=== PATIENT | male | born 1950 | race African-American/Black ===

== ENCOUNTER → 2017-05-04 | Outpatient (CLI) | payer MEDICARE | END | disposition home or self-care (01) | LOC: LAB 08:34 | PROVIDERS: ATTEND Internal Medicine Endocrinology, Diabetes & Metabolism | DX: E10.42 Type 1 diabetes mellitus with diabetic polyneuropathy (principal) | CPT/HCPCS: 36415; 82947; 84681 ==

== ENCOUNTER → 2018-07-15 | Outpatient (CLI) | payer MEDICARE ==
--- NOTE | 2018-07-15 17:58 | RAD ---
Bilateral lower extremity arterial ultrasound, 07/15/2018: HISTORY: Peripheral vascular disease, nonhealing right foot wound Duplex evaluation of the major arteries in both lower extremities was performed including grayscale, color-flow and spectral Doppler analysis. There are mild scattered atherosclerotic plaques bilaterally. The right common femoral artery demonstrates a biphasic Doppler waveform. The right superficial femoral and popliteal Doppler waveforms are predominantly triphasic. No significant focal velocity acceleration is seen to suggest high-grade femoral-popliteal stenosis. A patent posterior tibial artery is present in the right lower leg demonstrating monophasic Doppler waveforms. A patent peroneal artery could not be visualized in the right lower leg. The anterior tibial Doppler waveform is biphasic while the right dorsalis pedis artery demonstrates a monophasic Doppler waveform. On the left, the common femoral Doppler waveform is biphasic. The left superficial femoral and popliteal Doppler waveforms are predominantly triphasic. No significant focal velocity acceleration is seen in these regions to suggest high-grade femoral-popliteal stenosis. The posterior tibial artery in the left lower leg is patent demonstrating a biphasic Doppler waveform proximally, and a monophasic Doppler waveforms distally. A patent peroneal artery could not be visualized in the left lower leg. The left anterior tibial and dorsalis pedis arteries are patent demonstrating monophasic Doppler waveforms. IMPRESSION: 1. Mild scattered atherosclerotic plaquing. 2. No duplex evidence of high-grade femoral-popliteal arterial stenosis. 3. Nonvisualization of the peroneal arteries in both lower legs suggesting occlusions. 4. Patent posterior tibial, anterior tibial and dorsalis pedis arteries bilaterally with mild degradation of their Doppler waveforms. Electronically signed by: Amos Solis MD (07/15/2018 5:55 PM) [facility]
== END | disposition home or self-care (01) ==
LOC: US 13:59
PROVIDERS: ATTEND Podiatrist Foot & Ankle Surgery
DX: S91.301D Unspecified open wound, right foot, subsequent encounter (principal); I70.291 Other atherosclerosis of native arteries of extremities, right leg; E11.9 Type 2 diabetes mellitus without complications; X58.XXXD Exposure to other specified factors, subsequent encounter
CPT/HCPCS: 93925

== ENCOUNTER → 2018-07-22 | Outpatient (CLI) | payer MEDICARE ==
[2018-07-22 12:30] LABS: ALBUMIN 4.1 g/dL (3.4-5.0); C-REACTIVE PROTEIN 2.7 mg/L (0-3.3); CALCIUM 9.4 mg/dL (8.5-10.1); CREATININE 1.3 mg/dL (0.7-1.3); GFR 66.8; POTASSIUM 4.4 mmol/L (3.5-5.1); TOTAL BILIRUBIN 0.7 mg/dL (0.2-1.0); TOTAL PROTEIN 8.2 g/dL (6.4-8.2)
== END | disposition home or self-care (01) ==
LOC: PMGWOUND 09:59
PROVIDERS: ATTEND Emergency Medicine Undersea and Hyperbaric Medicine
DX: E11.621 Type 2 diabetes mellitus with foot ulcer (principal); L97.512 Non-pressure chronic ulcer of other part of right foot with fat layer exposed; E11.51 Type 2 diabetes mellitus with diabetic peripheral angiopathy without gangrene; I10 Essential (primary) hypertension; K21.9 Gastro-esophageal reflux disease without esophagitis; I25.10 Atherosclerotic heart disease of native coronary artery without angina pectoris
CPT/HCPCS: 11042; 36415; 80053; 84134; 85651; 86140

== ENCOUNTER → 2018-07-29 | Outpatient (CLI) | payer MEDICARE | END | disposition home or self-care (01) | LOC: PMGWOUND 11:31 | PROVIDERS: ATTEND Emergency Medicine Undersea and Hyperbaric Medicine | DX: E11.621 Type 2 diabetes mellitus with foot ulcer (principal); L97.512 Non-pressure chronic ulcer of other part of right foot with fat layer exposed; E11.51 Type 2 diabetes mellitus with diabetic peripheral angiopathy without gangrene; I10 Essential (primary) hypertension; K21.9 Gastro-esophageal reflux disease without esophagitis; I25.10 Atherosclerotic heart disease of native coronary artery without angina pectoris | CPT/HCPCS: 93923; 99214; G0463 ==

== ENCOUNTER → 2018-08-05 | Outpatient (CLI) | payer MEDICARE | END | disposition home or self-care (01) | LOC: PMGWOUND 09:02 | PROVIDERS: ATTEND Emergency Medicine Undersea and Hyperbaric Medicine | DX: E10.621 Type 1 diabetes mellitus with foot ulcer (principal); L97.512 Non-pressure chronic ulcer of other part of right foot with fat layer exposed; E10.51 Type 1 diabetes mellitus with diabetic peripheral angiopathy without gangrene; L84 Corns and callosities; I10 Essential (primary) hypertension; K21.9 Gastro-esophageal reflux disease without esophagitis; I25.10 Atherosclerotic heart disease of native coronary artery without angina pectoris | CPT/HCPCS: 99213 ==

== ENCOUNTER 2018-08-12 08:00 | Emergency (ER) | payer MEDICARE ==
[~2018-08-12] VITALS: Ht 182.9 cm; Wt 98.9 kg
--- NOTE | 2018-08-12 10:06 | PHYS DOC ---
Past Medical History Past Medical History: CAD, Diabetes-Type II, Hypertension, Vascular Disease, Other Past Surgical History: Appendectomy, Knee Replacement, Other Additional Past Surgical Histo: RIGHT FOOT PARTIAL AMPUTATION,STENT RIGHT LEG Alcohol Use: Occasionally Drug Use: None Adult General Chief Complaint Chief Complaint: BLOOD SUGAR PROBLEM [facility] HPI Patient is a 67 year old [f__sex] who presents with [] Review of Systems Review of Systems Constitutional: Denies fever or chills [] Eyes: Denies change in visual acuity, redness, or eye pain [] HENT: Denies nasal congestion or sore throat [] Respiratory: Denies cough or shortness of breath [] Cardiovascular: No additional information not addressed in HPI [] GI: Denies abdominal pain, nausea, vomiting, bloody stools or diarrhea [] : Denies dysuria or hematuria [] Musculoskeletal: Denies back pain or joint pain [] Integument: Denies rash or skin lesions [] Neurologic: Denies headache, focal weakness or sensory changes [] Endocrine: Denies polyuria or polydipsia [] All other systems were reviewed and found to be within normal limits, except as documented in this note. Allergies Allergies Allergies Coded Allergies Type Severity Reaction Last Updated Verified No Known Drug Allergies 06/17/14 No Physical Exam Physical Exam Constitutional: Well developed, well nourished, no acute distress, non-toxic appearance. [] HENT: Normocephalic, atraumatic, bilateral external ears normal, oropharynx moist, no oral exudates, nose normal. [] Eyes: PERRLA, EOMI, conjunctiva normal, no discharge. [] Neck: Normal range of motion, no tenderness, supple, no stridor. [] Cardiovascular:Heart rate regular rhythm, no murmur [] Lungs & Thorax: Bilateral breath sounds clear to auscultation [] Abdomen: Bowel sounds normal, soft, no tenderness, no masses, no pulsatile masses. [] Skin: Warm, dry, no erythema, no rash. [] Back: No tenderness, no CVA tenderness. [] Extremities: No tenderness, no cyanosis, no clubbing, ROM intact, no edema. [] Neurologic: Alert and oriented X 3, normal motor function, normal sensory function, no focal deficits noted. [] Psychologic: Affect normal, judgement normal, mood normal. [] Current Patient Data Vital Signs Vital Signs Date Time Temp Pulse Resp B/P (MAP) Pulse Ox O2 Delivery O2 Flow Rate FiO2 08/12/18 08:09 97.7 101 24 155/75 (101) 98 Room Air 97.7 Lab Values Laboratory Tests Test 08/12/18 08:08 Glucose (Fingerstick) 165 mg/dL (70-99) H EKG EKG [] Radiology/Procedures Radiology/Procedures [] Course & Med Decision Making Course & Med Decision Making Pertinent Labs and Imaging studies reviewed. (See chart for details) [] Dragon Disclaimer Dragon Disclaimer This electronic medical record was generated, in whole or in part, using a voice recognition dictation system. Departure Departure Impression: Primary Impression: Complication of insulin pump Disposition: 01 HOME, SELF-CARE Condition: STABLE Referrals: HALI FRANZ MD (PCP) Patient Instructions: Insulin Pumps Additional Instructions: Continue to monitor your blood sugars closely throughout the day today. 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 RAMBO MONTERROSO APRN Aug 12, 2018 10:06
[2018-08-12 10:10] VITALS: BP 137/60
== END 2018-08-12 10:30 | disposition home or self-care (01) ==
LOC: ER 08:00
DX: T85.898A Other specified complication of other internal prosthetic devices, implants and grafts, initial encounter (principal); E11.649 Type 2 diabetes mellitus with hypoglycemia without coma; I10 Essential (primary) hypertension; I25.10 Atherosclerotic heart disease of native coronary artery without angina pectoris; Z79.4 Long term (current) use of insulin; Z95.5 Presence of coronary angioplasty implant and graft; Z90.89 Acquired absence of other organs; Z86.79 Personal history of other diseases of the circulatory system; Y82.8 Other medical devices associated with adverse incidents; Y92.89 Other specified places as the place of occurrence of the external cause
CPT/HCPCS: 82962; 99284

== ENCOUNTER → 2018-08-12 | Outpatient (CLI) | payer MEDICARE ==
[2018-08-12 08:09] VITALS: BP 155/75
== END ==
LOC: PMGWOUND 10:44
PROVIDERS: ATTEND Emergency Medicine Undersea and Hyperbaric Medicine
DX: E10.621 Type 1 diabetes mellitus with foot ulcer (principal); L97.512 Non-pressure chronic ulcer of other part of right foot with fat layer exposed; E10.51 Type 1 diabetes mellitus with diabetic peripheral angiopathy without gangrene; L84 Corns and callosities; I10 Essential (primary) hypertension; K21.9 Gastro-esophageal reflux disease without esophagitis; I25.10 Atherosclerotic heart disease of native coronary artery without angina pectoris
CPT/HCPCS: 99213

== ENCOUNTER → 2018-11-11 | Outpatient (CLI) | payer MEDICARE ==
[~2018-11-11] MED LIST: CLOP75TA PO; LINZESS290 MCG PO; LISI-130 PO; PANT20TA2 PO; TAMS0.4C2 PO
[2018-11-11 10:10] VITALS: BP 152/72
== END | disposition home or self-care (01) ==
LOC: PMGWOUND 11:08
PROVIDERS: ATTEND Emergency Medicine Undersea and Hyperbaric Medicine
DX: E11.621 Type 2 diabetes mellitus with foot ulcer (principal); L97.513 Non-pressure chronic ulcer of other part of right foot with necrosis of muscle; L97.412 Non-pressure chronic ulcer of right heel and midfoot with fat layer exposed; E11.51 Type 2 diabetes mellitus with diabetic peripheral angiopathy without gangrene; E11.65 Type 2 diabetes mellitus with hyperglycemia; L84 Corns and callosities; I10 Essential (primary) hypertension; F41.9 Anxiety disorder, unspecified; E78.5 Hyperlipidemia, unspecified; I25.10 Atherosclerotic heart disease of native coronary artery without angina pectoris; K21.9 Gastro-esophageal reflux disease without esophagitis; Z79.4 Long term (current) use of insulin
CPT/HCPCS: 10060; 97597

== ENCOUNTER 2020-04-07 16:28 | Emergency (ER) | payer MEDICARE ==
[~2020-04-07] VITALS: Ht 182.9 cm; Wt 90.9 kg
[2020-04-07] MEDS ORDERED: traMADol 50 MG TABLET PO ONE (17:15)
--- NOTE | 2020-04-07 17:17 | PHYS DOC ---
Past Medical History Past Medical History: CAD, Diabetes-Type I, Hypertension, Vascular Disease Past Surgical History: Appendectomy, Other Additional Past Surgical Histo: RIGHT FOOT PARTIAL AMPUTATION,STENT RIGHT LEG, RIGHT KNEE SCOPE Smoking Status: Never Smoker Alcohol Use: Occasionally Drug Use: None General Adult EDM: Chief Complaint: LOWER EXT PAIN HPI: HPI: Patient is a 69 year old [male patient who presents with left foot pain. Patient states that he has some diabetic foot ulcers on his toes, which started over the last couple days. States he talk to his primary care provider earlier today, had some lab work done, and a sono gram of his left lower leg. States he continued has discomfort, so his primary care advised him to go to the ER. Patient states that he has been walking on his leg and foot as normal. Does have some discomfort. States that his primary care provider gave him a pain pill, but it seem to help. Denies any fever recently. States his blood sugars have been well controlled recently. States he has been using a gel foam on his digits recently, he is concerned and does not want to have another amputation of his left foot, as he had on his right foot a year ago Review of Systems: Review of Systems: Constitutional: Denies fever or chills. [] Eyes: Denies change in visual acuity. [] HENT: Denies nasal congestion or sore throat. [] Respiratory: Denies cough or shortness of breath. [] Cardiovascular: Denies chest pain or edema. [] GI: Denies abdominal pain, nausea, vomiting, bloody stools or diarrhea. [] : Denies dysuria. [] Musculoskeletal: Denies back pain or joint pain reports discomfort to left foot. And digits. [] Integument: Denies rash. Does report lesions on great toe second toe and third toe of left foot [] Neurologic: Denies headache, focal weakness or sensory changes. [] Endocrine: Denies polyuria or polydipsia. [] Lymphatic: Denies swollen glands. [] Psychiatric: Denies depression or anxiety. [] Heart Score: Risk Factors: Risk Factors: DM, Current or recent (<one month) smoker, HTN, HLP, family history of CAD, obesity. Risk Scores: Score 0 - 3: 2.5% MACE over next 6 weeks - Discharge Home Score 4 - 6: 20.3% MACE over next 6 weeks - Admit for Clinical Observation Score 7 - 10: 72.7% MACE over next 6 weeks - Early Invasive Strategies Current Medications: Current Medications Medications (Trade) Dose Ordered Sig/Dave Start Time Stop Time Status Last Admin Dose Admin Tramadol HCl (Ultram) 50 mg 1X ONCE 04/07/20 17:15 04/07/20 17:16 UNV Allergies: Allergies: Allergies Coded Allergies Type Severity Reaction Last Updated Verified No Known Drug Allergies 11/11/18 No Physical Exam: PE: Constitutional: Well developed, well nourished, no acute distress, non-toxic appearance. [] Cardiovascular:Heart rate regular rhythm, no murmur [] Lungs & Thorax: Bilateral breath sounds clear to auscultation [] Abdomen: Bowel sounds normal, soft, no tenderness, no masses, no pulsatile masses. [] Skin: Warm, dry, no erythema, no rash. Left great toe with approximately 3 mm x 6 mm lesion, second toe with 2 mm x 2 mm lesion, third toe with 1 mm x 3 mm laceration. Erythematous base without surrounding swelling. No tenderness. No active bleeding noted. [] Back: No tenderness, no CVA tenderness. [] Extremities: No tenderness, no cyanosis, no clubbing, ROM intact, no edema. Capillary refill present. Distal foot does feel minimally cooler compared to base of foot. Pedal pulse intact. negative Homans sign to left leg. Right BKA. [] Neurologic: Alert and oriented X 3, normal motor function, normal sensory function, no focal deficits noted. [] Psychologic: Affect normal, judgement normal, mood normal. [] Current Patient Data: Vital Signs: Vital Signs Date Time Temp Pulse Resp B/P (MAP) Pulse Ox O2 Delivery O2 Flow Rate FiO2 04/07/20 16:30 99.3 87 14 159/72 (101) 99 Room Air 99.3 EKG: EKG: [] Radiology/Procedures: Radiology/Procedures: No acute fracture or dislocation of the of the left foot is seen. Mild to moderate degenerative changes are seen involving the left ankle joint resting of subchondral sclerosis and associated osteophyte formation. Mild to moderate degenerative changes are seen involving the medial aspect of the subtalar joint. Mild to moderate degenerative changes are seen throughout the talonavicular mid tarsal joints. Mild to moderate degenerative changes are seen involving the tarsal metatarsal joints and scattered throughout the MTP and interphalangeal joints. Moderate enthesophyte formation seen involving the plantar aspect of the posterior left calcaneus. There is no CT evidence of osteomyelitis involving the left foot. Extensive calcification of the distal posterior tibial and peroneal arteries and their branches is noted. IMPRESSION: Degenerative changes are seen involving the left foot as discussed above. No acute osseous abnormality is seen. Electronically signed by: Ramon Carlos MD (04/07/2020 5:36 PM) [id number] [] Course & Med Decision Making: Course & Med Decision Making Pertinent Labs and Imaging studies reviewed. (See chart for details) [Discussed lab findings and imaging findings without noted concerns. Believed due to chronic venous insufficiency and diabetic peripheral neuropathy Patient had ultrasound earlier today of leg and foot, awaiting results with PCP Will try short course of neuropathic medications, patient currently taking oxycodone 10 mg at home from PCP] Deondre Disclaimer: Dragon Disclaimer: This electronic medical record was generated, in whole or in part, using a voice recognition dictation system. Departure Departure Impression: Primary Impression: Peripheral neuropathic pain Disposition: 01 HOME, SELF-CARE Condition: GOOD Referrals: HALI FRANZ MD (PCP) Patient Instructions: Diabetic Neuropathy Additional Instructions: As we discussed, take the gabapentin as prescribed. Take your home pain medications as prescribed as well. You may consider using a lotion on your toes for the dryness, consider one called Aquaphor. Continue using the other products you have been using on your sores on your toes. Follow-up with your primary care provider in the next week. Scripts Gabapentin (GABAPENTIN) 300 Mg Capsule 300 MG PO TID for NEUROGENIC PAIN for 14 Days, #42 CAP Prov: REGLA MURCIA APRN 04/07/20 Justicifation of Admission Dx: Justifications for Admission: Justification of Admission Dx: N/A REGLA MURCIA APRN Apr 07, 2020 17:17
[2020-04-07 17:29] LABS: BASO # 0.1 x10^3/uL (0.0-0.2); BASO % 1 % (0-3); EOS % 1 % (0-3); HEMOGLOBIN 13.1 g/dL (13.0-17.5); LYMPH # 2.5 x10^3/uL (1.0-4.8); LYMPH % 25 % (24-48); MEAN CORPUSCULAR HEMOGLOBIN 32 pg (25-35); MEAN CORPUSCULAR HGB CONC 35 g/dL (31-37); MEAN CORPUSCULAR VOLUME 93 fL (79-100); MONO # 1.4 x10^3/uL (0.0-1.1); MONO % 14 % (0-9); NEUT # 5.9 x10^3/uL (1.8-7.7); NEUT % 59 % (31-73); PLATELET COUNT 271 x10^3/uL (140-400); RED BLOOD COUNT 4.08 x10^6/uL (4.30-5.70); RED CELL DISTRIBUTION WIDTH 13.8 % (11.5-14.5)
[2020-04-07] MEDS ORDERED: MORPHINE SULFATE 2 MG/ML VIAL. IV ONE (17:30)
--- NOTE | 2020-04-07 17:39 | RAD ---
CT scan of the left foot without contrast 04/07/2020 TECHNIQUE: Left foot pain. History of osteomyelitis with amputations involving the right foot. TECHNIQUE: Unenhanced, contiguous, 0.625 mm axial sections were obtained through the left foot. 2 mm sagittal, coronal and axial images were obtained. One or more of the following individualized dose reduction techniques were utilized for this study: 1. Automated exposure control. 2. Adjustment of the mA and/or kV according to patient size. 3. Use of iterative reconstruction technique. FINDINGS: No previous imaging studies are available for comparison. No acute fracture or dislocation of the of the left foot is seen. Mild to moderate degenerative changes are seen involving the left ankle joint resting of subchondral sclerosis and associated osteophyte formation. Mild to moderate degenerative changes are seen involving the medial aspect of the subtalar joint. Mild to moderate degenerative changes are seen throughout the talonavicular mid tarsal joints. Mild to moderate degenerative changes are seen involving the tarsal metatarsal joints and scattered throughout the MTP and interphalangeal joints. Moderate enthesophyte formation seen involving the plantar aspect of the posterior left calcaneus. There is no CT evidence of osteomyelitis involving the left foot. Extensive calcification of the distal posterior tibial and peroneal arteries and their branches is noted. IMPRESSION: Degenerative changes are seen involving the left foot as discussed above. No acute osseous abnormality is seen. Electronically signed by: Ramon Carlos MD (04/07/2020 5:36 PM) [id number]
[2020-04-07 18:12] LABS: CALCIUM 8.3 mg/dL (8.5-10.1); CREATININE 1.3 mg/dL (0.7-1.3); GFR 66.4; POTASSIUM 4.2 mmol/L (3.5-5.1)
[2020-04-07 18:41] VITALS: BP 132/61
[2020-04-07] MEDS ORDERED: GABA300C18 PO (19:37)
== END 2020-04-07 19:46 | disposition home or self-care (01) ==
LOC: ER 16:28
DX: E10.42 Type 1 diabetes mellitus with diabetic polyneuropathy (principal); E10.621 Type 1 diabetes mellitus with foot ulcer; L97.529 Non-pressure chronic ulcer of other part of left foot with unspecified severity; I10 Essential (primary) hypertension; I25.10 Atherosclerotic heart disease of native coronary artery without angina pectoris; Z95.5 Presence of coronary angioplasty implant and graft
CPT/HCPCS: 36415; 73700; 80048; 83605; 84550; 85025; 96374; 99285; J2270

== ENCOUNTER 2020-04-14 16:56 | Inpatient (IN) | payer MEDICARE ==
[~2020-04-14] VITALS: Ht 182.9 cm; Wt 95.0 kg
--- NOTE | 2020-04-14 12:30 | NUR ---
Wound Care Wound Type/Assessment: Pt returned to [facility] wound clinic today after a one year hiatus. He was last seen here in April 2019 for Right BKA. Pt presents today with Left great and second toe DFUs, present for approximately 1-2 weeks. Pt is unsure of cause, but thinks they may have developed from ill-fitting shoes. Pt was seen by Dr. Ceja last week who ordered a CT, placed pt on Doxycycline and sent referral to Cardiology for LLE vascular consult. Pt's left dorsal great toe is dusky benz and red, macerated with a moderate amount of odor. L second toe appears to be dry blood blister, stable. Left great toe debrided in clinic by Dr. Panda, wound with muscle necrosis, no bleeding in base, very unhealthy appearing, and dorsal foot dark red and edematous. Tissue culture obtained during debridement, Dr. Panda spoke to pt about admission for surgical debridement by Vascular, and IV Abx. Treatment Recommendations/Plan: Admit for left great toe infection. Surgical debridement, IV Abx, further imaging. Education provided: to pt re: Diabetic foot infection, course of treatment, etc. Offloading surface/device: open toe shoe Recommended Referrals/Tests: Arterial work-up of LLE, imaging of L foot Discharge Recommendations for dressings: applied Iodoflex to wound bed today, defer to Vascular surgeon for dressings post-op.
[~2020-04-14 16:56] MED LIST changes: +GABA300C18 PO
[2020-04-14] MEDS ORDERED: ACETAMINOPHEN 325 MG TABLET. PO PRN (17:15)
[2020-04-14] MEDS ORDERED: ONDANSETRON PF 4 MG/2 ML VIAL. IV PRN (17:15)
[2020-04-14] MEDS ORDERED: DEXTROSE 50% 25 GM / 50ML DISP.SYRIN. IV PRN (17:15)
--- NOTE | 2020-04-14 17:33 | PDOC1 ---
History and Physical Date of Admission Date of Admission DATE: 04/14/20 TIME: 17:08 Identification/Chief Complaint Chief Complaint Left great toe wound Source Source: Patient History of Present Illness History of Present Illness Mr Velazquez is a 69yo M w/ PMHx HTN, DM2 (A1c 9), s/p prior R BKA who is directly admitted from wound care center for worsening left great toe ulcer. His left toe had a blister approximately 12 days ago, saw podiatry and was placed on doxycycline. And referred to outpatient wound care where he was previously seen in 2019. Wound care they noted they were able to debride a significant amount of devitalized tissue and had poor blood flow were concerned for gangrene and called for direct admission. His left second toe also has a diabetic ulcer. Past Medical History Cardiovascular: CAD, HTN, Hyperlipidemia Pulmonary: Bronchitis GI: No pertinent hx Heme/Onc: Anemia NOS Hepatobiliary: No pertinent hx Psych: No pertinent hx Rheumatologic: No pertinent hx Infectious disease: No pertinent hx Renal/: No pertinent hx Endocrine: Diabetes Past Surgical History Past Surgical History: Appendectomy, Tonsillectomy, Other Family History Family History: Diabetes, High Cholestrol, Hypertension Social History ALCOHOL: none Drugs: None Current Medications Current Medications Active Scripts Active Gabapentin 300 Mg Capsule 300 Mg PO TID 14 Days Reported Protonix (Pantoprazole Sodium) 20 Mg Tablet.dr 40 Mg PO DAILY Linzess (Linaclotide) 290 Mcg Capsule 290 Mcg PO DAILY07 Lisinopril 40 Mg Tablet 1 Tab PO DAILY Tamsulosin Hcl 0.4 Mg Cap.er.24h 1 Cap PO DAILY Clopidogrel (Clopidogrel Bisulfate) 75 Mg Tablet 1 Tab PO DAILY Allergies Allergies: Coded Allergies: No Known Drug Allergies (Unverified , 11/11/18) VTE Prophylaxis Ordered VTE Prophylaxis Devices: Contraindicated VTE Pharmacological Prophylaxi: Yes Assessment/Plan Assessment/Plan A/P: Left DM foot wound - Culture taken from wound center, sent down to lab. Will consult Vascular Surgery, ID, Wound care Diabetes type 2 on insulin pump with hemoglobin A1c 8.4, uncontrolled with target organ damage - he has removed his pump and will be placed on sliding scale and very low dose glargine 10u QHS for now CAD - cardiology to see preoperatively Hypertension - chronic Dyslipidemia - chronic stable s/p BKA on 11/[address] Nain PADRON - ADA diet, npo after midnight PPX - heparin, hold in AM FULL CODE Dispo - inpatient Justicifation of Admission Dx: Justifications for Admission: Justification of Admission Dx: Yes KATARINA RODRIGUEZ MD Apr 14, 2020 17:33
[2020-04-14 17:36] VITALS: BP 142/60
--- NOTE | 2020-04-14 17:55 | PDOC ---
Provider Note Provider Note Full note to follow. Called by Dr. Panda regarding patient from wound care clinic. Spoke to Dr. Barcenas/Nain, will plan for aortogram with run-off tomorrow if creatinine ok to rule out any significant arterial insufficiency. Prior RLE eval in 2019 w/o significant disease. Thanks. Justicifation of Admission Dx: Justifications for Admission: Justification of Admission Dx: Yes Comments: KARLA Phillip MD Apr 14, 2020 17:55
[2020-04-14] MEDS ORDERED: INSULIN LISPRO 300 UNITS/3 ML VIAL. SQ SCH (21:00)
[2020-04-14] MEDS ORDERED: INSULIN GLARGINE SYRINGE. SQ SCH (21:00)
[2020-04-14] MEDS ORDERED: GABAPENTIN 300 MG CAPSULE. PO SCH (21:00)
[2020-04-14] MEDS ORDERED: PSYLLIUM HUSK (SUGAR FREE) 1 PKT PACKET PO SCH (21:00)
[2020-04-14] MEDS ORDERED: HEPARIN for SUB-Q USE 5,000 UNIT/ML VIAL. SQ SCH (22:00)
[2020-04-15] MEDS ORDERED: PANTOPRAZOLE 40 MG TABLET.DR. PO SCH (07:30)
[2020-04-15] MEDS ORDERED: LUBIPROSTONE 24 MCG CAPSULE PO SCH (08:00)
[2020-04-15] MEDS ORDERED: LISINOPRIL 20 MG TABLET PO SCH (09:00)
[2020-04-15] MEDS ORDERED: TAMSULOSIN 0.4 MG CAP.ER.24H. PO SCH (09:00)
[2020-04-15] MEDS ORDERED: CLOPIDOGREL BISULFATE 75 MG TABLET PO SCH (09:00)
[2020-04-16] MEDS ORDERED: AMOX1TAB11 PO (13:41)
[2020-04-16] MEDS ORDERED: ASPI-612 PO (13:41)
[2020-04-16] MEDS ORDERED: INSU100V8 SQ (13:45)
[2020-04-16] MEDS ORDERED: INSU100V35 SQ (13:45)
== END 2020-04-14 18:04 | disposition short-term general hospital (02) | DRG 639 ==
LOC: 4 NORTH 16:56
PROVIDERS: ADMIT Internal Medicine; ATTEND Internal Medicine
DX: E11.621 Type 2 diabetes mellitus with foot ulcer (principal); E78.5 Hyperlipidemia, unspecified; I10 Essential (primary) hypertension; I25.10 Atherosclerotic heart disease of native coronary artery without angina pectoris; Z96.41 Presence of insulin pump (external) (internal); L97.509 Non-pressure chronic ulcer of other part of unspecified foot with unspecified severity; Z79.4 Long term (current) use of insulin; Z82.49 Family history of ischemic heart disease and other diseases of the circulatory system; Z83.3 Family history of diabetes mellitus; Z89.511 Acquired absence of right leg below knee; Z90.49 Acquired absence of other specified parts of digestive tract
CPT/HCPCS: 82962; J1815; G0378

== ENCOUNTER → 2020-04-29 | Outpatient (CLI) | payer MEDICARE ==
[2020-04-16 15:00] VITALS: BP 148/65
[~2020-04-29] MED LIST changes: +AMOX1TAB11 PO; +ASPI-886 PO; +ERTA1VIA16 IJ; +HYDR-2759 PO; +INSU100C SQ; +INSU100V35 SQ; +INSU100V37 SQ; +INSU100V6 SQ; +INSU100V8 SQ
== END | disposition home or self-care (01) ==
LOC: LAB 14:07
PROVIDERS: ATTEND Surgery
DX: Z11.59 Encounter for screening for other viral diseases (principal)
CPT/HCPCS: U0003-CS

== ENCOUNTER 2020-05-07 07:32 | Day surgery (SDC) | payer MEDICARE ==
[~2020-05-07] VITALS: Ht 182.9 cm; Wt 88.0 kg
[~2020-05-07 07:32] MED LIST changes: +ASPI-612 PO; -ASPI-886 PO; +BACITRACIN 50,000 UNIT in IV NORMAL SALINE 500ML BAG 500 ML IRR ONE; -ERTA1VIA16 IJ; -HYDR-2759 PO; +HYDROmorphone 2 MG/ML VIAL IV PRN; -INSU100C SQ; +IV RINGERS,LACTATED 1000ML 1,000 ML IV SCH; +MORPHINE SULFATE 2 MG/ML VIAL. IV PRN; +ONDANSETRON PF 4 MG/2 ML VIAL. IV PRN; +PROCHLORPERAZINE 10 MG/2 ML VIAL. IV PRN; +fentaNYL PF VIAL 100 MCG/2 ML VIAL IV PRN
[2020-05-07] MEDS ORDERED: PROPOFOL 10 MG/ML (20ML) VIAL. IV ONE (08:11)
[2020-05-07] MEDS ORDERED: DEXAMETHASONE SOD PHOS 4 MG/ML VIAL ONE (08:11)
[2020-05-07] MEDS ORDERED: LIDOCAINE 2% PF 5 ML VIAL. ONE (08:11)
[2020-05-07] MEDS ORDERED: ONDANSETRON PF 4 MG/2 ML VIAL. ONE (08:11)
[2020-05-07] MEDS ORDERED: INSU100C SQ (08:21)
[2020-05-07 08:25] LABS: BASO # 0.1 x10^3/uL (0.0-0.2); BASO % 0 % (0-3); EOS % 0 % (0-3); HEMATOCRIT 32.5 % (39.0-53.0); HEMOGLOBIN 11.1 g/dL (13.0-17.5); LYMPH # 1.8 x10^3/uL (1.0-4.8); LYMPH % 14 % (24-48); MEAN CORPUSCULAR HEMOGLOBIN 31 pg (25-35); MEAN CORPUSCULAR HGB CONC 34 g/dL (31-37); MEAN CORPUSCULAR VOLUME 91 fL (79-100); MONO # 1.9 x10^3/uL (0.0-1.1); MONO % 16 % (0-9); NEUT # 8.5 x10^3/uL (1.8-7.7); NEUT % 69 % (31-73); PLATELET COUNT 421 x10^3/uL (140-400); RED BLOOD COUNT 3.58 x10^6/uL (4.30-5.70); RED CELL DISTRIBUTION WIDTH 12.7 % (11.5-14.5); WHITE BLOOD COUNT 12.3 x10^3/uL (4.0-11.0)
[2020-05-07 08:30] LABS: CALCIUM 8.9 mg/dL (8.5-10.1); CREATININE 1.5 mg/dL (0.7-1.3); GFR 56.3; POTASSIUM 4.2 mmol/L (3.5-5.1)
[2020-05-07] MEDS ORDERED: IV RINGERS,LACTATED 1000ML 1,000 ML IV SCH (08:30)
[2020-05-07] MEDS: INSULIN LISPRO 100 UNIT/ML 3ML VIAL for OP,RR ONLY. SQ PRN ×2 (08:36→10:14)
[2020-05-07] MEDS ORDERED: fentaNYL PF VIAL 100 MCG/2 ML VIAL ONE ×2 (08:53→10:27)
[2020-05-07] MEDS ORDERED: ceFAZolin 2GM PREMIX 2 GM/50 ML BAG IV ONE (09:00)
[2020-05-07] MEDS ORDERED: SEVOFLURANE 61 TO 120 MINUTES. IH ONE (09:24)
--- NOTE | 2020-05-07 09:43 | DISCH ---
DISCHARGE INSTRUCTIONS Condition on Discharge Condition on Discharge: Stable Activity After Discharge Activity Instructions for Disc: Activity as tolerated Other activity instructions: may ambulate with post op shoe Exercise Instruction after Dis: Progress as tolerated Weight Bearing Status after Di: As tolerated Sexual Activity Restrictions: with postop shoe/front off-loading 1/2 shoe Diet after Discharge Diet after Discharge: Diabetic No Calorie Level Diet Texture: Regular Liquid Texture: Thin Liquid Wound Incision Care Wound/Incision Care: Keep wound/cast CDI Other wound/incision instructi: remove dressing in 48, then daily dry gauze dressing changes. Contacting the [facility] after DC Call your doctor for: Concerns you may have Follow-Up Follow up with: Dr. Gillette 2-3 weeks call the office for apointment [phone] Treatment/Equipment after DC Adaptive Equipment Issued: SHARON Myers APRN May 07, 2020 09:43
--- NOTE | 2020-05-07 09:54 | DISCH ---
DISCHARGE INSTRUCTIONS Condition on Discharge Condition on Discharge: Stable Activity After Discharge Activity Instructions for Disc: Activity as tolerated Other activity instructions: may ambulate with post op shoe Exercise Instruction after Dis: Progress as tolerated Weight Bearing Status after Di: As tolerated Sexual Activity Restrictions: strict heel weight bearing with front off-loading 1/2 shoe Diet after Discharge Diet after Discharge: Diabetic No Calorie Level Diet Texture: Regular Liquid Texture: Thin Liquid Wound Incision Care Wound/Incision Care: Keep wound/cast CDI Other wound/incision instructi: remove dressing in 48, then daily dry gauze dressing changes. Contacting the [facility] after DC Call your doctor for: Concerns you may have Follow-Up Follow up with: Dr. Gillette 2-3 weeks call the office for apointment [phone] Treatment/Equipment after DC Adaptive Equipment Issued: SHARON Myers APRN May 07, 2020 09:53
--- NOTE | 2020-05-07 09:59 | OP ---
DATE OF SURGERY: 05/07/2020 VASCULAR SURGERY OPERATIVE REPORT ATTENDING SURGEON: Caridad Goldberg DO. 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 PROCEDURES: 1. Left first toe amputation, including the metatarsal head. 2. Left second toe amputation, including the metatarsal head. ANESTHESIA: General. SPECIMENS: First and second toes, including the metatarsal head. ESTIMATED BLOOD LOSS: 5 mL. COMPLICATIONS: None. PREOPERATIVE INDICATIONS: The patient is a pleasant 69-year-old male who presented and saw my partner, Dr. Hunt, with findings of dry gangrenous changes of the first and second toe on the left. The patient was consented for toe amputation. The patient understood all risks, benefits, and alternatives of the procedure today prior to proceeding with surgery. OPERATIVE PROCEDURE: The patient was brought to the operating suite and placed in supine position. After establishing appropriate anesthesia, the left foot was prepped and draped in sterile fashion. Next, a timeout procedure was performed. It was confirmed that the patient did receive appropriate perioperative antibiotics and the correct operative site was marked and draped. Following this, a left first toe ray amputation incision was made, carried through skin and subcutaneous tissue. This was taken circumferentially around the second toe as well and then both toes were disarticulated from the metatarsal head. Next, the soft tissue was dissected around the first and second metatarsal and then a bone saw was used to divide the first metatarsal followed by the second metatarsal. The sesamoid bones were also sharply excised and removed. Following this, the wound was copiously irrigated with antibiotic-impregnated solution. Hemostasis was also confirmed with Bovie electrocautery. Next, the skin incision was closed using running 3-0 nylon suture followed by sterile dressing. The patient tolerated the procedure well and was transferred to the Postanesthesia Care Unit in stable condition. CARIDAD GOLDBERG DO DR: DENNIS/marbella JOB#: [id number] / [id number]
[2020-05-07] MEDS ORDERED: INSULIN LISPRO 100 UNIT/ML 3ML VIAL for OP,RR ONLY. SQ ONE ×2 (10:30)
[2020-05-07] MEDS ORDERED: HYDROcodone/APAP 5/325MG 1 TAB TABLET ONE (10:33)
[2020-05-07 10:35] VITALS: BP 160/68
[2020-05-07 10:56] LABS: % BANDS 2 % (0-9); % LYMPHS 7 % (24-48); % MONOS 18 % (0-10); % SEGS 73 % (35-66); PLT ESTIMATE ADEQUATE (ADEQUATE)
[2020-05-07] MEDS ORDERED: HYDROcodone/APAP 5/325MG 1 TAB TABLET PO ONE (11:00)
--- NOTE | 2020-05-12 09:16 | PATHOLOGY ---
[facility] Accession Number: [id number] . 01 Material submitted: . toe - LEFT FIRST AND SECOND TOES AND METATARSALS. Modifiers: left, first, second . 01 Clinical history: . Necrotic ulcer left first and second toes . 02 Diagnosis: Left first and second toes and detached first and second metatarsal heads, amputation: - Gangrenous necrosis and acute cellulitis of first and second toes with focal acute osteomyelitis of first toe. - Focal acute osteomyelitis of distal metatarsal head - proximal amputation margin negative for osteomyelitis. (JPM:maged; 05/11/2020) R 05/11/2020 1555 Local . 02 Electronically signed: . Avi Dang MD, Pathologist NPI- [id number] . 01 Gross description: . The specimen is received in formalin, labeled "Tobi Velazquez Jr., left first and second toes and metatarsals". Received are two amputated digits, which are attached to each other, measuring 7.0 x 4.8 x 3.9 cm in greatest dimensions. The bone margins are smooth and concave in appearance, consistent with disarticulation. The bone and soft tissue margins are inked as follows: Toe 1-black, toe 2-blue. The epidermal surfaces of each toe are dusky dowell-brown to brown-black and necrotic in appearance. The nail is not grossly identified on the first toe. The nail on the second toe is light lee to dowell-brown and thickened in appearance. The specimen is submitted representatively as follows: . A1 horizontal cross-section through toe 1, following decalcification A2 longitudinal cross-section through bone margin of toe 1, following decalcification A3 horizontal cross-section through toe 2, following decalcification A4 longitudinal cross section through bone margin of toe 2, following decalcification. . Also received within the specimen container are two metatarsals measuring 3.4 x 2.6 x 2.6 and 3.6 x 2.1 x 1.5 cm in greatest dimensions. The bone margins are blunt in appearance, consistent with transection. The bone margins are inked as follows: Larger metatarsal-black, smaller metatarsal-blue. The specimen is submitted representatively as follows: . A5 longitudinal cross-section through bone margin of larger metatarsal, following decalcification A6 longitudinal cross-section through bone margin of smaller metatarsal, following decalcification. (CAA; 05/10/2020) QAC/QAC 05/11/2020 1554 Local . 02 Pathologist provided ICD-10: M86.172, L03.032, I96 . 02 CPT . 518291, [id number] Specimen Comment: A courtesy copy of this report has been sent to [phone], [phone] Specimen Comment: [id number] Specimen Comment: Report sent to / DR FRANZ Performed at: 01 [facility] [address], [place] [id number] MD Earl Lopes MD Phone: [phone] Performed at: 02 [facility] [address] [place], [place] [id number] MD Avi Dang MD Phone: [phone]
[2020-05-18] MEDS ORDERED: ERTA1VIA16 IJ (14:06)
[2020-05-18] MEDS ORDERED: HYDR-2759 PO (14:06)
== END 2020-05-07 12:30 | disposition home or self-care (01) ==
LOC: SURG 07:32
PROVIDERS: ATTEND Surgery
DX: E11.52 Type 2 diabetes mellitus with diabetic peripheral angiopathy with gangrene (principal); I96 Gangrene, not elsewhere classified; M86.8X7 Other osteomyelitis, ankle and foot; Z89.511 Acquired absence of right leg below knee
CPT/HCPCS: 28810; 36415; 80048; 82962; 85007; 85025; 88305; 88311; A7015; J0690; J1100; J1815; J2405; J2704; J3010; J7040; A4461

== ENCOUNTER 2020-05-12 12:23 | Inpatient (IN) | payer MEDICARE ==
[~2020-05-12] VITALS: Ht 182.9 cm; Wt 91.6 kg
[~2020-05-12 12:23] MED LIST changes: -BACITRACIN 50,000 UNIT in IV NORMAL SALINE 500ML BAG 500 ML IRR ONE; -HYDROmorphone 2 MG/ML VIAL IV PRN; +INSU100C SQ; -IV RINGERS,LACTATED 1000ML 1,000 ML IV SCH; -MORPHINE SULFATE 2 MG/ML VIAL. IV PRN; -ONDANSETRON PF 4 MG/2 ML VIAL. IV PRN; -PROCHLORPERAZINE 10 MG/2 ML VIAL. IV PRN; -fentaNYL PF VIAL 100 MCG/2 ML VIAL IV PRN
[2020-05-12 13:24] LABS: BASO # 0.1 x10^3/uL (0.0-0.2); BASO % 0 % (0-3); EOS % 0 % (0-3); HEMATOCRIT 32.7 % (39.0-53.0); HEMOGLOBIN 10.7 g/dL (13.0-17.5); LYMPH # 1.7 x10^3/uL (1.0-4.8); LYMPH % 8 % (24-48); MEAN CORPUSCULAR HEMOGLOBIN 30 pg (25-35); MEAN CORPUSCULAR HGB CONC 33 g/dL (31-37); MEAN CORPUSCULAR VOLUME 90 fL (79-100); MONO # 1.9 x10^3/uL (0.0-1.1); MONO % 9 % (0-9); NEUT # 17.3 x10^3/uL (1.8-7.7); NEUT % 82 % (31-73); PLATELET COUNT 532 x10^3/uL (140-400); RED BLOOD COUNT 3.62 x10^6/uL (4.30-5.70); RED CELL DISTRIBUTION WIDTH 13.4 % (11.5-14.5)
[2020-05-12] MEDS ORDERED: PIPERACILLIN/TAZOBACTAM 3.375 GM in IV NORMAL SALINE 50ML 50 ML IV ONE ×2 (13:30→14:30)
[2020-05-12 13:50] LABS: ALBUMIN 2.4 g/dL (3.4-5.0); ALBUMIN/GLOBULIN RATIO 0.5 (1.0-1.7); CREATININE 1.4 mg/dL (0.7-1.3); TOTAL BILIRUBIN 0.5 mg/dL (0.2-1.0); TOTAL PROTEIN 7.7 g/dL (6.4-8.2)
[2020-05-12 13:54] LABS: CALCIUM 8.6 mg/dL (8.5-10.1)
[2020-05-12] MEDS ORDERED: LORazepam 0.5 MG TABLET PO PRN (14:15)
[2020-05-12] MEDS ORDERED: guaiFENesin ORAL 200 MG/10 ML LIQUID. PO PRN (14:15)
[2020-05-12] MEDS ORDERED: ONDANSETRON PF 4 MG/2 ML VIAL. IV PRN (14:15)
[2020-05-12] MEDS ORDERED: DEXTROSE 50% 25 GM / 50ML DISP.SYRIN. IV PRN (14:15)
--- NOTE | 2020-05-12 14:19 | RAD ---
AP lateral and oblique views of the left foot no comparison. INDICATION: Foot wound. FINDINGS: Patient status post amputation of the first 2 digits at the level of mid metatarsal. There is subcutaneous air. Calcification of the digital arteries suggesting diabetes. There is degenerative change of the toes remain. No obvious bony erosion is identified to suggest osteomyelitis. Surgical date unclear. If surgery is remote consider MRI for abscess/cellulitis given the gas. Surgery was recent this may be normal postoperative finding. Electronically signed by: Jeronimo Garnica MD (05/12/2020 2:16 PM) [id number]
[2020-05-12] MEDS ORDERED: VANCOMYCIN 2 GM in IV NORMAL SALINE 500ML BAG 500 ML IV ONE (14:30)
--- NOTE | 2020-05-12 14:32 | PHYS DOC ---
Past Medical History Past Medical History: CAD, Diabetes-Type I, Hypertension, Vascular Disease Past Surgical History: Appendectomy, Other Additional Past Surgical Histo: RIGHT FOOT PARTIAL AMPUTATION,STENT RIGHT LEG, RIGHT KNEE SCOPE Smoking Status: Never Smoker Alcohol Use: None Drug Use: None General Adult EDM: Chief Complaint: WOUND CHECK HPI: HPI: This is a 69 year old male who presented to the [facility] for HBO treatment due to early gangrenous skin changes to left toe amputation site and was noted to have fever, erythema and bogginess in his foot at the amputation site. The wound care physician evaluated patient and recommended inpatient admission for IV antibiotic. He was brought down here from the [facility]. Patient had amputation of his left great toe and 2rd toe on last Sunday. Review of Systems: Review of Systems: Constitutional: Positive for fever and chills. [] Eyes: Denies change in visual acuity. [] HENT: Denies nasal congestion or sore throat. [] Respiratory: Denies cough or shortness of breath. [] Cardiovascular: Denies chest pain or edema. [] GI: Denies abdominal pain, nausea, vomiting, bloody stools or diarrhea. [] : Denies dysuria. [] Musculoskeletal: Denies back pain, positive for left foot pain and swelling Integument: Denies rash. [] Neurologic: Denies headache, focal weakness or sensory changes. [] Endocrine: Denies polyuria or polydipsia. [] Lymphatic: Denies swollen glands. [] Psychiatric: Denies depression or anxiety. [] Heart Score: Risk Factors: Risk Factors: DM, Current or recent (<one month) smoker, HTN, HLP, family history of CAD, obesity. Risk Scores: Score 0 - 3: 2.5% MACE over next 6 weeks - Discharge Home Score 4 - 6: 20.3% MACE over next 6 weeks - Admit for Clinical Observation Score 7 - 10: 72.7% MACE over next 6 weeks - Early Invasive Strategies Current Medications: Current Medications Medications (Trade) Dose Ordered Sig/Dave Start Time Stop Time Status Last Admin Dose Admin Acetaminophen (Tylenol) 650 mg PRN Q4HRS PRN 05/12/20 14:15 Aspirin (Ecotrin) 81 mg DAILYWBKFT 05/13/20 08:00 UNV Clopidogrel Bisulfate (Plavix) 75 mg DAILY 05/13/20 09:00 UNV Dextrose (Dextrose 50%-Water Syringe) 12.5 gm PRN Q15MIN PRN 05/12/20 14:15 UNV Docusate Sodium (Colace) 100 mg PRN BID PRN 05/12/20 14:15 Gabapentin (Neurontin) 300 mg TID 05/12/20 21:00 UNV Guaifenesin (Robitussin) 200 mg PRN Q4HRS PRN 05/12/20 14:15 Insulin Human Lispro (HumaLOG) 0-7 UNITS TIDWMEALS 05/12/20 17:00 UNV Lisinopril (Prinivil) 40 mg DAILY 05/13/20 09:00 UNV Lorazepam (Ativan) 0.5 mg PRN Q4HRS PRN 05/12/20 14:15 Non-Formulary Medication (Insulin Degludec (Tresiba)) 18 unit HS 05/12/20 21:00 UNV Non-Formulary Medication (Insulin Lispro (Humalog)) 6 unit TIDAC 05/12/20 16:30 UNV Non-Formulary Medication (Pantoprazole Sodium (Protonix)) 40 mg DAILY 05/13/20 09:00 UNV Ondansetron HCl (Zofran) 4 mg PRN Q4HRS PRN 05/12/20 14:15 Piperacillin Sod/ Tazobactam Sod 3.375 gm/Sodium Chloride 50 ml @ 100 mls/hr 1X ONCE 05/12/20 14:30 05/12/20 14:59 Sodium Chloride 1,000 ml @ 100 mls/hr Q10H 05/12/20 14:05 Vancomycin HCl (Vanco Per Pharmacy) 1 each PRN DAILY PRN 05/12/20 14:15 UNV Vancomycin HCl 2 gm/Sodium Chloride 500 ml @ 250 mls/hr 1X ONCE 05/12/20 14:30 05/12/20 16:29 Zolpidem Tartrate (Ambien) 5 mg PRN QHS PRN 05/12/20 14:15 Allergies: Allergies: Allergies Coded Allergies Type Severity Reaction Last Updated Verified No Known Drug Allergies 05/05/20 No Physical Exam: PE: Constitutional: Well developed, well nourished, no acute distress, non-toxic appearance. [] HENT: Normocephalic, atraumatic, bilateral external ears normal, oropharynx moist, no oral exudates, nose normal. [] Eyes: PERRLA, EOMI, conjunctiva normal, no discharge. [] Neck: Normal range of motion, no tenderness, supple, no stridor. [] Cardiovascular:Heart rate regular rhythm, no murmur [] Lungs & Thorax: Bilateral breath sounds clear to auscultation [] Abdomen: Bowel sounds normal, soft, no tenderness, no masses, no pulsatile masses. [] Skin: Warm, dry, no erythema, no rash. [] Back: No tenderness, no CVA tenderness. [] Extremities: left foot is swollen, tender and warm to touch with erythema. amputation sites at left great toe and 2nd toe covered with gauze. Neurologic: Alert and oriented X 3, normal motor function, normal sensory function, no focal deficits noted. [] Psychologic: Affect normal, judgement normal, mood normal. [] Current Patient Data: Labs: Laboratory Tests Test 05/12/20 13:15 White Blood Count 21.0 x10^3/uL (4.0-11.0) H Red Blood Count 3.62 x10^6/uL (4.30-5.70) L Hemoglobin 10.7 g/dL (13.0-17.5) L Hematocrit 32.7 % (39.0-53.0) L Mean Corpuscular Volume 90 fL (79-100) Mean Corpuscular Hemoglobin 30 pg (25-35) Mean Corpuscular Hemoglobin Concent 33 g/dL (31-37) Red Cell Distribution Width 13.4 % (11.5-14.5) Platelet Count 532 x10^3/uL (140-400) H Neutrophils (%) (Auto) 82 % (31-73) H Lymphocytes (%) (Auto) 8 % (24-48) L Monocytes (%) (Auto) 9 % (0-9) Eosinophils (%) (Auto) 0 % (0-3) Basophils (%) (Auto) 0 % (0-3) Neutrophils # (Auto) 17.3 x10^3/uL (1.8-7.7) H Lymphocytes # (Auto) 1.7 x10^3/uL (1.0-4.8) Monocytes # (Auto) 1.9 x10^3/uL (0.0-1.1) H Eosinophils # (Auto) 0.0 x10^3/uL (0.0-0.7) Basophils # (Auto) 0.1 x10^3/uL (0.0-0.2) Platelet Estimate Pending Sodium Level 137 mmol/L (136-145) Potassium Level 4.0 mmol/L (3.5-5.1) Chloride Level 100 mmol/L (98-107) Carbon Dioxide Level 28 mmol/L (21-32) Anion Gap 9 (6-14) Blood Urea Nitrogen 15 mg/dL (8-26) Creatinine 1.4 mg/dL (0.7-1.3) H Estimated GFR (Cockcroft-Gault) 61.0 BUN/Creatinine Ratio 11 (6-20) Glucose Level 369 mg/dL (70-99) H Calcium Level 8.6 mg/dL (8.5-10.1) Total Bilirubin 0.5 mg/dL (0.2-1.0) Aspartate Amino Transferase (AST) 20 U/L (15-37) Alanine Aminotransferase (ALT) 17 U/L (16-63) Alkaline Phosphatase 40 U/L (46-116) L Total Protein 7.7 g/dL (6.4-8.2) Albumin 2.4 g/dL (3.4-5.0) L Albumin/Globulin Ratio 0.5 (1.0-1.7) L Laboratory Tests 05/12/20 13:15 Laboratory Tests 05/12/20 13:15 Vital Signs: Vital Signs Date Time Temp Pulse Resp B/P (MAP) Pulse Ox O2 Delivery O2 Flow Rate FiO2 05/12/20 12:30 98.6 100 16 151/68 (95) 99 Room Air 98.6 EKG: EKG: [] Radiology/Procedures: Radiology/Procedures: [][facility] [address] [place] [address] IMAGING REPORT Signed PATIENT: RAGHU VELÁZQUEZ ACCOUNT: [id number] : 1950 LOCATION: ER AGE: 69 SEX: M EXAM STATUS: REG ER ORD. PHYSICIAN: GRACIE RODRIGUEZ DO REASON: LEFT FOOT WOUND PROCEDURE: FOOT LEFT 3V AP lateral and oblique views of the left foot no comparison. INDICATION: Foot wound. FINDINGS: Patient status post amputation of the first 2 digits at the level of mid metatarsal. There is subcutaneous air. Calcification of the digital arteries suggesting diabetes. There is degenerative change of the toes remain. No obvious bony erosion is identified to suggest osteomyelitis. Surgical date unclear. If surgery is remote consider MRI for abscess/cellulitis given the gas. Surgery was recent this may be normal postoperative finding. Electronically signed by: Jeronimo Garnica MD (05/12/2020 2:16 PM) [id number] DICTATED and SIGNED BY: JERONIMO GARNICA MD DATE: 05/12/20 1416 Course & Med Decision Making: Course & Med Decision Making Pertinent Labs and Imaging studies reviewed. (See chart for details) 69-year-old male with left foot cellulitis and amputation site infection. He wi ll need to be admitted for intravenous antibiotics and surgical debridement. Discussed with Dr. Armstrong who agreed to admit patient. Deondre Disclaimer: Deondre Disclaimer: This electronic medical record was generated, in whole or in part, using a voice recognition dictation system. Departure Departure Impression: Primary Impression: Left foot infection Additional Impression: Infection of toe as complication of amputation Disposition: ADMITTED INPATIENT Admitting Physician: JENNIFER (Dr. Armstrong) Referrals: HALI FRANZ MD (PCP) Justicifation of Admission Dx: Justifications for Admission: Justification of Admission Dx: Yes GRACIE RODRIGUEZ DO May 12, 2020 14:32
[2020-05-12 14:41] LABS: % BASOS 1 % (0-3); % LYMPHS 6 % (24-48); % MONOS 5 % (0-10); % MYELOS 1 % (0-0); % SEGS 87 % (35-66); PLT ESTIMATE INCREASED (ADEQUATE)
[2020-05-12] MEDS: IV NORMAL SALINE 1000ML BAG 1,000 ML IV SCH (14:43)
--- NOTE | 2020-05-12 15:05 | PDOC2 ---
CONSULT Date of Consult Date of Consult DATE: 05/12/20 TIME: 14:48 Reason for Consult Reason for Consult: Left foot amputation site infection with early gangrenous skin changes Referring Physician Referring Physician: Dr. Harrison Identification/Chief Complaint Chief Complaint Fever, left foot redness and swelling s/p 1,2nd toe amputation 05/07/2020 Source Source: Chart review, Patient History of Present Illness Reason for Visit: This is a 69 year old male who presented to the [facility] for HBO treatment due to early gangrenous skin changes to left toe amputation site and was noted to have fever, erythema and bogginess in his foot at the amputation site. He was sent to the ER. We evaluated him there. He does have doppler signal in his PT and DP. Antibiotics have been initiated, Infectious Disease has been consulted. Amputation performed 05/07/2020 as an outpatient. 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 Past Medical History Cardiovascular: CAD, HTN, Hyperlipidemia Pulmonary: Bronchitis GI: No pertinent hx Heme/Onc: Anemia NOS Hepatobiliary: No pertinent hx Psych: No pertinent hx Rheumatologic: No pertinent hx Infectious disease: No pertinent hx Renal/: No pertinent hx Endocrine: Diabetes Past Surgical History Past Surgical History: Appendectomy, Tonsillectomy, Other (left 1,2nd toe amputation) Family History Family History: Diabetes, High Cholestrol, Hypertension Social History ALCOHOL: none Drugs: None Current Medications Current Medications Current Medications Piperacillin Sod/ Tazobactam Sod 3.375 gm/Sodium Chloride 50 ml @ 100 mls/hr 1X ONCE IV Last administered on 05/12/20at 14:23; Start 05/12/20 at 13:30; Stop 05/12/20 at 13:59; Status DC Sodium Chloride 1,000 ml @ 100 mls/hr Q10H IV ; Start 05/12/20 at 14:05 Ondansetron HCl (Zofran) 4 mg PRN Q4HRS PRN IV NAUSEA/VOMITING; Start 05/12/20 at 14:15 Zolpidem Tartrate (Ambien) 5 mg PRN QHS PRN PO INSOMNIA; Start 05/12/20 at 14:15 Acetaminophen (Tylenol) 650 mg PRN Q4HRS PRN PO TEMP OVER 100.4F OR MILD PAIN; Start 05/12/20 at 14:15 Docusate Sodium (Colace) 100 mg PRN BID PRN PO HARD STOOLS; Start 05/12/20 at 14:15 Guaifenesin (Robitussin) 200 mg PRN Q4HRS PRN PO COUGH; Start 05/12/20 at 14:15 Lorazepam (Ativan) 0.5 mg PRN Q4HRS PRN PO ANXIETY / AGITATION; Start 05/12/20 at 14:15 Vancomycin HCl (Vanco Per Pharmacy) 1 each PRN DAILY PRN MC SEE COMMENTS; Start 05/12/20 at 14:15; Status UNV Piperacillin Sod/ Tazobactam Sod 3.375 gm/Sodium Chloride 50 ml @ 100 mls/hr Q6HRS IV ; Start 05/12/20 at 18:00; Status UNV Aspirin (Ecotrin) 81 mg DAILYWBKFT PO ; Start 05/13/20 at 08:00 Clopidogrel Bisulfate (Plavix) 75 mg DAILY PO ; Start 05/13/20 at 09:00; Status UNV Gabapentin (Neurontin) 300 mg TID PO ; Start 05/12/20 at 21:00; Status UNV Lisinopril (Prinivil) 40 mg DAILY PO ; Start 05/13/20 at 09:00; Status UNV Non-Formulary Medication (Insulin Degludec (Tresiba)) 18 unit HS SQ ; Start 05/12/20 at 21:00; Status UNV Non-Formulary Medication (Insulin Lispro (Humalog)) 6 unit TIDAC SQ ; Start 05/12/20 at 16:30; Status UNV Non-Formulary Medication (Pantoprazole Sodium (Protonix)) 40 mg DAILY PO ; Start 05/13/20 at 09:00; Status UNV Insulin Human Lispro (HumaLOG) 0-7 UNITS TIDWMEALS SQ ; Start 05/12/20 at 17:00; Status UNV Dextrose (Dextrose 50%-Water Syringe) 12.5 gm PRN Q15MIN PRN IV SEE COMMENTS; Start 05/12/20 at 14:15; Status UNV Vancomycin HCl 2 gm/Sodium Chloride 500 ml @ 250 mls/hr 1X ONCE IV ; Start 05/12/20 at 14:30; Stop 05/12/20 at 16:29 Piperacillin Sod/ Tazobactam Sod 3.375 gm/Sodium Chloride 50 ml @ 100 mls/hr 1X ONCE IV ; Start 05/12/20 at 14:30; Stop 05/12/20 at 14:59 Active Scripts Active Aspirin Ec (Aspirin) 81 Mg Tablet.dr 81 Mg PO DAILYWBKFT 90 Days Gabapentin 300 Mg Capsule 300 Mg PO TID 14 Days Reported Humalog (Insulin Lispro) 100 Unit/1 Ml Cartridge 6 Unit SQ TIDAC Tresiba (Insulin Degludec) 100 Unit/1 Ml Vial 18 Unit SQ HS Protonix (Pantoprazole Sodium) 20 Mg Tablet. 40 Mg PO DAILY Lisinopril 40 Mg Tablet 1 Tab PO DAILY Clopidogrel (Clopidogrel Bisulfate) 75 Mg Tablet 1 Tab PO DAILY Allergies Allergies: Coded Allergies: No Known Drug Allergies (Unverified , 05/05/20) ROS Review of System GEN: +fevers HEENT: Denies blurred vision, sore throat CV: Denies chest pain RESP: Denies shortness of air, cough GI: Denies n/v/d NEURO: Denies confusion, dizziness MSK: Denies weakness, joint pain/swelling Skin: as per HPI Physical Exam Physical Exam Gen.: Alert and oriented 3. Cardiac: Heart rate regular. Lungs: Nonlabored respirations. Abdomen: Soft. Extremities: Doppler PT and DP Skin: Left foot 1,2nd toe amputation site plantar surface boggy, incisional necrosis, erythema and swelling Neurological: Motor and sensation intact Vitals VITALS Vital Signs Date Time Temp Pulse Resp B/P (MAP) Pulse Ox O2 Delivery O2 Flow Rate FiO2 05/12/20 12:30 98.6 100 16 151/68 (95) 99 Room Air 98.6 Labs Labs Laboratory Tests Test 05/12/20 13:15 White Blood Count 21.0 x10^3/uL (4.0-11.0) Red Blood Count 3.62 x10^6/uL (4.30-5.70) Hemoglobin 10.7 g/dL (13.0-17.5) Hematocrit 32.7 % (39.0-53.0) Mean Corpuscular Volume 90 fL (79-100) Mean Corpuscular Hemoglobin 30 pg (25-35) Mean Corpuscular Hemoglobin Concent 33 g/dL (31-37) Red Cell Distribution Width 13.4 % (11.5-14.5) Platelet Count 532 x10^3/uL (140-400) Neutrophils (%) (Auto) 82 % (31-73) Lymphocytes (%) (Auto) 8 % (24-48) Monocytes (%) (Auto) 9 % (0-9) Eosinophils (%) (Auto) 0 % (0-3) Basophils (%) (Auto) 0 % (0-3) Neutrophils # (Auto) 17.3 x10^3/uL (1.8-7.7) Lymphocytes # (Auto) 1.7 x10^3/uL (1.0-4.8) Monocytes # (Auto) 1.9 x10^3/uL (0.0-1.1) Eosinophils # (Auto) 0.0 x10^3/uL (0.0-0.7) Basophils # (Auto) 0.1 x10^3/uL (0.0-0.2) Segmented Neutrophils % 87 % (35-66) Lymphocytes % 6 % (24-48) Monocytes % 5 % (0-10) Basophils % 1 % (0-3) Myelocytes % 1 % (0-0) Platelet Estimate Increased (ADEQUATE) Large Platelets Occ Sodium Level 137 mmol/L (136-145) Potassium Level 4.0 mmol/L (3.5-5.1) Chloride Level 100 mmol/L (98-107) Carbon Dioxide Level 28 mmol/L (21-32) Anion Gap 9 (6-14) Blood Urea Nitrogen 15 mg/dL (8-26) Creatinine 1.4 mg/dL (0.7-1.3) Estimated GFR (Cockcroft-Gault) 61.0 BUN/Creatinine Ratio 11 (6-20) Glucose Level 369 mg/dL (70-99) Calcium Level 8.6 mg/dL (8.5-10.1) Total Bilirubin 0.5 mg/dL (0.2-1.0) Aspartate Amino Transf (AST/SGOT) 20 U/L (15-37) Alanine Aminotransferase (ALT/SGPT) 17 U/L (16-63) Alkaline Phosphatase 40 U/L (46-116) C-Reactive Protein, Quantitative 255.7 mg/L (0-3.3) Total Protein 7.7 g/dL (6.4-8.2) Albumin 2.4 g/dL (3.4-5.0) Albumin/Globulin Ratio 0.5 (1.0-1.7) Laboratory Tests Test 05/12/20 13:15 White Blood Count 21.0 x10^3/uL (4.0-11.0) Red Blood Count 3.62 x10^6/uL (4.30-5.70) Hemoglobin 10.7 g/dL (13.0-17.5) Hematocrit 32.7 % (39.0-53.0) Mean Corpuscular Volume 90 fL (79-100) Mean Corpuscular Hemoglobin 30 pg (25-35) Mean Corpuscular Hemoglobin Concent 33 g/dL (31-37) Red Cell Distribution Width 13.4 % (11.5-14.5) Platelet Count 532 x10^3/uL (140-400) Neutrophils (%) (Auto) 82 % (31-73) Lymphocytes (%) (Auto) 8 % (24-48) Monocytes (%) (Auto) 9 % (0-9) Eosinophils (%) (Auto) 0 % (0-3) Basophils (%) (Auto) 0 % (0-3) Neutrophils # (Auto) 17.3 x10^3/uL (1.8-7.7) Lymphocytes # (Auto) 1.7 x10^3/uL (1.0-4.8) Monocytes # (Auto) 1.9 x10^3/uL (0.0-1.1) Eosinophils # (Auto) 0.0 x10^3/uL (0.0-0.7) Basophils # (Auto) 0.1 x10^3/uL (0.0-0.2) Segmented Neutrophils % 87 % (35-66) Lymphocytes % 6 % (24-48) Monocytes % 5 % (0-10) Basophils % 1 % (0-3) Myelocytes % 1 % (0-0) Platelet Estimate Increased (ADEQUATE) Large Platelets Occ Sodium Level 137 mmol/L (136-145) Potassium Level 4.0 mmol/L (3.5-5.1) Chloride Level 100 mmol/L (98-107) Carbon Dioxide Level 28 mmol/L (21-32) Anion Gap 9 (6-14) Blood Urea Nitrogen 15 mg/dL (8-26) Creatinine 1.4 mg/dL (0.7-1.3) Estimated GFR (Cockcroft-Gault) 61.0 BUN/Creatinine Ratio 11 (6-20) Glucose Level 369 mg/dL (70-99) Calcium Level 8.6 mg/dL (8.5-10.1) Total Bilirubin 0.5 mg/dL (0.2-1.0) Aspartate Amino Transf (AST/SGOT) 20 U/L (15-37) Alanine Aminotransferase (ALT/SGPT) 17 U/L (16-63) Alkaline Phosphatase 40 U/L (46-116) C-Reactive Protein, Quantitative 255.7 mg/L (0-3.3) Total Protein 7.7 g/dL (6.4-8.2) Albumin 2.4 g/dL (3.4-5.0) Albumin/Globulin Ratio 0.5 (1.0-1.7) Assessment/Plan Assessment/Plan 69-year-old male with left foot cellulitis and amputation site infection. Recommend intravenous antibiotics and surgical debridement. Patient has tentatively been scheduled for Sunday for left foot surgical debridement of amputation site and possible transmetatarsal amputation. Patient was seen and examined with Dr. Hunt. Discussed plan of care with patient. Patient will be admitted and plan for surgery on Sunday05/14/2020. Wound care per [facility]. Recommend leg elevation and off-loading left forefoot. Continue aspirin and plavix. SHARON MCKENZIE APRN May 12, 2020 15:05
--- NOTE | 2020-05-12 15:08 | PDOC1 ---
History and Physical Date of Admission Date of Admission May 12, 2020 Identification/Chief Complaint Chief Complaint I was brought here by podiatry Source Source: Chart review, Patient History of Present Illness History of Present Illness History of Present Illness Mr Velazquez is a 69yo M w/ PMHx HTN, DM2 (A1c 9), s/p prior R BKA who was directly admitted from wound care center for worsening left great toe ulcer. His left toe had a blister on his last hospital stay which was noted 12 days prior to his last admissio, he had been seen by podiatry and was placed on doxycycline and referred to outpatient wound care where he was previously seen in 2019. Wound care they noted they were able to debride a significant amount of devitalized tissue and had poor blood flow were concerned for gangrene and called for direct admission on that occasion. His left second toe also has a diabetic ulcer. This was treated with conservative measures nevertheless ended up requiring amputation on May 07, 2020. He tolerated the procedure well and and it was discharged with instructions to follow-up with Dr. Salomon. He was being seen at the wound clinic today by podiatry in follow-up for his wound care in due to some changes noted by podiatry he was brought to the emergency department. The patient denies any fever no chills no worsening pain no diaphoresis no headache blurred vision no chest pain palpitations no shortness of breath and no other symptoms have been expressed by the patient No recent sick contacts, travel, or shortness of breath. We have been asked to admit the patient for further evaluation and treatment. Plan of care has been explained detail to the patient and all of his concerns were addressed to the best of my abilities. Patient currently is not bleeding and does not seem to have hemodynamic instability he is mentating well and does not seem to be toxic Operative note is as follows: VASCULAR SURGERY OPERATIVE REPORT ATTENDING SURGEON: Mrerill Gillette DO. 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 PROCEDURES: 1. Left first toe amputation, including the metatarsal head. 2. Left second toe amputation, including the metatarsal head. ANESTHESIA: General. SPECIMENS: First and second toes, including the metatarsal head. ESTIMATED BLOOD LOSS: 5 mL. COMPLICATIONS: None. PREOPERATIVE INDICATIONS: The patient is a pleasant 69-year-old male who presented and saw my partner, Dr. Hunt, with findings of dry gangrenous changes of the first and second toe on the left. The patient was consented for toe amputation. The patient understood all risks, benefits, and alternatives of the procedure today prior to proceeding with surgery. OPERATIVE PROCEDURE: The patient was brought to the operating suite and placed in supine position. After establishing appropriate anesthesia, the left foot was prepped and draped in sterile fashion. Next, a timeout procedure was performed. It was confirmed that the patient did receive appropriate perioperative antibiotics and the correct operative site was marked and draped. Following this, a left first toe ray amputation incision was made, carried through skin and subcutaneous tissue. This was taken circumferentially around the second toe as well and then both toes were disarticulated from the metatarsal head. Next, the soft tissue was dissected around the first and second metatarsal and then a bone saw was used to divide the first metatarsal followed by the second metatarsal. The sesamoid bones were also sharply excised and removed. Following this, the wound was copiously irrigated with antibiotic-impregnated solution. Hemostasis was also confirmed with Bovie electrocautery. Next, the skin incision was closed using running 3-0 nylon suture followed by sterile dressing. The patient tolerated the procedure well and was transferred to the Postanesthesia Care Unit in stable condition. Past Medical History Cardiovascular: CAD, HTN, Hyperlipidemia Pulmonary: Bronchitis GI: No pertinent hx Heme/Onc: Anemia NOS Hepatobiliary: No pertinent hx Psych: No pertinent hx Rheumatologic: No pertinent hx Infectious disease: No pertinent hx Renal/: No pertinent hx Endocrine: Diabetes Past Surgical History Past Surgical History: Appendectomy, Tonsillectomy, Other Family History Family History: Diabetes, High Cholestrol, Hypertension Social History ALCOHOL: none Drugs: None Current Medications Current Medications Current Medications Medications (Trade) Dose Ordered Sig/Dave Start Time Stop Time Status Last Admin Dose Admin Acetaminophen (Tylenol) 650 mg PRN Q4HRS PRN 05/12/20 14:15 Aspirin (Ecotrin) 81 mg [id number] 05/13/20 08:00 Clopidogrel Bisulfate (Plavix) 75 mg DAILY 05/13/20 09:00 Dextrose (Dextrose 50%-Water Syringe) 12.5 gm PRN Q15MIN PRN 05/12/20 14:15 Docusate Sodium (Colace) 100 mg PRN BID PRN 05/12/20 14:15 Gabapentin (Neurontin) 300 mg TID 05/12/20 21:00 Guaifenesin (Robitussin) 200 mg PRN Q4HRS PRN 05/12/20 14:15 Insulin Human Lispro (HumaLOG) 0-7 UNITS TIDWMEALS 05/12/20 17:00 UNV Lisinopril (Prinivil) 40 mg DAILY 05/13/20 09:00 Lorazepam (Ativan) 0.5 mg PRN Q4HRS PRN 05/12/20 14:15 Non-Formulary Medication (Insulin Degludec (Tresiba)) 18 unit HS 05/12/20 21:00 UNV Non-Formulary Medication (Insulin Lispro (Humalog)) 6 unit TIDAC 05/12/20 16:30 UNV Ondansetron HCl (Zofran) 4 mg PRN Q4HRS PRN 05/12/20 14:15 Pantoprazole Sodium (Protonix) 40 mg DAILYAC 05/12/20 16:30 Piperacillin Sod/ Tazobactam Sod 3.375 gm/Sodium Chloride 50 ml @ 100 mls/hr 1X ONCE 05/12/20 14:30 05/12/20 14:59 Sodium Chloride 1,000 ml @ 100 mls/hr Q10H 05/12/20 14:05 05/12/20 14:43 100 MLS/HR Vancomycin HCl (Vanco Per Pharmacy) 1 each PRN DAILY PRN 05/12/20 14:15 UNV Vancomycin HCl 2 gm/Sodium Chloride 500 ml @ 250 mls/hr 1X ONCE 05/12/20 14:30 05/12/20 16:29 05/12/20 14:52 250 MLS/HR Zolpidem Tartrate (Ambien) 5 mg PRN QHS PRN 05/12/20 14:15 Allergies Allergies Allergies Coded Allergies Type Severity Reaction Last Updated Verified No Known Drug Allergies 05/05/20 No ROS Review of System CONSTITUTIONAL: No fever or chills EYES: No recent changes SKIN: No rash or itching CARDIOVASCULAR: No chest pain, syncope, palpitations, or edema RESPIRATORY: No SOB or cough GASTROINTESTINAL: No nausea, vomiting or abdominal pain NEUROLOGICAL: No headaches or weakness ENDOCRINE: No cold or heat intolerance GENITOURINARY: No urgency or frequency of urination MUSCULOSKELETAL: No back pain or joint pain LYMPHATICS: No enlarged lymph nodes PSYCHIATRIC: No anxiety or depression Physical Exam Physical Exam GEN.: No apparent distress. Alert and oriented. Chronically ill-appearing HEENT: Head is normocephalic, atraumatic NECK: Supple. LUNGS: Clear to auscultation. HEART: RRR, S1, S2 present. Peripheral pulses intact ABDOMEN: Soft, nontender. Positive bowel sounds. EXTREMITIES: Right BKA, left foot with surgical sutures in place well approximated, there seems to be a cyanotic element or the surrounding area from the surgical incision. NEUROLOGIC: Normal speech, normal tone PSYCHIATRIC: Normal affect, normal mood. SKIN: No ulcerations Vitals Vitals Vital Signs Date Time Temp Pulse Resp B/P (MAP) Pulse Ox O2 Delivery O2 Flow Rate FiO2 05/12/20 12:30 98.6 100 16 151/68 (95) 99 Room Air 98.6 Labs Labs Laboratory Tests Test 05/12/20 13:15 White Blood Count 21.0 x10^3/uL (4.0-11.0) Red Blood Count 3.62 x10^6/uL (4.30-5.70) Hemoglobin 10.7 g/dL (13.0-17.5) Hematocrit 32.7 % (39.0-53.0) Mean Corpuscular Volume 90 fL (79-100) Mean Corpuscular Hemoglobin 30 pg (25-35) Mean Corpuscular Hemoglobin Concent 33 g/dL (31-37) Red Cell Distribution Width 13.4 % (11.5-14.5) Platelet Count 532 x10^3/uL (140-400) Neutrophils (%) (Auto) 82 % (31-73) Lymphocytes (%) (Auto) 8 % (24-48) Monocytes (%) (Auto) 9 % (0-9) Eosinophils (%) (Auto) 0 % (0-3) Basophils (%) (Auto) 0 % (0-3) Neutrophils # (Auto) 17.3 x10^3/uL (1.8-7.7) Lymphocytes # (Auto) 1.7 x10^3/uL (1.0-4.8) Monocytes # (Auto) 1.9 x10^3/uL (0.0-1.1) Eosinophils # (Auto) 0.0 x10^3/uL (0.0-0.7) Basophils # (Auto) 0.1 x10^3/uL (0.0-0.2) Segmented Neutrophils % 87 % (35-66) Lymphocytes % 6 % (24-48) Monocytes % 5 % (0-10) Basophils % 1 % (0-3) Myelocytes % 1 % (0-0) Platelet Estimate Increased (ADEQUATE) Large Platelets Occ Sodium Level 137 mmol/L (136-145) Potassium Level 4.0 mmol/L (3.5-5.1) Chloride Level 100 mmol/L (98-107) Carbon Dioxide Level 28 mmol/L (21-32) Anion Gap 9 (6-14) Blood Urea Nitrogen 15 mg/dL (8-26) Creatinine 1.4 mg/dL (0.7-1.3) Estimated GFR (Cockcroft-Gault) 61.0 BUN/Creatinine Ratio 11 (6-20) Glucose Level 369 mg/dL (70-99) Calcium Level 8.6 mg/dL (8.5-10.1) Total Bilirubin 0.5 mg/dL (0.2-1.0) Aspartate Amino Transf (AST/SGOT) 20 U/L (15-37) Alanine Aminotransferase (ALT/SGPT) 17 U/L (16-63) Alkaline Phosphatase 40 U/L (46-116) C-Reactive Protein, Quantitative 255.7 mg/L (0-3.3) Total Protein 7.7 g/dL (6.4-8.2) Albumin 2.4 g/dL (3.4-5.0) Albumin/Globulin Ratio 0.5 (1.0-1.7) Laboratory Tests Test 05/12/20 13:15 White Blood Count 21.0 x10^3/uL (4.0-11.0) Red Blood Count 3.62 x10^6/uL (4.30-5.70) Hemoglobin 10.7 g/dL (13.0-17.5) Hematocrit 32.7 % (39.0-53.0) Mean Corpuscular Volume 90 fL (79-100) Mean Corpuscular Hemoglobin 30 pg (25-35) Mean Corpuscular Hemoglobin Concent 33 g/dL (31-37) Red Cell Distribution Width 13.4 % (11.5-14.5) Platelet Count 532 x10^3/uL (140-400) Neutrophils (%) (Auto) 82 % (31-73) Lymphocytes (%) (Auto) 8 % (24-48) Monocytes (%) (Auto) 9 % (0-9) Eosinophils (%) (Auto) 0 % (0-3) Basophils (%) (Auto) 0 % (0-3) Neutrophils # (Auto) 17.3 x10^3/uL (1.8-7.7) Lymphocytes # (Auto) 1.7 x10^3/uL (1.0-4.8) Monocytes # (Auto) 1.9 x10^3/uL (0.0-1.1) Eosinophils # (Auto) 0.0 x10^3/uL (0.0-0.7) Basophils # (Auto) 0.1 x10^3/uL (0.0-0.2) Segmented Neutrophils % 87 % (35-66) Lymphocytes % 6 % (24-48) Monocytes % 5 % (0-10) Basophils % 1 % (0-3) Myelocytes % 1 % (0-0) Platelet Estimate Increased (ADEQUATE) Large Platelets Occ Sodium Level 137 mmol/L (136-145) Potassium Level 4.0 mmol/L (3.5-5.1) Chloride Level 100 mmol/L (98-107) Carbon Dioxide Level 28 mmol/L (21-32) Anion Gap 9 (6-14) Blood Urea Nitrogen 15 mg/dL (8-26) Creatinine 1.4 mg/dL (0.7-1.3) Estimated GFR (Cockcroft-Gault) 61.0 BUN/Creatinine Ratio 11 (6-20) Glucose Level 369 mg/dL (70-99) Calcium Level 8.6 mg/dL (8.5-10.1) Total Bilirubin 0.5 mg/dL (0.2-1.0) Aspartate Amino Transf (AST/SGOT) 20 U/L (15-37) Alanine Aminotransferase (ALT/SGPT) 17 U/L (16-63) Alkaline Phosphatase 40 U/L (46-116) C-Reactive Protein, Quantitative 255.7 mg/L (0-3.3) Total Protein 7.7 g/dL (6.4-8.2) Albumin 2.4 g/dL (3.4-5.0) Albumin/Globulin Ratio 0.5 (1.0-1.7) VTE Prophylaxis Ordered VTE Prophylaxis Devices: Yes VTE Pharmacological Prophylaxi: Yes Assessment/Plan Assessment/Plan Left foot gangrene status post amputation of the great and second toe left foot Leukocytosis secondary to the above Osteomyelitis as per pathology History of diabetes mellitus type 2 insulin requiring Essential hypertension Chronic kidney disease stage II Plan Broad-spectrum antibiotics with vancomycin and Zosyn Blood culture ESR and CRP Consult Dr. Salomon Consult infectious disease Pain management Resume home medication DVT prophylaxis with heparin Justicifation of Admission Dx: Justifications for Admission: Justification of Admission Dx: Yes ELIANE STREET MD May 12, 2020 15:08
[2020-05-12] MEDS: VANCOMYCIN PER PHARMACY MC PRN (15:44)
--- NOTE | 2020-05-12 16:00 | NUR ---
Pharmacy Vancomycin Dosing Note S:Consulted to monitor and dose vancomycin started . O:RAGHU VELÁZQUEZ is a 69 year old M with . Height: 6 feet, 0 inches Weight: 88.6 kg [place] Body Weight: Adjusted Body Weight: Dosing Weight: Other Antibiotics: LABS: Last BUN: Last Creatinine: Creatinine Clearance: mL/min Last WBC: Last Procalcitonin: Tmax (past 24 hours): Microbiology: I/O: Drug Levels: Last level: on at Last dose given at Vancomycin Dosing: Loading Dose: x1 Dosing Weight: Target Trough: A: Based on: HT, WT AND RENAL FXN P: 1. Begin Vancomycin 1500MG IV [id number] 2. Follow up level on 05/14 at 0230 3. Pharmacy will continue to monitor, follow and adjust therapy as needed. MARIA E LANZA, [facility] [place], 05/12/20 [id number]
[2020-05-12 17:10] VITALS: BP 163/56
[2020-05-12] MEDS: PANTOPRAZOLE 40 MG TABLET.DR. PO SCH (17:36)
[2020-05-12] MEDS: PIPERACILLIN/TAZOBACTAM 3.375 GM in IV NORMAL SALINE 50ML 50 ML IV SCH (17:36)
[2020-05-12] MEDS: INSULIN LISPRO 300 UNITS/3 ML VIAL. SQ SCH ×2 (17:39)
[2020-05-12 19:00] VITALS: BP 150/57
[2020-05-12] MEDS: ACETAMINOPHEN 325 MG TABLET. PO PRN (20:23)
[2020-05-12] MEDS: GABAPENTIN 300 MG CAPSULE. PO SCH (20:23)
[2020-05-12] MEDS: INSULIN GLARGINE SYRINGE. SQ SCH (21:08)
[2020-05-12] MEDS: HEPARIN for SUB-Q USE 5,000 UNIT/ML VIAL. SQ SCH (21:09)
[2020-05-12] MEDS: ZOLPIDEM 5 MG TABLET. PO PRN (21:59)
[2020-05-12 23:00] VITALS: BP 141/59
[2020-05-13] MEDS: IV NORMAL SALINE 1000ML BAG 1,000 ML IV SCH ×3 (00:35→20:05)
[2020-05-13] MEDS: PIPERACILLIN/TAZOBACTAM 3.375 GM in IV NORMAL SALINE 50ML 50 ML IV SCH ×5 (00:35→23:43)
[2020-05-13 03:00] VITALS: BP 153/56
[2020-05-13] MEDS: PANTOPRAZOLE 40 MG TABLET.DR. PO SCH (05:31)
[2020-05-13] MEDS: HEPARIN for SUB-Q USE 5,000 UNIT/ML VIAL. SQ SCH ×4 (05:35→23:34)
[2020-05-13] MEDS: ACETAMINOPHEN 325 MG TABLET. PO PRN ×2 (06:30→14:56)
[2020-05-13 07:00] VITALS: BP 150/45
[2020-05-13] MEDS: INSULIN LISPRO 300 UNITS/3 ML VIAL. SQ SCH ×6 (08:00→16:38)
[2020-05-13] MEDS: GABAPENTIN 300 MG CAPSULE. PO SCH ×3 (08:18→20:30)
[2020-05-13] MEDS: ASPIRIN ENTERIC COATED 81 MG TABLET.DR. PO SCH (08:18)
[2020-05-13] MEDS: LISINOPRIL 20 MG TABLET PO SCH (08:19)
[2020-05-13] MEDS: CLOPIDOGREL BISULFATE 75 MG TABLET PO SCH (08:19)
[2020-05-13] MEDS ORDERED: VANCOMYCIN 1.5 GM in IV NORMAL SALINE 500ML BAG 500 ML IV SCH (09:00)
--- NOTE | 2020-05-13 09:53 | NUR ---
SW following. Discussed with RN, pt from home with . Pt scheduled for left foot debridement with possible amputation and possible wound vac tomorrow (05/14/2020). Does not seem like a COVID test has been ordered for surgery, RN checking. SW will continue to follow.
[2020-05-13] MEDS: VANCOMYCIN PER PHARMACY MC PRN (10:29)
[2020-05-13 11:00] VITALS: BP 140/55
--- NOTE | 2020-05-13 14:05 | CONS ---
DATE OF CONSULTATION: 05/13/2020 REFERRING PHYSICIAN: Brayan Armstrong MD REASON FOR CONSULTATION: Left foot wound and infection. HISTORY OF PRESENT ILLNESS: The patient is well known to our service from last admission. He has history of hypertension, diabetes mellitus, poorly controlled, status post right BKA, who was directly admitted from Wound Care Center for worsening left great toe wound. The patient had a blister during his last hospitalization at which time he had been seen by Podiatry, was placed on doxycycline and then referred to outpatient wound care. Since the wound got worse, he underwent vascular evaluation. He was found to have atherosclerosis with gangrene of the left first and the second toe. He underwent left first toe amputation including the metatarsal head and left second toe amputation including the metatarsal head on 05/07/2020. He was then transitioned to oral antibiotics. He continued wound care under wound team. He was found to have worsening wound, so was directly admitted from Wound Clinic for further evaluation and treatment. He was started on IV vancomycin and Zosyn. Vascular Surgery has evaluated the patient. Plans are for surgical debridement of amputation site and possible transmetatarsal amputation, which is tentatively scheduled for 05/14/2020. ID consult has been requested for antibiotic management. The patient denies any fevers, chills, nausea, vomiting, diarrhea, abdominal pain, shortness of breath, cough, chest pain, chest pain with deep breathing, and right BKA stump problems. REVIEW OF SYSTEMS: Negative except for above in HPI. PAST MEDICAL HISTORY: Hypertension, hyperlipidemia, diabetes, coronary artery disease, right BKA, tonsillectomy, appendectomy, left first toe amputation including metatarsal head and left second toe amputation including metatarsal head on 05/07/2020, and chronic wound. SOCIAL HISTORY: No smoking, ETOH, or illicit drug use. ALLERGIES: No known drug allergies. CURRENT MEDICATION: IV vancomycin and Zosyn. Other medications reviewed in medication list. PHYSICAL EXAMINATION: GENERAL: Alert and oriented x3 male in no acute distress, lying comfortably in bed. HEENT: Normocephalic, atraumatic, and anicteric. NECK: Supple, no JVD, no lymphadenopathy. LUNGS: Clear bilaterally. No wheezing. HEART: S1 and S2 regular. ABDOMEN: Soft, nontender, and nondistended. EXTREMITIES: No edema. No cyanosis. Right BKA stump looks good. The left foot first and second toe metatarsal amputation site mild swelling, mild erythema, and slight warmth. NEUROLOGIC: Alert and oriented x3, grossly nonfocal. LABORATORY DATA: CBC: WBC 21, hemoglobin 10.7, hematocrit 32.7, and platelets 532. Sodium 137, potassium 4.0, chloride 100, bicarbonate 28, BUN 15, creatinine 1.4, glucose 369, and alkaline phosphatase of 40, otherwise LFTs normal. C-reactive protein 255. Albumin 2.4. MICRO: Blood culture pending at this time. COVID-19 pending at this time. IMAGING: Foot x-ray shows status post amputation of the first two digits at the level of the mid metatarsal. There is subcutaneous calcification of the digital arteries suggesting diabetes disease and degenerative changes of the toes. No obvious bony erosion to suggest osteomyelitis. Surgical date unclear. Chest x-ray shows no acute pulmonary findings. IMPRESSION: 1. Left foot amputation site infection. 2. Left foot cellulitis. 3. Peripheral arterial disease, status post left first toe amputation and left second toe amputation including metatarsal head on 05/07/2020, with atherosclerosis and gangrene of the left first and second toe. 4. Leukocytosis. 5. Peripheral arterial disease. 6. Diabetes mellitus. 7. Hypertension. 8. Mild renal insufficiency. RECOMMENDATIONS: 1. Continue Zosyn. 2. Add Zyvox. 3. Discontinue IV vancomycin due to mild renal insufficiency. 4. Follow up labs and cultures. 5. Continue local wound care. 6. The patient is awaiting debridement and/or transmetatarsal amputation of left foot on 05/14/2020 7. Local wound care as directed. 8. Optimal diabetes control. 9. Continue supportive care. 10. Discussed with nursing staff. Thank you for allowing me to participate in this patient's care. If you have any questions, do not hesitate to contact me. GASTON JAVIER MD DR: HEATHER/marbella JOB#: [id number] / [id number]
--- NOTE | 2020-05-13 14:51 | PDOC ---
PROGRESS NOTES Chief Complaint Chief Complaint Assessment/Plan Left foot gangrene status post amputation of the great and second toe left foot Leukocytosis secondary to the above Osteomyelitis as per pathology History of diabetes mellitus type 2 insulin requiring Essential hypertension Chronic kidney disease stage II Plan Broad-spectrum antibiotics with vancomycin and Zosyn Blood culture ESR and CRP Consult Dr. Salomon recommendations are as follows: Assessment/Plan Assessment/Plan 69-year-old male with left foot cellulitis and amputation site infection. Re commend intravenous antibiotics and surgical debridement. Patient has tentatively been scheduled for Sunday for left foot surgical debridement of amputation site and possible transmetatarsal amputation. Patient was seen and examined with Dr. Hunt. Discussed plan of care with patient. Patient will be admitted and plan for surgery on Sunday05/14/2020. Wound care per [facility]. Yann mmend leg elevation and off-loading left forefoot. Continue aspirin and plavix. Consult infectious disease Pain management Resume home medication DVT prophylaxis with heparin History of Present Illness History of Present Illness Reassurance provided. Patient quite concerned that this could end up in a transmetatarsal amputation all of his concerns were addressed to the best of my abilities no acute events reported overnight, case discussed with nursing staff patient in no acute distress no complaints during my visit Vitals Vitals Vital Signs Date Time Temp Pulse Resp B/P (MAP) Pulse Ox O2 Delivery O2 Flow Rate FiO2 05/13/20 11:00 98.7 85 16 140/55 (83) 98 Room Air 98.7 Physical Exam Lungs: Clear Labs LABS Laboratory Tests Test 05/12/20 17:07 05/12/20 20:35 05/12/20 21:02 05/13/20 07:37 Glucose (Fingerstick) 336 mg/dL (70-99) 237 mg/dL (70-99) 225 mg/dL (70-99) 95 mg/dL (70-99) Test 05/13/20 10:00 05/13/20 11:46 SARS-CoV-2 Antigen (Rapid) Negative (NEGATIVE) Glucose (Fingerstick) 159 mg/dL (70-99) Assessment and Plan Assessmemt and Plan Problems Medical Problems: (1) Infection of toe as complication of amputation Status: Acute (2) Left foot infection Status: Acute Comment Review of Relevant I have reviewed the following items rauedl (where applicable) has been applied. Labs Laboratory Tests Test 05/12/20 13:15 05/12/20 17:07 05/12/20 20:35 05/12/20 21:02 White Blood Count 21.0 x10^3/uL (4.0-11.0) Red Blood Count 3.62 x10^6/uL (4.30-5.70) Hemoglobin 10.7 g/dL (13.0-17.5) Hematocrit 32.7 % (39.0-53.0) Mean Corpuscular Volume 90 fL (79-100) Mean Corpuscular Hemoglobin 30 pg (25-35) Mean Corpuscular Hemoglobin Concent 33 g/dL (31-37) Red Cell Distribution Width 13.4 % (11.5-14.5) Platelet Count 532 x10^3/uL (140-400) Neutrophils (%) (Auto) 82 % (31-73) Lymphocytes (%) (Auto) 8 % (24-48) Monocytes (%) (Auto) 9 % (0-9) Eosinophils (%) (Auto) 0 % (0-3) Basophils (%) (Auto) 0 % (0-3) Neutrophils # (Auto) 17.3 x10^3/uL (1.8-7.7) Lymphocytes # (Auto) 1.7 x10^3/uL (1.0-4.8) Monocytes # (Auto) 1.9 x10^3/uL (0.0-1.1) Eosinophils # (Auto) 0.0 x10^3/uL (0.0-0.7) Basophils # (Auto) 0.1 x10^3/uL (0.0-0.2) Segmented Neutrophils % 87 % (35-66) Lymphocytes % 6 % (24-48) Monocytes % 5 % (0-10) Basophils % 1 % (0-3) Myelocytes % 1 % (0-0) Platelet Estimate Increased (ADEQUATE) Large Platelets Occ Sodium Level 137 mmol/L (136-145) Potassium Level 4.0 mmol/L (3.5-5.1) Chloride Level 100 mmol/L (98-107) Carbon Dioxide Level 28 mmol/L (21-32) Anion Gap 9 (6-14) Blood Urea Nitrogen 15 mg/dL (8-26) Creatinine 1.4 mg/dL (0.7-1.3) Estimated GFR (Cockcroft-Gault) 61.0 BUN/Creatinine Ratio 11 (6-20) Glucose Level 369 mg/dL (70-99) Calcium Level 8.6 mg/dL (8.5-10.1) Total Bilirubin 0.5 mg/dL (0.2-1.0) Aspartate Amino Transf (AST/SGOT) 20 U/L (15-37) Alanine Aminotransferase (ALT/SGPT) 17 U/L (16-63) Alkaline Phosphatase 40 U/L (46-116) C-Reactive Protein, Quantitative 255.7 mg/L (0-3.3) Total Protein 7.7 g/dL (6.4-8.2) Albumin 2.4 g/dL (3.4-5.0) Albumin/Globulin Ratio 0.5 (1.0-1.7) Glucose (Fingerstick) 336 mg/dL (70-99) 237 mg/dL (70-99) 225 mg/dL (70-99) Test 05/13/20 07:37 05/13/20 10:00 05/13/20 11:46 Glucose (Fingerstick) 95 mg/dL (70-99) 159 mg/dL (70-99) SARS-CoV-2 Antigen (Rapid) Negative (NEGATIVE) Laboratory Tests Test 05/12/20 17:07 05/12/20 20:35 05/12/20 21:02 05/13/20 07:37 Glucose (Fingerstick) 336 mg/dL (70-99) 237 mg/dL (70-99) 225 mg/dL (70-99) 95 mg/dL (70-99) Test 05/13/20 10:00 05/13/20 11:46 SARS-CoV-2 Antigen (Rapid) Negative (NEGATIVE) Glucose (Fingerstick) 159 mg/dL (70-99) Medications Current Medications Piperacillin Sod/ Tazobactam Sod 3.375 gm/Sodium Chloride 50 ml @ 100 mls/hr 1X ONCE IV Last administered on 05/12/20at 14:23; Start 05/12/20 at 13:30; Stop 05/12/20 at 13:59; Status DC Sodium Chloride 1,000 ml @ 100 mls/hr Q10H IV Last administered on 05/13/20at 08:21; Start 05/12/20 at 14:05 Ondansetron HCl (Zofran) 4 mg PRN Q4HRS PRN IV NAUSEA/VOMITING; Start 05/12/20 at 14:15 Zolpidem Tartrate (Ambien) 5 mg PRN QHS PRN PO INSOMNIA Last administered on 05/12/20at 21:59; Start 05/12/20 at 14:15 Acetaminophen (Tylenol) 650 mg PRN Q4HRS PRN PO TEMP OVER 100.4F OR MILD PAIN Last administered on 05/13/20at 06:30; Start 05/12/20 at 14:15 Docusate Sodium (Colace) 100 mg PRN BID PRN PO HARD STOOLS; Start 05/12/20 at 14:15 Guaifenesin (Robitussin) 200 mg PRN Q4HRS PRN PO COUGH; Start 05/12/20 at 14:15 Lorazepam (Ativan) 0.5 mg PRN Q4HRS PRN PO ANXIETY / AGITATION; Start 05/12/20 at 14:15 Vancomycin HCl (Vanco Per Pharmacy) 1 each PRN DAILY PRN MC SEE COMMENTS Last administered on 05/13/20at 10:29; Start 05/12/20 at 14:15; Stop 05/13/20 at 12:23; Status DC Piperacillin Sod/ Tazobactam Sod 3.375 gm/Sodium Chloride 50 ml @ 100 mls/hr Q6HRS IV Last administered on 05/13/20at 11:18; Start 05/12/20 at 18:00 Aspirin (Ecotrin) 81 mg DAILYWBKFT PO Last administered on 05/13/20at 08:18; Start 05/13/20 at 08:00 Clopidogrel Bisulfate (Plavix) 75 mg DAILY PO Last administered on 05/13/20at 08:19; Start 05/13/20 at 09:00 Gabapentin (Neurontin) 300 mg TID PO Last administered on 05/13/20at 13:02; Start 05/12/20 at 21:00 Lisinopril (Prinivil) 40 mg DAILY PO Last administered on 05/13/20at 08:19; Start 05/13/20 at 09:00 Insulin Glargine (Lantus Syringe) 18 unit QHS SQ Last administered on 7/22/20at 21:08; Start 05/12/20 at 21:00 Insulin Human Lispro (HumaLOG) 6 units TIDWMEALS SQ Last administered on 05/13/20at 11:50; Start 05/12/20 at 17:00 Pantoprazole Sodium (Protonix) 40 mg DAILYAC PO Last administered on 05/13/20at 05:31; Start 05/12/20 at 16:30 Insulin Human Lispro (HumaLOG) 0-7 UNITS TIDWMEALS SQ Last administered on 05/13/20at 11:51; Start 05/12/20 at 17:00 Dextrose (Dextrose 50%-Water Syringe) 12.5 gm PRN Q15MIN PRN IV SEE COMMENTS; Start 05/12/20 at 14:15 Vancomycin HCl 2 gm/Sodium Chloride 500 ml @ 250 mls/hr 1X ONCE IV Last administered on 05/12/20at 14:52; Start 05/12/20 at 14:30; Stop 05/12/20 at 16:29; Status DC Piperacillin Sod/ Tazobactam Sod 3.375 gm/Sodium Chloride 50 ml @ 100 mls/hr 1X ONCE IV ; Start 05/12/20 at 14:30; Stop 05/12/20 at 14:59; Status Cancel Heparin Sodium (Porcine) (Heparin Sodium) 5,000 unit Q8HRS SQ Last administered on 05/13/20at 13:07; Start 05/12/20 at 22:00 Vancomycin HCl 1.5 gm/Sodium Chloride 500 ml @ 250 mls/hr Q18H IV Last administered on 05/13/20at 08:20; Start 05/13/20 at 09:00; Stop 05/13/20 at 12:22; Status DC Vancomycin HCl (Vancomycin Trough Level) 1 each 1X ONCE MC ; Start 05/14/20 at 02:30; Stop 05/13/20 at 12:23; Status DC Fentanyl Citrate (Fentanyl 2ml Vial) 25 mcg PRN Q5MIN PRN IV MILD PAIN 1-3; Start 05/14/20 at 07:00; Stop 05/15/20 at 06:59 Fentanyl Citrate (Fentanyl 2ml Vial) 50 mcg PRN Q5MIN PRN IV MODERATE TO SEVERE PAIN; Start 05/14/20 at 07:00; Stop 05/15/20 at 06:59 Morphine Sulfate (Morphine Sulfate) 1 mg PRN Q10MIN PRN IV SEVERE PAIN 7-10; Start 05/14/20 at 07:00; Stop 05/15/20 at 06:59 Ringer's Solution 1,000 ml @ 30 mls/hr Q24H IV ; Start 05/14/20 at 07:00; Stop 05/14/20 at 18:59 Lidocaine HCl (Xylocaine-Mpf 1% 2ml Vial) 2 ml PRN 1X PRN ID PRIOR TO IV START; Start 05/14/20 at 07:00; Stop 05/15/20 at 06:59 Hydromorphone HCl (Dilaudid) 0.5 mg PRN Q10MIN PRN IV SEV PAIN, Second choice; Start 05/14/20 at 07:00; Stop 05/15/20 at 06:59 Prochlorperazine Edisylate (Compazine) 5 mg PACU PRN PRN IV NAUSEA, MRX1; Start 05/14/20 at 07:00; Stop 05/15/20 at 06:59 Ondansetron HCl (Zofran) 4 mg PRN Q6HRS PRN IV NAUSEA/VOMITING; Start 05/14/20 at 07:00; Stop 05/15/20 at 06:59; Status Cancel Fentanyl Citrate (Fentanyl 2ml Vial) 25 mcg PRN Q5MIN PRN IV MILD PAIN 1-3; Start 05/14/20 at 07:00; Stop 05/15/20 at 06:59; Status Cancel Fentanyl Citrate (Fentanyl 2ml Vial) 50 mcg PRN Q5MIN PRN IV MODERATE TO SEVERE PAIN; Start 05/14/20 at 07:00; Stop 05/15/20 at 06:59; Status Cancel Morphine Sulfate (Morphine Sulfate) 1 mg PRN Q10MIN PRN IV SEVERE PAIN 7-10; Start 05/14/20 at 07:00; Stop 05/15/20 at 06:59; Status Cancel Ringer's Solution 1,000 ml @ 30 mls/hr Q24H IV ; Start 05/14/20 at 07:00; Stop 05/14/20 at 18:59; Status Cancel Lidocaine HCl (Xylocaine-Mpf 1% 2ml Vial) 2 ml PRN 1X PRN ID PRIOR TO IV START; Start 05/14/20 at 07:00; Stop 05/15/20 at 06:59; Status Cancel Hydromorphone HCl (Dilaudid) 0.5 mg PRN Q10MIN PRN IV SEV PAIN, Second choice; Start 05/14/20 at 07:00; Stop 05/15/20 at 06:59; Status Cancel Prochlorperazine Edisylate (Compazine) 5 mg PACU PRN PRN IV NAUSEA, MRX1; Start 05/14/20 at 07:00; Stop 05/15/20 at 06:59; Status Cancel Cefazolin Sodium 1 gm/Sodium Chloride 500 ml @ 500 mls/hr 1X ONCE IRR ; Start 05/14/20 at 06:00; Stop 05/14/20 at 06:59 Linezolid/Dextrose 300 ml @ 300 mls/hr Q12HR IV Last administered on 05/13/20at 13:03; Start 05/13/20 at 13:30 Active Scripts Active Aspirin Ec (Aspirin) 81 Mg Tablet.dr 81 Mg PO DAILYWBKFT 90 Days Gabapentin 300 Mg Capsule 300 Mg PO TID 14 Days Reported Humalog (Insulin Lispro) 100 Unit/1 Ml Cartridge 6 Unit SQ TIDAC Tresiba (Insulin Degludec) 100 Unit/1 Ml Vial 18 Unit SQ HS Protonix (Pantoprazole Sodium) 20 Mg Tablet.dr 40 Mg PO DAILY Lisinopril 40 Mg Tablet 1 Tab PO DAILY Clopidogrel (Clopidogrel Bisulfate) 75 Mg Tablet 1 Tab PO DAILY Vitals/I & O Vital Sign - Last 24 Hours 05/12/20 05/12/20 05/12/20 05/12/20 15:11 15:41 16:11 17:05 Pulse 89 93 98 B/P (MAP) 135/61 (85) 166/74 (104) 158/69 (98) Pulse Ox 96 98 99 O2 Delivery Room Air Room Air Room Air Room Air 05/12/20 05/12/20 05/12/20 05/12/20 17:10 19:00 20:00 23:00 Temp 100.2 100.1 97.0 100.2 100.1 97.0 Pulse 99 95 82 Resp 18 18 18 B/P (MAP) 163/56 (91) 150/57 (88) 141/59 (86) Pulse Ox 99 96 94 O2 Delivery Room Air Room Air Room Air Room Air 05/13/20 05/13/20 05/13/20 05/13/20 03:00 07:00 08:00 08:19 Temp 98.4 99.3 98.4 99.3 Pulse 82 88 88 Resp 18 16 B/P (MAP) 153/56 (88) 150/45 (80) 150/45 Pulse Ox 96 98 O2 Delivery Room Air Room Air Room Air 05/13/20 11:00 Temp 98.7 98.7 Pulse 85 Resp 16 B/P (MAP) 140/55 (83) Pulse Ox 98 O2 Delivery Room Air Intake and Output 05/12/20 05/12/20 05/13/20 15:00 23:00 07:00 Intake Total 50 ml 0 ml Balance 50 ml 0 ml Justicifation of Admission Dx: Justifications for Admission: Justification of Admission Dx: Yes ELIANE STREET MD May 13, 2020 14:51
[2020-05-13 15:00] VITALS: BP 156/74
[2020-05-13 19:47] VITALS: BP 142/60
[2020-05-13] MEDS ORDERED: INSULIN LISPRO 300 UNITS/3 ML VIAL. SQ SCH (20:30)
[2020-05-13] MEDS: INSULIN GLARGINE SYRINGE. SQ SCH (20:59)
[2020-05-13] MEDS ORDERED: INSULIN LISPRO 300 UNITS/3 ML VIAL. SQ ONE (21:30)
[2020-05-13] MEDS: ZOLPIDEM 5 MG TABLET. PO PRN (23:43)
[2020-05-13 23:55] VITALS: BP 154/55
[2020-05-14 03:26] VITALS: BP 173/73
[2020-05-14] MEDS: PIPERACILLIN/TAZOBACTAM 3.375 GM in IV NORMAL SALINE 50ML 50 ML IV SCH ×3 (05:31→18:00)
[2020-05-14] MEDS: IV NORMAL SALINE 1000ML BAG 1,000 ML IV SCH ×2 (05:31→14:11)
[2020-05-14] MEDS: PANTOPRAZOLE 40 MG TABLET.DR. PO SCH (05:31)
[2020-05-14 06:41] LABS: CREATININE 1.3 mg/dL (0.7-1.3); GFR 66.4
[2020-05-14] MEDS ORDERED: MORPHINE SULFATE 2 MG/ML VIAL. IV PRN ×2 (07:00)
[2020-05-14] MEDS ORDERED: fentaNYL PF VIAL 100 MCG/2 ML VIAL IV PRN ×3 (07:00)
[2020-05-14] MEDS ORDERED: IV RINGERS,LACTATED 1000ML 1,000 ML IV SCH ×2 (07:00)
[2020-05-14] MEDS ORDERED: LIDOCAINE 1% PF 2 ML VIAL. ID PRN ×2 (07:00)
[2020-05-14] MEDS ORDERED: ONDANSETRON PF 4 MG/2 ML VIAL. IV PRN (07:00)
[2020-05-14] MEDS ORDERED: HYDROmorphone 2 MG/ML VIAL IV PRN (07:00)
[2020-05-14] MEDS ORDERED: PROCHLORPERAZINE 10 MG/2 ML VIAL. IV PRN ×2 (07:00)
[2020-05-14] MEDS ORDERED: LIDOCAINE 2% PF 5 ML VIAL. ONE (07:02)
[2020-05-14] MEDS ORDERED: PROPOFOL 10 MG/ML (20ML) VIAL. IV ONE (07:02)
[2020-05-14] MEDS ORDERED: DEXAMETHASONE SOD PHOS 4 MG/ML VIAL ONE (07:02)
[2020-05-14] MEDS ORDERED: ONDANSETRON PF 4 MG/2 ML VIAL. ONE (07:02)
[2020-05-14] MEDS ORDERED: fentaNYL PF VIAL 100 MCG/2 ML VIAL ONE ×2 (07:03→08:46)
[2020-05-14] MEDS: INSULIN LISPRO 100 UNIT/ML 3ML VIAL for OP,RR ONLY. SQ PRN ×2 (07:26→08:30)
[2020-05-14] MEDS ORDERED: ceFAZolin SODIUM IV Push 1 GM VIAL. IVP ONE (07:43)
[2020-05-14] MEDS ORDERED: SEVOFLURANE 31 TO 60 MINUTES. IH ONE (07:50)
[2020-05-14] MEDS: INSULIN LISPRO 300 UNITS/3 ML VIAL. SQ SCH ×7 (08:00→20:52)
--- NOTE | 2020-05-14 08:33 | PDOC4 ---
Operative Note Operative Note Operative Report dictated Pre-op: left 1st and 2nd toe amputation wound with infected wet gangrene Post op: severe infected gangrene throughout the forefoot Surgery: Left proximal open transmetatarsal amputation Surgeon: Dr. Isael Barcenas Anesthesia: general Blood loss: 20ml ISAEL BARCENAS MD May 14, 2020 08:33
[2020-05-14] MEDS: fentaNYL PF VIAL 100 MCG/2 ML VIAL IV PRN ×2 (08:48→09:02)
--- NOTE | 2020-05-14 08:51 | OP ---
DATE OF SURGERY: 05/14/2020 SURGEON: Merline Barcenas MD SAP DIRECTOR: Halle Armstrong, medical student. ANESTHESIA USED: General anesthesia. PREOPERATIVE DIAGNOSIS: Recent left first and second toe closed amputation, which has developed extensive wet gangrene and infection throughout his forefoot. POSTOPERATIVE DIAGNOSIS: Extensive gangrene throughout the left first and second toe amputation site extending across the forefoot. OPERATION PERFORMED: Left open transmetatarsal amputation done in a very proximal location. BLOOD LOSS: 20 mL. INDICATIONS: The patient is a 69-year-old male with a history of vascular disease who recently underwent a left first and second toe closed amputation. This has developed extensive wet gangrene and infection throughout his forefoot. This was a proximal amputation including the metatarsal head; therefore, the gangrene extends fairly proximally on to the foot. I recommend open surgical debridement with at least third toe open amputation; however, this may need to be an open transmetatarsal amputation because of the extent of the infection. Informed consent was obtained from the patient and the family including the risks of bleeding, further infection, further need for debridement or below-knee amputation in the future if this does not heal. DETAILS OF THE OPERATION: The patient was brought to the operating room and placed on table in supine position. He received general anesthesia monitored throughout the case by the anesthesiologist. His left foot and ankle was prepped and draped circumferentially by normal sterile fashion. We began by removing the sutures and opening the amputation wound in the left foot. There was copious amounts of pus and old hematoma, which was sent for culture within the wound and extensive gangrene visualized. We began by making a large elliptical incision around the first toe and around the base of the third toe, dissected down through the tissues to encompass the metatarsal bones and we used a bone cutter and removed the third metatarsal bone, removing the toe more proximally on the second and first metatarsal bones. After doing this, there was still copious amounts of gangrenous necrotic tissue throughout the wound and it was extending to the second and fifth toe regions under the skin. Unfortunately, I did not feel that I could salvage those toes and felt that he needed a more proximal open transmetatarsal amputations since there was still copious amounts of gangrene throughout the wound. We therefore made a proximal elliptical type incision around the more proximal foot. We dissected down through the tissues down to the metatarsal bones. We transected the fourth and fifth metatarsal bones proximally, removed these toes and then removed more of the forefoot with this amputation. We were not able to keep a posterior flap because it was gangrenous and had to take it to a flush amputation at this proximal location. We brought all the bones back within the wound with a rongeur. We removed all further necrotic tissue and removed tendons throughout the wound bed. After this debridement, there was no significant necrotic tissue left. There was some bleeding throughout the wound bed, which was controlled with electrocautery. I feel this is as proximal as we can go in the foot. If this does not heal, he will need a below-knee amputation. We irrigated with copious amounts of antibiotic solution. When hemostasis was gained. We packed with antibiotic-soaked gauze, covered with ABD pad, a Kerlix wrap and an Lucas bandage. He tolerated the surgery with no immediate complications. MERLINE BARCENAS MD DR: CEASAR/marbella JOB#: [id number] / [id number]
[2020-05-14] MEDS: CLOPIDOGREL BISULFATE 75 MG TABLET PO SCH (09:22)
[2020-05-14] MEDS: LISINOPRIL 20 MG TABLET PO SCH (09:22)
[2020-05-14] MEDS: GABAPENTIN 300 MG CAPSULE. PO SCH ×3 (09:22→20:40)
[2020-05-14] MEDS: ASPIRIN ENTERIC COATED 81 MG TABLET.DR. PO SCH (09:22)
--- NOTE | 2020-05-14 10:27 | PDOC ---
Infectious Disease Note Subjective: Subjective Patient has some postop pain Denies fever, nausea, vomiting, shortness of breath, diarrhea, abdominal pain, rash Vital Signs: Vital Signs Vital Signs Date Time Temp Pulse Resp B/P (MAP) Pulse Ox O2 Delivery O2 Flow Rate FiO2 05/14/20 09:22 94 135/62 05/14/20 09:04 98.0 15 94 Room Air 98.0 Physical Exam: PHYSICAL EXAM GENERAL: Alert and oriented x3 male in no acute distress, lying comfortably in bed. HEENT: Normocephalic, atraumatic, and anicteric. NECK: Supple, no JVD, no lymphadenopathy. LUNGS: Clear bilaterally. No wheezing. HEART: S1 and S2 regular. ABDOMEN: Soft, nontender, and nondistended. EXTREMITIES: No edema. No cyanosis. Right BKA stump looks good. Postsurgical left foot dressing in place intact not taken down NEUROLOGIC: Alert and oriented x3, grossly nonfocal. Medications: Inpatient Meds: Current Medications Medications (Trade) Dose Ordered Sig/Dave Start Time Stop Time Status Last Admin Dose Admin Acetaminophen (Tylenol) 650 mg PRN Q4HRS PRN 05/12/20 14:15 05/13/20 14:56 650 MG Aspirin (Ecotrin) 81 mg DAILYWBKFT 05/13/20 08:00 05/14/20 09:22 81 MG Cefazolin Sodium (Ancef) 1 gm STK-MED ONCE 05/14/20 07:43 05/14/20 07:43 DC Cefazolin Sodium 1 gm/Sodium Chloride 500 ml @ 500 mls/hr 1X ONCE 05/14/20 06:00 05/14/20 06:59 DC 05/14/20 07:43 Clopidogrel Bisulfate (Plavix) 75 mg DAILY 05/13/20 09:00 05/14/20 09:22 75 MG Dexamethasone Sodium Phosphate (Decadron) 4 mg STK-MED ONCE 05/14/20 07:02 05/14/20 07:02 DC Dextrose (Dextrose 50%-Water Syringe) 12.5 gm PRN Q15MIN PRN 05/12/20 14:15 Docusate Sodium (Colace) 100 mg PRN BID PRN 05/12/20 14:15 Fentanyl Citrate (Fentanyl 2ml Vial) 100 mcg STK-MED ONCE 05/14/20 08:46 05/14/20 08:47 DC Gabapentin (Neurontin) 300 mg TID 05/12/20 21:00 05/14/20 09:22 300 MG Guaifenesin (Robitussin) 200 mg PRN Q4HRS PRN 05/12/20 14:15 Heparin Sodium (Porcine) (Heparin Sodium) 5,000 unit Q8HRS 05/12/20 22:00 05/13/20 13:07 5,000 UNIT Hydromorphone HCl (Dilaudid) 0.5 mg PRN Q10MIN PRN 05/14/20 07:00 05/15/20 06:59 Cancel Insulin Glargine (Lantus Syringe) 18 unit QHS 05/12/20 21:00 05/13/20 20:59 18 UNIT Insulin Human Lispro (HumaLOG VIAL for OP,RR ONLY) 0-10 units PRN Q1HR PRN 05/14/20 07:30 05/14/20 23:00 05/14/20 08:30 6 UNIT Insulin Human Lispro (HumaLOG) 2 units 1X ONCE 05/13/20 21:30 05/13/20 21:31 DC 05/13/20 21:30 2 UNITS Lidocaine HCl (Lidocaine Pf 2% Vial) 5 ml STK-MED ONCE 05/14/20 07:02 05/14/20 07:02 DC Lidocaine HCl (Xylocaine-Mpf 1% 2ml Vial) 2 ml PRN 1X PRN 05/14/20 07:00 05/15/20 06:59 Cancel Linezolid/Dextrose 300 ml @ 300 mls/hr Q12HR 05/13/20 13:30 05/14/20 09:23 300 MLS/HR Lisinopril (Prinivil) 40 mg DAILY 05/13/20 09:00 05/14/20 09:22 40 MG Lorazepam (Ativan) 0.5 mg PRN Q4HRS PRN 05/12/20 14:15 Morphine Sulfate (Morphine Sulfate) 1 mg PRN Q10MIN PRN 05/14/20 07:00 05/15/20 06:59 Cancel Multivitamins (Thera M Plus) 1 tab DAILY 05/14/20 10:30 Ondansetron HCl (Zofran) 4 mg STK-MED ONCE 05/14/20 07:02 05/14/20 07:02 DC Pantoprazole Sodium (Protonix) 40 mg DAILYAC 05/12/20 16:30 05/13/20 05:31 40 MG Piperacillin Sod/ Tazobactam Sod 3.375 gm/Sodium Chloride 50 ml @ 100 mls/hr 1X ONCE 05/12/20 14:30 05/12/20 14:59 Cancel Prochlorperazine Edisylate (Compazine) 5 mg PACU PRN PRN 05/14/20 07:00 05/15/20 06:59 Cancel Propofol (Diprivan) 200 mg STK-MED ONCE 05/14/20 07:02 05/14/20 07:02 DC Ringer's Solution 1,000 ml @ 30 mls/hr Q24H 05/14/20 07:00 05/14/20 18:59 Cancel Sevoflurane (Ultane) 30 ml STK-MED ONCE 05/14/20 07:50 05/14/20 07:51 DC Sodium Chloride 1,000 ml @ 100 mls/hr Q10H 05/12/20 14:05 05/14/20 05:31 100 MLS/HR Vancomycin HCl (Vanco Per Pharmacy) 1 each PRN DAILY PRN 05/12/20 14:15 05/13/20 12:23 DC 05/13/20 10:29 1 EACH Vancomycin HCl (Vancomycin Trough Level) 1 each 1X ONCE 05/14/20 02:30 05/13/20 12:23 DC Vancomycin HCl 1.5 gm/Sodium Chloride 500 ml @ 250 mls/hr Q18H 05/13/20 09:00 05/13/20 12:22 DC 05/13/20 08:20 250 MLS/HR Vancomycin HCl 2 gm/Sodium Chloride 500 ml @ 250 mls/hr 1X ONCE 05/12/20 14:30 05/12/20 16:29 DC 05/12/20 14:52 250 MLS/HR Zolpidem Tartrate (Ambien) 5 mg PRN QHS PRN 05/12/20 14:15 05/13/20 23:43 5 MG Labs: Lab Laboratory Tests Test 05/13/20 11:46 05/13/20 16:35 05/13/20 20:21 05/14/20 05:25 Glucose (Fingerstick) 159 mg/dL (70-99) 124 mg/dL (70-99) 220 mg/dL (70-99) Creatinine 1.3 mg/dL (0.7-1.3) Estimated GFR (Cockcroft-Gault) 66.4 Test 05/14/20 07:04 05/14/20 08:25 Glucose (Fingerstick) 214 mg/dL (70-99) 214 mg/dL (70-99) Objective: Assessment: 1. Left foot amputation site infection/gangrene .May 14, 2020 left proximal open transmetatarsal amputation 2. Left foot cellulitis improving 3. Peripheral arterial disease, status post left first toe amputation and left second toe amputation including metatarsal head on 05/07/2020, with atherosclerosis and gangrene of the left first and second toe. 4. Leukocytosis. 5. Peripheral arterial disease. 6. Diabetes mellitus. 7. Hypertension. 8. Mild renal insufficiency. Plan: Plan of Care Continue Zosyn. Zyvox. Follow up labs and cultures. Continue local wound care. Continue supportive care. Discussed with nursing staff. GASTON JAVIER MD May 14, 2020 10:27
[2020-05-14 11:00] VITALS: BP 124/90
--- NOTE | 2020-05-14 11:29 | NUR ---
SW following. Discussed with RN, pt had surgery this morning. Will have wound vac placed later today. Pt wanting to go home. SW to determine what wound care pt will require at discharge. SW will continue to follow.
[2020-05-14] MEDS: MULTIVITAMIN with MINERAL TABLET. PO SCH (12:49)
[2020-05-14] MEDS: HEPARIN for SUB-Q USE 5,000 UNIT/ML VIAL. SQ SCH ×2 (14:33→20:55)
[2020-05-14 15:00] VITALS: BP 135/63
[2020-05-14] MEDS: HYDROmorphone 2 MG/ML VIAL IV PRN ×2 (15:28→16:49)
[2020-05-14 19:00] VITALS: BP 120/55
--- NOTE | 2020-05-14 19:51 | PDOC ---
PROGRESS NOTES Chief Complaint Chief Complaint Assessment/Plan Left foot gangrene status post amputation of the great and second toe left foot Leukocytosis secondary to the above Osteomyelitis as per pathology History of diabetes mellitus type 2 insulin requiring Essential hypertension Chronic kidney disease stage II Plan Broad-spectrum antibiotics with vancomycin and Zosyn Blood culture so far negative Post op care as per systems consultant reassurance provided. Pain management Resume home medication DVT prophylaxis with heparin History of Present Illness History of Present Illness Patient tolerated procedure well and seems to be at peace with the outcome of the amputation, reassurance rpovided, son at bedside, no concerns voiced during my visit. Vitals Vitals Vital Signs Date Time Temp Pulse Resp B/P (MAP) Pulse Ox O2 Delivery O2 Flow Rate FiO2 05/14/20 19:25 94 Room Air 05/14/20 15:00 97.9 96 20 135/63 (87) 97.9 Physical Exam Physical Exam GENERAL: Alert and oriented x3 male in no acute distress, lying comfortably in bed. HEENT: Normocephalic, atraumatic, and anicteric. NECK: Supple, no JVD, no lymphadenopathy. LUNGS: Clear bilaterally. No wheezing. HEART: S1 and S2 regular. ABDOMEN: Soft, nontender, and nondistended. EXTREMITIES: No edema. No cyanosis. Right BKA stump looks good. Postsurgical left foot dressing in place intact not taken down NEUROLOGIC: Alert and oriented x3, grossly nonfocal. Lungs: Clear Labs LABS Laboratory Tests Test 05/13/20 20:21 05/14/20 05:25 05/14/20 07:04 05/14/20 08:25 Glucose (Fingerstick) 220 mg/dL (70-99) 214 mg/dL (70-99) 214 mg/dL (70-99) Creatinine 1.3 mg/dL (0.7-1.3) Estimated GFR (Cockcroft-Gault) 66.4 Test 05/14/20 11:54 05/14/20 16:23 Glucose (Fingerstick) 160 mg/dL (70-99) 247 mg/dL (70-99) Assessment and Plan Assessmemt and Plan Problems Medical Problems: (1) Infection of toe as complication of amputation Status: Acute (2) Left foot infection Status: Acute Comment Review of Relevant I have reviewed the following items raudel (where applicable) has been applied. Labs Laboratory Tests Test 05/12/20 20:35 05/12/20 21:02 05/13/20 07:37 05/13/20 10:00 Glucose (Fingerstick) 237 mg/dL (70-99) 225 mg/dL (70-99) 95 mg/dL (70-99) Coronavirus (PCR) Not detected (Not Detected) SARS-CoV-2 Antigen (Rapid) Negative (NEGATIVE) Test 05/13/20 11:46 05/13/20 16:35 05/13/20 20:21 05/14/20 05:25 Glucose (Fingerstick) 159 mg/dL (70-99) 124 mg/dL (70-99) 220 mg/dL (70-99) Creatinine 1.3 mg/dL (0.7-1.3) Estimated GFR (Cockcroft-Gault) 66.4 Test 05/14/20 07:04 05/14/20 08:25 05/14/20 11:54 05/14/20 16:23 Glucose (Fingerstick) 214 mg/dL (70-99) 214 mg/dL (70-99) 160 mg/dL (70-99) 247 mg/dL (70-99) Laboratory Tests Test 05/13/20 20:21 05/14/20 05:25 05/14/20 07:04 05/14/20 08:25 Glucose (Fingerstick) 220 mg/dL (70-99) 214 mg/dL (70-99) 214 mg/dL (70-99) Creatinine 1.3 mg/dL (0.7-1.3) Estimated GFR (Cockcroft-Gault) 66.4 Test 05/14/20 11:54 05/14/20 16:23 Glucose (Fingerstick) 160 mg/dL (70-99) 247 mg/dL (70-99) Microbiology 05/14/20 Gram Stain - Final, Resulted 05/14/20 Aerobic and Anaerobic Culture, Resulted Pending 05/12/20 Blood Culture - Preliminary, Resulted NO GROWTH AFTER 2 DAYS Medications Current Medications Piperacillin Sod/ Tazobactam Sod 3.375 gm/Sodium Chloride 50 ml @ 100 mls/hr 1X ONCE IV Last administered on 05/12/20at 14:23; Start 05/12/20 at 13:30; Stop 05/12/20 at 13:59; Status DC Sodium Chloride 1,000 ml @ 100 mls/hr Q10H IV Last administered on 05/14/20at 05:31; Start 05/12/20 at 14:05 Ondansetron HCl (Zofran) 4 mg PRN Q4HRS PRN IV NAUSEA/VOMITING; Start 05/12/20 at 14:15 Zolpidem Tartrate (Ambien) 5 mg PRN QHS PRN PO INSOMNIA Last administered on 05/13/20at 23:43; Start 05/12/20 at 14:15 Acetaminophen (Tylenol) 650 mg PRN Q4HRS PRN PO TEMP OVER 100.4F OR MILD PAIN Last administered on 05/13/20at 14:56; Start 05/12/20 at 14:15 Docusate Sodium (Colace) 100 mg PRN BID PRN PO HARD STOOLS; Start 05/12/20 at 14:15 Guaifenesin (Robitussin) 200 mg PRN Q4HRS PRN PO COUGH; Start 05/12/20 at 14:15 Lorazepam (Ativan) 0.5 mg PRN Q4HRS PRN PO ANXIETY / AGITATION; Start 05/12/20 at 14:15 Vancomycin HCl (Vanco Per Pharmacy) 1 each PRN DAILY PRN MC SEE COMMENTS Last administered on 05/13/20at 10:29; Start 05/12/20 at 14:15; Stop 05/13/20 at 12:23; Status DC Piperacillin Sod/ Tazobactam Sod 3.375 gm/Sodium Chloride 50 ml @ 100 mls/hr Q6HRS IV Last administered on 05/14/20at 18:00; Start 05/12/20 at 18:00 Aspirin (Ecotrin) 81 mg DAILYWBKFT PO Last administered on 05/14/20at 09:22; Start 05/13/20 at 08:00 Clopidogrel Bisulfate (Plavix) 75 mg DAILY PO Last administered on 05/14/20at 09:22; Start 05/13/20 at 09:00 Gabapentin (Neurontin) 300 mg TID PO Last administered on 05/14/20at 14:30; Start 05/12/20 at 21:00 Lisinopril (Prinivil) 40 mg DAILY PO Last administered on 7/24/20at 09:22; Start 05/13/20 at 09:00 Insulin Glargine (Lantus Syringe) 18 unit QHS SQ Last administered on 05/13/20at 20:59; Start 05/12/20 at 21:00 Insulin Human Lispro (HumaLOG) 6 units TIDWMEALS SQ Last administered on 05/14/20at 16:53; Start 05/12/20 at 17:00 Pantoprazole Sodium (Protonix) 40 mg DAILYAC PO Last administered on 05/13/20at 05:31; Start 05/12/20 at 16:30 Insulin Human Lispro (HumaLOG) 0-7 UNITS TIDWMEALS SQ Last administered on 05/14/20at 16:54; Start 05/12/20 at 17:00 Dextrose (Dextrose 50%-Water Syringe) 12.5 gm PRN Q15MIN PRN IV SEE COMMENTS; Start 05/12/20 at 14:15 Vancomycin HCl 2 gm/Sodium Chloride 500 ml @ 250 mls/hr 1X ONCE IV Last administered on 05/12/20at 14:52; Start 05/12/20 at 14:30; Stop 05/12/20 at 16:29; Status DC Piperacillin Sod/ Tazobactam Sod 3.375 gm/Sodium Chloride 50 ml @ 100 mls/hr 1X ONCE IV ; Start 05/12/20 at 14:30; Stop 05/12/20 at 14:59; Status Cancel Heparin Sodium (Porcine) (Heparin Sodium) 5,000 unit Q8HRS SQ Last administered on 05/14/20at 14:33; Start 05/12/20 at 22:00 Vancomycin HCl 1.5 gm/Sodium Chloride 500 ml @ 250 mls/hr Q18H IV Last administered on 05/13/20at 08:20; Start 05/13/20 at 09:00; Stop 05/13/20 at 12:22; Status DC Vancomycin HCl (Vancomycin Trough Level) 1 each 1X ONCE MC ; Start 05/14/20 at 02:30; Stop 05/13/20 at 12:23; Status DC Fentanyl Citrate (Fentanyl 2ml Vial) 25 mcg PRN Q5MIN PRN IV MILD PAIN 1-3; Start 05/14/20 at 07:00; Stop 05/15/20 at 06:59 Fentanyl Citrate (Fentanyl 2ml Vial) 50 mcg PRN Q5MIN PRN IV MODERATE TO SEVERE PAIN Last administered on 05/14/20at 09:02; Start 05/14/20 at 07:00; Stop 05/15/20 at 06:59 Morphine Sulfate (Morphine Sulfate) 1 mg PRN Q10MIN PRN IV SEVERE PAIN 7-10; Start 05/14/20 at 07:00; Stop 05/15/20 at 06:59 Ringer's Solution 1,000 ml @ 30 mls/hr Q24H IV Last administered on 05/14/20at 12:50; Start 05/14/20 at 07:00; Stop 05/14/20 at 18:59; Status DC Lidocaine HCl (Xylocaine-Mpf 1% 2ml Vial) 2 ml PRN 1X PRN ID PRIOR TO IV START; Start 05/14/20 at 07:00; Stop 05/15/20 at 06:59 Hydromorphone HCl (Dilaudid) 0.5 mg PRN Q10MIN PRN IV SEV PAIN, Second choice Last administered on 05/14/20at 16:49; Start 05/14/20 at 07:00; Stop 05/15/20 at 06:59 Prochlorperazine Edisylate (Compazine) 5 mg PACU PRN PRN IV NAUSEA, MRX1; Start 05/14/20 at 07:00; Stop 05/15/20 at 06:59 Ondansetron HCl (Zofran) 4 mg PRN Q6HRS PRN IV NAUSEA/VOMITING; Start 05/14/20 at 07:00; Stop 05/15/20 at 06:59; Status Cancel Fentanyl Citrate (Fentanyl 2ml Vial) 25 mcg PRN Q5MIN PRN IV MILD PAIN 1-3; Start 05/14/20 at 07:00; Stop 05/15/20 at 06:59; Status Cancel Fentanyl Citrate (Fentanyl 2ml Vial) 50 mcg PRN Q5MIN PRN IV MODERATE TO SEVERE PAIN; Start 05/14/20 at 07:00; Stop 05/15/20 at 06:59; Status Cancel Morphine Sulfate (Morphine Sulfate) 1 mg PRN Q10MIN PRN IV SEVERE PAIN 7-10; Start 05/14/20 at 07:00; Stop 05/15/20 at 06:59; Status Cancel Ringer's Solution 1,000 ml @ 30 mls/hr Q24H IV ; Start 05/14/20 at 07:00; Stop 05/14/20 at 18:59; Status Cancel Lidocaine HCl (Xylocaine-Mpf 1% 2ml Vial) 2 ml PRN 1X PRN ID PRIOR TO IV START; Start 05/14/20 at 07:00; Stop 05/15/20 at 06:59; Status Cancel Hydromorphone HCl (Dilaudid) 0.5 mg PRN Q10MIN PRN IV SEV PAIN, Second choice; Start 05/14/20 at 07:00; Stop 05/15/20 at 06:59; Status Cancel Prochlorperazine Edisylate (Compazine) 5 mg PACU PRN PRN IV NAUSEA, MRX1; Start 05/14/20 at 07:00; Stop 05/15/20 at 06:59; Status Cancel Cefazolin Sodium 1 gm/Sodium Chloride 500 ml @ 500 mls/hr 1X ONCE IRR Last administered on 05/14/20at 07:43; Start 05/14/20 at 06:00; Stop 05/14/20 at 06:59; Status DC Linezolid/Dextrose 300 ml @ 300 mls/hr Q12HR IV Last administered on 05/14/20at 09:23; Start 05/13/20 at 13:30 Insulin Human Lispro (HumaLOG) 2 units 1X SQ ; Start 05/13/20 at 20:30; Stop 05/13/20 at 21:17; Status DC Insulin Human Lispro (HumaLOG) 2 units 1X ONCE SQ Last administered on 05/13/20at 21:30; Start 05/13/20 at 21:30; Stop 05/13/20 at 21:31; Status DC Propofol (Diprivan) 200 mg STK-MED ONCE IV ; Start 05/14/20 at 07:02; Stop 05/14/20 at 07:02; Status DC Lidocaine HCl (Lidocaine Pf 2% Vial) 5 ml STK-MED ONCE .ROUTE ; Start 05/14/20 at 07:02; Stop 05/14/20 at 07:02; Status DC Ondansetron HCl (Zofran) 4 mg STK-MED ONCE .ROUTE ; Start 05/14/20 at 07:02; Stop 05/14/20 at 07:02; Status DC Dexamethasone Sodium Phosphate (Decadron) 4 mg STK-MED ONCE .ROUTE ; Start 05/14/20 at 07:02; Stop 05/14/20 at 07:02; Status DC Fentanyl Citrate (Fentanyl 2ml Vial) 100 mcg STK-MED ONCE .ROUTE ; Start 05/14/20 at 07:03; Stop 05/14/20 at 07:03; Status DC Insulin Human Lispro (HumaLOG VIAL for OP,RR ONLY) 0-10 units PRN Q1HR PRN SQ PER PROTOCOL Last administered on 05/14/20at 08:30; Start 05/14/20 at 07:30; Stop 05/14/20 at 23:00 Cefazolin Sodium (Ancef) 1 gm STK-MED ONCE IVP ; Start 05/14/20 at 07:43; Stop 05/14/20 at 07:43; Status DC Sevoflurane (Ultane) 30 ml STK-MED ONCE IH ; Start 05/14/20 at 07:50; Stop 05/14/20 at 07:51; Status DC Fentanyl Citrate (Fentanyl 2ml Vial) 100 mcg STK-MED ONCE .ROUTE ; Start 05/14/20 at 08:46; Stop 05/14/20 at 08:47; Status DC Multivitamins (Thera M Plus) 1 tab DAILY PO Last administered on 05/14/20at 12:49; Start 05/14/20 at 10:30 Sodium Hypochlorite (Dakin'S 1/4 Strength) 1 pauly DAILY TP ; Start 05/15/20 at 09:00 Lactobacillus Rhamnosus (Culturelle) 1 cap BID PO ; Start 05/14/20 at 21:00 Active Scripts Active Aspirin Ec (Aspirin) 81 Mg Tablet. 81 Mg PO DAILYWBKFT 90 Days Gabapentin 300 Mg Capsule 300 Mg PO TID 14 Days Reported Humalog (Insulin Lispro) 100 Unit/1 Ml Cartridge 6 Unit SQ TIDAC Tresiba (Insulin Degludec) 100 Unit/1 Ml Vial 18 Unit SQ HS Protonix (Pantoprazole Sodium) 20 Mg Tablet. 40 Mg PO DAILY Lisinopril 40 Mg Tablet 1 Tab PO DAILY Clopidogrel (Clopidogrel Bisulfate) 75 Mg Tablet 1 Tab PO DAILY Vitals/I & O Vital Sign - Last 24 Hours 05/13/20 05/13/20 05/14/20 05/14/20 20:00 23:55 03:26 07:00 Temp 99.2 99.1 99.1 99.2 99.1 99.1 Pulse 81 88 88 Resp 18 20 15 B/P (MAP) 154/55 (88) 173/73 (106) 178/84 Pulse Ox 97 98 98 O2 Delivery Room Air Room Air Room Air 05/14/20 05/14/20 05/14/20 05/14/20 07:00 08:21 08:21 08:34 Temp 99.3 99.3 99.3 99.3 Pulse 95 99 Resp 15 15 B/P (MAP) 95/54 122/65 Pulse Ox 100 97 O2 Delivery Room Air Room Air Room Air Room Air 05/14/20 05/14/20 05/14/20 05/14/20 08:48 08:49 09:02 09:04 Temp 99.3 98.0 99.3 98.0 Pulse 96 94 Resp 15 15 15 15 B/P (MAP) 113/58 135/62 Pulse Ox 100 95 95 94 O2 Delivery Room Air Room Air Room Air Room Air 05/14/20 05/14/20 05/14/20 05/14/20 09:22 10:00 11:00 15:00 Temp 97.7 97.9 97.7 97.9 Pulse 94 90 96 Resp 20 20 B/P (MAP) 135/62 124/90 (101) 135/63 (87) Pulse Ox 94 94 94 O2 Delivery Room Air 05/14/20 05/14/20 05/14/20 05/14/20 15:28 16:00 16:49 19:25 Pulse Ox 94 94 94 94 O2 Delivery Room Air Room Air Room Air Room Air Intake and Output 05/13/20 05/13/20 05/14/20 15:00 23:00 07:00 Intake Total 100 ml Output Total 0 ml 1400 ml Balance 100 ml 0 ml -1400 ml Justicifation of Admission Dx: Justifications for Admission: Justification of Admission Dx: Yes ELIANE STREET MD May 14, 2020 19:51
[2020-05-14] MEDS: LACTOBACILLUS RHAMNOSUS GG 1 CAPSULE. PO SCH (20:40)
[2020-05-14] MEDS: DOCUSATE SODIUM 100 MG CAPSULE. PO PRN (21:05)
[2020-05-14] MEDS: INSULIN GLARGINE SYRINGE. SQ SCH (21:08)
[2020-05-14] MEDS: fentaNYL PF VIAL 100 MCG/2 ML VIAL IVP PRN (21:23)
[2020-05-14 23:00] VITALS: BP 120/62
[2020-05-15] MEDS: PIPERACILLIN/TAZOBACTAM 3.375 GM in IV NORMAL SALINE 50ML 50 ML IV SCH ×5 (00:19→23:30)
[2020-05-15] MEDS: IV NORMAL SALINE 1000ML BAG 1,000 ML IV SCH ×3 (00:25→22:05)
[2020-05-15] MEDS: HYDROcodone/APAP 5/325MG 1 TAB TABLET PO PRN ×3 (01:58→17:01)
[2020-05-15] MEDS: fentaNYL PF VIAL 100 MCG/2 ML VIAL IVP PRN ×3 (02:06→11:59)
[2020-05-15 03:00] VITALS: BP 155/72
[2020-05-15] MEDS: HEPARIN for SUB-Q USE 5,000 UNIT/ML VIAL. SQ SCH ×3 (05:12→22:33)
--- NOTE | 2020-05-15 05:13 | NUR ---
bleeding at dressing noted, heparin held due to increase bleeding.
[2020-05-15 05:24] LABS: BASO % 1 % (0-3); EOS # 0.1 x10^3/uL (0.0-0.7); EOS % 2 % (0-3); HEMOGLOBIN 8.7 g/dL (13.0-17.5); LYMPH # 1.8 x10^3/uL (1.0-4.8); LYMPH % 27 % (24-48); MEAN CORPUSCULAR HEMOGLOBIN 30 pg (25-35); MEAN CORPUSCULAR HGB CONC 34 g/dL (31-37); MEAN CORPUSCULAR VOLUME 91 fL (79-100); MONO # 0.7 x10^3/uL (0.0-1.1); MONO % 10 % (0-9); NEUT # 4.1 x10^3/uL (1.8-7.7); NEUT % 61 % (31-73); PLATELET COUNT 495 x10^3/uL (140-400); RED BLOOD COUNT 2.88 x10^6/uL (4.30-5.70); WHITE BLOOD COUNT 6.8 x10^3/uL (4.0-11.0)
[2020-05-15 07:00] VITALS: BP 170/55
[2020-05-15] MEDS: PANTOPRAZOLE 40 MG TABLET.DR. PO SCH (08:16)
[2020-05-15] MEDS: GABAPENTIN 300 MG CAPSULE. PO SCH ×3 (08:16→20:47)
[2020-05-15] MEDS: MULTIVITAMIN with MINERAL TABLET. PO SCH (08:17)
[2020-05-15] MEDS: ACETAMINOPHEN 325 MG TABLET. PO PRN (08:17)
[2020-05-15] MEDS: ASPIRIN ENTERIC COATED 81 MG TABLET.DR. PO SCH (08:17)
[2020-05-15] MEDS: LISINOPRIL 20 MG TABLET PO SCH (08:17)
[2020-05-15] MEDS: LACTOBACILLUS RHAMNOSUS GG 1 CAPSULE. PO SCH ×2 (08:17→20:47)
[2020-05-15] MEDS: SODIUM HYPOCHLORITE 0.125% 473 ML BOTTLE. TP SCH (08:18)
--- NOTE | 2020-05-15 08:21 | PDOC ---
Infectious Disease Note Subjective: Subjective Patient denies any complaints Denies fever, nausea, vomiting, shortness of breath, diarrhea, abdominal pain, rash Otherwise as above Vital Signs: Vital Signs Vital Signs Date Time Temp Pulse Resp B/P (MAP) Pulse Ox O2 Delivery O2 Flow Rate FiO2 05/15/20 08:17 87 170/55 05/15/20 07:00 98.1 16 97 Room Air 98.1 Physical Exam: PHYSICAL EXAM GENERAL: Alert and oriented x3 male in no acute distress, lying comfortably in bed. HEENT: Normocephalic, atraumatic, and anicteric. NECK: Supple, no JVD, no lymphadenopathy. LUNGS: Clear bilaterally. No wheezing. HEART: S1 and S2 regular. ABDOMEN: Soft, nontender, and nondistended. EXTREMITIES: No edema. No cyanosis. Right BKA stump looks good. Postsurgical left foot dressing in place intact not taken down NEUROLOGIC: Alert and oriented x3, grossly nonfocal. Medications: Inpatient Meds: Current Medications Medications (Trade) Dose Ordered Sig/Dave Start Time Stop Time Status Last Admin Dose Admin Acetaminophen (Tylenol) 650 mg PRN Q4HRS PRN 05/12/20 14:15 05/15/20 08:17 650 MG Acetaminophen/ Hydrocodone Bitart (Lortab 5/325) 1 tab PRN Q4HRS PRN 05/14/20 21:00 05/15/20 01:58 1 TAB Aspirin (Ecotrin) 81 mg DAILYWBKFT 05/13/20 08:00 05/15/20 08:17 81 MG Cefazolin Sodium (Ancef) 1 gm STK-MED ONCE 05/14/20 07:43 05/14/20 07:43 DC Cefazolin Sodium 1 gm/Sodium Chloride 500 ml @ 500 mls/hr 1X ONCE 05/14/20 06:00 05/14/20 06:59 DC 05/14/20 07:43 Clopidogrel Bisulfate (Plavix) 75 mg DAILY 05/13/20 09:00 05/14/20 09:22 75 MG Dexamethasone Sodium Phosphate (Decadron) 4 mg STK-MED ONCE 05/14/20 07:02 05/14/20 07:02 DC Dextrose (Dextrose 50%-Water Syringe) 12.5 gm PRN Q15MIN PRN 7/22/20 14:15 Docusate Sodium (Colace) 100 mg PRN BID PRN 05/12/20 14:15 05/14/20 21:05 100 MG Fentanyl Citrate (Fentanyl 2ml Vial) 25 mcg PRN Q3HRS PRN 05/14/20 21:00 05/15/20 05:09 25 MCG Gabapentin (Neurontin) 300 mg TID 05/12/20 21:00 05/15/20 08:16 300 MG Guaifenesin (Robitussin) 200 mg PRN Q4HRS PRN 05/12/20 14:15 Heparin Sodium (Porcine) (Heparin Sodium) 5,000 unit Q8HRS 05/12/20 22:00 05/14/20 14:33 5,000 UNIT Hydromorphone HCl (Dilaudid) 0.5 mg PRN Q10MIN PRN 05/14/20 07:00 05/15/20 06:59 Cancel Insulin Glargine (Lantus Syringe) 18 unit QHS 05/12/20 21:00 05/14/20 21:08 18 UNIT Insulin Human Lispro (HumaLOG VIAL for OP,RR ONLY) 0-10 units PRN Q1HR PRN 05/14/20 07:30 05/14/20 23:00 DC 05/14/20 08:30 6 UNIT Insulin Human Lispro (HumaLOG) 0-7 UNITS QIDACHS 05/14/20 21:00 05/14/20 20:52 2 UNITS Lactobacillus Rhamnosus (Culturelle) 1 cap BID 05/14/20 21:00 05/15/20 08:17 1 CAP Lidocaine HCl (Lidocaine Pf 2% Vial) 5 ml STK-MED ONCE 05/14/20 07:02 05/14/20 07:02 DC Lidocaine HCl (Xylocaine-Mpf 1% 2ml Vial) 2 ml PRN 1X PRN 05/14/20 07:00 05/15/20 06:59 Cancel Linezolid/Dextrose 300 ml @ 300 mls/hr Q12HR 05/13/20 13:30 05/14/20 20:40 300 MLS/HR Lisinopril (Prinivil) 40 mg DAILY 05/13/20 09:00 05/15/20 08:17 40 MG Lorazepam (Ativan) 0.5 mg PRN Q4HRS PRN 05/12/20 14:15 Morphine Sulfate (Morphine Sulfate) 1 mg PRN Q10MIN PRN 05/14/20 07:00 05/15/20 06:59 Cancel Multivitamins (Thera M Plus) 1 tab DAILY 05/14/20 10:30 05/15/20 08:17 1 TAB Ondansetron HCl (Zofran) 4 mg STK-MED ONCE 05/14/20 07:02 05/14/20 07:02 DC Pantoprazole Sodium (Protonix) 40 mg DAILYAC 05/12/20 16:30 05/15/20 08:16 40 MG Piperacillin Sod/ Tazobactam Sod 3.375 gm/Sodium Chloride 50 ml @ 100 mls/hr 1X ONCE 05/12/20 14:30 05/12/20 14:59 Cancel Prochlorperazine Edisylate (Compazine) 5 mg PACU PRN PRN 05/14/20 07:00 05/15/20 06:59 Cancel Propofol (Diprivan) 200 mg STK-MED ONCE 05/14/20 07:02 05/14/20 07:02 DC Ringer's Solution 1,000 ml @ 30 mls/hr Q24H 05/14/20 07:00 05/14/20 18:59 Cancel Sevoflurane (Ultane) 30 ml STK-MED ONCE 05/14/20 07:50 05/14/20 07:51 DC Sodium Hypochlorite (Dakin'S 1/4 Strength) 1 pauly DAILY 05/15/20 09:00 05/15/20 08:18 1 PAULY Sodium Chloride 1,000 ml @ 100 mls/hr Q10H 05/12/20 14:05 05/15/20 00:25 100 MLS/HR Vancomycin HCl (Vanco Per Pharmacy) 1 each PRN DAILY PRN 05/12/20 14:15 05/13/20 12:23 DC 05/13/20 10:29 1 EACH Vancomycin HCl (Vancomycin Trough Level) 1 each 1X ONCE 05/14/20 02:30 05/13/20 12:23 DC Vancomycin HCl 1.5 gm/Sodium Chloride 500 ml @ 250 mls/hr Q18H 05/13/20 09:00 05/13/20 12:22 DC 05/13/20 08:20 250 MLS/HR Vancomycin HCl 2 gm/Sodium Chloride 500 ml @ 250 mls/hr 1X ONCE 05/12/20 14:30 05/12/20 16:29 DC 05/12/20 14:52 250 MLS/HR Zolpidem Tartrate (Ambien) 5 mg PRN QHS PRN 05/12/20 14:15 05/13/20 23:43 5 MG Labs: Lab Laboratory Tests Test 05/14/20 08:25 05/14/20 11:54 05/14/20 16:23 05/14/20 20:27 Glucose (Fingerstick) 214 mg/dL (70-99) 160 mg/dL (70-99) 247 mg/dL (70-99) 241 mg/dL (70-99) Test 05/15/20 05:00 05/15/20 07:26 White Blood Count 6.8 x10^3/uL (4.0-11.0) Red Blood Count 2.88 x10^6/uL (4.30-5.70) Hemoglobin 8.7 g/dL (13.0-17.5) Hematocrit 26.0 % (39.0-53.0) Mean Corpuscular Volume 91 fL (79-100) Mean Corpuscular Hemoglobin 30 pg (25-35) Mean Corpuscular Hemoglobin Concent 34 g/dL (31-37) Red Cell Distribution Width 13.0 % (11.5-14.5) Platelet Count 495 x10^3/uL (140-400) Neutrophils (%) (Auto) 61 % (31-73) Lymphocytes (%) (Auto) 27 % (24-48) Monocytes (%) (Auto) 10 % (0-9) Eosinophils (%) (Auto) 2 % (0-3) Basophils (%) (Auto) 1 % (0-3) Neutrophils # (Auto) 4.1 x10^3/uL (1.8-7.7) Lymphocytes # (Auto) 1.8 x10^3/uL (1.0-4.8) Monocytes # (Auto) 0.7 x10^3/uL (0.0-1.1) Eosinophils # (Auto) 0.1 x10^3/uL (0.0-0.7) Basophils # (Auto) 0.0 x10^3/uL (0.0-0.2) Glucose (Fingerstick) 194 mg/dL (70-99) Objective: Assessment: 1. Left foot amputation site infection/gangrene .May 14, 2020 left proximal open transmetatarsal amputation 2. Left foot cellulitis improving 3. Peripheral arterial disease, status post left first toe amputation and left second toe amputation including metatarsal head on 05/07/2020, with atherosclerosis and gangrene of the left first and second toe. 4. Leukocytosis. 5. Peripheral arterial disease. 6. Diabetes mellitus. 7. Hypertension. 8. Mild renal insufficiency. Plan: Plan of Care Continue Zosyn Change Zyvox to Dapto Local wound care Discussed with nursing staff GASTON JAVIER MD May 15, 2020 08:21
[2020-05-15] MEDS: INSULIN LISPRO 300 UNITS/3 ML VIAL. SQ SCH ×7 (08:22→21:02)
[2020-05-15] MEDS: CLOPIDOGREL BISULFATE 75 MG TABLET PO SCH (08:24)
[2020-05-15] MEDS: DAPTOmycin (GENERIC) IVPB 500 MG in IV NORMAL SALINE 50ML 50 ML IV SCH (10:44)
[2020-05-15 11:00] VITALS: BP 160/64
--- NOTE | 2020-05-15 13:52 | PDOC ---
PROGRESS NOTES Chief Complaint Chief Complaint Assessment/Plan Left foot gangrene status post amputation of the great and second toe left foot Leukocytosis secondary to the above Osteomyelitis as per pathology History of diabetes mellitus type 2 insulin requiring Essential hypertension Chronic kidney disease stage II Plan Broad-spectrum antibiotics with vancomycin and Zosyn Blood culture so far negative Post op care as per wardrobe consultant Wound vac will be placed on Sunday most likely reassurance provided. Pain management Resume home medication DVT prophylaxis with heparin History of Present Illness History of Present Illness 05/14: Patient tolerated procedure well and seems to be at peace with the outcome of the amputation, reassurance rpovided, son at bedside, no concerns voiced during my visit. 05/15: No concerns voiced today, anemia noted, as expected after surgical procedure, no signs of hemodynamic instability. Patient with well controlled pain, no fever or chills. Vitals Vitals Vital Signs Date Time Temp Pulse Resp B/P (MAP) Pulse Ox O2 Delivery O2 Flow Rate FiO2 05/15/20 12:31 16 Room Air 05/15/20 11:00 98.1 88 160/64 (96) 99 98.1 Physical Exam Physical Exam GENERAL: Alert and oriented x3 male in no acute distress, lying comfortably in bed. HEENT: Normocephalic, atraumatic, and anicteric. NECK: Supple, no JVD, no lymphadenopathy. LUNGS: Clear bilaterally. No wheezing. HEART: S1 and S2 regular. ABDOMEN: Soft, nontender, and nondistended. EXTREMITIES: No edema. No cyanosis. Right BKA stump looks good. Postsurgical left foot dressing in place intact not taken down NEUROLOGIC: Alert and oriented x3, grossly nonfocal. General: Alert, Oriented X3, Cooperative Heart: Regular rate, Normal S1, Normal S2 Lungs: Clear Abdomen: Normal bowel sounds, Soft, No tenderness Labs LABS Laboratory Tests Test 05/14/20 16:23 05/14/20 20:27 05/15/20 05:00 05/15/20 07:26 Glucose (Fingerstick) 247 mg/dL (70-99) 241 mg/dL (70-99) 194 mg/dL (70-99) White Blood Count 6.8 x10^3/uL (4.0-11.0) Red Blood Count 2.88 x10^6/uL (4.30-5.70) Hemoglobin 8.7 g/dL (13.0-17.5) Hematocrit 26.0 % (39.0-53.0) Mean Corpuscular Volume 91 fL (79-100) Mean Corpuscular Hemoglobin 30 pg (25-35) Mean Corpuscular Hemoglobin Concent 34 g/dL (31-37) Red Cell Distribution Width 13.0 % (11.5-14.5) Platelet Count 495 x10^3/uL (140-400) Neutrophils (%) (Auto) 61 % (31-73) Lymphocytes (%) (Auto) 27 % (24-48) Monocytes (%) (Auto) 10 % (0-9) Eosinophils (%) (Auto) 2 % (0-3) Basophils (%) (Auto) 1 % (0-3) Neutrophils # (Auto) 4.1 x10^3/uL (1.8-7.7) Lymphocytes # (Auto) 1.8 x10^3/uL (1.0-4.8) Monocytes # (Auto) 0.7 x10^3/uL (0.0-1.1) Eosinophils # (Auto) 0.1 x10^3/uL (0.0-0.7) Basophils # (Auto) 0.0 x10^3/uL (0.0-0.2) Assessment and Plan Assessmemt and Plan Problems Medical Problems: (1) Infection of toe as complication of amputation Status: Acute (2) Left foot infection Status: Acute Comment Review of Relevant I have reviewed the following items raudel (where applicable) has been applied. Labs Laboratory Tests Test 05/13/20 16:35 05/13/20 20:21 05/14/20 05:25 05/14/20 07:04 Glucose (Fingerstick) 124 mg/dL (70-99) 220 mg/dL (70-99) 214 mg/dL (70-99) Creatinine 1.3 mg/dL (0.7-1.3) Estimated GFR (Cockcroft-Gault) 66.4 Test 05/14/20 08:25 05/14/20 11:54 05/14/20 16:23 05/14/20 20:27 Glucose (Fingerstick) 214 mg/dL (70-99) 160 mg/dL (70-99) 247 mg/dL (70-99) 241 mg/dL (70-99) Test 05/15/20 05:00 05/15/20 07:26 White Blood Count 6.8 x10^3/uL (4.0-11.0) Red Blood Count 2.88 x10^6/uL (4.30-5.70) Hemoglobin 8.7 g/dL (13.0-17.5) Hematocrit 26.0 % (39.0-53.0) Mean Corpuscular Volume 91 fL (79-100) Mean Corpuscular Hemoglobin 30 pg (25-35) Mean Corpuscular Hemoglobin Concent 34 g/dL (31-37) Red Cell Distribution Width 13.0 % (11.5-14.5) Platelet Count 495 x10^3/uL (140-400) Neutrophils (%) (Auto) 61 % (31-73) Lymphocytes (%) (Auto) 27 % (24-48) Monocytes (%) (Auto) 10 % (0-9) Eosinophils (%) (Auto) 2 % (0-3) Basophils (%) (Auto) 1 % (0-3) Neutrophils # (Auto) 4.1 x10^3/uL (1.8-7.7) Lymphocytes # (Auto) 1.8 x10^3/uL (1.0-4.8) Monocytes # (Auto) 0.7 x10^3/uL (0.0-1.1) Eosinophils # (Auto) 0.1 x10^3/uL (0.0-0.7) Basophils # (Auto) 0.0 x10^3/uL (0.0-0.2) Glucose (Fingerstick) 194 mg/dL (70-99) Laboratory Tests Test 05/14/20 16:23 05/14/20 20:27 05/15/20 05:00 05/15/20 07:26 Glucose (Fingerstick) 247 mg/dL (70-99) 241 mg/dL (70-99) 194 mg/dL (70-99) White Blood Count 6.8 x10^3/uL (4.0-11.0) Red Blood Count 2.88 x10^6/uL (4.30-5.70) Hemoglobin 8.7 g/dL (13.0-17.5) Hematocrit 26.0 % (39.0-53.0) Mean Corpuscular Volume 91 fL (79-100) Mean Corpuscular Hemoglobin 30 pg (25-35) Mean Corpuscular Hemoglobin Concent 34 g/dL (31-37) Red Cell Distribution Width 13.0 % (11.5-14.5) Platelet Count 495 x10^3/uL (140-400) Neutrophils (%) (Auto) 61 % (31-73) Lymphocytes (%) (Auto) 27 % (24-48) Monocytes (%) (Auto) 10 % (0-9) Eosinophils (%) (Auto) 2 % (0-3) Basophils (%) (Auto) 1 % (0-3) Neutrophils # (Auto) 4.1 x10^3/uL (1.8-7.7) Lymphocytes # (Auto) 1.8 x10^3/uL (1.0-4.8) Monocytes # (Auto) 0.7 x10^3/uL (0.0-1.1) Eosinophils # (Auto) 0.1 x10^3/uL (0.0-0.7) Basophils # (Auto) 0.0 x10^3/uL (0.0-0.2) Microbiology 05/14/20 Gram Stain - Final, Resulted 05/14/20 Aerobic and Anaerobic Culture - Preliminary, Resulted 05/12/20 Blood Culture - Preliminary, Resulted NO GROWTH AFTER 2 DAYS Medications Current Medications Piperacillin Sod/ Tazobactam Sod 3.375 gm/Sodium Chloride 50 ml @ 100 mls/hr 1X ONCE IV Last administered on 05/12/20at 14:23; Start 05/12/20 at 13:30; Stop 05/12/20 at 13:59; Status DC Sodium Chloride 1,000 ml @ 100 mls/hr Q10H IV Last administered on 05/15/20at 12:12; Start 05/12/20 at 14:05 Ondansetron HCl (Zofran) 4 mg PRN Q4HRS PRN IV NAUSEA/VOMITING; Start 05/12/20 at 14:15 Zolpidem Tartrate (Ambien) 5 mg PRN QHS PRN PO INSOMNIA Last administered on 05/13/20at 23:43; Start 05/12/20 at 14:15 Acetaminophen (Tylenol) 650 mg PRN Q4HRS PRN PO TEMP OVER 100.4F OR MILD PAIN Last administered on 05/15/20 08:17; Start 05/12/20 at 14:15 Docusate Sodium (Colace) 100 mg PRN BID PRN PO HARD STOOLS Last administered on 05/14/20 21:05; Start 05/12/20 at 14:15 Guaifenesin (Robitussin) 200 mg PRN Q4HRS PRN PO COUGH; Start 05/12/20 at 14:15 Lorazepam (Ativan) 0.5 mg PRN Q4HRS PRN PO ANXIETY / AGITATION; Start 05/12/20 at 14:15 Vancomycin HCl (Vanco Per Pharmacy) 1 each PRN DAILY PRN MC SEE COMMENTS Last administered on 05/13/20 10:29; Start 05/12/20 at 14:15; Stop 05/13/20 at 12:23; Status DC Piperacillin Sod/ Tazobactam Sod 3.375 gm/Sodium Chloride 50 ml @ 100 mls/hr Q6HRS IV Last administered on 05/15/20 11:59; Start 05/12/20 at 18:00 Aspirin (Ecotrin) 81 mg DAILYWBKFT PO Last administered on 05/15/20 08:17; Start 05/13/20 at 08:00 Clopidogrel Bisulfate (Plavix) 75 mg DAILY PO Last administered on 05/14/20 09:22; Start 05/13/20 at 09:00 Gabapentin (Neurontin) 300 mg TID PO Last administered on 05/15/20at 13:36; Start 05/12/20 at 21:00 Lisinopril (Prinivil) 40 mg DAILY PO Last administered on 05/15/20 08:17; Start 05/13/20 at 09:00 Insulin Glargine (Lantus Syringe) 18 unit QHS SQ Last administered on 05/14/20 21:08; Start 05/12/20 at 21:00 Insulin Human Lispro (HumaLOG) 6 units TIDWMEALS SQ Last administered on 05/15/20 12:10; Start 05/12/20 at 17:00 Pantoprazole Sodium (Protonix) 40 mg DAILYAC PO Last administered on 7/25/20at 08:16; Start 05/12/20 at 16:30 Insulin Human Lispro (HumaLOG) 0-7 UNITS TIDWMEALS SQ Last administered on 05/14/20at 16:54; Start 05/12/20 at 17:00; Stop 05/14/20 at 20:35; Status DC Dextrose (Dextrose 50%-Water Syringe) 12.5 gm PRN Q15MIN PRN IV SEE COMMENTS; Start 05/12/20 at 14:15 Vancomycin HCl 2 gm/Sodium Chloride 500 ml @ 250 mls/hr 1X ONCE IV Last administered on 05/12/20at 14:52; Start 05/12/20 at 14:30; Stop 05/12/20 at 16:29; Status DC Piperacillin Sod/ Tazobactam Sod 3.375 gm/Sodium Chloride 50 ml @ 100 mls/hr 1X ONCE IV ; Start 05/12/20 at 14:30; Stop 05/12/20 at 14:59; Status Cancel Heparin Sodium (Porcine) (Heparin Sodium) 5,000 unit Q8HRS SQ Last administered on 05/14/20at 14:33; Start 05/12/20 at 22:00 Vancomycin HCl 1.5 gm/Sodium Chloride 500 ml @ 250 mls/hr Q18H IV Last administered on 05/13/20at 08:20; Start 05/13/20 at 09:00; Stop 05/13/20 at 12:22; Status DC Vancomycin HCl (Vancomycin Trough Level) 1 each 1X ONCE MC ; Start 05/14/20 at 02:30; Stop 05/13/20 at 12:23; Status DC Fentanyl Citrate (Fentanyl 2ml Vial) 25 mcg PRN Q5MIN PRN IV MILD PAIN 1-3; Start 05/14/20 at 07:00; Stop 05/15/20 at 06:59; Status DC Fentanyl Citrate (Fentanyl 2ml Vial) 50 mcg PRN Q5MIN PRN IV MODERATE TO SEVERE PAIN Last administered on 05/14/20at 09:02; Start 05/14/20 at 07:00; Stop 05/15/20 at 06:59; Status DC Morphine Sulfate (Morphine Sulfate) 1 mg PRN Q10MIN PRN IV SEVERE PAIN 7-10; Start 05/14/20 at 07:00; Stop 05/15/20 at 06:59; Status DC Ringer's Solution 1,000 ml @ 30 mls/hr Q24H IV Last administered on 05/14/20at 12:50; Start 05/14/20 at 07:00; Stop 05/14/20 at 18:59; Status DC Lidocaine HCl (Xylocaine-Mpf 1% 2ml Vial) 2 ml PRN 1X PRN ID PRIOR TO IV START; Start 05/14/20 at 07:00; Stop 05/15/20 at 06:59; Status DC Hydromorphone HCl (Dilaudid) 0.5 mg PRN Q10MIN PRN IV SEV PAIN, Second choice Last administered on 05/14/20at 16:49; Start 05/14/20 at 07:00; Stop 05/15/20 at 06:59; Status DC Prochlorperazine Edisylate (Compazine) 5 mg PACU PRN PRN IV NAUSEA, MRX1; Start 05/14/20 at 07:00; Stop 05/15/20 at 06:59; Status DC Ondansetron HCl (Zofran) 4 mg PRN Q6HRS PRN IV NAUSEA/VOMITING; Start 05/14/20 at 07:00; Stop 05/15/20 at 06:59; Status Cancel Fentanyl Citrate (Fentanyl 2ml Vial) 25 mcg PRN Q5MIN PRN IV MILD PAIN 1-3; Start 05/14/20 at 07:00; Stop 05/15/20 at 06:59; Status Cancel Fentanyl Citrate (Fentanyl 2ml Vial) 50 mcg PRN Q5MIN PRN IV MODERATE TO SEVERE PAIN; Start 05/14/20 at 07:00; Stop 05/15/20 at 06:59; Status Cancel Morphine Sulfate (Morphine Sulfate) 1 mg PRN Q10MIN PRN IV SEVERE PAIN 7-10; Start 05/14/20 at 07:00; Stop 05/15/20 at 06:59; Status Cancel Ringer's Solution 1,000 ml @ 30 mls/hr Q24H IV ; Start 05/14/20 at 07:00; Stop 05/14/20 at 18:59; Status Cancel Lidocaine HCl (Xylocaine-Mpf 1% 2ml Vial) 2 ml PRN 1X PRN ID PRIOR TO IV START; Start 05/14/20 at 07:00; Stop 05/15/20 at 06:59; Status Cancel Hydromorphone HCl (Dilaudid) 0.5 mg PRN Q10MIN PRN IV SEV PAIN, Second choice; Start 05/14/20 at 07:00; Stop 05/15/20 at 06:59; Status Cancel Prochlorperazine Edisylate (Compazine) 5 mg PACU PRN PRN IV NAUSEA, MRX1; Start 05/14/20 at 07:00; Stop 05/15/20 at 06:59; Status Cancel Cefazolin Sodium 1 gm/Sodium Chloride 500 ml @ 500 mls/hr 1X ONCE IRR Last administered on 05/14/20at 07:43; Start 05/14/20 at 06:00; Stop 05/14/20 at 06:59; Status DC Linezolid/Dextrose 300 ml @ 300 mls/hr Q12HR IV Last administered on 05/15/20at 08:25; Start 05/13/20 at 13:30; Stop 05/15/20 at 10:09; Status DC Insulin Human Lispro (HumaLOG) 2 units 1X SQ ; Start 05/13/20 at 20:30; Stop 05/13/20 at 21:17; Status DC Insulin Human Lispro (HumaLOG) 2 units 1X ONCE SQ Last administered on 05/13/20at 21:30; Start 05/13/20 at 21:30; Stop 05/13/20 at 21:31; Status DC Propofol (Diprivan) 200 mg STK-MED ONCE IV ; Start 05/14/20 at 07:02; Stop 05/14/20 at 07:02; Status DC Lidocaine HCl (Lidocaine Pf 2% Vial) 5 ml STK-MED ONCE .ROUTE ; Start 05/14/20 at 07:02; Stop 05/14/20 at 07:02; Status DC Ondansetron HCl (Zofran) 4 mg STK-MED ONCE .ROUTE ; Start 05/14/20 at 07:02; Stop 05/14/20 at 07:02; Status DC Dexamethasone Sodium Phosphate (Decadron) 4 mg STK-MED ONCE .ROUTE ; Start 05/14/20 at 07:02; Stop 05/14/20 at 07:02; Status DC Fentanyl Citrate (Fentanyl 2ml Vial) 100 mcg STK-MED ONCE .ROUTE ; Start 05/14/20 at 07:03; Stop 05/14/20 at 07:03; Status DC Insulin Human Lispro (HumaLOG VIAL for OP,RR ONLY) 0-10 units PRN Q1HR PRN SQ PER PROTOCOL Last administered on 05/14/20at 08:30; Start 05/14/20 at 07:30; Stop 05/14/20 at 23:00; Status DC Cefazolin Sodium (Ancef) 1 gm STK-MED ONCE IVP ; Start 05/14/20 at 07:43; Stop 05/14/20 at 07:43; Status DC Sevoflurane (Ultane) 30 ml STK-MED ONCE IH ; Start 05/14/20 at 07:50; Stop 05/14/20 at 07:51; Status DC Fentanyl Citrate (Fentanyl 2ml Vial) 100 mcg STK-MED ONCE .ROUTE ; Start 05/14/20 at 08:46; Stop 05/14/20 at 08:47; Status DC Multivitamins (Thera M Plus) 1 tab DAILY PO Last administered on 05/15/20at 08:17; Start 05/14/20 at 10:30 Sodium Hypochlorite (Dakin'S 1/4 Strength) 1 pauly DAILY TP Last administered on 05/15/20at 08:18; Start 05/15/20 at 09:00 Lactobacillus Rhamnosus (Culturelle) 1 cap BID PO Last administered on 05/15/20at 08:17; Start 05/14/20 at 21:00 Insulin Human Lispro (HumaLOG) 0-7 UNITS QIDACHS SQ Last administered on 05/15/20at 12:09; Start 05/14/20 at 21:00 Acetaminophen/ Hydrocodone Bitart (Lortab 5/325) 1 tab PRN Q4HRS PRN PO MODER ATE PAIN 4-6 Last administered on 05/15/20 11:10; Start 05/14/20 at 21:00 Fentanyl Citrate (Fentanyl 2ml Vial) 25 mcg PRN Q3HRS PRN IVP PAIN Last administered on 05/15/20at 11:59; Start 05/14/20 at 21:00 Daptomycin 500 mg/ Sodium Chloride 50 ml @ 100 mls/hr Q24H IV Last administered on 05/15/20at 10:44; Start 05/15/20 at 11:00 Active Scripts Active Aspirin Ec (Aspirin) 81 Mg Tablet.dr 81 Mg PO DAILYWBKFT 90 Days Gabapentin 300 Mg Capsule 300 Mg PO TID 14 Days Reported Humalog (Insulin Lispro) 100 Unit/1 Ml Cartridge 6 Unit SQ TIDAC Tresiba (Insulin Degludec) 100 Unit/1 Ml Vial 18 Unit SQ HS Protonix (Pantoprazole Sodium) 20 Mg Tablet.dr 40 Mg PO DAILY Lisinopril 40 Mg Tablet 1 Tab PO DAILY Clopidogrel (Clopidogrel Bisulfate) 75 Mg Tablet 1 Tab PO DAILY Vitals/I & O Vital Sign - Last 24 Hours 05/14/20 05/14/20 05/14/20 05/14/20 15:00 15:28 16:00 16:49 Temp 97.9 97.9 Pulse 96 Resp 20 B/P (MAP) 135/63 (87) Pulse Ox 94 94 94 94 O2 Delivery Room Air Room Air Room Air 05/14/20 05/14/20 05/14/20 05/14/20 19:00 19:25 20:00 21:23 Temp 98.2 98.2 Pulse 86 Resp 20 20 B/P (MAP) 120/55 (76) Pulse Ox 96 94 94 O2 Delivery Room Air Room Air Room Air Room Air 05/14/20 05/14/20 05/15/20 05/15/20 21:53 23:00 01:58 02:06 Temp 97.8 97.8 Pulse 82 Resp 20 20 20 20 B/P (MAP) 120/62 (81) Pulse Ox 94 95 95 95 O2 Delivery Room Air Room Air Room Air Room Air 05/15/20 05/15/20 05/15/20 05/15/20 02:36 02:58 03:00 05:09 Temp 98.0 98.0 Pulse 83 Resp 20 20 16 20 B/P (MAP) 155/72 (99) Pulse Ox 98 98 98 98 O2 Delivery Room Air Room Air Room Air Room Air 05/15/20 05/15/20 05/15/20 05/15/20 06:56 07:00 08:00 08:17 Temp 98.1 98.1 Pulse 87 87 Resp 16 16 B/P (MAP) 170/55 (93) 170/55 Pulse Ox 97 O2 Delivery Room Air Room Air Room Air 05/15/20 05/15/20 05/15/20 05/15/20 11:00 11:10 11:59 12:12 Temp 98.1 98.1 Pulse 88 Resp 16 16 16 16 B/P (MAP) 160/64 (96) Pulse Ox 99 O2 Delivery Room Air Room Air Room Air Room Air 05/15/20 12:31 Resp 16 O2 Delivery Room Air Intake and Output 05/14/20 05/14/20 05/15/20 15:00 23:00 07:00 Intake Total 250 ml 200 ml Output Total 320 ml Balance -70 ml 200 ml Justicifation of Admission Dx: Justifications for Admission: Justification of Admission Dx: Yes ELIANE STREET MD May 15, 2020 13:52
[2020-05-15 15:18] VITALS: BP 149/65
[2020-05-15] MEDS: DOCUSATE SODIUM 100 MG CAPSULE. PO PRN ×2 (17:00→23:30)
[2020-05-15 19:14] VITALS: BP 134/62
[2020-05-15] MEDS: INSULIN GLARGINE SYRINGE. SQ SCH (21:01)
[2020-05-15 23:04] VITALS: BP 128/62
[2020-05-16 03:00] VITALS: BP 138/56
[2020-05-16] MEDS: PIPERACILLIN/TAZOBACTAM 3.375 GM in IV NORMAL SALINE 50ML 50 ML IV SCH ×3 (06:00→17:46)
[2020-05-16] MEDS: HEPARIN for SUB-Q USE 5,000 UNIT/ML VIAL. SQ SCH ×3 (06:07→21:39)
[2020-05-16] MEDS: PANTOPRAZOLE 40 MG TABLET.DR. PO SCH (06:09)
[2020-05-16 07:01] VITALS: BP 147/70
[2020-05-16] MEDS: HYDROcodone/APAP 5/325MG 1 TAB TABLET PO PRN ×3 (08:03→21:31)
[2020-05-16] MEDS: IV NORMAL SALINE 1000ML BAG 1,000 ML IV SCH ×2 (08:05→17:46)
[2020-05-16] MEDS: LACTOBACILLUS RHAMNOSUS GG 1 CAPSULE. PO SCH ×2 (08:09→21:30)
[2020-05-16] MEDS: MULTIVITAMIN with MINERAL TABLET. PO SCH (08:09)
[2020-05-16] MEDS: CLOPIDOGREL BISULFATE 75 MG TABLET PO SCH (08:09)
[2020-05-16] MEDS: GABAPENTIN 300 MG CAPSULE. PO SCH ×3 (08:10→21:30)
[2020-05-16] MEDS: ASPIRIN ENTERIC COATED 81 MG TABLET.DR. PO SCH (08:10)
[2020-05-16] MEDS: LISINOPRIL 20 MG TABLET PO SCH (08:10)
[2020-05-16] MEDS: INSULIN LISPRO 300 UNITS/3 ML VIAL. SQ SCH ×7 (08:11→21:37)
[2020-05-16] MEDS: SODIUM HYPOCHLORITE 0.125% 473 ML BOTTLE. TP SCH (08:16)
--- NOTE | 2020-05-16 08:48 | PDOC ---
Infectious Disease Note Subjective: Subjective Patient denies any complaints except for diarrhea Denies fever, nausea, vomiting, shortness of breath,abdominal pain, rash No more bleeding from postop wound Otherwise as above Vital Signs: Vital Signs Vital Signs Date Time Temp Pulse Resp B/P (MAP) Pulse Ox O2 Delivery O2 Flow Rate FiO2 05/16/20 08:10 98 147/70 05/16/20 08:03 16 Room Air 05/16/20 07:01 98.9 98 98.9 Physical Exam: PHYSICAL EXAM GENERAL: Alert and oriented x3 male in no acute distress, lying comfortably in bed. HEENT: Normocephalic, atraumatic, and anicteric. NECK: Supple, no JVD, no lymphadenopathy. LUNGS: Clear bilaterally. No wheezing. HEART: S1 and S2 regular. ABDOMEN: Soft, nontender, and nondistended. EXTREMITIES: No edema. No cyanosis. Right BKA stump looks good. Postsurgical left foot dressing in place intact not taken down NEUROLOGIC: Alert and oriented x3, grossly nonfocal. Medications: Inpatient Meds: Current Medications Medications (Trade) Dose Ordered Sig/Dave Start Time Stop Time Status Last Admin Dose Admin Acetaminophen (Tylenol) 650 mg PRN Q4HRS PRN 05/12/20 14:15 05/15/20 08:17 650 MG Acetaminophen/ Hydrocodone Bitart (Lortab 5/325) 1 tab PRN Q4HRS PRN 05/14/20 21:00 05/16/20 08:03 1 TAB Aspirin (Ecotrin) 81 mg DAILYWBKFT 05/13/20 08:00 05/16/20 08:10 81 MG Cefazolin Sodium (Ancef) 1 gm STK-MED ONCE 05/14/20 07:43 05/14/20 07:43 DC Cefazolin Sodium 1 gm/Sodium Chloride 500 ml @ 500 mls/hr 1X ONCE 05/14/20 06:00 05/14/20 06:59 DC 05/14/20 07:43 Clopidogrel Bisulfate (Plavix) 75 mg DAILY 05/13/20 09:00 05/16/20 08:09 75 MG Daptomycin 500 mg/ Sodium Chloride 50 ml @ 100 mls/hr Q24H 05/15/20 11:00 05/15/20 10:44 100 MLS/HR Dexamethasone Sodium Phosphate (Decadron) 4 mg STK-MED ONCE 05/14/20 07:02 05/14/20 07:02 DC Dextrose (Dextrose 50%-Water Syringe) 12.5 gm PRN Q15MIN PRN 05/12/20 14:15 Docusate Sodium (Colace) 100 mg PRN BID PRN 05/12/20 14:15 05/15/20 23:30 100 MG Fentanyl Citrate (Fentanyl 2ml Vial) 25 mcg PRN Q3HRS PRN 05/14/20 21:00 05/15/20 11:59 25 MCG Gabapentin (Neurontin) 300 mg TID 05/12/20 21:00 05/16/20 08:10 300 MG Guaifenesin (Robitussin) 200 mg PRN Q4HRS PRN 05/12/20 14:15 Heparin Sodium (Porcine) (Heparin Sodium) 5,000 unit Q8HRS 05/12/20 22:00 05/16/20 06:07 5,000 UNIT Hydromorphone HCl (Dilaudid) 0.5 mg PRN Q10MIN PRN 05/14/20 07:00 05/15/20 06:59 Cancel Insulin Glargine (Lantus Syringe) 18 unit QHS 05/12/20 21:00 05/15/20 21:01 18 UNIT Insulin Human Lispro (HumaLOG VIAL for OP,RR ONLY) 0-10 units PRN Q1HR PRN 05/14/20 07:30 05/14/20 23:00 DC 05/14/20 08:30 6 UNIT Insulin Human Lispro (HumaLOG) 0-7 UNITS QIDACHS 05/14/20 21:00 05/16/20 08:11 6 UNITS Lactobacillus Rhamnosus (Culturelle) 1 cap BID 05/14/20 21:00 05/16/20 08:09 1 CAP Lidocaine HCl (Lidocaine Pf 2% Vial) 5 ml STK-MED ONCE 05/14/20 07:02 05/14/20 07:02 DC Lidocaine HCl (Xylocaine-Mpf 1% 2ml Vial) 2 ml PRN 1X PRN 05/14/20 07:00 05/15/20 06:59 Cancel Linezolid/Dextrose 300 ml @ 300 mls/hr Q12HR 05/13/20 13:30 05/15/20 10:09 DC 05/15/20 08:25 300 MLS/HR Lisinopril (Prinivil) 40 mg DAILY 05/13/20 09:00 05/16/20 08:10 40 MG Lorazepam (Ativan) 0.5 mg PRN Q4HRS PRN 05/12/20 14:15 Morphine Sulfate (Morphine Sulfate) 1 mg PRN Q10MIN PRN 05/14/20 07:00 05/15/20 06:59 Cancel Multivitamins (Thera M Plus) 1 tab DAILY 05/14/20 10:30 05/16/20 08:09 1 TAB Ondansetron HCl (Zofran) 4 mg STK-MED ONCE 05/14/20 07:02 05/14/20 07:02 DC Pantoprazole Sodium (Protonix) 40 mg DAILYAC 05/12/20 16:30 05/16/20 06:09 40 MG Piperacillin Sod/ Tazobactam Sod 3.375 gm/Sodium Chloride 50 ml @ 100 mls/hr 1X ONCE 05/12/20 14:30 05/12/20 14:59 Cancel Prochlorperazine Edisylate (Compazine) 5 mg PACU PRN PRN 05/14/20 07:00 05/15/20 06:59 Cancel Propofol (Diprivan) 200 mg STK-MED ONCE 05/14/20 07:02 05/14/20 07:02 DC Ringer's Solution 1,000 ml @ 30 mls/hr Q24H 05/14/20 07:00 05/14/20 18:59 Cancel Sevoflurane (Ultane) 30 ml STK-MED ONCE 05/14/20 07:50 05/14/20 07:51 DC Sodium Hypochlorite (Dakin'S 1/4 Strength) 1 pauly DAILY 05/15/20 09:00 05/16/20 08:16 1 PAULY Sodium Chloride 1,000 ml @ 100 mls/hr Q10H 05/12/20 14:05 05/15/20 12:12 100 MLS/HR Vancomycin HCl (Vanco Per Pharmacy) 1 each PRN DAILY PRN 05/12/20 14:15 05/13/20 12:23 DC 05/13/20 10:29 1 EACH Vancomycin HCl (Vancomycin Trough Level) 1 each 1X ONCE 05/14/20 02:30 05/13/20 12:23 DC Vancomycin HCl 1.5 gm/Sodium Chloride 500 ml @ 250 mls/hr Q18H 05/13/20 09:00 05/13/20 12:22 DC 05/13/20 08:20 250 MLS/HR Vancomycin HCl 2 gm/Sodium Chloride 500 ml @ 250 mls/hr 1X ONCE 05/12/20 14:30 05/12/20 16:29 DC 05/12/20 14:52 250 MLS/HR Zolpidem Tartrate (Ambien) 5 mg PRN QHS PRN 05/12/20 14:15 05/13/20 23:43 5 MG Labs: Lab Laboratory Tests Test 05/15/20 16:25 05/15/20 20:52 05/16/20 07:18 Glucose (Fingerstick) 251 mg/dL (70-99) 260 mg/dL (70-99) 270 mg/dL (70-99) Objective: Assessment: 1. Left foot amputation site infection/gangrene .May 14, 2020 left proximal open transmetatarsal amputation Cultures positive for enterococcus and Proteus May 12, 2020 cultures positive for enterococcus Proteus and Klebsiella 2. Left foot cellulitis improving 3. Peripheral arterial disease, status post left first toe amputation and left second toe amputation including metatarsal head on 05/07/2020, with atherosclerosis and gangrene of the left first and second toe. 4. Leukocytosis. 5. Peripheral arterial disease. 6. Diabetes mellitus. 7. Hypertension. 8. Mild renal insufficiency. Diarrhea Plan: Plan of Care Continue Zosyn/ Dapto Check C. difficile Follow cultures Local wound care Discussed with nursing staff GASTON JAVIER MD May 16, 2020 08:48
[2020-05-16] MEDS: INSULIN GLARGINE SYRINGE. SQ SCH ×2 (09:26→21:39)
[2020-05-16] MEDS: DAPTOmycin (GENERIC) IVPB 500 MG in IV NORMAL SALINE 50ML 50 ML IV SCH (10:36)
[2020-05-16 10:59] VITALS: BP 160/55
[2020-05-16] MEDS: fentaNYL PF VIAL 100 MCG/2 ML VIAL IVP PRN (14:08)
--- NOTE | 2020-05-16 14:44 | PDOC ---
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 Pain management Resume home medication DVT prophylaxis with heparin History of Present Illness History of Present Illness 05/14: Patient tolerated procedure well and seems to be at peace with the outcome of the amputation, reassurance rpovided, son at bedside, no concerns voiced during my visit. 05/15: No concerns voiced today, anemia noted, as expected after surgical procedure, no signs of hemodynamic instability. Patient with well controlled pain, no fever or chills. 05/16: No acute events reported overnight, case discussed with nursing staff patient in no acute distress no complaints during my visit Vitals Vitals Vital Signs Date Time Temp Pulse Resp B/P (MAP) Pulse Ox O2 Delivery O2 Flow Rate FiO2 05/16/20 14:08 16 Room Air 05/16/20 10:59 98.4 88 160/55 (90) 98 98.4 Physical Exam Physical Exam GENERAL: Alert and oriented x3 male in no acute distress, lying comfortably in bed. HEENT: Normocephalic, atraumatic, and anicteric. NECK: Supple, no JVD, no lymphadenopathy. LUNGS: Clear bilaterally. No wheezing. HEART: S1 and S2 regular. ABDOMEN: Soft, nontender, and nondistended. EXTREMITIES: No edema. No cyanosis. Right BKA stump looks good. Postsurgical left foot dressing in place intact not taken down NEUROLOGIC: Alert and oriented x3, grossly nonfocal. General: Alert, Oriented X3, Cooperative Heart: Regular rate, Normal S1, Normal S2 Lungs: Clear Abdomen: Normal bowel sounds, Soft, No tenderness Labs LABS Laboratory Tests Test 05/15/20 16:25 05/15/20 20:52 05/16/20 07:18 05/16/20 11:38 Glucose (Fingerstick) 251 mg/dL (70-99) 260 mg/dL (70-99) 270 mg/dL (70-99) 159 mg/dL (70-99) Review of Systems Review of Systems Pertinent as per HPI otherwise 10 point review of system is negative Assessment and Plan Assessmemt and Plan Problems Medical Problems: (1) Infection of toe as complication of amputation Status: Acute (2) Left foot infection Status: Acute Comment Review of Relevant I have reviewed the following items raudel (where applicable) has been applied. Labs Laboratory Tests Test 05/14/20 16:23 05/14/20 20:27 05/15/20 05:00 05/15/20 07:26 Glucose (Fingerstick) 247 mg/dL (70-99) 241 mg/dL (70-99) 194 mg/dL (70-99) White Blood Count 6.8 x10^3/uL (4.0-11.0) Red Blood Count 2.88 x10^6/uL (4.30-5.70) Hemoglobin 8.7 g/dL (13.0-17.5) Hematocrit 26.0 % (39.0-53.0) Mean Corpuscular Volume 91 fL (79-100) Mean Corpuscular Hemoglobin 30 pg (25-35) Mean Corpuscular Hemoglobin Concent 34 g/dL (31-37) Red Cell Distribution Width 13.0 % (11.5-14.5) Platelet Count 495 x10^3/uL (140-400) Neutrophils (%) (Auto) 61 % (31-73) Lymphocytes (%) (Auto) 27 % (24-48) Monocytes (%) (Auto) 10 % (0-9) Eosinophils (%) (Auto) 2 % (0-3) Basophils (%) (Auto) 1 % (0-3) Neutrophils # (Auto) 4.1 x10^3/uL (1.8-7.7) Lymphocytes # (Auto) 1.8 x10^3/uL (1.0-4.8) Monocytes # (Auto) 0.7 x10^3/uL (0.0-1.1) Eosinophils # (Auto) 0.1 x10^3/uL (0.0-0.7) Basophils # (Auto) 0.0 x10^3/uL (0.0-0.2) Test 05/15/20 16:25 05/15/20 20:52 05/16/20 07:18 05/16/20 11:38 Glucose (Fingerstick) 251 mg/dL (70-99) 260 mg/dL (70-99) 270 mg/dL (70-99) 159 mg/dL (70-99) Laboratory Tests Test 05/15/20 16:25 05/15/20 20:52 05/16/20 07:18 05/16/20 11:38 Glucose (Fingerstick) 251 mg/dL (70-99) 260 mg/dL (70-99) 270 mg/dL (70-99) 159 mg/dL (70-99) Microbiology 05/14/20 Gram Stain - Final, Resulted 05/14/20 Aerobic and Anaerobic Culture - Preliminary, Resulted 05/12/20 Blood Culture - Preliminary, Resulted NO GROWTH AFTER 3 DAYS Medications Current Medications Piperacillin Sod/ Tazobactam Sod 3.375 gm/Sodium Chloride 50 ml @ 100 mls/hr 1X ONCE IV Last administered on 05/12/20at 14:23; Start 05/12/20 at 13:30; Stop 05/12/20 at 13:59; Status DC Sodium Chloride 1,000 ml @ 100 mls/hr Q10H IV Last administered on 05/15/20at 12:12; Start 05/12/20 at 14:05 Ondansetron HCl (Zofran) 4 mg PRN Q4HRS PRN IV NAUSEA/VOMITING; Start 05/12/20 at 14:15 Zolpidem Tartrate (Ambien) 5 mg PRN QHS PRN PO INSOMNIA Last administered on 05/13/20at 23:43; Start 05/12/20 at 14:15 Acetaminophen (Tylenol) 650 mg PRN Q4HRS PRN PO TEMP OVER 100.4F OR MILD PAIN Last administered on 05/15/20at 08:17; Start 05/12/20 at 14:15 Docusate Sodium (Colace) 100 mg PRN BID PRN PO HARD STOOLS Last administered on 05/15/20at 23:30; Start 05/12/20 at 14:15 Guaifenesin (Robitussin) 200 mg PRN Q4HRS PRN PO COUGH; Start 05/12/20 at 14:15 Lorazepam (Ativan) 0.5 mg PRN Q4HRS PRN PO ANXIETY / AGITATION; Start 05/12/20 at 14:15 Vancomycin HCl (Vanco Per Pharmacy) 1 each PRN DAILY PRN MC SEE COMMENTS Last administered on 05/13/20at 10:29; Start 05/12/20 at 14:15; Stop 05/13/20 at 12:23; Status DC Piperacillin Sod/ Tazobactam Sod 3.375 gm/Sodium Chloride 50 ml @ 100 mls/hr Q6HRS IV Last administered on 05/16/20at 12:06; Start 05/12/20 at 18:00 Aspirin (Ecotrin) 81 mg DAILYWBKFT PO Last administered on 05/16/20at 08:10; Start 05/13/20 at 08:00 Clopidogrel Bisulfate (Plavix) 75 mg DAILY PO Last administered on 05/16/20at 08:09; Start 05/13/20 at 09:00 Gabapentin (Neurontin) 300 mg TID PO Last administered on 05/16/20at 14:08; Start 05/12/20 at 21:00 Lisinopril (Prinivil) 40 mg DAILY PO Last administered on 05/16/20at 08:10; Start 05/13/20 at 09:00 Insulin Glargine (Lantus Syringe) 18 unit QHS SQ Last administered on 05/15/20at 21:01; Start 05/12/20 at 21:00; Stop 05/16/20 at 08:52; Status DC Insulin Human Lispro (HumaLOG) 6 units TIDWMEALS SQ Last administered on 05/16/20at 08:14; Start 05/12/20 at 17:00; Stop 05/16/20 at 08:52; Status DC Pantoprazole Sodium (Protonix) 40 mg DAILYAC PO Last administered on 05/16/20at 06:09; Start 05/12/20 at 16:30 Insulin Human Lispro (HumaLOG) 0-7 UNITS TIDWMEALS SQ Last administered on 05/14/20at 16:54; Start 05/12/20 at 17:00; Stop 05/14/20 at 20:35; Status DC Dextrose (Dextrose 50%-Water Syringe) 12.5 gm PRN Q15MIN PRN IV SEE COMMENTS; Start 05/12/20 at 14:15 Vancomycin HCl 2 gm/Sodium Chloride 500 ml @ 250 mls/hr 1X ONCE IV Last administered on 05/12/20at 14:52; Start 05/12/20 at 14:30; Stop 05/12/20 at 16:29; Status DC Piperacillin Sod/ Tazobactam Sod 3.375 gm/Sodium Chloride 50 ml @ 100 mls/hr 1X ONCE IV ; Start 05/12/20 at 14:30; Stop 05/12/20 at 14:59; Status Cancel Heparin Sodium (Porcine) (Heparin Sodium) 5,000 unit Q8HRS SQ Last administered on 05/16/20at 14:10; Start 05/12/20 at 22:00 Vancomycin HCl 1.5 gm/Sodium Chloride 500 ml @ 250 mls/hr Q18H IV Last administered on 05/13/20at 08:20; Start 05/13/20 at 09:00; Stop 05/13/20 at 12:22; Status DC Vancomycin HCl (Vancomycin Trough Level) 1 each 1X ONCE MC ; Start 05/14/20 at 02:30; Stop 05/13/20 at 12:23; Status DC Fentanyl Citrate (Fentanyl 2ml Vial) 25 mcg PRN Q5MIN PRN IV MILD PAIN 1-3; Start 05/14/20 at 07:00; Stop 05/15/20 at 06:59; Status DC Fentanyl Citrate (Fentanyl 2ml Vial) 50 mcg PRN Q5MIN PRN IV MODERATE TO SEVERE PAIN Last administered on 05/14/20at 09:02; Start 05/14/20 at 07:00; Stop 05/15/20 at 06:59; Status DC Morphine Sulfate (Morphine Sulfate) 1 mg PRN Q10MIN PRN IV SEVERE PAIN 7-10; Start 05/14/20 at 07:00; Stop 05/15/20 at 06:59; Status DC Ringer's Solution 1,000 ml @ 30 mls/hr Q24H IV Last administered on 05/14/20at 12:50; Start 05/14/20 at 07:00; Stop 05/14/20 at 18:59; Status DC Lidocaine HCl (Xylocaine-Mpf 1% 2ml Vial) 2 ml PRN 1X PRN ID PRIOR TO IV START; Start 05/14/20 at 07:00; Stop 05/15/20 at 06:59; Status DC Hydromorphone HCl (Dilaudid) 0.5 mg PRN Q10MIN PRN IV SEV PAIN, Second choice Last administered on 05/14/20at 16:49; Start 05/14/20 at 07:00; Stop 05/15/20 at 06:59; Status DC Prochlorperazine Edisylate (Compazine) 5 mg PACU PRN PRN IV NAUSEA, MRX1; St art 05/14/20 at 07:00; Stop 05/15/20 at 06:59; Status DC Ondansetron HCl (Zofran) 4 mg PRN Q6HRS PRN IV NAUSEA/VOMITING; Start 05/14/20 at 07:00; Stop 05/15/20 at 06:59; Status Cancel Fentanyl Citrate (Fentanyl 2ml Vial) 25 mcg PRN Q5MIN PRN IV MILD PAIN 1-3; Start 05/14/20 at 07:00; Stop 05/15/20 at 06:59; Status Cancel Fentanyl Citrate (Fentanyl 2ml Vial) 50 mcg PRN Q5MIN PRN IV MODERATE TO SEVERE PAIN; Start 05/14/20 at 07:00; Stop 05/15/20 at 06:59; Status Cancel Morphine Sulfate (Morphine Sulfate) 1 mg PRN Q10MIN PRN IV SEVERE PAIN 7-10; Start 05/14/20 at 07:00; Stop 05/15/20 at 06:59; Status Cancel Ringer's Solution 1,000 ml @ 30 mls/hr Q24H IV ; Start 05/14/20 at 07:00; Stop 05/14/20 at 18:59; Status Cancel Lidocaine HCl (Xylocaine-Mpf 1% 2ml Vial) 2 ml PRN 1X PRN ID PRIOR TO IV START; Start 05/14/20 at 07:00; Stop 05/15/20 at 06:59; Status Cancel Hydromorphone HCl (Dilaudid) 0.5 mg PRN Q10MIN PRN IV SEV PAIN, Second choice; Start 05/14/20 at 07:00; Stop 05/15/20 at 06:59; Status Cancel Prochlorperazine Edisylate (Compazine) 5 mg PACU PRN PRN IV NAUSEA, MRX1; Start 05/14/20 at 07:00; Stop 05/15/20 at 06:59; Status Cancel Cefazolin Sodium 1 gm/Sodium Chloride 500 ml @ 500 mls/hr 1X ONCE IRR Last administered on 05/14/20at 07:43; Start 05/14/20 at 06:00; Stop 05/14/20 at 06:59; Status DC Linezolid/Dextrose 300 ml @ 300 mls/hr Q12HR IV Last administered on 05/15/20at 08:25; Start 05/13/20 at 13:30; Stop 05/15/20 at 10:09; Status DC Insulin Human Lispro (HumaLOG) 2 units 1X SQ ; Start 05/13/20 at 20:30; Stop 05/13/20 at 21:17; Status DC Insulin Human Lispro (HumaLOG) 2 units 1X ONCE SQ Last administered on 04/22 01/08at 21:30; Start 05/13/20 at 21:30; Stop 05/13/20 at 21:31; Status DC Propofol (Diprivan) 200 mg STK-MED ONCE IV ; Start 05/14/20 at 07:02; Stop 05/14/20 at 07:02; Status DC Lidocaine HCl (Lidocaine Pf 2% Vial) 5 ml STK-MED ONCE .ROUTE ; Start 05/14/20 at 07:02; Stop 05/14/20 at 07:02; Status DC Ondansetron HCl (Zofran) 4 mg STK-MED ONCE .ROUTE ; Start 05/14/20 at 07:02; Stop 05/14/20 at 07:02; Status DC Dexamethasone Sodium Phosphate (Decadron) 4 mg STK-MED ONCE .ROUTE ; Start 05/14/20 at 07:02; Stop 05/14/20 at 07:02; Status DC Fentanyl Citrate (Fentanyl 2ml Vial) 100 mcg STK-MED ONCE .ROUTE ; Start 05/14/20 at 07:03; Stop 05/14/20 at 07:03; Status DC Insulin Human Lispro (HumaLOG VIAL for OP,RR ONLY) 0-10 units PRN Q1HR PRN SQ PER PROTOCOL Last administered on 05/14/20at 08:30; Start 05/14/20 at 07:30; Stop 05/14/20 at 23:00; Status DC Cefazolin Sodium (Ancef) 1 gm STK-MED ONCE IVP ; Start 05/14/20 at 07:43; Stop 05/14/20 at 07:43; Status DC Sevoflurane (Ultane) 30 ml STK-MED ONCE IH ; Start 05/14/20 at 07:50; Stop 05/14/20 at 07:51; Status DC Fentanyl Citrate (Fentanyl 2ml Vial) 100 mcg STK-MED ONCE .ROUTE ; Start 04/22 02/08 at 08:46; Stop 05/14/20 at 08:47; Status DC Multivitamins (Thera M Plus) 1 tab DAILY PO Last administered on 05/16/20at 08 :09; Start 05/14/20 at 10:30 Sodium Hypochlorite (Dakin'S 1/4 Strength) 1 pauly DAILY TP Last administered on 05/16/20at 08:16; Start 05/15/20 at 09:00 Lactobacillus Rhamnosus (Culturelle) 1 cap BID PO Last administered on 05/16/20at 08:09; Start 05/14/20 at 21:00 Insulin Human Lispro (HumaLOG) 0-7 UNITS QIDACHS SQ Last administered on 05/16/20at 12:08; Start 05/14/20 at 21:00 Acetaminophen/ Hydrocodone Bitart (Lortab 5/325) 1 tab PRN Q4HRS PRN PO MODERATE PAIN 4-6 Last administered on 05/16/20at 13:19; Start 05/14/20 at 21:00 Fentanyl Citrate (Fentanyl 2ml Vial) 25 mcg PRN Q3HRS PRN IVP PAIN Last administered on 05/16/20at 14:08; Start 05/14/20 at 21:00 Daptomycin 500 mg/ Sodium Chloride 50 ml @ 100 mls/hr Q24H IV Last administered on 05/16/20at 10:36; Start 05/15/20 at 11:00 Insulin Glargine (Lantus Syringe) 12 unit BID SQ Last administered on 05/16/20at 09:26; Start 05/16/20 at 09:00 Insulin Human Lispro (HumaLOG) 8 units TIDWMEALS SQ ; Start 05/16/20 at 12:00 Active Scripts Active Aspirin Ec (Aspirin) 81 Mg Tablet. 81 Mg PO DAILYWBKFT 90 Days Gabapentin 300 Mg Capsule 300 Mg PO TID 14 Days Reported Humalog (Insulin Lispro) 100 Unit/1 Ml Cartridge 6 Unit SQ TIDAC Tresiba (Insulin Degludec) 100 Unit/1 Ml Vial 18 Unit SQ HS Protonix (Pantoprazole Sodium) 20 Mg Tablet.dr 40 Mg PO DAILY Lisinopril 40 Mg Tablet 1 Tab PO DAILY Clopidogrel (Clopidogrel Bisulfate) 75 Mg Tablet 1 Tab PO DAILY Vitals/I & O Vital Sign - Last 24 Hours 05/15/20 05/15/20 05/15/20 05/15/20 15:18 17:01 18:08 19:14 Temp 98.0 98.9 98.0 98.9 Pulse 73 82 Resp 16 16 16 20 B/P (MAP) 149/65 (93) 134/62 (86) Pulse Ox 97 99 O2 Delivery Room Air Room Air Room Air Room Air 05/15/20 05/15/20 05/16/20 05/16/20 20:00 23:04 03:00 07:01 Temp 98.0 98.6 98.9 98.0 98.6 98.9 Pulse 70 82 98 Resp 20 18 16 B/P (MAP) 128/62 (84) 138/56 (83) 147/70 (95) Pulse Ox 97 98 98 O2 Delivery Room Air Room Air Room Air Room Air 05/16/20 05/16/20 05/16/20 05/16/20 08:00 08:03 08:10 08:52 Pulse 98 Resp 16 16 B/P (MAP) 147/70 O2 Delivery Room Air Room Air Room Air 05/16/20 05/16/20 05/16/20 10:59 13:19 14:08 Temp 98.4 98.4 Pulse 88 Resp 16 16 16 B/P (MAP) 160/55 (90) Pulse Ox 98 O2 Delivery Room Air Room Air Room Air Intake and Output 05/15/20 05/15/20 05/16/20 15:00 23:00 07:00 Intake Total 300 ml Balance 300 ml Justicifation of Admission Dx: Justifications for Admission: Justification of Admission Dx: Yes ELIANE STREET MD May 16, 2020 14:44
[2020-05-16 15:00] VITALS: BP 163/70
[2020-05-16 19:00] VITALS: BP 154/63
[2020-05-16 23:00] VITALS: BP 154/63
[2020-05-17] VITALS (7 sets, daily range): BP systolic 114–174; BP diastolic 50–79
[2020-05-17] MEDS: PIPERACILLIN/TAZOBACTAM 3.375 GM in IV NORMAL SALINE 50ML 50 ML IV SCH ×2 (00:15→05:31)
[2020-05-17] MEDS: ACETAMINOPHEN 325 MG TABLET. PO PRN (01:13)
[2020-05-17] MEDS: IV NORMAL SALINE 1000ML BAG 1,000 ML IV SCH ×2 (04:05→11:50)
[2020-05-17] MEDS: HEPARIN for SUB-Q USE 5,000 UNIT/ML VIAL. SQ SCH ×3 (05:35→21:37)
[2020-05-17] MEDS: HYDROcodone/APAP 5/325MG 1 TAB TABLET PO PRN ×2 (06:36→15:00)
[2020-05-17] MEDS: INSULIN LISPRO 300 UNITS/3 ML VIAL. SQ SCH ×7 (07:30→21:00)
[2020-05-17] MEDS: GABAPENTIN 300 MG CAPSULE. PO SCH ×3 (08:20→21:30)
[2020-05-17] MEDS: MULTIVITAMIN with MINERAL TABLET. PO SCH (08:20)
[2020-05-17] MEDS: PANTOPRAZOLE 40 MG TABLET.DR. PO SCH (08:20)
[2020-05-17] MEDS: LISINOPRIL 20 MG TABLET PO SCH (08:20)
[2020-05-17] MEDS: CLOPIDOGREL BISULFATE 75 MG TABLET PO SCH (08:20)
[2020-05-17] MEDS: LACTOBACILLUS RHAMNOSUS GG 1 CAPSULE. PO SCH ×2 (08:20→21:30)
[2020-05-17] MEDS: ASPIRIN ENTERIC COATED 81 MG TABLET.DR. PO SCH (08:20)
[2020-05-17] MEDS: INSULIN GLARGINE SYRINGE. SQ SCH ×2 (08:23→21:36)
[2020-05-17] MEDS: SODIUM HYPOCHLORITE 0.125% 473 ML BOTTLE. TP SCH (08:38)
--- NOTE | 2020-05-17 09:15 | PDOC ---
PROGRESS NOTES Subjective Subjective I feel pretty good. I hope to get out of here today. 69-year-old diabetic gentleman with a history of peripheral arterial disease and mild renal insufficiency. He is now status post left proximal open transmetatarsal amputation by Dr. Barcenas on May 14, 2020 following infection and gangrene of his previous left first toe amputation and left second toe amputation including metatarsal head on 05/07/2020 He currently denies chest pain and shortness of breath. He denies fever and chills. He denies any significant left foot pain. Objective Objective Vital Signs Date Time Temp Pulse Resp B/P (MAP) Pulse Ox O2 Delivery O2 Flow Rate FiO2 05/17/20 08:37 98 Room Air 05/17/20 08:20 97 165/50 05/17/20 07:00 98.6 19 98.6 Intake and Output 05/17/20 07:00 Intake Total 100 ml Output Total 300 ml Balance -200 ml Intake Oral 100 ml Output Urine Total 300 ml # Voids 1 # Bowel Movements 1 Physical Exam Physical Exam His vital signs are stable. He is in no acute distress. His left foot TMA site is dressed with a saline moistened gauze and wrap. This was removed for assessment. There is no active bleeding. There is no purulence and no tissue necrosis. This was re-wrapped with saline moistened gauze and Kerlix Extremities: No cyanosis General: Alert, Oriented X3, Cooperative, No acute distress HEENT: Atraumatic Lungs: Normal air movement Neuro: Normal speech Psych/Mental Status: Mental status NL, Mood NL Assessment Assessment Problems Medical Problems: (1) Infection of toe as complication of amputation Status: Acute (2) Left foot infection Status: Acute Plan Plan of Care 69-year-old diabetic gentleman with a history of peripheral arterial disease and mild renal insufficiency. He is now status post left proximal open trans metatarsal amputation by Dr. Barcenas on May 14, 2020 following infection and gangrene of his previous left first toe amputation and left second toe amputation including metatarsal head on 05/07/2020. His amputation site is doing well without signs or symptoms of infection, bleeding or necrosis. He is to have a wound VAC placed today. He is looking forward to discharge and states that he has home health already set up for this purpose. Plan: Continue aspirin and Plavix daily. Continue antibiotics per infectious disease. Wound VAC therapy to the left open TMA amp site. He will need wound care center follow-up as well as vascular surgery follow-up. clinical services professional for discharge planning. From a vascular surgery standpoint may discharge today when medically stable and home care needs are met. Comment Review of Relevant I have reviewed the following items raudel (where applicable) has been applied. Labs Laboratory Tests Test 05/15/20 16:25 05/15/20 20:52 05/16/20 07:18 05/16/20 11:38 Glucose (Fingerstick) 251 mg/dL (70-99) 260 mg/dL (70-99) 270 mg/dL (70-99) 159 mg/dL (70-99) Test 05/16/20 16:44 05/16/20 21:34 05/17/20 07:28 Glucose (Fingerstick) 107 mg/dL (70-99) 228 mg/dL (70-99) 141 mg/dL (70-99) Laboratory Tests Test 05/16/20 11:38 05/16/20 16:44 05/16/20 21:34 05/17/20 07:28 Glucose (Fingerstick) 159 mg/dL (70-99) 107 mg/dL (70-99) 228 mg/dL (70-99) 141 mg/dL (70-99) Microbiology 05/14/20 Gram Stain - Final, Resulted 05/14/20 Aerobic and Anaerobic Culture - Preliminary, Resulted 05/12/20 Blood Culture - Preliminary, Resulted NO GROWTH AFTER 4 DAYS Medications Current Medications Piperacillin Sod/ Tazobactam Sod 3.375 gm/Sodium Chloride 50 ml @ 100 mls/hr 1X ONCE IV Last administered on 05/12/20at 14:23; Start 05/12/20 at 13:30; Stop 05/12/20 at 13:59; Status DC Sodium Chloride 1,000 ml @ 100 mls/hr Q10H IV Last administered on 05/17/20at 04:05; Start 05/12/20 at 14:05 Ondansetron HCl (Zofran) 4 mg PRN Q4HRS PRN IV NAUSEA/VOMITING; Start 05/12/20 at 14:15 Zolpidem Tartrate (Ambien) 5 mg PRN QHS PRN PO INSOMNIA Last administered on 05/13/20at 23:43; Start 05/12/20 at 14:15 Acetaminophen (Tylenol) 650 mg PRN Q4HRS PRN PO TEMP OVER 100.4F OR MILD PAIN Last administered on 05/17/20at 01:13; Start 05/12/20 at 14:15 Docusate Sodium (Colace) 100 mg PRN BID PRN PO HARD STOOLS Last administered on 05/15/20at 23:30; Start 05/12/20 at 14:15 Guaifenesin (Robitussin) 200 mg PRN Q4HRS PRN PO COUGH; Start 05/12/20 at 14:15 Lorazepam (Ativan) 0.5 mg PRN Q4HRS PRN PO ANXIETY / AGITATION; Start 05/12/20 at 14:15 Vancomycin HCl (Vanco Per Pharmacy) 1 each PRN DAILY PRN MC SEE COMMENTS Last administered on 05/13/20at 10:29; Start 05/12/20 at 14:15; Stop 05/13/20 at 12:23; Status DC Piperacillin Sod/ Tazobactam Sod 3.375 gm/Sodium Chloride 50 ml @ 100 mls/hr Q6 HRS IV Last administered on 05/17/20at 05:31; Start 05/12/20 at 18:00 Aspirin (Ecotrin) 81 mg DAILYWBKFT PO Last administered on 05/17/20at 08:20; Start 05/13/20 at 08:00 Clopidogrel Bisulfate (Plavix) 75 mg DAILY PO Last administered on 05/17/20at 08:20; Start 05/13/20 at 09:00 Gabapentin (Neurontin) 300 mg TID PO Last administered on 05/17/20at 08:20; Start 05/12/20 at 21:00 Lisinopril (Prinivil) 40 mg DAILY PO Last administered on 05/17/20at 08:20; Start 05/13/20 at 09:00 Insulin Glargine (Lantus Syringe) 18 unit QHS SQ Last administered on 05/15/20at 21:01; Start 05/12/20 at 21:00; Stop 05/16/20 at 08:52; Status DC Insulin Human Lispro (HumaLOG) 6 units TIDWMEALS SQ Last administered on 05/16/20at 08:14; Start 05/12/20 at 17:00; Stop 05/16/20 at 08:52; Status DC Pantoprazole Sodium (Protonix) 40 mg DAILYAC PO Last administered on 05/17/20at 08:20; Start 05/12/20 at 16:30 Insulin Human Lispro (HumaLOG) 0-7 UNITS TIDWMEALS SQ Last administered on 05/14/20at 16:54; Start 05/12/20 at 17:00; Stop 05/14/20 at 20:35; Status DC Dextrose (Dextrose 50%-Water Syringe) 12.5 gm PRN Q15MIN PRN IV SEE COMMENTS; Start 05/12/20 at 14:15 Vancomycin HCl 2 gm/Sodium Chloride 500 ml @ 250 mls/hr 1X ONCE IV Last administered on 05/12/20at 14:52; Start 05/12/20 at 14:30; Stop 05/12/20 at 16:29; Status DC Piperacillin Sod/ Tazobactam Sod 3.375 gm/Sodium Chloride 50 ml @ 100 mls/hr 1X ONCE IV ; Start 05/12/20 at 14:30; Stop 05/12/20 at 14:59; Status Cancel Heparin Sodium (Porcine) (Heparin Sodium) 5,000 unit Q8HRS SQ Last administered on 05/17/20at 05:35; Start 05/12/20 at 22:00 Vancomycin HCl 1.5 gm/Sodium Chloride 500 ml @ 250 mls/hr Q18H IV Last administered on 05/13/20at 08:20; Start 05/13/20 at 09:00; Stop 05/13/20 at 12:22; Status DC Vancomycin HCl (Vancomycin Trough Level) 1 each 1X ONCE MC ; Start 05/14/20 at 02:30; Stop 05/13/20 at 12:23; Status DC Fentanyl Citrate (Fentanyl 2ml Vial) 25 mcg PRN Q5MIN PRN IV MILD PAIN 1-3; Start 05/14/20 at 07:00; Stop 05/15/20 at 06:59; Status DC Fentanyl Citrate (Fentanyl 2ml Vial) 50 mcg PRN Q5MIN PRN IV MODERATE TO SEVERE PAIN Last administered on 05/14/20at 09:02; Start 05/14/20 at 07:00; Stop at 06:59; Status DC Morphine Sulfate (Morphine Sulfate) 1 mg PRN Q10MIN PRN IV SEVERE PAIN 7-10; Start 05/14/20 at 07:00; Stop 05/15/20 at 06:59; Status DC Ringer's Solution 1,000 ml @ 30 mls/hr Q24H IV Last administered on 05/14/20at 12:50; Start 05/14/20 at 07:00; Stop 05/14/20 at 18:59; Status DC Lidocaine HCl (Xylocaine-Mpf 1% 2ml Vial) 2 ml PRN 1X PRN ID PRIOR TO IV START; Start 05/14/20 at 07:00; Stop 05/15/20 at 06:59; Status DC Hydromorphone HCl (Dilaudid) 0.5 mg PRN Q10MIN PRN IV SEV PAIN, Second choice Last administered on 05/14/20at 16:49; Start 05/14/20 at 07:00; Stop 05/15/20 at 06:59; Status DC Prochlorperazine Edisylate (Compazine) 5 mg PACU PRN PRN IV NAUSEA, MRX1; Start 05/14/20 at 07:00; Stop 05/15/20 at 06:59; Status DC Ondansetron HCl (Zofran) 4 mg PRN Q6HRS PRN IV NAUSEA/VOMITING; Start 05/14/20 at 07:00; Stop 05/15/20 at 06:59; Status Cancel Fentanyl Citrate (Fentanyl 2ml Vial) 25 mcg PRN Q5MIN PRN IV MILD PAIN 1-3; Start 05/14/20 at 07:00; Stop 05/15/20 at 06:59; Status Cancel Fentanyl Citrate (Fentanyl 2ml Vial) 50 mcg PRN Q5MIN PRN IV MODERATE TO SEVERE PAIN; Start 05/14/20 at 07:00; Stop 05/15/20 at 06:59; Status Cancel Morphine Sulfate (Morphine Sulfate) 1 mg PRN Q10MIN PRN IV SEVERE PAIN 7-10; Start 05/14/20 at 07:00; Stop 05/15/20 at 06:59; Status Cancel Ringer's Solution 1,000 ml @ 30 mls/hr Q24H IV ; Start 05/14/20 at 07:00; Stop 05/14/20 at 18:59; Status Cancel Lidocaine HCl (Xylocaine-Mpf 1% 2ml Vial) 2 ml PRN 1X PRN ID PRIOR TO IV START; Start 05/14/20 at 07:00; Stop 05/15/20 at 06:59; Status Cancel Hydromorphone HCl (Dilaudid) 0.5 mg PRN Q10MIN PRN IV SEV PAIN, Second choice; Start 05/14/20 at 07:00; Stop 05/15/20 at 06:59; Status Cancel Prochlorperazine Edisylate (Compazine) 5 mg PACU PRN PRN IV NAUSEA, MRX1; Start 05/14/20 at 07:00; Stop 05/15/20 at 06:59; Status Cancel Cefazolin Sodium 1 gm/Sodium Chloride 500 ml @ 500 mls/hr 1X ONCE IRR Last administered on 05/14/20at 07:43; Start 05/14/20 at 06:00; Stop 05/14/20 at 06:59; Status DC Linezolid/Dextrose 300 ml @ 300 mls/hr Q12HR IV Last administered on 05/15/20at 08:25; Start 05/13/20 at 13:30; Stop 05/15/20 at 10:09; Status DC Insulin Human Lispro (HumaLOG) 2 units 1X SQ ; Start 05/13/20 at 20:30; Stop 05/13/20 at 21:17; Status DC Insulin Human Lispro (HumaLOG) 2 units 1X ONCE SQ Last administered on 05/13/20at 21:30; Start 05/13/20 at 21:30; Stop 05/13/20 at 21:31; Status DC Propofol (Diprivan) 200 mg STK-MED ONCE IV ; Start 05/14/20 at 07:02; Stop 05/14/20 at 07:02; Status DC Lidocaine HCl (Lidocaine Pf 2% Vial) 5 ml STK-MED ONCE .ROUTE ; Start 05/14/20 at 07:02; Stop 05/14/20 at 07:02; Status DC Ondansetron HCl (Zofran) 4 mg STK-MED ONCE .ROUTE ; Start 05/14/20 at 07:02; Stop 05/14/20 at 07:02; Status DC Dexamethasone Sodium Phosphate (Decadron) 4 mg STK-MED ONCE .ROUTE ; Start 05/14/20 at 07:02; Stop 05/14/20 at 07:02; Status DC Fentanyl Citrate (Fentanyl 2ml Vial) 100 mcg STK-MED ONCE .ROUTE ; Start 05/14/20 at 07:03; Stop 05/14/20 at 07:03; Status DC Insulin Human Lispro (HumaLOG VIAL for OP,RR ONLY) 0-10 units PRN Q1HR PRN SQ PER PROTOCOL Last administered on 05/14/20at 08:30; Start 05/14/20 at 07:30; Stop 05/14/20 at 23:00; Status DC Cefazolin Sodium (Ancef) 1 gm STK-MED ONCE IVP ; Start 05/14/20 at 07:43; Stop 05/14/20 at 07:43; Status DC Sevoflurane (Ultane) 30 ml STK-MED ONCE IH ; Start 05/14/20 at 07:50; Stop 05/14/20 at 07:51; Status DC Fentanyl Citrate (Fentanyl 2ml Vial) 100 mcg STK-MED ONCE .ROUTE ; Start 05/14/20 at 08:46; Stop 05/14/20 at 08:47; Status DC Multivitamins (Thera M Plus) 1 tab DAILY PO Last administered on 05/17/20at 08:20; Start 05/14/20 at 10:30 Sodium Hypochlorite (Dakin'S 1/4 Strength) 1 pauly DAILY TP Last administered on 05/16/20at 08:16; Start 05/15/20 at 09:00 Lactobacillus Rhamnosus (Culturelle) 1 cap BID PO Last administered on 05/17/20at 08:20; Start 05/14/20 at 21:00 Insulin Human Lispro (HumaLOG) 0-7 UNITS QIDACHS SQ Last administered on 05/16/20at 21:37; Start 05/14/20 at 21:00 Acetaminophen/ Hydrocodone Bitart (Lortab 5/325) 1 tab PRN Q4HRS PRN PO MODERATE PAIN 4-6 Last administered on 05/17/20at 06:36; Start 05/14/20 at 21:00 Fentanyl Citrate (Fentanyl 2ml Vial) 25 mcg PRN Q3HRS PRN IVP PAIN Last administered on 05/16/20at 14:08; Start 05/14/20 at 21:00 Daptomycin 500 mg/ Sodium Chloride 50 ml @ 100 mls/hr Q24H IV Last administered on 05/16/20at 10:36; Start 05/15/20 at 11:00 Insulin Glargine (Lantus Syringe) 12 unit BID SQ Last administered on 05/17/20at 08:23; Start 05/16/20 at 09:00 Insulin Human Lispro (HumaLOG) 8 units TIDWMEALS SQ ; Start 05/16/20 at 12:00 Active Scripts Active Aspirin Ec (Aspirin) 81 Mg Tablet.dr 81 Mg PO DAILYWBKFT 90 Days Gabapentin 300 Mg Capsule 300 Mg PO TID 14 Days Reported Humalog (Insulin Lispro) 100 Unit/1 Ml Cartridge 6 Unit SQ TIDAC Tresiba (Insulin Degludec) 100 Unit/1 Ml Vial 18 Unit SQ HS Protonix (Pantoprazole Sodium) 20 Mg Tablet. 40 Mg PO DAILY Lisinopril 40 Mg Tablet 1 Tab PO DAILY Clopidogrel (Clopidogrel Bisulfate) 75 Mg Tablet 1 Tab PO DAILY Vitals/I & O Vital Sign - Last 24 Hours 05/16/20 05/16/20 05/16/20 05/16/20 10:59 13:19 14:08 14:35 Temp 98.4 98.4 Pulse 88 Resp 16 16 16 16 B/P (MAP) 160/55 (90) Pulse Ox 98 O2 Delivery Room Air Room Air Room Air Room Air 05/16/20 05/16/20 05/16/20 05/16/20 14:35 15:00 19:00 20:00 Temp 98.7 99.0 98.7 99.0 Pulse 88 95 Resp 16 16 18 B/P (MAP) 163/70 (101) 154/63 (93) Pulse Ox 99 99 O2 Delivery Room Air Room Air Room Air Room Air 05/16/20 05/16/20 05/16/20 05/17/20 21:31 22:31 23:00 03:00 Temp 98.6 98.1 98.6 98.1 Pulse 95 88 Resp 18 18 B/P (MAP) 154/63 (93) 148/72 (97) Pulse Ox 99 99 99 97 O2 Delivery Room Air Room Air Room Air Room Air 05/17/20 05/17/20 05/17/20 05/17/20 06:36 07:00 07:19 08:20 Temp 98.6 98.6 Pulse 97 97 Resp 19 B/P (MAP) 165/50 (88) 165/50 Pulse Ox 97 98 O2 Delivery Room Air Room Air Room Air 05/17/20 08:37 Pulse Ox 98 O2 Delivery Room Air Intake and Output 05/16/20 05/16/20 05/17/20 15:00 23:00 07:00 Intake Total 100 ml Output Total 300 ml Balance -300 ml 100 ml Justicifation of Admission Dx: Justifications for Admission: Justification of Admission Dx: Yes BESS COWAN [employer] May 17, 2020 09:15
[2020-05-17] MEDS: DAPTOmycin (GENERIC) IVPB 500 MG in IV NORMAL SALINE 50ML 50 ML IV SCH (10:06)
--- NOTE | 2020-05-17 10:28 | NUR ---
SW following. Discussed with RN, pt getting wound vac placed today, anticipate possible discharge home tomorrow (05/18/2020) with home health. Pt has had [facility] before, Debi from [facility] meeting with pt today. [facility] will continue to follow. 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 Pt agreeable to coming to [facility] for daily IV abx infusion (Dapto and Invanz). [facility] faxed referral to [facility] outpatient, awaiting confirmation of services. Pt requested infusion time of around 1100. [facility] will continue to follow.
--- NOTE | 2020-05-17 10:53 | PDOC ---
Infectious Disease Note Subjective Subjective Doing well Denies fever, nausea, vomiting, shortness of breath,abdominal pain, rash No more bleeding from postop wound Otherwise as above ROS ROS o/w neg Vital Sign Vital Signs Vital Signs Date Time Temp Pulse Resp B/P (MAP) Pulse Ox O2 Delivery O2 Flow Rate FiO2 05/17/20 08:37 98 Room Air 05/17/20 08:20 97 165/50 05/17/20 07:00 98.6 19 98.6 Physical Exam PHYSICAL EXAM GENERAL: Alert and oriented x3 male in no acute distress, lying comfortably in bed. HEENT: Normocephalic, atraumatic, and anicteric. Oc/Op - clear NECK: Supple, no JVD, no lymphadenopathy. LUNGS: Clear bilaterally. No wheezing. HEART: S1 and S2 regular. ABDOMEN: Soft, nontender, and nondistended. EXTREMITIES: No edema. No cyanosis. Right BKA stump looks good. Postsurgical left foot dressing in place intact not taken down - clean NEUROLOGIC: Alert and oriented x3, grossly nonfocal. Labs Lab Laboratory Tests Test 05/16/20 11:38 05/16/20 16:44 05/16/20 21:34 05/17/20 07:28 Glucose (Fingerstick) 159 mg/dL (70-99) 107 mg/dL (70-99) 228 mg/dL (70-99) 141 mg/dL (70-99) Test 05/17/20 10:29 Glucose (Fingerstick) 209 mg/dL (70-99) Micro 05/14 MIXED AEROBIC VIKRAM on 05/15/20 at 1013 INCLUDING: MANY [PROTEUS SPECIES] MANY [ENTEROCOCCUS SPECIES] MANY [ENTEROBACTER CLOACAE COMPLEX] UNIDENTIFIED ORGANISM UNIDENTIFIED ORGANISM ENTEROBACTER CLOACAE COMPLEX ENTEROCOCCUS SPECIES PROTEUS SPECIES 05/12 MIXED AEROBIC VIKRAM on 05/14/20 at 1506 INCLUDING: MANY [PROTEUS SPECIES] MANY [ENTEROCOCCUS FAECALIS] MANY [KLEBSIELLA OXYTOCA RAOULTELLA] UNIDENTIFIED ORGANISM ENTEROCOCCUS FAECALIS KLEBSIELLA OXYTOCA RAOULTELLA PROTEUS SPECIES Microbiology 05/14/20 Gram Stain - Final, Resulted 05/14/20 Aerobic and Anaerobic Culture - Preliminary, Resulted 05/12/20 Blood Culture - Preliminary, Resulted NO GROWTH AFTER 4 DAYS Objective Assessment 1. Left foot open amputation site infection/gangrene .May 14, 2020 left proximal open transmetatarsal amputation Cultures positive for enterococcus and Proteus May 12, 2020 cultures positive for enterococcus Proteus and Klebsiella 2. Left foot cellulitis improving 3. Peripheral arterial disease, status post left first toe amputation and left second toe amputation including metatarsal head on 05/07/2020, with atherosclerosis and gangrene of the left first and second toe. 4. Leukocytosis - better. 5. Peripheral arterial disease. 6. Diabetes mellitus. 7. Hypertension. 8. Mild renal insufficiency. Diarrhea - c-diff neg Plan Plan of Care Needs PICC line with open amp Labs now Disc Zosyn and begin Invanz and cont Dapto - d/w micro no sensitivities with number of organisms until 8/20 min Rx written for discharge labs to [phone] Follow up ID office [phone] 06/01 at 1:30 Local wound care Discussed with nursing staff VALENTINE GREENE MD May 17, 2020 10:53
[2020-05-17] MEDS ORDERED: ERTAPENEM 1 GM in IV NORMAL SALINE 50ML 50 ML IV ONE (11:30)
[2020-05-17 11:43] LABS: BASO # 0.1 x10^3/uL (0.0-0.2); BASO % 0 % (0-3); EOS % 0 % (0-3); HEMATOCRIT 25.2 % (39.0-53.0); HEMOGLOBIN 8.6 g/dL (13.0-17.5); LYMPH # 2.6 x10^3/uL (1.0-4.8); LYMPH % 20 % (24-48); MEAN CORPUSCULAR HEMOGLOBIN 31 pg (25-35); MEAN CORPUSCULAR HGB CONC 34 g/dL (31-37); MEAN CORPUSCULAR VOLUME 91 fL (79-100); MONO # 1.2 x10^3/uL (0.0-1.1); MONO % 10 % (0-9); NEUT # 9.1 x10^3/uL (1.8-7.7); NEUT % 70 % (31-73); PLATELET COUNT 550 x10^3/uL (140-400); RED BLOOD COUNT 2.78 x10^6/uL (4.30-5.70); RED CELL DISTRIBUTION WIDTH 13.3 % (11.5-14.5)
[2020-05-17 11:59] LABS: ALBUMIN 2.1 g/dL (3.4-5.0); ALBUMIN/GLOBULIN RATIO 0.5 (1.0-1.7); CALCIUM 8.3 mg/dL (8.5-10.1); CREATININE 1.3 mg/dL (0.7-1.3); GFR 66.4; POTASSIUM 3.9 mmol/L (3.5-5.1); TOTAL BILIRUBIN 0.2 mg/dL (0.2-1.0); TOTAL PROTEIN 6.7 g/dL (6.4-8.2)
[2020-05-17] MEDS ORDERED: LIDOCAINE WITH 8.4% SOD BICARB 3 ML DISP.SYRIN. ONE (14:01)
[2020-05-17] MEDS ORDERED: LIDOCAINE WITH 8.4% SOD BICARB 3 ML DISP.SYRIN. INJ ONE (14:30)
--- NOTE | 2020-05-17 14:49 | PDOC ---
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 Pain management Resume home medication DVT prophylaxis with heparin History of Present Illness History of Present Illness 05/14: Patient tolerated procedure well and seems to be at peace with the outcome of the amputation, reassurance rpovided, son at bedside, no concerns voiced during my visit. 05/15: No concerns voiced today, anemia noted, as expected after surgical procedure, no signs of hemodynamic instability. Patient with well controlled pain, no fever or chills. 05/16: No acute events reported overnight, case discussed with nursing staff patient in no acute distress no complaints during my visit 05/17: No acute events reported overnight, case discussed with nursing staff patient in no acute distress no complaints during my visit, applications sales consultant would like to keep patient until tomorrow Vitals Vitals Vital Signs Date Time Temp Pulse Resp B/P (MAP) Pulse Ox O2 Delivery O2 Flow Rate FiO2 05/17/20 11:00 98.7 88 18 156/65 (95) 99 Room Air 98.7 Physical Exam Physical Exam GENERAL: Alert and oriented x3 male in no acute distress, lying comfortably in bed. HEENT: Normocephalic, atraumatic, and anicteric. Oc/Op - clear NECK: Supple, no JVD, no lymphadenopathy. LUNGS: Clear bilaterally. No wheezing. HEART: S1 and S2 regular. ABDOMEN: Soft, nontender, and nondistended. EXTREMITIES: No edema. No cyanosis. Right BKA stump looks good. Postsurgical left foot dressing in place intact not taken down - clean NEUROLOGIC: Alert and oriented x3, grossly nonfocal. General: Alert, Oriented X3, Cooperative, No acute distress Heart: Regular rate, Normal S1, Normal S2 Lungs: Clear Abdomen: Normal bowel sounds, Soft, No tenderness Extremities: No cyanosis Labs LABS Laboratory Tests Test 05/16/20 16:44 05/16/20 21:34 05/17/20 07:28 05/17/20 10:29 Glucose (Fingerstick) 107 mg/dL (70-99) 228 mg/dL (70-99) 141 mg/dL (70-99) 209 mg/dL (70-99) Test 05/17/20 11:25 White Blood Count 13.0 x10^3/uL (4.0-11.0) Red Blood Count 2.78 x10^6/uL (4.30-5.70) Hemoglobin 8.6 g/dL (13.0-17.5) Hematocrit 25.2 % (39.0-53.0) Mean Corpuscular Volume 91 fL (79-100) Mean Corpuscular Hemoglobin 31 pg (25-35) Mean Corpuscular Hemoglobin Concent 34 g/dL (31-37) Red Cell Distribution Width 13.3 % (11.5-14.5) Platelet Count 550 x10^3/uL (140-400) Neutrophils (%) (Auto) 70 % (31-73) Lymphocytes (%) (Auto) 20 % (24-48) Monocytes (%) (Auto) 10 % (0-9) Eosinophils (%) (Auto) 0 % (0-3) Basophils (%) (Auto) 0 % (0-3) Neutrophils # (Auto) 9.1 x10^3/uL (1.8-7.7) Lymphocytes # (Auto) 2.6 x10^3/uL (1.0-4.8) Monocytes # (Auto) 1.2 x10^3/uL (0.0-1.1) Eosinophils # (Auto) 0.0 x10^3/uL (0.0-0.7) Basophils # (Auto) 0.1 x10^3/uL (0.0-0.2) Sodium Level 142 mmol/L (136-145) Potassium Level 3.9 mmol/L (3.5-5.1) Chloride Level 106 mmol/L (98-107) Carbon Dioxide Level 31 mmol/L (21-32) Anion Gap 5 (6-14) Blood Urea Nitrogen 9 mg/dL (8-26) Creatinine 1.3 mg/dL (0.7-1.3) Estimated GFR (Cockcroft-Gault) 66.4 BUN/Creatinine Ratio 7 (6-20) Glucose Level 200 mg/dL (70-99) Calcium Level 8.3 mg/dL (8.5-10.1) Total Bilirubin 0.2 mg/dL (0.2-1.0) Aspartate Amino Transf (AST/SGOT) 47 U/L (15-37) Alanine Aminotransferase (ALT/SGPT) 35 U/L (16-63) Alkaline Phosphatase 33 U/L (46-116) Creatine Kinase 80 U/L (39-308) Total Protein 6.7 g/dL (6.4-8.2) Albumin 2.1 g/dL (3.4-5.0) Albumin/Globulin Ratio 0.5 (1.0-1.7) Assessment and Plan Assessmemt and Plan Problems Medical Problems: (1) Infection of toe as complication of amputation Status: Acute (2) Left foot infection Status: Acute Comment Review of Relevant I have reviewed the following items raudel (where applicable) has been applied. Labs Laboratory Tests Test 05/15/20 16:25 05/15/20 20:52 05/16/20 07:18 05/16/20 09:10 Glucose (Fingerstick) 251 mg/dL (70-99) 260 mg/dL (70-99) 270 mg/dL (70-99) Clostridium difficile Toxin (PCR) Negative (NEGATIVE) Test 05/16/20 11:38 05/16/20 16:44 05/16/20 21:34 05/17/20 07:28 Glucose (Fingerstick) 159 mg/dL (70-99) 107 mg/dL (70-99) 228 mg/dL (70-99) 141 mg/dL (70-99) Test 05/17/20 10:29 05/17/20 11:25 Glucose (Fingerstick) 209 mg/dL (70-99) White Blood Count 13.0 x10^3/uL (4.0-11.0) Red Blood Count 2.78 x10^6/uL (4.30-5.70) Hemoglobin 8.6 g/dL (13.0-17.5) Hematocrit 25.2 % (39.0-53.0) Mean Corpuscular Volume 91 fL (79-100) Mean Corpuscular Hemoglobin 31 pg (25-35) Mean Corpuscular Hemoglobin Concent 34 g/dL (31-37) Red Cell Distribution Width 13.3 % (11.5-14.5) Platelet Count 550 x10^3/uL (140-400) Neutrophils (%) (Auto) 70 % (31-73) Lymphocytes (%) (Auto) 20 % (24-48) Monocytes (%) (Auto) 10 % (0-9) Eosinophils (%) (Auto) 0 % (0-3) Basophils (%) (Auto) 0 % (0-3) Neutrophils # (Auto) 9.1 x10^3/uL (1.8-7.7) Lymphocytes # (Auto) 2.6 x10^3/uL (1.0-4.8) Monocytes # (Auto) 1.2 x10^3/uL (0.0-1.1) Eosinophils # (Auto) 0.0 x10^3/uL (0.0-0.7) Basophils # (Auto) 0.1 x10^3/uL (0.0-0.2) Sodium Level 142 mmol/L (136-145) Potassium Level 3.9 mmol/L (3.5-5.1) Chloride Level 106 mmol/L (98-107) Carbon Dioxide Level 31 mmol/L (21-32) Anion Gap 5 (6-14) Blood Urea Nitrogen 9 mg/dL (8-26) Creatinine 1.3 mg/dL (0.7-1.3) Estimated GFR (Cockcroft-Gault) 66.4 BUN/Creatinine Ratio 7 (6-20) Glucose Level 200 mg/dL (70-99) Calcium Level 8.3 mg/dL (8.5-10.1) Total Bilirubin 0.2 mg/dL (0.2-1.0) Aspartate Amino Transf (AST/SGOT) 47 U/L (15-37) Alanine Aminotransferase (ALT/SGPT) 35 U/L (16-63) Alkaline Phosphatase 33 U/L (46-116) Creatine Kinase 80 U/L (39-308) Total Protein 6.7 g/dL (6.4-8.2) Albumin 2.1 g/dL (3.4-5.0) Albumin/Globulin Ratio 0.5 (1.0-1.7) Laboratory Tests Test 05/16/20 16:44 05/16/20 21:34 05/17/20 07:28 05/17/20 10:29 Glucose (Fingerstick) 107 mg/dL (70-99) 228 mg/dL (70-99) 141 mg/dL (70-99) 209 mg/dL (70-99) Test 05/17/20 11:25 White Blood Count 13.0 x10^3/uL (4.0-11.0) Red Blood Count 2.78 x10^6/uL (4.30-5.70) Hemoglobin 8.6 g/dL (13.0-17.5) Hematocrit 25.2 % (39.0-53.0) Mean Corpuscular Volume 91 fL (79-100) Mean Corpuscular Hemoglobin 31 pg (25-35) Mean Corpuscular Hemoglobin Concent 34 g/dL (31-37) Red Cell Distribution Width 13.3 % (11.5-14.5) Platelet Count 550 x10^3/uL (140-400) Neutrophils (%) (Auto) 70 % (31-73) Lymphocytes (%) (Auto) 20 % (24-48) Monocytes (%) (Auto) 10 % (0-9) Eosinophils (%) (Auto) 0 % (0-3) Basophils (%) (Auto) 0 % (0-3) Neutrophils # (Auto) 9.1 x10^3/uL (1.8-7.7) Lymphocytes # (Auto) 2.6 x10^3/uL (1.0-4.8) Monocytes # (Auto) 1.2 x10^3/uL (0.0-1.1) Eosinophils # (Auto) 0.0 x10^3/uL (0.0-0.7) Basophils # (Auto) 0.1 x10^3/uL (0.0-0.2) Sodium Level 142 mmol/L (136-145) Potassium Level 3.9 mmol/L (3.5-5.1) Chloride Level 106 mmol/L (98-107) Carbon Dioxide Level 31 mmol/L (21-32) Anion Gap 5 (6-14) Blood Urea Nitrogen 9 mg/dL (8-26) Creatinine 1.3 mg/dL (0.7-1.3) Estimated GFR (Cockcroft-Gault) 66.4 BUN/Creatinine Ratio 7 (6-20) Glucose Level 200 mg/dL (70-99) Calcium Level 8.3 mg/dL (8.5-10.1) Total Bilirubin 0.2 mg/dL (0.2-1.0) Aspartate Amino Transf (AST/SGOT) 47 U/L (15-37) Alanine Aminotransferase (ALT/SGPT) 35 U/L (16-63) Alkaline Phosphatase 33 U/L (46-116) Creatine Kinase 80 U/L (39-308) Total Protein 6.7 g/dL (6.4-8.2) Albumin 2.1 g/dL (3.4-5.0) Albumin/Globulin Ratio 0.5 (1.0-1.7) Microbiology 05/14/20 Gram Stain - Final, Resulted 05/14/20 Aerobic and Anaerobic Culture - Preliminary, Resulted 05/12/20 Blood Culture - Preliminary, Resulted NO GROWTH AFTER 4 DAYS Medications Current Medications Piperacillin Sod/ Tazobactam Sod 3.375 gm/Sodium Chloride 50 ml @ 100 mls/hr 1X ONCE IV Last administered on 05/12/20at 14:23; Start 05/12/20 at 13:30; Stop 05/12/20 at 13:59; Status DC Sodium Chloride 1,000 ml @ 100 mls/hr Q10H IV Last administered on 05/17/20at 11:50; Start 05/12/20 at 14:05 Ondansetron HCl (Zofran) 4 mg PRN Q4HRS PRN IV NAUSEA/VOMITING; Start 05/12/20 at 14:15 Zolpidem Tartrate (Ambien) 5 mg PRN QHS PRN PO INSOMNIA Last administered on 05/13/20at 23:43; Start 05/12/20 at 14:15 Acetaminophen (Tylenol) 650 mg PRN Q4HRS PRN PO TEMP OVER 100.4F OR MILD PAIN Last administered on 05/17/20at 01:13; Start 05/12/20 at 14:15 Docusate Sodium (Colace) 100 mg PRN BID PRN PO HARD STOOLS Last administered on 05/15/20at 23:30; Start 05/12/20 at 14:15 Guaifenesin (Robitussin) 200 mg PRN Q4HRS PRN PO COUGH; Start 05/12/20 at 14:15 Lorazepam (Ativan) 0.5 mg PRN Q4HRS PRN PO ANXIETY / AGITATION; Start 05/12/20 at 14:15 Vancomycin HCl (Vanco Per Pharmacy) 1 each PRN DAILY PRN MC SEE COMMENTS Last administered on 05/13/20at 10:29; Start 05/12/20 at 14:15; Stop 05/13/20 at 12:23; Status DC Piperacillin Sod/ Tazobactam Sod 3.375 gm/Sodium Chloride 50 ml @ 100 mls/hr Q6HRS IV Last administered on 05/17/20at 05:31; Start 05/12/20 at 18:00; Stop 05/17/20 at 11:28; Status DC Aspirin (Ecotrin) 81 mg DAILYWBKFT PO Last administered on 05/17/20at 08:20; Start 05/13/20 at 08:00 Clopidogrel Bisulfate (Plavix) 75 mg DAILY PO Last administered on 05/17/20at 08:20; Start 05/13/20 at 09:00 Gabapentin (Neurontin) 300 mg TID PO Last administered on 05/17/20at 08:20; Start 05/12/20 at 21:00 Lisinopril (Prinivil) 40 mg DAILY PO Last administered on 05/17/20at 08:20; Start 05/13/20 at 09:00 Insulin Glargine (Lantus Syringe) 18 unit QHS SQ Last administered on 05/15/20at 21:01; Start 05/12/20 at 21:00; Stop 05/16/20 at 08:52; Status DC Insulin Human Lispro (HumaLOG) 6 units TIDWMEALS SQ Last administered on 05/16/20at 08:14; Start 05/12/20 at 17:00; Stop 05/16/20 at 08:52; Status DC Pantoprazole Sodium (Protonix) 40 mg DAILYAC PO Last administered on 05/17/20at 08:20; Start 05/12/20 at 16:30 Insulin Human Lispro (HumaLOG) 0-7 UNITS TIDWMEALS SQ Last administered on 05/14/20at 16:54; Start 05/12/20 at 17:00; Stop 05/14/20 at 20:35; Status DC Dextrose (Dextrose 50%-Water Syringe) 12.5 gm PRN Q15MIN PRN IV SEE COMMENTS; Start 05/12/20 at 14:15 Vancomycin HCl 2 gm/Sodium Chloride 500 ml @ 250 mls/hr 1X ONCE IV Last administered on 05/12/20at 14:52; Start 05/12/20 at 14:30; Stop 05/12/20 at 16:29; Status DC Piperacillin Sod/ Tazobactam Sod 3.375 gm/Sodium Chloride 50 ml @ 100 mls/hr 1X ONCE IV ; Start 05/12/20 at 14:30; Stop 05/12/20 at 14:59; Status Cancel Heparin Sodium (Porcine) (Heparin Sodium) 5,000 unit Q8HRS SQ Last administered on 05/17/20at 05:35; Start 05/12/20 at 22:00 Vancomycin HCl 1.5 gm/Sodium Chloride 500 ml @ 250 mls/hr Q18H IV Last administered on 05/13/20at 08:20; Start 05/13/20 at 09:00; Stop 05/13/20 at 12:22; Status DC Vancomycin HCl (Vancomycin Trough Level) 1 each 1X ONCE MC ; Start 05/14/20 at 02:30; Stop 05/13/20 at 12:23; Status DC Fentanyl Citrate (Fentanyl 2ml Vial) 25 mcg PRN Q5MIN PRN IV MILD PAIN 1-3; Start 05/14/20 at 07:00; Stop 05/15/20 at 06:59; Status DC Fentanyl Citrate (Fentanyl 2ml Vial) 50 mcg PRN Q5MIN PRN IV MODERATE TO SEVERE PAIN Last administered on 05/14/20at 09:02; Start 05/14/20 at 07:00; Stop 05/15/20 at 06:59; Status DC Morphine Sulfate (Morphine Sulfate) 1 mg PRN Q10MIN PRN IV SEVERE PAIN 7-10; Start 05/14/20 at 07:00; Stop 05/15/20 at 06:59; Status DC Ringer's Solution 1,000 ml @ 30 mls/hr Q24H IV Last administered on 05/14/20at 12:50; Start 05/14/20 at 07:00; Stop 05/14/20 at 18:59; Status DC Lidocaine HCl (Xylocaine-Mpf 1% 2ml Vial) 2 ml PRN 1X PRN ID PRIOR TO IV START; Start 05/14/20 at 07:00; Stop 05/15/20 at 06:59; Status DC Hydromorphone HCl (Dilaudid) 0.5 mg PRN Q10MIN PRN IV SEV PAIN, Second choice Last administered on 05/14/20at 16:49; Start 05/14/20 at 07:00; Stop 05/15/20 at 06:59; Status DC Prochlorperazine Edisylate (Compazine) 5 mg PACU PRN PRN IV NAUSEA, MRX1; Start 05/14/20 at 07:00; Stop 05/15/20 at 06:59; Status DC Ondansetron HCl (Zofran) 4 mg PRN Q6HRS PRN IV NAUSEA/VOMITING; Start 05/14/20 at 07:00; Stop 05/15/20 at 06:59; Status Cancel Fentanyl Citrate (Fentanyl 2ml Vial) 25 mcg PRN Q5MIN PRN IV MILD PAIN 1-3; Start 05/14/20 at 07:00; Stop 05/15/20 at 06:59; Status Cancel Fentanyl Citrate (Fentanyl 2ml Vial) 50 mcg PRN Q5MIN PRN IV MODERATE TO SEVERE PAIN; Start 05/14/20 at 07:00; Stop 05/15/20 at 06:59; Status Cancel Morphine Sulfate (Morphine Sulfate) 1 mg PRN Q10MIN PRN IV SEVERE PAIN 7-10; Start 05/14/20 at 07:00; Stop 05/15/20 at 06:59; Status Cancel Ringer's Solution 1,000 ml @ 30 mls/hr Q24H IV ; Start 05/14/20 at 07:00; Stop 05/14/20 at 18:59; Status Cancel Lidocaine HCl (Xylocaine-Mpf 1% 2ml Vial) 2 ml PRN 1X PRN ID PRIOR TO IV START; Start 05/14/20 at 07:00; Stop 05/15/20 at 06:59; Status Cancel Hydromorphone HCl (Dilaudid) 0.5 mg PRN Q10MIN PRN IV SEV PAIN, Second choice; Start 05/14/20 at 07:00; Stop 05/15/20 at 06:59; Status Cancel Prochlorperazine Edisylate (Compazine) 5 mg PACU PRN PRN IV NAUSEA, MRX1; Start 05/14/20 at 07:00; Stop 05/15/20 at 06:59; Status Cancel Cefazolin Sodium 1 gm/Sodium Chloride 500 ml @ 500 mls/hr 1X ONCE IRR Last administered on 05/14/20at 07:43; Start 05/14/20 at 06:00; Stop 05/14/20 at 06:59; Status DC Linezolid/Dextrose 300 ml @ 300 mls/hr Q12HR IV Last administered on 05/15/20at 08:25; Start 05/13/20 at 13:30; Stop 05/15/20 at 10:09; Status DC Insulin Human Lispro (HumaLOG) 2 units 1X SQ ; Start 05/13/20 at 20:30; Stop 05/13/20 at 21:17; Status DC Insulin Human Lispro (HumaLOG) 2 units 1X ONCE SQ Last administered on 05/13/20at 21:30; Start 05/13/20 at 21:30; Stop 05/13/20 at 21:31; Status DC Propofol (Diprivan) 200 mg STK-MED ONCE IV ; Start 05/14/20 at 07:02; Stop 05/14/20 at 07:02; Status DC Lidocaine HCl (Lidocaine Pf 2% Vial) 5 ml STK-MED ONCE .ROUTE ; Start 05/14/20 at 07:02; Stop 05/14/20 at 07:02; Status DC Ondansetron HCl (Zofran) 4 mg STK-MED ONCE .ROUTE ; Start 05/14/20 at 07:02; Stop 05/14/20 at 07:02; Status DC Dexamethasone Sodium Phosphate (Decadron) 4 mg STK-MED ONCE .ROUTE ; Start 05/14/20 at 07:02; Stop 05/14/20 at 07:02; Status DC Fentanyl Citrate (Fentanyl 2ml Vial) 100 mcg STK-MED ONCE .ROUTE ; Start 05/14/20 at 07:03; Stop 05/14/20 at 07:03; Status DC Insulin Human Lispro (HumaLOG VIAL for OP,RR ONLY) 0-10 units PRN Q1HR PRN SQ PER PROTOCOL Last administered on 05/14/20at 08:30; Start 05/14/20 at 07:30; Stop 05/14/20 at 23:00; Status DC Cefazolin Sodium (Ancef) 1 gm STK-MED ONCE IVP ; Start 05/14/20 at 07:43; Stop 05/14/20 at 07:43; Status DC Sevoflurane (Ultane) 30 ml STK-MED ONCE IH ; Start 05/14/20 at 07:50; Stop 05/14/20 at 07:51; Status DC Fentanyl Citrate (Fentanyl 2ml Vial) 100 mcg STK-MED ONCE .ROUTE ; Start 05/14/20 at 08:46; Stop 05/14/20 at 08:47; Status DC Multivitamins (Thera M Plus) 1 tab DAILY PO Last administered on 05/17/20at 08:20; Start 05/14/20 at 10:30 Sodium Hypochlorite (Dakin'S 1/4 Strength) 1 pauly DAILY TP Last administered on 05/16/20at 08:16; Start 05/15/20 at 09:00 Lactobacillus Rhamnosus (Culturelle) 1 cap BID PO Last administered on 04/22 05/10at 08:20; Start 05/14/20 at 21:00 Insulin Human Lispro (HumaLOG) 0-7 UNITS QIDACHS SQ Last administered on 05/17/20at 11:54; Start 05/14/20 at 21:00 Acetaminophen/ Hydrocodone Bitart (Lortab 5/325) 1 tab PRN Q4HRS PRN PO MODERATE PAIN 4-6 Last administered on 05/17/20at 06:36; Start 05/14/20 at 21:00 Fentanyl Citrate (Fentanyl 2ml Vial) 25 mcg PRN Q3HRS PRN IVP PAIN Last admin istered on 05/16/20at 14:08; Start 05/14/20 at 21:00 Daptomycin 500 mg/ Sodium Chloride 50 ml @ 100 mls/hr Q24H IV Last adminis tered on 05/17/20at 10:06; Start 05/15/20 at 11:00 Insulin Glargine (Lantus Syringe) 12 unit BID SQ Last administered on 05/17/20at 08:23; Start 05/16/20 at 09:00 Insulin Human Lispro (HumaLOG) 8 units TIDWMEALS SQ Last administered on 05/17/20at 11:55; Start 05/16/20 at 12:00 Ertapenem 1 gm/ Sodium Chloride 50 ml @ 100 mls/hr 1X ONCE IV Last administered on 05/17/20at 11:50; Start 05/17/20 at 11:30; Stop 05/17/20 at 11:59; Status DC Lidocaine HCl (Buffered Lidocaine 1%) 3 ml STK-MED ONCE .ROUTE ; Start 05/17/20 at 14:01; Stop 05/17/20 at 14:02; Status DC Lidocaine HCl (Buffered Lidocaine 1%) 3 ml 1X ONCE INJ Last administered on 05/17/20at 14:31; Start 05/17/20 at 14:30; Stop 05/17/20 at 14:31; Status DC Active Scripts Active Aspirin Ec (Aspirin) 81 Mg Tablet.dr 81 Mg PO DAILYWBKFT 90 Days Gabapentin 300 Mg Capsule 300 Mg PO TID 14 Days Reported Humalog (Insulin Lispro) 100 Unit/1 Ml Cartridge 6 Unit SQ TIDAC Tresiba (Insulin Degludec) 100 Unit/1 Ml Vial 18 Unit SQ HS Protonix (Pantoprazole Sodium) 20 Mg Tablet.dr 40 Mg PO DAILY Lisinopril 40 Mg Tablet 1 Tab PO DAILY Clopidogrel (Clopidogrel Bisulfate) 75 Mg Tablet 1 Tab PO DAILY Vitals/I & O Vital Sign - Last 24 Hours 05/16/20 05/16/20 05/16/20 05/16/20 15:00 19:00 20:00 21:31 Temp 98.7 99.0 98.7 99.0 Pulse 88 95 Resp 16 18 B/P (MAP) 163/70 (101) 154/63 (93) Pulse Ox 99 99 99 O2 Delivery Room Air Room Air Room Air Room Air 05/16/20 05/16/20 05/17/20 05/17/20 22:31 23:00 03:00 06:36 Temp 98.6 98.1 98.6 98.1 Pulse 95 88 Resp 18 18 B/P (MAP) 154/63 (93) 148/72 (97) Pulse Ox 99 99 97 97 O2 Delivery Room Air Room Air Room Air Room Air 05/17/20 05/17/20 05/17/20 05/17/20 07:00 07:19 08:20 08:37 Temp 98.6 98.6 Pulse 97 97 Resp 19 B/P (MAP) 165/50 (88) 165/50 Pulse Ox 98 98 O2 Delivery Room Air Room Air Room Air 05/17/20 11:00 Temp 98.7 98.7 Pulse 88 Resp 18 B/P (MAP) 156/65 (95) Pulse Ox 99 O2 Delivery Room Air Intake and Output 05/16/20 05/16/20 05/17/20 15:00 23:00 07:00 Intake Total 100 ml Output Total 300 ml Balance -300 ml 100 ml Justicifation of Admission Dx: Justifications for Admission: Justification of Admission Dx: Yes ELIANE STREET MD May 17, 2020 14:49
--- NOTE | 2020-05-17 16:50 | PDOC2 ---
CONSULT Date of Consult Date of Consult DATE: 05/17/20 TIME: 13:30 Reason for Consult Reason for Consult: Left diabetic foot infection with gangrene, s/p open TMA Referring Physician Referring Physician: Dr Gallegos Identification/Chief Complaint Problems: (1) Left foot infection History of Present Illness Reason for Visit: Pt well known to our wound care team. 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 Pt with recent hx of left foot 1st and 2nd toe gangrene with infection requiring amputation. Pt initiated HBO treatments. Upon f/u outpt appt wound revealed wet gangrene. Pt sent through ER for admission. Dr Barcenas took pt to surgery on 05/14, performed an open TMA. Past Medical History Cardiovascular: CAD, HTN, Hyperlipidemia Pulmonary: Bronchitis GI: No pertinent hx Heme/Onc: Anemia NOS Hepatobiliary: No pertinent hx Psych: No pertinent hx Rheumatologic: No pertinent hx Infectious disease: No pertinent hx Renal/: No pertinent hx Endocrine: Diabetes Past Surgical History Past Surgical History: Appendectomy, Tonsillectomy, Other (left 1,2nd toe amp utation) Family History Family History: Diabetes, High Cholestrol, Hypertension Social History Social History Pt and lives at home. Prior independent with ADLs with right prosthetic. ALCOHOL: none Drugs: None Lives: with Family Current Problem List Problem List Problems Medical Problems: (1) Infection of toe as complication of amputation Status: Acute (2) Left foot infection Status: Acute Current Medications Current Medications Current Medications Piperacillin Sod/ Tazobactam Sod 3.375 gm/Sodium Chloride 50 ml @ 100 mls/hr 1X ONCE IV Last administered on 05/12/20at 14:23; Start 05/12/20 at 13:30; Stop 05/12/20 at 13:59; Status DC Sodium Chloride 1,000 ml @ 100 mls/hr Q10H IV Last administered on 05/17/20at 11:50; Start 05/12/20 at 14:05 Ondansetron HCl (Zofran) 4 mg PRN Q4HRS PRN IV NAUSEA/VOMITING; Start 05/12/20 at 14:15 Zolpidem Tartrate (Ambien) 5 mg PRN QHS PRN PO INSOMNIA Last administered on 05/13/20at 23:43; Start 05/12/20 at 14:15 Acetaminophen (Tylenol) 650 mg PRN Q4HRS PRN PO TEMP OVER 100.4F OR MILD PAIN Last administered on 05/17/20at 01:13; Start 05/12/20 at 14:15 Docusate Sodium (Colace) 100 mg PRN BID PRN PO HARD STOOLS Last administered on 05/15/20at 23:30; Start 05/12/20 at 14:15 Guaifenesin (Robitussin) 200 mg PRN Q4HRS PRN PO COUGH; Start 05/12/20 at 14:15 Lorazepam (Ativan) 0.5 mg PRN Q4HRS PRN PO ANXIETY / AGITATION; Start 05/12/20 at 14:15 Vancomycin HCl (Vanco Per Pharmacy) 1 each PRN DAILY PRN MC SEE COMMENTS Last administered on 05/13/20at 10:29; Start 05/12/20 at 14:15; Stop 05/13/20 at 12:23; Status DC Piperacillin Sod/ Tazobactam Sod 3.375 gm/Sodium Chloride 50 ml @ 100 mls/hr Q6HRS IV Last administered on 05/17/20at 05:31; Start 05/12/20 at 18:00; Stop 05/17/20 at 11:28; Status DC Aspirin (Ecotrin) 81 mg DAILYWBKFT PO Last administered on 05/17/20at 08:20; Start 05/13/20 at 08:00 Clopidogrel Bisulfate (Plavix) 75 mg DAILY PO Last administered on 05/17/20at 08:20; Start 05/13/20 at 09:00 Gabapentin (Neurontin) 300 mg TID PO Last administered on 05/17/20at 08:20; Start 05/12/20 at 21:00 Lisinopril (Prinivil) 40 mg DAILY PO Last administered on 05/17/20at 08:20; Start 05/13/20 at 09:00 Insulin Glargine (Lantus Syringe) 18 unit QHS SQ Last administered on 05/15/20at 21:01; Start 05/12/20 at 21:00; Stop 05/16/20 at 08:52; Status DC Insulin Human Lispro (HumaLOG) 6 units TIDWMEALS SQ Last administered on 05/16/20at 08:14; Start 05/12/20 at 17:00; Stop 05/16/20 at 08:52; Status DC Pantoprazole Sodium (Protonix) 40 mg DAILYAC PO Last administered on 05/17/20at 08:20; Start 05/12/20 at 16:30 Insulin Human Lispro (HumaLOG) 0-7 UNITS TIDWMEALS SQ Last administered on 05/14/20at 16:54; Start 05/12/20 at 17:00; Stop 05/14/20 at 20:35; Status DC Dextrose (Dextrose 50%-Water Syringe) 12.5 gm PRN Q15MIN PRN IV SEE COMMENTS; Start 05/12/20 at 14:15 Vancomycin HCl 2 gm/Sodium Chloride 500 ml @ 250 mls/hr 1X ONCE IV Last administered on 05/12/20at 14:52; Start 05/12/20 at 14:30; Stop 05/12/20 at 16:29; Status DC Piperacillin Sod/ Tazobactam Sod 3.375 gm/Sodium Chloride 50 ml @ 100 mls/hr 1X ONCE IV ; Start 05/12/20 at 14:30; Stop 05/12/20 at 14:59; Status Cancel Heparin Sodium (Porcine) (Heparin Sodium) 5,000 unit Q8HRS SQ Last administered on 05/17/20at 05:35; Start 05/12/20 at 22:00 Vancomycin HCl 1.5 gm/Sodium Chloride 500 ml @ 250 mls/hr Q18H IV Last administered on 05/13/20at 08:20; Start 05/13/20 at 09:00; Stop 05/13/20 at 12:22; Status DC Vancomycin HCl (Vancomycin Trough Level) 1 each 1X ONCE MC ; Start 05/14/20 at 02:30; Stop 05/13/20 at 12:23; Status DC Fentanyl Citrate (Fentanyl 2ml Vial) 25 mcg PRN Q5MIN PRN IV MILD PAIN 1-3; Start 05/14/20 at 07:00; Stop 05/15/20 at 06:59; Status DC Fentanyl Citrate (Fentanyl 2ml Vial) 50 mcg PRN Q5MIN PRN IV MODERATE TO SEVERE PAIN Last administered on 05/14/20at 09:02; Start 05/14/20 at 07:00; Stop 05/15/20 at 06:59; Status DC Morphine Sulfate (Morphine Sulfate) 1 mg PRN Q10MIN PRN IV SEVERE PAIN 7-10; Start 05/14/20 at 07:00; Stop 05/15/20 at 06:59; Status DC Ringer's Solution 1,000 ml @ 30 mls/hr Q24H IV Last administered on 05/14/20at 12:50; Start 05/14/20 at 07:00; Stop 05/14/20 at 18:59; Status DC Lidocaine HCl (Xylocaine-Mpf 1% 2ml Vial) 2 ml PRN 1X PRN ID PRIOR TO IV START; Start 05/14/20 at 07:00; Stop 05/15/20 at 06:59; Status DC Hydromorphone HCl (Dilaudid) 0.5 mg PRN Q10MIN PRN IV SEV PAIN, Second choice Last administered on 05/14/20at 16:49; Start 05/14/20 at 07:00; Stop 05/15/20 at 06:59; Status DC Prochlorperazine Edisylate (Compazine) 5 mg PACU PRN PRN IV NAUSEA, MRX1; Start 05/14/20 at 07:00; Stop 05/15/20 at 06:59; Status DC Ondansetron HCl (Zofran) 4 mg PRN Q6HRS PRN IV NAUSEA/VOMITING; Start 05/14/20 at 07:00; Stop 05/15/20 at 06:59; Status Cancel Fentanyl Citrate (Fentanyl 2ml Vial) 25 mcg PRN Q5MIN PRN IV MILD PAIN 1-3; Start 05/14/20 at 07:00; Stop 05/15/20 at 06:59; Status Cancel Fentanyl Citrate (Fentanyl 2ml Vial) 50 mcg PRN Q5MIN PRN IV MODERATE TO SEVERE PAIN; Start 05/14/20 at 07:00; Stop 05/15/20 at 06:59; Status Cancel Morphine Sulfate (Morphine Sulfate) 1 mg PRN Q10MIN PRN IV SEVERE PAIN 7-10; Start 05/14/20 at 07:00; Stop 05/15/20 at 06:59; Status Cancel Ringer's Solution 1,000 ml @ 30 mls/hr Q24H IV ; Start 05/14/20 at 07:00; Stop 05/14/20 at 18:59; Status Cancel Lidocaine HCl (Xylocaine-Mpf 1% 2ml Vial) 2 ml PRN 1X PRN ID PRIOR TO IV START; Start 05/14/20 at 07:00; Stop 05/15/20 at 06:59; Status Cancel Hydromorphone HCl (Dilaudid) 0.5 mg PRN Q10MIN PRN IV SEV PAIN, Second choice; Start 05/14/20 at 07:00; Stop 05/15/20 at 06:59; Status Cancel Prochlorperazine Edisylate (Compazine) 5 mg PACU PRN PRN IV NAUSEA, MRX1; Start 05/14/20 at 07:00; Stop 05/15/20 at 06:59; Status Cancel Cefazolin Sodium 1 gm/Sodium Chloride 500 ml @ 500 mls/hr 1X ONCE IRR Last administered on 05/14/20at 07:43; Start 05/14/20 at 06:00; Stop 05/14/20 at 06:59; Status DC Linezolid/Dextrose 300 ml @ 300 mls/hr Q12HR IV Last administered on 05/15/20at 08:25; Start 05/13/20 at 13:30; Stop 05/15/20 at 10:09; Status DC Insulin Human Lispro (HumaLOG) 2 units 1X SQ ; Start 05/13/20 at 20:30; Stop 05/13/20 at 21:17; Status DC Insulin Human Lispro (HumaLOG) 2 units 1X ONCE SQ Last administered on 05/13/20at 21:30; Start 05/13/20 at 21:30; Stop 05/13/20 at 21:31; Status DC Propofol (Diprivan) 200 mg STK-MED ONCE IV ; Start 05/14/20 at 07:02; Stop 05/14/20 at 07:02; Status DC Lidocaine HCl (Lidocaine Pf 2% Vial) 5 ml STK-MED ONCE .ROUTE ; Start 05/14/20 at 07:02; Stop 05/14/20 at 07:02; Status DC Ondansetron HCl (Zofran) 4 mg STK-MED ONCE .ROUTE ; Start 05/14/20 at 07:02; Stop 05/14/20 at 07:02; Status DC Dexamethasone Sodium Phosphate (Decadron) 4 mg STK-MED ONCE .ROUTE ; Start 05/14/20 at 07:02; Stop 05/14/20 at 07:02; Status DC Fentanyl Citrate (Fentanyl 2ml Vial) 100 mcg STK-MED ONCE .ROUTE ; Start 05/14/20 at 07:03; Stop 05/14/20 at 07:03; Status DC Insulin Human Lispro (HumaLOG VIAL for OP,RR ONLY) 0-10 units PRN Q1HR PRN SQ PER PROTOCOL Last administered on 05/14/20at 08:30; Start 05/14/20 at 07:30; Stop 05/14/20 at 23:00; Status DC Cefazolin Sodium (Ancef) 1 gm STK-MED ONCE IVP ; Start 05/14/20 at 07:43; Stop 05/14/20 at 07:43; Status DC Sevoflurane (Ultane) 30 ml STK-MED ONCE IH ; Start 05/14/20 at 07:50; Stop 05/14/20 at 07:51; Status DC Fentanyl Citrate (Fentanyl 2ml Vial) 100 mcg STK-MED ONCE .ROUTE ; Start 05/14/20 at 08:46; Stop 05/14/20 at 08:47; Status DC Multivitamins (Thera M Plus) 1 tab DAILY PO Last administered on 05/17/20at 08:20; Start 05/14/20 at 10:30 Sodium Hypochlorite (Dakin'S 1/4 Strength) 1 pauly DAILY TP Last administered on 05/16/20at 08:16; Start 05/15/20 at 09:00 Lactobacillus Rhamnosus (Culturelle) 1 cap BID PO Last administered on at 08:20; Start 05/14/20 at 21:00 Insulin Human Lispro (HumaLOG) 0-7 UNITS QIDACHS SQ Last administered on 05/17/20at 11:54; Start 05/14/20 at 21:00 Acetaminophen/ Hydrocodone Bitart (Lortab 5/325) 1 tab PRN Q4HRS PRN PO MODERATE PAIN 4-6 Last administered on 05/17/20at 15:00; Start 05/14/20 at 21:00 Fentanyl Citrate (Fentanyl 2ml Vial) 25 mcg PRN Q3HRS PRN IVP PAIN Last adm inistered on 05/16/20at 14:08; Start 05/14/20 at 21:00 Daptomycin 500 mg/ Sodium Chloride 50 ml @ 100 mls/hr Q24H IV Last admin istered on 05/17/20at 10:06; Start 05/15/20 at 11:00 Insulin Glargine (Lantus Syringe) 12 unit BID SQ Last administered on 05/17/20at 08:23; Start 05/16/20 at 09:00 Insulin Human Lispro (HumaLOG) 8 units TIDWMEALS SQ Last administered on 05/17/20at 11:55; Start 05/16/20 at 12:00 Ertapenem 1 gm/ Sodium Chloride 50 ml @ 100 mls/hr 1X ONCE IV Last administered on 05/17/20at 11:50; Start 05/17/20 at 11:30; Stop 05/17/20 at 11:59; Status DC Lidocaine HCl (Buffered Lidocaine 1%) 3 ml STK-MED ONCE .ROUTE ; Start 05/17/20 at 14:01; Stop 05/17/20 at 14:02; Status DC Lidocaine HCl (Buffered Lidocaine 1%) 3 ml 1X ONCE INJ Last administered on 05/17/20at 14:31; Start 05/17/20 at 14:30; Stop 05/17/20 at 14:31; Status DC Active Scripts Active Aspirin Ec (Aspirin) 81 Mg Tablet.dr 81 Mg PO DAILYWBKFT 90 Days Gabapentin 300 Mg Capsule 300 Mg PO TID 14 Days Reported Humalog (Insulin Lispro) 100 Unit/1 Ml Cartridge 6 Unit SQ TIDAC Tresiba (Insulin Degludec) 100 Unit/1 Ml Vial 18 Unit SQ HS Protonix (Pantoprazole Sodium) 20 Mg Tablet.dr 40 Mg PO DAILY Lisinopril 40 Mg Tablet 1 Tab PO DAILY Clopidogrel (Clopidogrel Bisulfate) 75 Mg Tablet 1 Tab PO DAILY Allergies Allergies: Coded Allergies: No Known Drug Allergies (Unverified , 05/05/20) ROS General: No: Chills, Fatigue, Appetite PSYCHOLOGICAL ROS: No: Anxiety, Depression, Irritablity HEENT: No: Nasal congestion, Nasal discharge Respiratory: No: Cough, Shortness of breath, SOB with excertion Cardiovascular: No Chest Pain Gastrointestinal: No Nausea, No Vomiting, No Diarrhea Genitourinary: No Dysuria, No Urgency Skin: No Rash Physical Exam General: Alert, Oriented X3, No acute distress Lungs: Normal air movement Heart: Regular rate Abdomen: Normal bowel sounds, Soft, No tenderness, No masses Extremities: No edema Skin: Other (Right stump without open wounds, edema or erythema. Pt independent with placing stump sleeve and prosthetic. Left foot reveals open wound measuring 5.9x9x1.3cm. Wound bed 30% adipose, 30% slough and 40% granultion. Bone palpable. Edges are attached and not rolling. Surrounding tissue without erythema or edema. Minimal serosanguineous drainage present at this time. No odor following cleansing.) Vitals VITALS Vital Signs Date Time Temp Pulse Resp B/P (MAP) Pulse Ox O2 Delivery O2 Flow Rate FiO2 05/17/20 15:52 99 Room Air 05/17/20 15:00 97.9 98 18 174/61 (98) 97.9 Labs Labs Laboratory Tests Test 05/15/20 20:52 05/16/20 07:18 05/16/20 09:10 05/16/20 11:38 Glucose (Fingerstick) 260 mg/dL (70-99) 270 mg/dL (70-99) 159 mg/dL (70-99) Clostridium difficile Toxin (PCR) Negative (NEGATIVE) Test 05/16/20 16:44 05/16/20 21:34 05/17/20 07:28 05/17/20 10:29 Glucose (Fingerstick) 107 mg/dL (70-99) 228 mg/dL (70-99) 141 mg/dL (70-99) 209 mg/dL (70-99) Test 05/17/20 11:25 White Blood Count 13.0 x10^3/uL (4.0-11.0) Red Blood Count 2.78 x10^6/uL (4.30-5.70) Hemoglobin 8.6 g/dL (13.0-17.5) Hematocrit 25.2 % (39.0-53.0) Mean Corpuscular Volume 91 fL (79-100) Mean Corpuscular Hemoglobin 31 pg (25-35) Mean Corpuscular Hemoglobin Concent 34 g/dL (31-37) Red Cell Distribution Width 13.3 % (11.5-14.5) Platelet Count 550 x10^3/uL (140-400) Neutrophils (%) (Auto) 70 % (31-73) Lymphocytes (%) (Auto) 20 % (24-48) Monocytes (%) (Auto) 10 % (0-9) Eosinophils (%) (Auto) 0 % (0-3) Basophils (%) (Auto) 0 % (0-3) Neutrophils # (Auto) 9.1 x10^3/uL (1.8-7.7) Lymphocytes # (Auto) 2.6 x10^3/uL (1.0-4.8) Monocytes # (Auto) 1.2 x10^3/uL (0.0-1.1) Eosinophils # (Auto) 0.0 x10^3/uL (0.0-0.7) Basophils # (Auto) 0.1 x10^3/uL (0.0-0.2) Sodium Level 142 mmol/L (136-145) Potassium Level 3.9 mmol/L (3.5-5.1) Chloride Level 106 mmol/L (98-107) Carbon Dioxide Level 31 mmol/L (21-32) Anion Gap 5 (6-14) Blood Urea Nitrogen 9 mg/dL (8-26) Creatinine 1.3 mg/dL (0.7-1.3) Estimated GFR (Cockcroft-Gault) 66.4 BUN/Creatinine Ratio 7 (6-20) Glucose Level 200 mg/dL (70-99) Calcium Level 8.3 mg/dL (8.5-10.1) Total Bilirubin 0.2 mg/dL (0.2-1.0) Aspartate Amino Transf (AST/SGOT) 47 U/L (15-37) Alanine Aminotransferase (ALT/SGPT) 35 U/L (16-63) Alkaline Phosphatase 33 U/L (46-116) Creatine Kinase 80 U/L (39-308) Total Protein 6.7 g/dL (6.4-8.2) Albumin 2.1 g/dL (3.4-5.0) Albumin/Globulin Ratio 0.5 (1.0-1.7) Laboratory Tests Test 05/16/20 16:44 05/16/20 21:34 05/17/20 07:28 05/17/20 10:29 Glucose (Fingerstick) 107 mg/dL (70-99) 228 mg/dL (70-99) 141 mg/dL (70-99) 209 mg/dL (70-99) Test 05/17/20 11:25 White Blood Count 13.0 x10^3/uL (4.0-11.0) Red Blood Count 2.78 x10^6/uL (4.30-5.70) Hemoglobin 8.6 g/dL (13.0-17.5) Hematocrit 25.2 % (39.0-53.0) Mean Corpuscular Volume 91 fL (79-100) Mean Corpuscular Hemoglobin 31 pg (25-35) Mean Corpuscular Hemoglobin Concent 34 g/dL (31-37) Red Cell Distribution Width 13.3 % (11.5-14.5) Platelet Count 550 x10^3/uL (140-400) Neutrophils (%) (Auto) 70 % (31-73) Lymphocytes (%) (Auto) 20 % (24-48) Monocytes (%) (Auto) 10 % (0-9) Eosinophils (%) (Auto) 0 % (0-3) Basophils (%) (Auto) 0 % (0-3) Neutrophils # (Auto) 9.1 x10^3/uL (1.8-7.7) Lymphocytes # (Auto) 2.6 x10^3/uL (1.0-4.8) Monocytes # (Auto) 1.2 x10^3/uL (0.0-1.1) Eosinophils # (Auto) 0.0 x10^3/uL (0.0-0.7) Basophils # (Auto) 0.1 x10^3/uL (0.0-0.2) Sodium Level 142 mmol/L (136-145) Potassium Level 3.9 mmol/L (3.5-5.1) Chloride Level 106 mmol/L (98-107) Carbon Dioxide Level 31 mmol/L (21-32) Anion Gap 5 (6-14) Blood Urea Nitrogen 9 mg/dL (8-26) Creatinine 1.3 mg/dL (0.7-1.3) Estimated GFR (Cockcroft-Gault) 66.4 BUN/Creatinine Ratio 7 (6-20) Glucose Level 200 mg/dL (70-99) Calcium Level 8.3 mg/dL (8.5-10.1) Total Bilirubin 0.2 mg/dL (0.2-1.0) Aspartate Amino Transf (AST/SGOT) 47 U/L (15-37) Alanine Aminotransferase (ALT/SGPT) 35 U/L (16-63) Alkaline Phosphatase 33 U/L (46-116) Creatine Kinase 80 U/L (39-308) Total Protein 6.7 g/dL (6.4-8.2) Albumin 2.1 g/dL (3.4-5.0) Albumin/Globulin Ratio 0.5 (1.0-1.7) Assessment/Plan Assessment/Plan Diabetic foot infection with wet gangrene, s/p open TMA per Dr Barcenas on 05/14/20. - Initiated Veraflow to help breakdown remaining nonviable tissue. Upon discharge may change to NPWT at -125mmHG continuous with vac changes 3x weekly - ID following patient for antibiotic therapy - Would recommend continuation of HBO as outpt. MARÍA ELENA WHITFIELD CHEMICAL LABORATORY ASSISTANT May 17, 2020 16:50
[2020-05-17] MEDS: fentaNYL PF VIAL 100 MCG/2 ML VIAL IVP PRN (21:46)
[2020-05-17] MEDS: ZOLPIDEM 5 MG TABLET. PO PRN (23:15)
[2020-05-18 03:00] VITALS: BP 158/56
[2020-05-18] MEDS: HEPARIN for SUB-Q USE 5,000 UNIT/ML VIAL. SQ SCH ×2 (06:00→13:36)
[2020-05-18 07:00] VITALS: BP_SYST 119; BP_SYST 164; BP_DIAS 61; BP_DIAS 77
--- NOTE | 2020-05-18 08:17 | NUR ---
0600 Heparin not administered by previous nurse.
[2020-05-18] MEDS: IV NORMAL SALINE 1000ML BAG 1,000 ML IV SCH ×2 (08:19→08:28)
[2020-05-18] MEDS: CLOPIDOGREL BISULFATE 75 MG TABLET PO SCH (08:20)
[2020-05-18] MEDS: LACTOBACILLUS RHAMNOSUS GG 1 CAPSULE. PO SCH (08:20)
[2020-05-18] MEDS: MULTIVITAMIN with MINERAL TABLET. PO SCH (08:20)
[2020-05-18] MEDS: GABAPENTIN 300 MG CAPSULE. PO SCH ×2 (08:20→13:36)
[2020-05-18] MEDS: PANTOPRAZOLE 40 MG TABLET.DR. PO SCH (08:20)
[2020-05-18] MEDS: ASPIRIN ENTERIC COATED 81 MG TABLET.DR. PO SCH (08:20)
[2020-05-18] MEDS: LISINOPRIL 20 MG TABLET PO SCH (08:20)
[2020-05-18] MEDS: SODIUM HYPOCHLORITE 0.125% 473 ML BOTTLE. TP SCH (08:22)
[2020-05-18] MEDS: INSULIN LISPRO 300 UNITS/3 ML VIAL. SQ SCH ×6 (08:26→16:39)
[2020-05-18] MEDS: INSULIN GLARGINE SYRINGE. SQ SCH (08:26)
--- NOTE | 2020-05-18 09:31 | RAD ---
Exam: Fluoroscopic and ultrasound guided right percutaneous inserted central venous catheter placement 05/18/2020 7:27 AM .Indication: [facility] antibiotics Technique: Informed oral and written consent were obtained. The right upper extremity was prepped and draped using sterile barrier technique. All elements of maximal sterile barrier technique including the use of a cap, mask, sterile gown, sterile gloves, large sterile sheet, appropriate hand hygiene, and 2% chlorhexidine for cutaneous antisepsis (or acceptable alternative antiseptic per current guidelines) were followed for this procedure.. Real-time ultrasound demonstrated a patent right basilic vein which was prepped and draped in usual sterile fashion. 1% lidocaine used for local anesthesia. Using real-time ultrasound guidance the access needle percutaneously punctured the selected right basilic vein. Reference ultrasound images were saved to the medical record. A guidewire was advanced through the needle to the cavoatrial junction, and a peel-away sheath placed. The catheter was cut to length and inserted through the peel-away sheath such that its tip is at the cavoatrial junction. The wire and sheath were removed, and the catheter secured in place, and a sterile dressing was applied. Catheter was found to flush and aspirate normally. No immediate complications are identified. FLUORO TIME: 0.5 DOSE AREA PRODUCT: 1 Gycm2 Impression: Ultrasound and fluoroscopically guided placement of a right upper extremity PICC line.
--- NOTE | 2020-05-18 09:56 | NUR ---
SW following. Discussed with RN, pt scheduled for 11am at outpatient for daily IV abx infusions. [facility] following. Possible discharge today after home wound vac is put on. [facility] will continue to follow.
[2020-05-18] MEDS: DAPTOmycin (GENERIC) IVPB 500 MG in IV NORMAL SALINE 50ML 50 ML IV SCH (10:46)
--- NOTE | 2020-05-18 11:19 | PDOC ---
Infectious Disease Note Subjective Subjective Doing well Denies fever, nausea, vomiting, shortness of breath,abdominal pain, rash No more bleeding from postop wound Otherwise as above Waiting on wound vac ROS ROS o/w neg Vital Sign Vital Signs Vital Signs Date Time Temp Pulse Resp B/P (MAP) Pulse Ox O2 Delivery O2 Flow Rate FiO2 05/18/20 08:20 93 164/77 05/18/20 07:14 Room Air 05/18/20 07:00 98.4 16 97 98.4 Physical Exam PHYSICAL EXAM GENERAL: Alert and oriented x3 male in no acute distress, Sitting comfortably in a chair HEENT: Normocephalic, atraumatic, and anicteric. Oc/Op - clear NECK: Supple, no JVD, no lymphadenopathy. LUNGS: Clear bilaterally. No wheezing. HEART: S1 and S2 regular. ABDOMEN: Soft, nontender, and nondistended. EXTREMITIES: No edema. No cyanosis. Right BKA stump looks good. Postsurgical left foot dressing in place intact not taken down - clean NEUROLOGIC: Alert and oriented x3, grossly nonfocal IV: RUE - PICC clean Labs Lab Laboratory Tests Test 05/17/20 11:25 05/17/20 16:37 05/17/20 16:39 05/17/20 16:49 White Blood Count 13.0 x10^3/uL (4.0-11.0) Red Blood Count 2.78 x10^6/uL (4.30-5.70) Hemoglobin 8.6 g/dL (13.0-17.5) Hematocrit 25.2 % (39.0-53.0) Mean Corpuscular Volume 91 fL (79-100) Mean Corpuscular Hemoglobin 31 pg (25-35) Mean Corpuscular Hemoglobin Concent 34 g/dL (31-37) Red Cell Distribution Width 13.3 % (11.5-14.5) Platelet Count 550 x10^3/uL (140-400) Neutrophils (%) (Auto) 70 % (31-73) Lymphocytes (%) (Auto) 20 % (24-48) Monocytes (%) (Auto) 10 % (0-9) Eosinophils (%) (Auto) 0 % (0-3) Basophils (%) (Auto) 0 % (0-3) Neutrophils # (Auto) 9.1 x10^3/uL (1.8-7.7) Lymphocytes # (Auto) 2.6 x10^3/uL (1.0-4.8) Monocytes # (Auto) 1.2 x10^3/uL (0.0-1.1) Eosinophils # (Auto) 0.0 x10^3/uL (0.0-0.7) Basophils # (Auto) 0.1 x10^3/uL (0.0-0.2) Sodium Level 142 mmol/L (136-145) Potassium Level 3.9 mmol/L (3.5-5.1) Chloride Level 106 mmol/L (98-107) Carbon Dioxide Level 31 mmol/L (21-32) Anion Gap 5 (6-14) Blood Urea Nitrogen 9 mg/dL (8-26) Creatinine 1.3 mg/dL (0.7-1.3) Estimated GFR (Cockcroft-Gault) 66.4 BUN/Creatinine Ratio 7 (6-20) Glucose Level 200 mg/dL (70-99) Calcium Level 8.3 mg/dL (8.5-10.1) Total Bilirubin 0.2 mg/dL (0.2-1.0) Aspartate Amino Transf (AST/SGOT) 47 U/L (15-37) Alanine Aminotransferase (ALT/SGPT) 35 U/L (16-63) Alkaline Phosphatase 33 U/L (46-116) Creatine Kinase 80 U/L (39-308) Total Protein 6.7 g/dL (6.4-8.2) Albumin 2.1 g/dL (3.4-5.0) Albumin/Globulin Ratio 0.5 (1.0-1.7) Glucose (Fingerstick) 53 mg/dL (70-99) 58 mg/dL (70-99) 120 mg/dL (70-99) Test 05/17/20 20:37 05/18/20 07:16 Glucose (Fingerstick) 164 mg/dL (70-99) 249 mg/dL (70-99) Micro 05/14 MIXED AEROBIC VIKRAM on 05/15/20 at 1013 INCLUDING: MANY [PROTEUS SPECIES] MANY [ENTEROCOCCUS SPECIES] MANY [ENTEROBACTER CLOACAE COMPLEX] UNIDENTIFIED ORGANISM UNIDENTIFIED ORGANISM ENTEROBACTER CLOACAE COMPLEX ENTEROCOCCUS SPECIES PROTEUS SPECIES 05/12 MIXED AEROBIC VIKRAM on 05/14/20 at 1506 INCLUDING: MANY [PROTEUS SPECIES] MANY [ENTEROCOCCUS FAECALIS] MANY [KLEBSIELLA OXYTOCA RAOULTELLA] UNIDENTIFIED ORGANISM ENTEROCOCCUS FAECALIS KLEBSIELLA OXYTOCA RAOULTELLA PROTEUS SPECIES Microbiology 05/14/20 Gram Stain - Final, Resulted 05/14/20 Aerobic and Anaerobic Culture - Preliminary, Resulted 05/12/20 Blood Culture - Preliminary, Resulted NO GROWTH AFTER 4 DAYS Objective Assessment 1. Left foot open amputation site infection/gangrene .May 14, 2020 left proximal open transmetatarsal amputation Cultures positive for enterococcus and Proteus May 12, 2020 cultures positive for enterococcus Proteus and Klebsiella 2. Left foot cellulitis improving 3. Peripheral arterial disease, status post left first toe amputation and left second toe amputation including metatarsal head on 05/07/2020, with atherosclerosis and gangrene of the left first and second toe. 4. Leukocytosis - ? reactive (surgery) and solumedrol - clinically much improved 5. Peripheral arterial disease. 6. Diabetes mellitus. 7. Hypertension. 8. Mild renal insufficiency. Diarrhea - c-diff neg Plan Plan of Care Disc Zosyn and began Invanz and cont Dapto 05/17- d/w micro no sensitivities with number of organisms until 06/10 min Rx written for discharge labs to [phone] Follow up ID office [phone] 06/01 at 1:30 Local wound care Discussed with nursing staff VALENTINE GREENE MD May 18, 2020 11:19
[2020-05-18] MEDS ORDERED: ERTAPENEM 1 GM in IV NORMAL SALINE 50ML 50 ML IV ONE (11:30)
[2020-05-18 11:41] VITALS: BP 135/66
--- NOTE | 2020-05-18 13:10 | NUR ---
[facility] wound vac has been approved through [facility], when pt is ready for discharge.
[2020-05-18] MEDS: HYDROcodone/APAP 5/325MG 1 TAB TABLET PO PRN (13:36)
[2020-05-18] MEDS ORDERED: HYDR-2759 PO (14:06)
[2020-05-18] MEDS ORDERED: ERTA1VIA16 IJ (14:06)
--- NOTE | 2020-05-18 14:07 | SNU/HH DC ---
DISCHARGE WITH HOME HEALTH DISCHARGE INFORMATION: Discharge Date: May 18, 2020 Final Diagnosis: Problems Medical Problems: (1) Infection of toe as complication of amputation Status: Acute (2) Left foot infection Status: Acute Condition on Discharge: Stable CODE STATUS: Code Status: Full HOME HEALTH: Face to Face: I certify this patient is under my care and that I, or a nurse practitioner or physician's central supply assistant working with me, had a face to face encounter that meets the physician face to face encounter requirements with this patient on []. Medical Complications: DM RN For Eval/Treatment: Yes Pt Meets Homebound Status: Limited distance walking POST DISCHARGE ORDERS: Activity Instructions for Disc: Activity as tolerated Weight Bearing Status after Di: As tolerated DIET AFTER DISCHARGE: ADA Wound/Incision Care: Keep wound/cast CDI FOLLOW-UP: Follow Up With: Archana archer for Jun 25, 2020 @1045 TREATMENT/EQUIPMENT ORDERS: Adaptive Equipment Issued: Walker CERTIFICATION STATEMENT: Certification Statement: Certification Statement: Based on the above finding, I certify that this patient is confined to the home and needs intermittent penitentiary care, physical therapy and/or speech therapy, or continues to need occupational therapy.~ This patient is under my care, and I have initiated the establishment of the plan of care.~ This patient will be followed by myself or a community physician who will periodically review the plan of care. Home Meds Active Scripts Ertapenem Sodium (INVANZ) 1 Gm Vial, 1 GM IJ DAILY for cellulitis for 22 Days, #22 EACH Prov:ELIANE STREET MD 05/18/20 Hydrocodone/Acetaminophen (Hydrocodone-Acetamin 5-325 mg) 1 Each Tablet, 1 EACH PO Q6H for pain for 5 Days, #20 TAB Prov:ELIANE STREET MD 05/18/20 Aspirin (ASPIRIN EC) 81 Mg Tablet.dr, 81 MG PO DAILYWBKFT for PVD for 90 Days, #90 TAB.SR 3 Refills Prov:KATARINA RODRIGUEZ MD 04/16/20 Gabapentin (GABAPENTIN) 300 Mg Capsule, 300 MG PO TID for NEUROGENIC PAIN for 14 Days, #42 CAP Prov:REGLA MURCIA APRN 04/07/20 Reported Medications Insulin Lispro (HUMALOG) 100 Unit/1 Ml Cartridge, 6 UNIT SQ TIDAC for diabetes, EACH 05/07/20 Insulin Degludec (Tresiba) 100 Unit/1 Ml Vial, 18 UNIT SQ HS for diabetes , EACH 05/06/20 Pantoprazole Sodium (PROTONIX) 20 Mg Tablet.dr, 40 MG PO DAILY for .., TAB 10/29/18 Lisinopril (LISINOPRIL) 40 Mg Tablet, 1 TAB PO DAILY for HTN, #30 TAB 5 Refills 10/29/18 Clopidogrel Bisulfate (CLOPIDOGREL) 75 Mg Tablet, 1 TAB PO DAILY for .., #90 TAB 1 Refill 10/29/[address] MD May 18, 2020 14:07
--- NOTE | 2020-05-18 14:16 | PDOC3 ---
Discharge Summary Visit Information Date of Admission: May 12, 2020 Date of Discharge: May 18, 2020 Admitting Diagnosis Comment: Assessment/Plan Left foot gangrene status post amputation of the great and second toe left foot Leukocytosis secondary to the above Osteomyelitis as per pathology History of diabetes mellitus type 2 insulin requiring Essential hypertension Chronic kidney disease stage II Final Diagnosis Problems Medical Problems: (1) Infection of toe as complication of amputation Status: Acute (2) Left foot infection Status: Acute Assessment/Plan Left foot gangrene status post amputation of the great and second toe left foot.Left foot amputation site infection/gangrene .May 14, 2020 left proximal open transmetatarsal amputation Cultures positive for enterococcus and Proteus May 12, 2020 cultures positive for enterococcus Proteus and Klebsiella Leukocytosis secondary to the above Osteomyelitis as per pathology History of diabetes mellitus type 2 insulin requiring Essential hypertension Chronic kidney disease stage II Peripheral arterial disease Mild renal insufficiency chronic kidney disease stage II Brief Hospital Course Allergies Allergies Coded Allergies Type Severity Reaction Last Updated Verified No Known Drug Allergies 05/05/20 No Vital Signs Vital Signs Date Time Temp Pulse Resp B/P (MAP) Pulse Ox O2 Delivery O2 Flow Rate FiO2 05/18/20 13:36 99 Room Air 05/18/20 11:41 98.6 84 18 135/66 (89) 98.6 Lab Results Laboratory Tests Test 05/16/20 16:44 05/16/20 21:34 05/17/20 07:28 05/17/20 10:29 Glucose (Fingerstick) 107 mg/dL (70-99) 228 mg/dL (70-99) 141 mg/dL (70-99) 209 mg/dL (70-99) Test 05/17/20 11:25 05/17/20 16:37 05/17/20 16:39 05/17/20 16:49 White Blood Count 13.0 x10^3/uL (4.0-11.0) Red Blood Count 2.78 x10^6/uL (4.30-5.70) Hemoglobin 8.6 g/dL (13.0-17.5) Hematocrit 25.2 % (39.0-53.0) Mean Corpuscular Volume 91 fL (79-100) Mean Corpuscular Hemoglobin 31 pg (25-35) Mean Corpuscular Hemoglobin Concent 34 g/dL (31-37) Red Cell Distribution Width 13.3 % (11.5-14.5) Platelet Count 550 x10^3/uL (140-400) Neutrophils (%) (Auto) 70 % (31-73) Lymphocytes (%) (Auto) 20 % (24-48) Monocytes (%) (Auto) 10 % (0-9) Eosinophils (%) (Auto) 0 % (0-3) Basophils (%) (Auto) 0 % (0-3) Neutrophils # (Auto) 9.1 x10^3/uL (1.8-7.7) Lymphocytes # (Auto) 2.6 x10^3/uL (1.0-4.8) Monocytes # (Auto) 1.2 x10^3/uL (0.0-1.1) Eosinophils # (Auto) 0.0 x10^3/uL (0.0-0.7) Basophils # (Auto) 0.1 x10^3/uL (0.0-0.2) Sodium Level 142 mmol/L (136-145) Potassium Level 3.9 mmol/L (3.5-5.1) Chloride Level 106 mmol/L (98-107) Carbon Dioxide Level 31 mmol/L (21-32) Anion Gap 5 (6-14) Blood Urea Nitrogen 9 mg/dL (8-26) Creatinine 1.3 mg/dL (0.7-1.3) Estimated GFR (Cockcroft-Gault) 66.4 BUN/Creatinine Ratio 7 (6-20) Glucose Level 200 mg/dL (70-99) Calcium Level 8.3 mg/dL (8.5-10.1) Total Bilirubin 0.2 mg/dL (0.2-1.0) Aspartate Amino Transf (AST/SGOT) 47 U/L (15-37) Alanine Aminotransferase (ALT/SGPT) 35 U/L (16-63) Alkaline Phosphatase 33 U/L (46-116) Creatine Kinase 80 U/L (39-308) Total Protein 6.7 g/dL (6.4-8.2) Albumin 2.1 g/dL (3.4-5.0) Albumin/Globulin Ratio 0.5 (1.0-1.7) Glucose (Fingerstick) 53 mg/dL (70-99) 58 mg/dL (70-99) 120 mg/dL (70-99) Test 05/17/20 20:37 05/18/20 07:16 05/18/20 11:22 Glucose (Fingerstick) 164 mg/dL (70-99) 249 mg/dL (70-99) 181 mg/dL (70-99) Laboratory Tests Test 05/17/20 16:37 05/17/20 16:39 05/17/20 16:49 05/17/20 20:37 Glucose (Fingerstick) 53 mg/dL (70-99) 58 mg/dL (70-99) 120 mg/dL (70-99) 164 mg/dL (70-99) Test 05/18/20 07:16 05/18/20 11:22 Glucose (Fingerstick) 249 mg/dL (70-99) 181 mg/dL (70-99) Brief Hospital Course History of Present Illness Mr Velazquez is a 69yo M w/ PMHx HTN, DM2 (A1c 9), s/p prior R BKA who was directly admitted from wound care center for worsening left great toe ulcer. His left toe had a blister on his last hospital stay which was noted 12 days prior to his last admissio, he had been seen by podiatry and was placed on doxycycline and referred to outpatient wound care where he was previously seen in 2019. Wound care they noted they were able to debride a significant amount of devitalized tissue and had poor blood flow were concerned for gangrene and called for direct admission on that occasion. His left second toe also has a diabetic ulcer. This was treated with conservative measures nevertheless ended up requiring amputation on May 07, 2020. He tolerated the procedure well and and it was discharged with instructions to follow-up with Dr. Salomon. He was being seen at the wound clinic today by podiatry in follow-up for his wound care in due to some changes noted by podiatry he was brought to the emergency department. The patient denies any fever no chills no worsening pain no diaphoresis no headache blurred vision no chest pain palpitations no shortness of breath and no other symptoms have been expressed by the patient No recent sick contacts, travel, or shortness of breath. We have been asked to admit the patient for further evaluation and treatment. Plan of care has been explained detail to the patient and all of his concerns were addressed to the best of my abilities. Patient currently is not bleeding and does not seem to have hemodynamic instability he is mentating well and does not seem to be toxic 05/13: Went to the OR earlier in the day and he tolerated the procedure well. No pain voiced during my visit 05/14: Patient tolerated procedure well and seems to be at peace with the outcome of the amputation, reassurance rpovided, son at bedside, no concerns voiced during my visit. 05/15: No concerns voiced today, anemia noted, as expected after surgical procedure, no signs of hemodynamic instability. Patient with well controlled pain, no fever or chills. 05/16: No acute events reported overnight, case discussed with nursing staff patient in no acute distress no complaints during my visit 05/17: No acute events reported overnight, case discussed with nursing staff patient in no acute distress no complaints during my visit, store sales consultant would like to keep patient until tomorrow He had a very uneventful hospital stay. Patient will be followed up in the outpatient setting by wound care and hyperbaric oxygen therapy has been also been recommended by our vascular store sales consultant. Patient will be going home with home health he has a PICC line in place and he will continue with broad-spectrum antibiotics as per our store sales consultant until June 10. Patient will be going home on daptomycin and Invanz laboratory data weekly has been requested by our ID store sales consultant which will be faxed to their office noted to have a close follow-up, signs and symptoms of alarm and when to seek medical attention were discussed with Mr. Plata prior to dismissal all of his concerns were addressed to the best of my abilities greater than 35 minutes were spent in the discharge process with the patient counseling coordination of care and arrangement for a safe discharge Physical Exam GENERAL: Alert and oriented x3 male in no acute distress, lying comfortably in bed. HEENT: Normocephalic, atraumatic, and anicteric. Oc/Op - clear NECK: Supple, no JVD, no lymphadenopathy. LUNGS: Clear bilaterally. No wheezing. HEART: S1 and S2 regular. ABDOMEN: Soft, nontender, and nondistended. EXTREMITIES: No edema. No cyanosis. Right BKA stump looks good. Postsurgical left foot dressing in place intact not taken down - clean NEUROLOGIC: Alert and oriented x3, grossly nonfocal. General: Alert, Oriented X3, Cooperative, No acute distress Heart: Regular rate, Normal S1, Normal S2 Lungs: Clear Abdomen: Normal bowel sounds, Soft, No tenderness Extremities: No cyanosis Assessment Assessment [facility] [address] [place], [place] [id number] OPERATIVE REPORT PATIENT: RAGHU VELAZQUEZ ACCOUNT: [id number] : 1950 LOC: [address] [place] [address] AGE: 69 SEX: M STATUS: ADM IN LOCATION: [address] [place] [address] DATE OF SURGERY: 05/14/2020 SURGEON: Merline Barcenas MD HEATING EQUIPMENT REPAIRER: Halle Armstrong, medical student. ANESTHESIA USED: General anesthesia. PREOPERATIVE DIAGNOSIS: Recent left first and second toe closed amputation, which has developed extensive wet gangrene and infection throughout his forefoot. POSTOPERATIVE DIAGNOSIS: Extensive gangrene throughout the left first and second toe amputation site extending across the forefoot. OPERATION PERFORMED: Left open transmetatarsal amputation done in a very proximal location. BLOOD LOSS: 20 mL. Discharge Information Condition at Discharge: Improved Follow Up: Weeks Disposition/Orders: D/C to Home Scheduled Aspirin (Aspirin Ec) 81 Mg Tablet.dr, 81 MG PO DAILYWBKFT for PVD for 90 Days, #90 Ref 3 Prescribed by: KATARINA RODRIGUEZ MD on 04/16/20 1341 Last Action: Continued on 05/12/[address] MD Clopidogrel Bisulfate (Clopidogrel) 75 Mg Tablet, 1 TAB PO DAILY for .., #90 Ref 1 (Reported) Entered as Reported by: LIZZY BEREMO RN on 10/29/18 0404 Last Action: Continued on 05/12/[address] MD Ertapenem Sodium (Invanz) 1 Gm Vial, 1 GM IJ DAILY for cellulitis for 22 Days, #22 Prescribed by: ELIANE STREET MD on 05/18/20 1406 Gabapentin (Gabapentin) 300 Mg Capsule, 300 MG PO TID for NEUROGENIC PAIN for 14 Days, #42 Prescribed by: REGLA MURCIA APRN on 04/07/20 1937 Last Action: Continued on 05/12/[address] MD Hydrocodone/Acetaminophen (Hydrocodone-Acetamin 5-325 mg) 1 Each Tablet, 1 EACH PO Q6H for pain for 5 Days, #20 Prescribed by: ELIANE STREET MD on 05/18/20 1406 Insulin Degludec (Tresiba) 100 Unit/1 Ml Vial, 18 UNIT SQ HS for diabetes , (Reported) Entered as Reported by: OMAR HORNER on 05/06/20 1332 Last Action: Converted on 05/12/[address] MD Insulin Lispro (Humalog) 100 Unit/1 Ml Cartridge, 6 UNIT SQ TIDAC for diabetes, (Reported) Entered as Reported by: FÁTIMA DUARTE on 05/07/20 0821 Last Action: Converted on 05/12/[address] MD Lisinopril (Lisinopril) 40 Mg Tablet, 1 TAB PO DAILY for HTN, #30 Ref 5 (Reported) Entered as Reported by: LIZZY BERMEO, SANTY on 10/29/18403 Last Action: Continued on 05/12/201409 by ELIANE STREET MD Pantoprazole Sodium (Protonix) 20 Mg Tablet.dr, 40 MG PO DAILY for .., (Reported) Entered as Reported by: LIZZY BERMEO, SANTY on 10/29/18403 Last Action: Converted on 05/12/[address] MD Justicifation of Admission Dx: Justifications for Admission: Justification of Admission Dx: Yes ELIANE STREET MD May 18, 2020 14:16
[2020-05-18 15:00] VITALS: BP 143/68
--- NOTE | 2020-05-18 15:34 | NUR ---
Wound Care: Home vac applied, good seal at -[id number]. Paperwork for home vac signed by pt. Pt will follow up with C tomorrow at 0815. Pt verbalized understanding. SANTY Jiang informed of POC.
--- NOTE | 2020-05-18 16:53 | NUR ---
Discharge Note: CESILIA VELÁZQUEZ Discharge instructions and discharge home medications reviewed with Patient and a copy given. All questions have been answered and understanding verbalized. The following instructions and handouts were given: information about his multiple follow up appointments, wound care, medications, etc. Discontinued lines and drains: DL PICC to DENNIS left in place for care home antibiotics. Patient discharged to home with self care with son, wheelchair used for mobility to discharge vehicle.
== END 2020-05-18 16:53 | disposition home or self-care (01) | DRG 474 ==
LOC: ER 12:23 → 4 NORTH 14:39
PROVIDERS: ADMIT Internal Medicine; ATTEND Internal Medicine
PROC: 0Y6N0ZB Detachment at Left Foot, Partial 2nd Ray, Open Approach (ICD-10-PCS; 2020-05-14)
PROC: 0Y6N0ZC Detachment at Left Foot, Partial 3rd Ray, Open Approach (ICD-10-PCS; 2020-05-14)
PROC: 0Y6N0ZD Detachment at Left Foot, Partial 4th Ray, Open Approach (ICD-10-PCS; 2020-05-14)
PROC: 0Y6N0ZF Detachment at Left Foot, Partial 5th Ray, Open Approach (ICD-10-PCS; 2020-05-14)
PROC: 0Y6N0Z9 Detachment at Left Foot, Partial 1st Ray, Open Approach (ICD-10-PCS; principal; 2020-05-14 07:30)
PROC: 02HV33Z Insertion of Infusion Device into Superior Vena Cava, Percutaneous Approach (ICD-10-PCS; 2020-05-17)
PROC: B5181ZA Fluoroscopy of Superior Vena Cava using Low Osmolar Contrast, Guidance (ICD-10-PCS; 2020-05-17)
PROC: B548ZZA Ultrasonography of Superior Vena Cava, Guidance (ICD-10-PCS; 2020-05-17)
DX: T87.44 Infection of amputation stump, left lower extremity (principal); E43 Unspecified severe protein-calorie malnutrition; L03.116 Cellulitis of left lower limb; M86.8X7 Other osteomyelitis, ankle and foot; E11.52 Type 2 diabetes mellitus with diabetic peripheral angiopathy with gangrene; B95.2 Enterococcus as the cause of diseases classified elsewhere; E78.5 Hyperlipidemia, unspecified; I12.9 Hypertensive chronic kidney disease with stage 1 through stage 4 chronic kidney disease, or unspecified chronic kidney disease; I25.10 Atherosclerotic heart disease of native coronary artery without angina pectoris; L97.509 Non-pressure chronic ulcer of other part of unspecified foot with unspecified severity; N18.2 Chronic kidney disease, stage 2 (mild); Y83.5 Amputation of limb(s) as the cause of abnormal reaction of the patient, or of later complication, without mention of misadventure at the time of the procedure; Z79.02 Long term (current) use of antithrombotics/antiplatelets; Z79.4 Long term (current) use of insulin; Z79.82 Long term (current) use of aspirin; Z82.49 Family history of ischemic heart disease and other diseases of the circulatory system; Z83.3 Family history of diabetes mellitus; Z89.511 Acquired absence of right leg below knee; Z90.49 Acquired absence of other specified parts of digestive tract; Z20.828 Contact with and (suspected) exposure to other viral communicable diseases; B96.1 Klebsiella pneumoniae [K. pneumoniae] as the cause of diseases classified elsewhere; B96.4 Proteus (mirabilis) (morganii) as the cause of diseases classified elsewhere; E11.69 Type 2 diabetes mellitus with other specified complication; E11.22 Type 2 diabetes mellitus with diabetic chronic kidney disease; E11.621 Type 2 diabetes mellitus with foot ulcer; E11.628 Type 2 diabetes mellitus with other skin complications
CPT/HCPCS: 36415; 36573; 73630; 77001; 80053; 82550; 82565; 82962; 85007; 85025; 86140; 86850; 86900; 86901; 87040; 87071; 87075; 87426; 87493; 96365; 96366; 99285; C1751; C1892; J0690; J0878; J1100; J1170; J1335; J1644; J1815; J2020; J2405; J2543; J2704; J3010; J3370; J3490; J7030; J7040; J7120; 97110-GO; 97535-GO; G0378; U0003-CS

== ENCOUNTER → 2020-07-16 | Outpatient (CLI) | payer MEDICARE ==
[2020-07-07 11:14] VITALS: BP 144/66
[~2020-07-16] MED LIST changes: -ASPI-612 PO; +ASPI-886 PO; +ERTA1VIA16 IJ; +HYDR-2759 PO
== END | disposition home or self-care (01) ==
LOC: LAB 13:20
PROVIDERS: ATTEND Internal Medicine Cardiovascular Disease
DX: Z20.828 Contact with and (suspected) exposure to other viral communicable diseases (principal)
CPT/HCPCS: U0003-CS

== ENCOUNTER 2020-07-20 07:08 | Outpatient (CLI) | payer MEDICARE ==
[2020-07-20] VITALS (17 sets, daily range): BP systolic 110–177; BP diastolic 53–87
[~2020-07-20] VITALS: Ht 185.4 cm; Wt 85.7 kg
[2020-07-20 07:44] LABS: HEMATOCRIT 33.5 % (39.0-53.0); HEMOGLOBIN 11.4 g/dL (13.0-17.5); RED BLOOD COUNT 3.75 x10^6/uL (4.30-5.70); RED CELL DISTRIBUTION WIDTH 15.4 % (11.5-14.5); WHITE BLOOD COUNT 7.4 x10^3/uL (4.0-11.0)
[2020-07-20] MEDS ORDERED: IODIXANOL 320 MG/ML 100 ML VIAL. ONE (07:45)
[2020-07-20] MEDS ORDERED: HEPARIN for ARTERIAL LINE 1,500 ML ONE (07:45)
[2020-07-20] MEDS ORDERED: LIDOCAINE 1% Multi-Dose 20 ML VIAL. ONE (07:45)
[2020-07-20 07:49] LABS: CALCIUM 8.9 mg/dL (8.5-10.1); CREATININE 1.2 mg/dL (0.7-1.3); GFR 72.9; POTASSIUM 3.6 mmol/L (3.5-5.1)
[2020-07-20 07:56] LABS: PROTHROMBIN TIME PATIENT 13.4 SEC (11.7-14.0)
[2020-07-20] MEDS ORDERED: MIDAZOLAM HCL/PF 2 MG/2 ML VIAL. ONE ×2 (08:46→10:00)
[2020-07-20] MEDS ORDERED: fentaNYL PF VIAL 100 MCG/2 ML VIAL ONE ×2 (08:46→10:00)
[2020-07-20] MEDS ORDERED: HEPARIN for IV BOLUS 10,000 UNIT/10 ML VIAL. ONE (08:46)
[2020-07-20] MEDS ORDERED: LIDOCAINE 1% Multi-Dose 20 ML VIAL. INJ ONE (09:15)
[2020-07-20] MEDS ORDERED: IODIXANOL 320 MG/ML 100 ML VIAL. IART ONE (09:15)
[2020-07-20] MEDS ORDERED: MIDAZOLAM HCL/PF 2 MG/2 ML VIAL. IV ONE ×2 (09:15→10:15)
[2020-07-20] MEDS ORDERED: fentaNYL PF VIAL 100 MCG/2 ML VIAL IV ONE ×2 (09:15→10:15)
[2020-07-20] MEDS ORDERED: HEPARIN for IV BOLUS 10,000 UNIT/10 ML VIAL. IV ONE (10:15)
[2020-07-20] MEDS ORDERED: NITROGLYCERIN 200 MCG/2 ML SYRINGE FOR CATH/VASC LAB. IART ONE (11:00)
[2020-07-20] MEDS ORDERED: LIDOCAINE 2%/EPI 1:100,000 20 ML VIAL. ONE (12:50)
--- NOTE | 2020-07-20 13:03 | NUR ---
Patients right groin site oozing, no hematoma present, pressure held x10 mins with no change. Dr. Magaña notified via telephone, awaiting for physician to arrive to assess the patients right groin site. Cath/IR tech at bedside holding pressure while awaiting for Dr. Magaña.
--- NOTE | 2020-07-20 13:41 | NUR ---
Dr. Magaña at bedside injects right groin with lidocain with epi. Right groin site bleeding has stopped. Sterile dressing placed to tight groin. Patient gave himself 10 units of Novolog and is eating lunch. Will continue to monitor laying flat per Dr. Magaña.
[2020-07-20] MEDS ORDERED: LIDOCAINE 2%/EPI 1:100,000 20 ML VIAL. IJ ONE (13:45)
--- NOTE | 2020-07-20 13:54 | CARD ---
MR#: [id number] Date of Study: 07/20/2020 Ordering Physician: KARLA MAGAÑA, Referring Physician: KARLA MAGAÑA, Tech: Danni Carrillo RT(R) APPROVED REPORT Patient StatusOUT-PATIENT Director Of Parks And Recreation: Danni Carrillo RT(R) Procedure(s) performed: Sedation Time: 133 Minutes Dose: 33.78 Gycm2 Contrast: 87 mL Visipaque Fluoro Time: 30.6 Minutes Aortogram with LLE run-off PVI of the mid and distal posterior tibial artery. HISTORY : The patient is a 69 year-old male with a history of . INDICATION FOR PROCEDURE The indication(s) include : Rest pain: , Positive angiogram for stenosis: , Non healing LLE wound polina pite HBO.. PROCEDURE NARRATIVE After proper informed consent the patient was brought to the catheterization laboratory and the right groin was prepped and draped in usual sterile fashion. Under 2% lidocaine local anesthesia a 5 Fren ch introducer sheath was placed in the right common femoral artery without any difficulty. A 5 Frenc h Omni Flush catheter was advanced to the aorta and digital subtraction angiography was performed. T he Omni Flush catheter was used to engage the left common iliac artery and a J-tip guidewire was plac ed in the popliteal artery. A Carrero cross catheter was advanced to the popliteal artery and images we re obtained of the below-knee vessels on the left side. Findings: Aorta no significant disease Bilateral common iliacs no significant disease Bilateral external iliacs no significant disease Bilateral common femoral arteries no significant disease Left SFA has no significant disease Left profunda has no significant disease Left popliteal artery has no significant disease Left TP trunk has no significant disease Left posterior tibial artery has a mid 90% stenosis followed by distal subtotal occlusion Left anterior tibial artery has a distal 100% occlusion without any significant reconstitution of the dorsalis pedis artery Left peroneal artery has no significant disease and provides robust collaterals to the anterior tibia l circulation Interventional technique: Heparin was used for anticoagulation. The 6 [place] sheath was exchanged for a [employer] 90 cm sheath wh ich was placed in the distal left superficial femoral artery over a Glidewire advantage wire. After thorough discussion with the patient, interventional radiology and vascular surgery a decision was ma de to attempt a repeat posterior tibial angioplasty in an effort to restore any available blood flow. The deep and superficial plantar arches were not well visualized despite distal catheter directed i njection of contrast. The anterior tibial circulation abruptly stops at the level of the ankle witho ut continuation to the Palmar arches. In an attempt to help heal his transmetatarsal amputation van oplasty was attempted. A command 0.014 inch wire was directed to the distal posterior tibial artery to the plantar arteries. Balloon angioplasty was then performed with a 2.0 and 2.5 mm balloons. Rep eat angiography demonstrated resolution of the posterior tibial stenosis with severe distal diffuse d isease noted. Due to lack of any continued collaterals to the arch circulation further intervention was deferred. The right sided sheath was removed and hemostasis was achieved with an Angio-Seal keri ce. Conclusion 1. No significant aorto inflow disease. 2. Severe diffuse disease involving the posterior tibial and anterior tibial vessels at the level of the ankle. 3. Successful angioplasty of the mid and distal posterior tibial artery chronic total occlusion. Recommendations 1. Continue aggressive medical therapy. 2. No further intervenable lesions available. At this time if further wound healing is not able to be achieved of the transmetatarsal amputation then consider a below-knee amputation. Signed by : Karla Magaña, Electronically Approved : 07/20/2020 13:53:56
--- NOTE | 2020-07-20 15:40 | NUR ---
Discharge Note: RAGHU PEARL Discharge instructions and discharge home medications reviewed with Patient and a copy given. All questions have been answered and understanding verbalized. Patient ate lunch with no issues. The following instructions and handouts were given: Moderate sedation, groin site care and angioplasty. Discontinued lines and drains: Right AC PIV, dressing clean dry intact. Patient discharged to home with spouse via wheelchair to private vehicle.
== END 2020-07-20 15:40 | disposition home or self-care (01) ==
LOC: CCL 07:08
PROVIDERS: ATTEND Internal Medicine Cardiovascular Disease
DX: I73.9 Peripheral vascular disease, unspecified (principal); K21.9 Gastro-esophageal reflux disease without esophagitis; I12.9 Hypertensive chronic kidney disease with stage 1 through stage 4 chronic kidney disease, or unspecified chronic kidney disease; N18.9 Chronic kidney disease, unspecified; E11.22 Type 2 diabetes mellitus with diabetic chronic kidney disease; Z79.82 Long term (current) use of aspirin; Z79.899 Other long term (current) drug therapy
CPT/HCPCS: 36415; 37228; 75625; 75710; 80048; 85027; 85347; 85610; 99152; 99153; C1713; C1725; C1760; C1769; C1892; C1894; G0269; J1644; J2250; J3010; J3490; Q9967; C1771

== ENCOUNTER 2020-10-21 12:43 | Inpatient (IN) | payer MEDICARE ==
[~2020-10-21] VITALS: Ht 182.9 cm; Wt 85.7 kg
[2020-10-21 14:45] VITALS: BP 117/48
[2020-10-21] MEDS ORDERED: PIP/TAZO PER PHARMACY MC PRN (16:45)
[2020-10-21 17:11] LABS: BASO # 0.1 x10^3/uL (0.0-0.2); BASO % 1 % (0-3); EOS % 0 % (0-3); HEMATOCRIT 31.5 % (39.0-53.0); HEMOGLOBIN 10.4 g/dL (13.0-17.5); LYMPH # 1.8 x10^3/uL (1.0-4.8); LYMPH % 15 % (24-48); MEAN CORPUSCULAR HEMOGLOBIN 29 pg (25-35); MEAN CORPUSCULAR HGB CONC 33 g/dL (31-37); MEAN CORPUSCULAR VOLUME 87 fL (79-100); MONO # 1.5 x10^3/uL (0.0-1.1); MONO % 12 % (0-9); NEUT # 8.9 x10^3/uL (1.8-7.7); NEUT % 72 % (31-73); PLATELET COUNT 455 x10^3/uL (140-400); RED BLOOD COUNT 3.64 x10^6/uL (4.30-5.70); RED CELL DISTRIBUTION WIDTH 14.6 % (11.5-14.5); WHITE BLOOD COUNT 12.3 x10^3/uL (4.0-11.0)
[2020-10-21 17:20] LABS: PROTHROMBIN TIME PATIENT 13.7 SEC (11.7-14.0)
[2020-10-21 17:50] LABS: ALBUMIN 2.6 g/dL (3.4-5.0); ALBUMIN/GLOBULIN RATIO 0.6 (1.0-1.7); CALCIUM 8.6 mg/dL (8.5-10.1); CREATININE 1.1 mg/dL (0.7-1.3); GFR 80.5; POTASSIUM 3.7 mmol/L (3.5-5.1); TOTAL BILIRUBIN 0.2 mg/dL (0.2-1.0); TOTAL PROTEIN 6.8 g/dL (6.4-8.2)
[2020-10-21] MEDS ORDERED: VANCOMYCIN 2 GM in IV NORMAL SALINE 500ML BAG 500 ML IV ONE (18:00)
[2020-10-21] MEDS: VANCOMYCIN PER PHARMACY MC PRN (18:29)
--- NOTE | 2020-10-21 18:31 | NUR ---
Pharmacy Vancomycin Dosing Note S:Consulted to monitor and dose vancomycin started 10/21/20. O:RAGHU PEARL is a 69 year old M with Cellulitis Height: 6 feet, 0 inches Weight: 86.2 kg [place] Body Weight: 77.60 Adjusted Body Weight: 81.04 Dosing Weight: Actual Other Antibiotics: ZOSYN LABS: Last BUN: 19 Last Creatinine: 1.1 Creatinine Clearance: 73 mL/min Last WBC: 12.3 Last Procalcitonin: Tmax (past 24 hours): 98.5 Microbiology: I/O: Drug Levels: Last level: on at Last dose given at Vancomycin Dosing: Loading Dose: 2000 mg x1 Dosing Weight: Actual Target Trough: 10-20 A: Based on: weight and renal function P: 1. Begin Vancomycin 1250 mg IV q12h after 2g loading dose given 2. Follow up Trough level on 10/23/20 at 0830 3. Pharmacy will continue to monitor, follow and adjust therapy as needed. Adilia Kuhn [facility], 10/21/20 [id number]
[2020-10-21 19:00] VITALS: BP 127/51
[2020-10-21] MEDS ORDERED: HYDROcodone/APAP 5/325MG 1 TAB TABLET PO PRN (19:30)
[2020-10-21] MEDS ORDERED: MORPHINE SULFATE 2 MG/ML VIAL. IV PRN (19:30)
[2020-10-21] MEDS ORDERED: SENNOSIDES 8.6 MG TABLET PO PRN (19:30)
[2020-10-21] MEDS ORDERED: DEXTROSE 50% 25 GM / 50ML DISP.SYRIN. IV PRN (19:30)
[2020-10-21] MEDS ORDERED: ACETAMINOPHEN 650 MG/20.3 ML SOLUTION. GT PRN (19:30)
[2020-10-21] MEDS ORDERED: DOCUSATE SODIUM 100 MG CAPSULE. PO PRN (19:30)
[2020-10-21] MEDS ORDERED: ONDANSETRON PF 4 MG/2 ML VIAL. IVP PRN (19:30)
[2020-10-21] MEDS: PIPERACILLIN/TAZOBACTAM 4.5 GM in IV NORMAL SALINE 100ML 100 ML IV SCH (19:50)
[2020-10-21] MEDS ORDERED: LACT1CAP2 PO (21:29)
[2020-10-21] MEDS: HYDROcodone/APAP 5/325MG 1 TAB TABLET PO PRN (22:36)
[2020-10-21] MEDS: LACTOBACILLUS RHAMNOSUS GG 1 CAPSULE. PO SCH (22:36)
[2020-10-21] MEDS: IV NORMAL SALINE 1000ML BAG 1,000 ML IV SCH (22:36)
[2020-10-21] MEDS: ENOXAPARIN 40 MG/0.4 ML SYRINGE. SQ SCH (22:40)
[2020-10-21] MEDS: INSULIN GLARGINE SYRINGE. SQ SCH (22:43)
[2020-10-21 23:00] VITALS: BP 117/51
--- NOTE | 2020-10-22 00:25 | NUR ---
Patient refused photograph and dressing change this shift. Dressing was changed 10/21/20 at the wound care center.
[2020-10-22] MEDS: PIPERACILLIN/TAZOBACTAM 4.5 GM in IV NORMAL SALINE 100ML 100 ML IV SCH ×5 (00:30→23:57)
[2020-10-22 03:30] VITALS: BP 128/61
[2020-10-22] MEDS: IV NORMAL SALINE 1000ML BAG 1,000 ML IV SCH ×3 (06:00→23:58)
[2020-10-22 07:00] VITALS: BP 156/63
[2020-10-22] MEDS: INSULIN LISPRO 300 UNITS/3 ML VIAL. SQ SCH ×7 (08:00→21:37)
[2020-10-22 08:16] LABS: BASO % 1 % (0-3); EOS # 0.1 x10^3/uL (0.0-0.7); EOS % 1 % (0-3); HEMATOCRIT 31.2 % (39.0-53.0); HEMOGLOBIN 10.2 g/dL (13.0-17.5); LYMPH # 1.5 x10^3/uL (1.0-4.8); LYMPH % 18 % (24-48); MEAN CORPUSCULAR HEMOGLOBIN 28 pg (25-35); MEAN CORPUSCULAR HGB CONC 33 g/dL (31-37); MEAN CORPUSCULAR VOLUME 87 fL (79-100); MONO # 1.2 x10^3/uL (0.0-1.1); MONO % 15 % (0-9); NEUT # 5.6 x10^3/uL (1.8-7.7); NEUT % 66 % (31-73); PLATELET COUNT 428 x10^3/uL (140-400); RED BLOOD COUNT 3.61 x10^6/uL (4.30-5.70); RED CELL DISTRIBUTION WIDTH 14.4 % (11.5-14.5); WHITE BLOOD COUNT 8.5 x10^3/uL (4.0-11.0)
[2020-10-22] MEDS: HYDROcodone/APAP 5/325MG 1 TAB TABLET PO PRN (08:17)
[2020-10-22] MEDS: LACTOBACILLUS RHAMNOSUS GG 1 CAPSULE. PO SCH ×2 (08:17→20:57)
--- NOTE | 2020-10-22 08:21 | NUR ---
Pt. stated he already took his insulin from home. Pt instructed to only take the meds the nurse gives him. Pt. verbalized understanding.
[2020-10-22 08:47] LABS: CALCIUM 8.3 mg/dL (8.5-10.1); CREATININE 1.2 mg/dL (0.7-1.3); GFR 72.9; MAGNESIUM 1.9 mg/dL (1.8-2.4); PHOSPHORUS 3.5 mg/dL (2.6-4.7); POTASSIUM 3.9 mmol/L (3.5-5.1)
[2020-10-22] MEDS ORDERED: VANCOMYCIN 1.25 GM in IV NORMAL SALINE 250ML 250 ML IV SCH (09:00)
--- NOTE | 2020-10-22 09:25 | PDOC ---
Provider Note Date of Service: DATE: 10/22/20 TIME: 09:20 Provider Note (Please see full dictation) 69 year old male with DM and severe peripheral artery disease was admitted for worsening discoloration of the left foot. He has had a right BKA. He has an open proximal transmetatarsal amputation on the left. There is gangrenous eschar on the plantar and lateral aspect of the skin wound. Pale granulating tissue on the open wound base. No surrounding erythema, fluctuance, or other signs of infection at this time. Biphasic Doppler signal in the left PT. He had left PT deep venous arterialization in last efforts at salvage of the foot on 09/30/2020 at . Would get formal left leg arterial ultrasound. Local wound care with Aquacel Ag (moistened with saline) applied to the open foot wound daily. Non weight bearing to the left foot. Justifications for Admission Other Justification Diabetic foot infection AZAM SCHUMACHER MD Oct 22, 2020 09:25
--- NOTE | 2020-10-22 09:56 | HP ---
ADMIT DATE: 10/22/2020 CHIEF COMPLAINT: Left foot infection. HISTORY OF PRESENT ILLNESS: The patient is a pleasant middle-aged male, who has diabetic peripheral vascular disease. 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 Now, the left foot has a transmetatarsal amputation, but the stump is somewhat infected, it is draining. There are gangrenous eschar on the plantar and lateral aspects of the skin. I discussed the case with the ER physician. We admitted the patient with consultation to Dr. Mio Suarez, Vascular Surgery. PAST MEDICAL HISTORY: Diabetes, peripheral vascular disease, right jwrel-qhb-runj amputation, left transmetatarsal amputation, GERD. ALLERGIES: None. FAMILY HISTORY: Diabetes. SOCIAL HISTORY: Does not drink, smoke or take drugs. MEDICATIONS: Reviewed, please refer to the MRAD. REVIEW OF SYSTEMS: GENERAL: No history of weight change, weakness or fevers. SKIN: No bruising, hair changes or rashes. EYES: No blurred, double or loss of vision. NOSE AND THROAT: No history of nosebleeds, hoarseness or sore throat. HEART: No history of palpitations, chest pain or shortness of breath on exertion. LUNGS: Denies cough, hemoptysis, wheezing or shortness of breath. GASTROINTESTINAL: Denies changes in appetite, nausea, vomiting, diarrhea or constipation. GENITOURINARY: No history of frequency, urgency, hesitancy or nocturia. NEUROLOGIC: Denies history of numbness, tingling, tremor or weakness. PSYCHIATRIC: No history of panic, anxiety or depression. ENDOCRINE: No history of heat or cold intolerance, polyuria or polydipsia. EXTREMITIES: He complains of left foot drainage and pain. PHYSICAL EXAMINATION: VITALS: Within normal limits and are stable. GENERAL: No apparent distress. Alert and oriented. HEENT: Normocephalic atraumatic, external auditory canals are patent. EYES: Extraocular muscles are intact, pupils are equally round and reactive to light and accommodation. MUSCULOSKELETAL: Well developed, well nourished, good range of motion. ENDOCRINE: No thyromegaly was palpated. LYMPHATICS: No cervical chain or axillary nodes were noted. HEMATOPOIETIC: No bruising. NECK: Supple, no JVD, no thyromegaly was noted. LUNGS: Clear to auscultation in all lung de paz without rhonchi or wheezing. HEART: RRR, S1, S2 present. Peripheral pulses intact, no obvious murmurs were noted. ABDOMEN: Soft, nontender. Positive bowel sounds no organomegaly, normal bowel sounds. EXTREMITIES: The left foot has a dressing that appears to be somewhat moistened from serous fluid; please see the pictures. NEUROLOGIC: Normal speech, normal tone. A & O x 3, moves all extremities, no obvious focal deficits. PSYCHIATRIC: Normal affect, normal mood. Stable. SKIN: No ulcerations or rashes, good skin turgor, no jaundice. VASCULAR: Good capillary refill, neurovascular bundle appears to be intact. LABORATORY DATA: White count is 12. Electrolytes are normal other than a glucose of 197. ASSESSMENT AND PLAN: Left foot diabetic infection. The patient has been admitted. We are doing IV antibiotics and wound care. We have consulted Dr. Mio Suarez of the Vascular Surgery service. Home meds, DVT prophylaxis, full code, p.r.n. pain meds, sliding scale insulin, rule out COVID, Lovenox 40 a day, p.r.n. Zofran. LUCRECIA LEVY DO DR: PENNY/marbella JOB#: [id number] / [id number]
[2020-10-22] MEDS: MORPHINE SULFATE 2 MG/ML VIAL. IVP PRN (10:59)
[2020-10-22 11:00] VITALS: BP 141/52
[2020-10-22] MEDS: VANCOMYCIN PER PHARMACY MC PRN (11:29)
--- NOTE | 2020-10-22 11:33 | CONS ---
DATE OF CONSULTATION: 10/22/2020 CHIEF COMPLAINT: Left foot ulcer. HISTORY OF PRESENT ILLNESS: The patient is a 69-year-old male with diabetes, peripheral arterial disease, and peripheral neuropathy, who has worsening changes to his left foot. He has had previous right below-knee amputation. In April, he underwent an open left forefoot amputation. He has had multiple percutaneous interventions for severe tibial artery occlusive disease. Most recently, he underwent a left posterior tibial deep venous arterialization in the foot at [facility] on 09/30/2020. He has been followed through the [facility]. A wound VAC was on the left open foot wound until Sunday. There was concern for worsening discoloration, mainly on the plantar and lateral aspects of his wound. The wound VAC was stopped at that time. He was admitted from the wound care center for concerns yesterday. He reports protecting his foot with limited pressure on the left foot or transverse foot. He denies any fevers or chills. He denies any chest pain or shortness of breath. PAST MEDICAL HISTORY: 1. Diabetes. 2. Hypertension. 3. Coronary artery disease. 4. Hyperlipidemia. 5. Peripheral arterial disease. PAST SURGICAL HISTORY: 1. Appendectomy. 2. Tonsillectomy. 3. Right below-knee amputation. 4. Left toe amputations. 5. Left open proximal transmetatarsal amputation. 6. Left leg percutaneous arterial interventions, most recently 3 weeks ago. SOCIAL HISTORY: He is . He denies any smoking or alcohol use. FAMILY HISTORY: Significant for family history of diabetes, hypertension and hypercholesterolemia. REVIEW OF SYSTEMS: No recent fevers, chills, chest pain or shortness of breath. No unilateral weakness, numbness, vision loss, speech changes or other TIA or stroke type symptoms. He has decreased sensation in both feet consistent with peripheral neuropathy. No significant weight changes recently. Other 14-point review of system was unremarkable. CURRENT MEDICATIONS: Include vancomycin, Zosyn, and insulin. HOME MEDICATIONS: Include aspirin, Plavix, lisinopril, pantoprazole, multivitamin. ALLERGIES: No known drug allergies. PHYSICAL EXAMINATION: GENERAL: This is a well-developed male, in no acute distress. VITAL SIGNS: Temperature 98.1, pulse 85, blood pressure 128/61, respirations 18. NECK: Supple, no lymphadenopathy. CARDIOVASCULAR: Regular rhythm. ABDOMEN: Soft, nontender, nondistended, no palpable masses. LUNGS: Respirations nonlabored. EXTREMITIES: He has palpable radial, femoral, and popliteal pulses bilaterally. He has had a right below-knee amputation. This has healed nicely. He has a proximal left open transmetatarsal amputation. There is scaling of adjacent skin. There is pale granulation tissue in the open wound. He has gangrenous eschar on the lateral and plantar aspect of the amputation site. No significant surrounding erythema or fluctuance at this time. He has strong biphasic Doppler signals in the left posterior tibial artery at the ankle consistent with patent deep venous arterialization. LABORATORY DATA: Significant for sodium 139, potassium 3.7, BUN 19, creatinine 1.1, glucose 121. INR 1.1. White blood cell 8.5, hemoglobin 10.2, platelet count of 428. I reviewed the most recent angiogram from as well as previous studies. This demonstrated successful posterior tibial deep venous arterialization with good flow to the foot. IMPRESSION: 1. Severe peripheral arterial disease with open left foot wound as detailed above. 2. Status post deep venous arterialization of the left foot via the posterior tibial artery. 3. Diabetes. 4. Peripheral neuropathy. 5. Hypertension. 6. Hypercholesterolemia. RECOMMENDATIONS: 1. Local wound care to the left foot using Aquacel Ag moistened with saline, changed once daily. 2. Formal arterial ultrasound of the left leg including ultrasound on the left plantar vessels of the foot. 3. Nonweightbearing to the left foot. 4. He will likely require further debridement. Even with deep venous arterialization, he has a poor overall prognosis of limb salvage of the left foot, but it is likely worth giving some more time prior to proceeding with more proximal amputation. We will await ultrasound assessment prior to proceeding with any further debridement, however. AZAM SCHUMACHER MD DR: DOUG/marbella JOB#: [id number] / [id number] Frank Balbuena MD, HALI LEHMAN MD, MD
--- NOTE | 2020-10-22 11:39 | PDOC ---
Infectious Disease Note Vital Signs: Vital Signs Vital Signs Date Time Temp Pulse Resp B/P (MAP) Pulse Ox O2 Delivery O2 Flow Rate FiO2 10/22/20 10:59 Room Air 10/22/20 07:00 98.3 77 18 156/63 (94) 99 98.3 Medications: Inpatient Meds: Current Medications Medications (Trade) Dose Ordered Sig/Dave Start Time Stop Time Status Last Admin Dose Admin Acetaminophen (Tylenol) 650 mg PRN Q4HRS PRN 10/21/20 19:30 Acetaminophen/ Hydrocodone Bitart (Lortab 5/325) 2 tab PRN Q4HRS PRN 10/21/20 19:30 10/22/20 08:17 2 TAB Dextrose (Dextrose 50%-Water Syringe) 12.5 gm PRN Q15MIN PRN 10/21/20 19:30 Docusate Sodium (Colace) 100 mg PRN DAILY PRN 10/21/20 19:30 Enoxaparin Sodium (Lovenox 40mg Syringe) 40 mg Q24H 10/21/20 21:00 10/21/20 22:40 40 MG Insulin Glargine (Lantus Syringe) 22 unit QHS 10/21/20 23:00 10/21/20 22:43 18 UNIT Insulin Human Lispro (HumaLOG) 6 units TIDWMEALS 10/22/20 08:00 Lactobacillus Rhamnosus (Culturelle) 1 cap BID 10/21/20 23:00 10/22/20 08:17 1 CAP Morphine Sulfate (Morphine Sulfate) 2 mg PRN Q2HR PRN 10/21/20 19:45 10/22/20 10:59 2 MG Ondansetron HCl (Zofran) 4 mg PRN Q6HRS PRN 10/21/20 19:30 Piperacillin Sod/ Tazobactam Sod (Zosyn Per Pharmacy) 1 each PRN DAILY PRN 10/21/20 16:45 Piperacillin Sod/ Tazobactam Sod 4.5 gm/Sodium Chloride 100 ml @ 200 mls/hr Q6HRS 10/21/20 18:30 10/22/20 06:21 200 MLS/HR Sennosides (Senna) 17.2 mg PRN BID PRN 10/21/20 19:30 Sodium Chloride 1,000 ml @ 100 mls/hr Q10H 10/21/20 20:00 10/22/20 10:07 100 MLS/HR Vancomycin HCl (Vanco Per Pharmacy) 1 each PRN DAILY PRN 10/21/20 16:45 10/22/20 11:29 1 EACH Vancomycin HCl (Vancomycin Trough Level) 1 each 1X ONCE 10/23/20 08:30 10/23/20 08:31 Vancomycin HCl 1.25 gm/Sodium Chloride 250 ml @ 167 mls/hr Q12H 10/22/20 09:00 10/22/20 10:07 167 MLS/HR Vancomycin HCl 2 gm/Sodium Chloride 500 ml @ 250 mls/hr 1X ONCE 10/21/20 18:00 10/21/20 19:59 DC 10/21/20 21:10 250 MLS/HR Labs: Lab Laboratory Tests Test 10/21/20 16:54 10/21/20 17:00 10/21/20 17:25 10/21/20 20:32 Glucose (Fingerstick) 122 mg/dL (70-99) 133 mg/dL (70-99) White Blood Count 12.3 x10^3/uL (4.0-11.0) Red Blood Count 3.64 x10^6/uL (4.30-5.70) Hemoglobin 10.4 g/dL (13.0-17.5) Hematocrit 31.5 % (39.0-53.0) Mean Corpuscular Volume 87 fL (79-100) Mean Corpuscular Hemoglobin 29 pg (25-35) Mean Corpuscular Hemoglobin Concent 33 g/dL (31-37) Red Cell Distribution Width 14.6 % (11.5-14.5) Platelet Count 455 x10^3/uL (140-400) Neutrophils (%) (Auto) 72 % (31-73) Lymphocytes (%) (Auto) 15 % (24-48) Monocytes (%) (Auto) 12 % (0-9) Eosinophils (%) (Auto) 0 % (0-3) Basophils (%) (Auto) 1 % (0-3) Neutrophils # (Auto) 8.9 x10^3/uL (1.8-7.7) Lymphocytes # (Auto) 1.8 x10^3/uL (1.0-4.8) Monocytes # (Auto) 1.5 x10^3/uL (0.0-1.1) Eosinophils # (Auto) 0.0 x10^3/uL (0.0-0.7) Basophils # (Auto) 0.1 x10^3/uL (0.0-0.2) Prothrombin Time 13.7 SEC (11.7-14.0) Prothromb Time International Ratio 1.1 (0.8-1.1) Sodium Level 139 mmol/L (136-145) Potassium Level 3.7 mmol/L (3.5-5.1) Chloride Level 106 mmol/L (98-107) Carbon Dioxide Level 28 mmol/L (21-32) Anion Gap 5 (6-14) Blood Urea Nitrogen 19 mg/dL (8-26) Creatinine 1.1 mg/dL (0.7-1.3) Estimated GFR (Cockcroft-Gault) 80.5 BUN/Creatinine Ratio 17 (6-20) Glucose Level 121 mg/dL (70-99) Calcium Level 8.6 mg/dL (8.5-10.1) Total Bilirubin 0.2 mg/dL (0.2-1.0) Aspartate Amino Transf (AST/SGOT) 19 U/L (15-37) Alanine Aminotransferase (ALT/SGPT) 24 U/L (16-63) Alkaline Phosphatase 38 U/L (46-116) Total Protein 6.8 g/dL (6.4-8.2) Albumin 2.6 g/dL (3.4-5.0) Albumin/Globulin Ratio 0.6 (1.0-1.7) SARS-CoV-2 Antigen (Rapid) Negative (NEGATIVE) Test 10/22/20 07:20 10/22/20 08:15 White Blood Count 8.5 x10^3/uL (4.0-11.0) Red Blood Count 3.61 x10^6/uL (4.30-5.70) Hemoglobin 10.2 g/dL (13.0-17.5) Hematocrit 31.2 % (39.0-53.0) Mean Corpuscular Volume 87 fL (79-100) Mean Corpuscular Hemoglobin 28 pg (25-35) Mean Corpuscular Hemoglobin Concent 33 g/dL (31-37) Red Cell Distribution Width 14.4 % (11.5-14.5) Platelet Count 428 x10^3/uL (140-400) Neutrophils (%) (Auto) 66 % (31-73) Lymphocytes (%) (Auto) 18 % (24-48) Monocytes (%) (Auto) 15 % (0-9) Eosinophils (%) (Auto) 1 % (0-3) Basophils (%) (Auto) 1 % (0-3) Neutrophils # (Auto) 5.6 x10^3/uL (1.8-7.7) Lymphocytes # (Auto) 1.5 x10^3/uL (1.0-4.8) Monocytes # (Auto) 1.2 x10^3/uL (0.0-1.1) Eosinophils # (Auto) 0.1 x10^3/uL (0.0-0.7) Basophils # (Auto) 0.0 x10^3/uL (0.0-0.2) Sodium Level 141 mmol/L (136-145) Potassium Level 3.9 mmol/L (3.5-5.1) Chloride Level 106 mmol/L (98-107) Carbon Dioxide Level 27 mmol/L (21-32) Anion Gap 8 (6-14) Blood Urea Nitrogen 18 mg/dL (8-26) Creatinine 1.2 mg/dL (0.7-1.3) Estimated GFR (Cockcroft-Gault) 72.9 Glucose Level 197 mg/dL (70-99) Calcium Level 8.3 mg/dL (8.5-10.1) Phosphorus Level 3.5 mg/dL (2.6-4.7) Magnesium Level 1.9 mg/dL (1.8-2.4) Glucose (Fingerstick) 206 mg/dL (70-99) Objective: Assessment: pt seen and examined Plan: Plan of Care ID consult dictated Thank you GASTON JAVIER MD Oct 22, 2020 11:39
[2020-10-22 15:00] VITALS: BP 132/67
--- NOTE | 2020-10-22 18:09 | CONS ---
DATE OF CONSULTATION: 10/22/2020 REFERRING PHYSICIAN: Dr. Botello. REASON FOR CONSULTATION: Left foot infection. HISTORY OF PRESENT ILLNESS: A 69-year-old male well known to our service from previous admission with history of diabetic foot ulcer, peripheral vascular disease, status post right BKA, status post left foot transmetatarsal amputation with stump, which was infected, status post I and D in the past, treated with prolonged antibiotic treatment, who presented with gangrenous eschar on the plantar and the lateral aspect of the skin. He sees wound team regularly. He was on doxycycline prior to admission. The patient was started on vancomycin and Zosyn. ID consultation has been requested for antibiotic management. Today, the patient denies any fevers, chills, nausea, vomiting, diarrhea, abdominal pain. Denies any symptoms. PAST MEDICAL HISTORY: Diabetes, hypertension, peripheral vascular disease, coronary artery disease, hyperlipidemia, status post right BKA, status post left metatarsal amputation, status post left leg percutaneous arterial intervention, most recently 3 weeks ago at [facility], tonsillectomy, appendectomy. SOCIAL HISTORY: . Denies smoking, ETOH or illicit drug use. FAMILY HISTORY: As per HPI. REVIEW OF SYSTEMS: Negative except for above in HPI. CURRENT MEDICATION: IV vancomycin, Zosyn, insulin. ALLERGIES: No known drug allergies. PHYSICAL EXAMINATION: VITAL SIGNS: Temperature 98.2, pulse 76, respiratory rate 18, blood pressure 141/52, oxygen saturation 100% on room air. GENERAL: Alert, oriented x 3, pleasant male, lying in bed comfortably, in no acute distress. HEENT: Normocephalic, atraumatic, anicteric. NECK: Supple, no JVD, no thyromegaly. LUNGS: Clear bilaterally. No wheezing. HEART: S1, S2. No gallops or murmurs. ABDOMEN: Soft, nontender, nondistended, no rebound, no guarding. EXTREMITIES: Right BKA stump looks healthy and healed well. Left TMA has an open wound, gangrenous eschar changes present over the lateral and plantar aspect of the amputation site. No fluctuance, no purulence, no surrounding erythema. DERMATOLOGIC: Warm, dry. No generalized rash. NEUROLOGIC: Alert and oriented x 3, grossly nonfocal. PSYCHIATRIC: Cooperative, appropriate mood and affect. LABORATORY DATA: WBC 12.3, hemoglobin 10.4, hematocrit 31.5, platelets 455. Sodium 141, potassium 3.9, chloride 106, bicarbonate 27, BUN 18, creatinine 1.2, glucose 197. INR 1.1. SARS-COVID negative. IMAGING: None. IMPRESSION: 1. Left foot open wound with eschar with underlying chronic nonhealing LT TMA wound. 2. Severe peripheral vascular disease. 3. Status post deep venous arterialization of the left foot via posterior tibial artery 3 weeks ago at [facility]. 4. Diabetes. 5. Peripheral neuropathy. 6. Hypertension. 7. Hyperlipidemia. 8. Status post right [id number] amputation. RECOMMENDATIONS: 1. Continue Zosyn. 2. Discontinue IV vancomycin. 3. Start linezolid. 4. Vascular Surgery has evaluated the patient. 5. May need further incision and drainage. 6. Awaiting ultrasound of the left leg. 7. Follow up labs and cultures. 8. Continue local wound care as directed. 9. Continue supportive care. Thank you for consulting Infectious Disease to participate in this patient's care. If you have any questions, do not hesitate to contact me. GASTON JAVIER MD DR: HEATHER/marbella JOB#: [id number] / [id number] KALE
[2020-10-22 19:08] VITALS: BP 145/68
[2020-10-22] MEDS: LINEZOLID 600 MG TABLET PO SCH (20:57)
[2020-10-22] MEDS: PANTOPRAZOLE 40 MG TABLET.DR. PO SCH (20:58)
[2020-10-22] MEDS: ASPIRIN ENTERIC COATED 81 MG TABLET.DR. PO SCH (20:58)
[2020-10-22] MEDS: LISINOPRIL 20 MG TABLET PO SCH (20:59)
[2020-10-22] MEDS ORDERED: ATOR10TA60 PO (21:03)
[2020-10-22] MEDS: ENOXAPARIN 40 MG/0.4 ML SYRINGE. SQ SCH (21:06)
[2020-10-22] MEDS: INSULIN GLARGINE SYRINGE. SQ SCH (21:09)
[2020-10-22] MEDS: ATORVASTATIN CALCIUM 10 MG TABLET. PO SCH (21:34)
[2020-10-22 22:49] VITALS: BP 177/66
[2020-10-23] MEDS: MORPHINE SULFATE 2 MG/ML VIAL. IVP PRN ×2 (00:11→23:51)
[2020-10-23 03:15] VITALS: BP 155/68
[2020-10-23] MEDS: PIPERACILLIN/TAZOBACTAM 4.5 GM in IV NORMAL SALINE 100ML 100 ML IV SCH ×4 (05:59→23:36)
[2020-10-23 07:00] VITALS: BP 137/58
--- NOTE | 2020-10-23 07:53 | RAD ---
EXAM: Gabriel scale and color Doppler left lower extremity artery sonogram. HISTORY: Left foot ulcer. Peripheral artery disease. TECHNIQUE: Gabriel scale and color Doppler sonographic imaging of the left lower extremity arteries with spectral waveform analysis was performed. COMPARISON: 07/15/2018. FINDINGS: There are abnormal monophasic waveforms within the left popliteal, posterior tibial, perone al, anterior tibial and dorsalis pedis arteries. There are abnormally elevated peak systolic velociti es within the left superficial femoral artery, measuring 190 cm/s in the proximal superficial femoral artery, 162 cm/s in the mid superficial femoral artery, and 170 cm/s within the distal superficial f emoral artery. There is also a borderline elevated peak systolic velocity within the anterior tibial artery, measuring 151 cm/s. No arterial occlusion is seen. IMPRESSION: 1. Elevated peak systolic velocities within the left superficial femoral artery and anterior tibial a rtery, consistent with hemodynamically significant stenosis. 2. Abnormal monophasic waveforms involving the popliteal and calf arteries, consistent with hemodynam ically significant proximal stenosis. 3. No evidence of arterial occlusion. Electronically signed by: Leonila Mendoza MD (10/23/2020 7:50 AM) [facility]
[2020-10-23] MEDS: INSULIN LISPRO 300 UNITS/3 ML VIAL. SQ SCH ×7 (08:00→21:00)
[2020-10-23] MEDS: LINEZOLID 600 MG TABLET PO SCH ×2 (08:42→20:59)
[2020-10-23] MEDS: ASPIRIN ENTERIC COATED 81 MG TABLET.DR. PO SCH (08:42)
[2020-10-23] MEDS: PANTOPRAZOLE 40 MG TABLET.DR. PO SCH (08:42)
[2020-10-23] MEDS: LACTOBACILLUS RHAMNOSUS GG 1 CAPSULE. PO SCH ×2 (08:42→20:59)
[2020-10-23] MEDS: LISINOPRIL 20 MG TABLET PO SCH (08:44)
[2020-10-23 09:01] LABS: CREATININE 1.1 mg/dL (0.7-1.3); GFR 80.5
--- NOTE | 2020-10-23 09:48 | PDOC ---
[employer] PROGRESS NOTE Date of Service DOS: DATE: 10/23/20 TIME: 09:48 Chief Complaint Chief Complaint Diabetic left foot infection Diabetes Peripheral vascular disease Right ujmra-guy-[id number] amputation Left transmetatarsal amputation GERD History of Present Illness History of Present Illness The patient is a pleasant middle-aged male, who has diabetic peripheral vascular disease. 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 Now, the left foot has a transmetatarsal amputation, but the stump is somewhat infected, it is draining. There are gangrenous eschar on the plantar and lateral aspects of the skin. I discussed the case with the ER physician. We a dmitted the patient with consultation to Dr. Mio Suarez, Vascular Surgery. 10/23 Patient seen and examined Chart reviewed Discussed with RN Patient is comfortable and was resting when we seen him Vitals/I&O Vitals/I&O: Vital Signs Date Time Temp Pulse Resp B/P (MAP) Pulse Ox O2 Delivery O2 Flow Rate FiO2 10/23/20 08:44 89 155/68 10/23/20 07:00 98.3 16 94 Room Air 98.3 I & O 10/22/20 10/22/20 10/23/20 15:00 23:00 07:00 Intake Total 540 ml 240 ml 3180 ml Output Total 200 ml 300 ml Balance 540 ml 40 ml 2880 ml Physical Exam General: Alert, No acute distress Heart: Regular rate, No murmurs Lungs: Clear Abdomen: Normal bowel sounds, No tenderness Extremities: No clubbing, No cyanosis Skin: No rashes, Other (no itching) Labs Labs: Laboratory Tests Test 10/22/20 11:44 10/22/20 16:41 10/22/20 20:48 10/23/20 07:20 Glucose (Fingerstick) 172 mg/dL (70-99) 96 mg/dL (70-99) 248 mg/dL (70-99) Creatinine 1.1 mg/dL (0.7-1.3) Estimated GFR (Cockcroft-Gault) 80.5 Review of Systems Review of Systems: Denies headache, changes in vision, or numbness Denies itching or rashes Assessment and Plan Assessmemt and Plan Assessment: Diabetic left foot infection Diabetes Peripheral vascular disease Right [id number]-exf-[id number] amputation Left transmetatarsal amputation GERD Plan: Wound care Continue IV antibiotics Home meds DVT prophylaxis Trend labs Comment Review of Relevant I have reviewed the following items raudel (where applicable) has been applied. Medications: Current Medications Medications (Trade) Dose Ordered Sig/Dave Route PRN Reason Start Time Stop Time Status Last Admin Dose Admin Linezolid (Zyvox) 600 mg BID PO 10/22/20 21:00 10/23/20 08:42 Aspirin (Ecotrin) 81 mg DAILYWBKFT PO 10/22/20 19:30 10/23/20 08:42 Lisinopril (Prinivil) 40 mg DAILY PO 10/22/20 19:30 10/23/20 08:44 Pantoprazole Sodium (Protonix) 40 mg DAILYAC PO 10/22/20 19:30 10/23/20 08:42 Atorvastatin Calcium (Lipitor) 10 mg QHS PO 10/22/20 22:00 10/22/20 21:34 Insulin Human Lispro (HumaLOG) 0-9 UNITS TIDACHC SQ 10/22/20 21:30 10/23/20 08:47 Justifications for Admission Other Justification Diabetic foot infection LUCRECIA LEVY III DO Oct 23, 2020 09:48
--- NOTE | 2020-10-23 09:50 | PDOC ---
Infectious Disease Note Subjective: Subjective pt without complaints no f/n/v/d Vital Signs: Vital Signs Vital Signs Date Time Temp Pulse Resp B/P (MAP) Pulse Ox O2 Delivery O2 Flow Rate FiO2 10/23/20 08:44 89 155/68 10/23/20 07:00 98.3 16 94 Room Air 98.3 Physical Exam: PHYSICAL EXAM GENERAL: Alert, oriented x 3, pleasant male, lying in bed comfortably, in no acute distress. HEENT: Normocephalic, atraumatic, anicteric. NECK: Supple, no JVD, no thyromegaly. LUNGS: Clear bilaterally. No wheezing. HEART: S1, S2. No gallops or murmurs. ABDOMEN: Soft, nontender, nondistended, no rebound, no guarding. EXTREMITIES: Right BKA stump looks healthy and healed well. Left TMA has an open wound, gangrenous eschar changes present over the lateral and plantar aspect of the amputation site. No fluctuance, no purulence, no surrounding erythema. DERMATOLOGIC: Warm, dry. No generalized rash. NEUROLOGIC: Alert and oriented x 3, grossly nonfocal. PSYCHIATRIC: Cooperative, appropriate mood and affect. Medications: Inpatient Meds: Current Medications Medications (Trade) Dose Ordered Sig/Dave Start Time Stop Time Status Last Admin Dose Admin Acetaminophen (Tylenol) 650 mg PRN Q4HRS PRN 10/21/20 19:30 Acetaminophen/ Hydrocodone Bitart (Lortab 5/325) 2 tab PRN Q4HRS PRN 10/21/20 19:30 10/22/20 08:17 2 TAB Aspirin (Ecotrin) 81 mg DAILYWBKFT 10/22/20 19:30 10/23/20 08:42 81 MG Atorvastatin Calcium (Lipitor) 10 mg QHS 10/22/20 22:00 10/22/20 21:34 10 MG Dextrose (Dextrose 50%-Water Syringe) 12.5 gm PRN Q15MIN PRN 10/21/20 19:30 Docusate Sodium (Colace) 100 mg PRN DAILY PRN 10/21/20 19:30 Enoxaparin Sodium (Lovenox 40mg Syringe) 40 mg Q24H 10/21/20 21:00 10/22/20 21:06 40 MG Insulin Glargine (Lantus Syringe) 22 unit QHS 10/21/20 23:00 10/22/20 21:09 18 UNIT Insulin Human Lispro (HumaLOG) 0-9 UNITS TIDACHC 10/22/20 21:30 10/23/20 08:47 4 UNITS Lactobacillus Rhamnosus (Culturelle) 1 cap BID 10/21/20 23:00 10/23/20 08:42 1 CAP Linezolid (Zyvox) 600 mg BID 10/22/20 21:00 10/23/20 08:42 600 MG Lisinopril (Prinivil) 40 mg DAILY 10/22/20 19:30 10/23/20 08:44 40 MG Morphine Sulfate (Morphine Sulfate) 2 mg PRN Q2HR PRN 10/21/20 19:45 10/23/20 00:11 2 MG Ondansetron HCl (Zofran) 4 mg PRN Q6HRS PRN 10/21/20 19:30 Pantoprazole Sodium (Protonix) 40 mg DAILYAC 10/22/20 19:30 10/23/20 08:42 40 MG Piperacillin Sod/ Tazobactam Sod (Zosyn Per Pharmacy) 1 each PRN DAILY PRN 10/21/20 16:45 Piperacillin Sod/ Tazobactam Sod 4.5 gm/Sodium Chloride 100 ml @ 200 mls/hr Q6HRS 10/21/20 18:30 10/23/20 05:59 200 MLS/HR Sennosides (Senna) 17.2 mg PRN BID PRN 10/21/20 19:30 Sodium Chloride 1,000 ml @ 100 mls/hr Q10H 10/21/20 20:00 10/22/20 23:58 100 MLS/HR Vancomycin HCl (Vanco Per Pharmacy) 1 each PRN DAILY PRN 10/21/20 16:45 10/22/20 17:46 DC 10/22/20 11:29 1 EACH Vancomycin HCl (Vancomycin Trough Level) 1 each 1X ONCE 10/23/20 08:30 10/22/20 17:46 DC Vancomycin HCl 1.25 gm/Sodium Chloride 250 ml @ 167 mls/hr Q12H 10/22/20 09:00 10/22/20 17:46 DC 10/22/20 10:07 167 MLS/HR Vancomycin HCl 2 gm/Sodium Chloride 500 ml @ 250 mls/hr 1X ONCE 10/21/20 18:00 10/21/20 19:59 DC 10/21/20 21:10 250 MLS/HR Labs: Lab Laboratory Tests Test 10/22/20 11:44 10/22/20 16:41 10/22/20 20:48 10/23/20 07:20 Glucose (Fingerstick) 172 mg/dL (70-99) 96 mg/dL (70-99) 248 mg/dL (70-99) Creatinine 1.1 mg/dL (0.7-1.3) Estimated GFR (Cockcroft-Gault) 80.5 Objective: Assessment: LABORATORY DATA: WBC 12.3, hemoglobin 10.4, hematocrit 31.5, platelets 455. Sodium 141, potassium 3.9, chloride 106, bicarbonate 27, BUN 18, creatinine 1.2, glucose 197. INR 1.1. SARS-COVID negative. IMAGING: None. IMPRESSION: 1. Left foot open wound with eschar with underlying chronic nonhealing LT TMA wound. 2. Severe peripheral vascular disease. 3. Status post deep venous arterialization of the left foot via posterior tibial artery 3 weeks ago at [facility]. 4. Diabetes. 5. Peripheral neuropathy. 6. Hypertension. 7. Hyperlipidemia. 8. Status post right [id number] amputation. Plan: Plan of Care Continue Zosyn and linezolid. Vascular Surgery has evaluated the patient. May need further incision and drainage. f/u report on ultrasound of the left leg. Follow up labs and cultures. Continue local wound care as directed. Continue supportive care. GASTON JAVIER MD Oct 23, 2020 09:50
[2020-10-23 11:00] VITALS: BP 170/62
[2020-10-23] MEDS: IV NORMAL SALINE 1000ML BAG 1,000 ML IV SCH ×2 (11:13→22:19)
[2020-10-23] MEDS: HYDROcodone/APAP 5/325MG 1 TAB TABLET PO PRN ×2 (13:48→23:49)
[2020-10-23 15:00] VITALS: BP 175/63
[2020-10-23 19:45] VITALS: BP 136/58
[2020-10-23] MEDS: ATORVASTATIN CALCIUM 10 MG TABLET. PO SCH (20:59)
[2020-10-23] MEDS: ENOXAPARIN 40 MG/0.4 ML SYRINGE. SQ SCH (20:59)
[2020-10-23] MEDS: INSULIN GLARGINE SYRINGE. SQ SCH (21:00)
[2020-10-23 22:50] VITALS: BP 165/56
[2020-10-24] VITALS (7 sets, daily range): BP systolic 139–197; BP diastolic 52–77
[2020-10-24] MEDS: PIPERACILLIN/TAZOBACTAM 4.5 GM in IV NORMAL SALINE 100ML 100 ML IV SCH ×4 (05:25→23:26)
[2020-10-24] MEDS: INSULIN LISPRO 300 UNITS/3 ML VIAL. SQ SCH ×7 (07:30→21:00)
[2020-10-24] MEDS: PANTOPRAZOLE 40 MG TABLET.DR. PO SCH (08:10)
[2020-10-24] MEDS: ASPIRIN ENTERIC COATED 81 MG TABLET.DR. PO SCH (08:10)
[2020-10-24] MEDS: LACTOBACILLUS RHAMNOSUS GG 1 CAPSULE. PO SCH ×2 (08:10→20:25)
[2020-10-24] MEDS: LINEZOLID 600 MG TABLET PO SCH ×2 (08:10→20:26)
[2020-10-24] MEDS: LISINOPRIL 20 MG TABLET PO SCH (08:11)
[2020-10-24] MEDS: IV NORMAL SALINE 1000ML BAG 1,000 ML IV SCH ×2 (08:12→18:00)
[2020-10-24 08:46] LABS: CALCIUM 8.2 mg/dL (8.5-10.1); CREATININE 1.1 mg/dL (0.7-1.3); GFR 80.5; POTASSIUM 3.3 mmol/L (3.5-5.1)
--- NOTE | 2020-10-24 09:58 | PDOC ---
Infectious Disease Note Subjective: Subjective pt without complaints no f/n/v/d Vital Signs: Vital Signs Vital Signs Date Time Temp Pulse Resp B/P (MAP) Pulse Ox O2 Delivery O2 Flow Rate FiO2 10/24/20 08:11 92 160/52 10/24/20 07:00 98.3 19 100 Room Air 98.3 Physical Exam: PHYSICAL EXAM GENERAL: Alert, oriented x 3, pleasant male, lying in bed comfortably, in no acute distress. HEENT: Normocephalic, atraumatic, anicteric. NECK: Supple, no JVD, no thyromegaly. LUNGS: Clear bilaterally. No wheezing. HEART: S1, S2. No gallops or murmurs. ABDOMEN: Soft, nontender, nondistended, no rebound, no guarding. EXTREMITIES: Right BKA stump looks healthy and healed well. Left TMA has an open wound, gangrenous eschar changes present over the lateral and plantar aspect of the amputation site. No fluctuance, no purulence, no surrounding erythema. DERMATOLOGIC: Warm, dry. No generalized rash. NEUROLOGIC: Alert and oriented x 3, grossly nonfocal. PSYCHIATRIC: Cooperative, appropriate mood and affect. Medications: Inpatient Meds: Current Medications Medications (Trade) Dose Ordered Sig/Dave Start Time Stop Time Status Last Admin Dose Admin Acetaminophen (Tylenol) 650 mg PRN Q4HRS PRN 10/21/20 19:30 Acetaminophen/ Hydrocodone Bitart (Lortab 5/325) 2 tab PRN Q4HRS PRN 10/21/20 19:30 10/23/20 23:49 2 TAB Aspirin (Ecotrin) 81 mg DAILYWBKFT 10/22/20 19:30 10/24/20 08:10 81 MG Atorvastatin Calcium (Lipitor) 10 mg QHS 10/22/20 22:00 10/23/20 20:59 10 MG Dextrose (Dextrose 50%-Water Syringe) 12.5 gm PRN Q15MIN PRN 10/21/20 19:30 Docusate Sodium (Colace) 100 mg PRN DAILY PRN 10/21/20 19:30 Enoxaparin Sodium (Lovenox 40mg Syringe) 40 mg Q24H 10/21/20 21:00 10/23/20 20:59 40 MG Hydralazine HCl (Apresoline Inj) 10 mg PRN Q4HRS PRN 10/23/20 17:30 Insulin Glargine (Lantus Syringe) 22 unit QHS 10/21/20 23:00 10/23/20 21:00 18 UNIT Insulin Human Lispro (HumaLOG) 0-9 UNITS TIDACHC 10/22/20 21:30 10/23/20 17:38 4 UNITS Lactobacillus Rhamnosus (Culturelle) 1 cap BID 10/21/20 23:00 10/24/20 08:10 1 CAP Linezolid (Zyvox) 600 mg BID 10/22/20 21:00 10/24/20 08:10 600 MG Lisinopril (Prinivil) 40 mg DAILY 10/22/20 19:30 10/24/20 08:11 40 MG Morphine Sulfate (Morphine Sulfate) 2 mg PRN Q2HR PRN 10/21/20 19:45 10/23/20 23:51 2 MG Ondansetron HCl (Zofran) 4 mg PRN Q6HRS PRN 10/21/20 19:30 Pantoprazole Sodium (Protonix) 40 mg DAILYAC 10/22/20 19:30 10/24/20 08:10 40 MG Piperacillin Sod/ Tazobactam Sod (Zosyn Per Pharmacy) 1 each PRN DAILY PRN 10/21/20 16:45 Piperacillin Sod/ Tazobactam Sod 4.5 gm/Sodium Chloride 100 ml @ 200 mls/hr Q6HRS 10/21/20 18:30 10/24/20 05:25 200 MLS/HR Sennosides (Senna) 17.2 mg PRN BID PRN 10/21/20 19:30 Sodium Chloride 1,000 ml @ 100 mls/hr Q10H 10/21/20 20:00 10/24/20 08:12 100 MLS/HR Vancomycin HCl (Vanco Per Pharmacy) 1 each PRN DAILY PRN 10/21/20 16:45 10/22/20 17:46 DC 10/22/20 11:29 1 EACH Vancomycin HCl (Vancomycin Trough Level) 1 each 1X ONCE 10/23/20 08:30 10/22/20 17:46 DC Vancomycin HCl 1.25 gm/Sodium Chloride 250 ml @ 167 mls/hr Q12H 10/22/20 09:00 10/22/20 17:46 DC 10/22/20 10:07 167 MLS/HR Vancomycin HCl 2 gm/Sodium Chloride 500 ml @ 250 mls/hr 1X ONCE 10/21/20 18:00 10/21/20 19:59 DC 10/21/20 21:10 250 MLS/HR Labs: Lab Laboratory Tests Test 10/23/20 11:24 10/23/20 17:28 10/23/20 20:48 10/24/20 07:10 Glucose (Fingerstick) 132 mg/dL (70-99) 193 mg/dL (70-99) 154 mg/dL (70-99) Sodium Level 144 mmol/L (136-145) Potassium Level 3.3 mmol/L (3.5-5.1) Chloride Level 107 mmol/L (98-107) Carbon Dioxide Level 28 mmol/L (21-32) Anion Gap 9 (6-14) Blood Urea Nitrogen 9 mg/dL (8-26) Creatinine 1.1 mg/dL (0.7-1.3) Estimated GFR (Cockcroft-Gault) 80.5 Glucose Level 68 mg/dL (70-99) Calcium Level 8.2 mg/dL (8.5-10.1) Objective: Assessment: 1. Left foot open wound with eschar with underlying chronic nonhealing LT TMA wound. 2. Severe peripheral vascular disease. 3. Status post deep venous arterialization of the left foot via posterior tibial artery [address] [facility]. 4. Diabetes. 5. Peripheral neuropathy. 6. Hypertension. 7. Hyperlipidemia. 8. Status post right [id number] amputation. Plan: Plan of Care Continue Zosyn and linezolid. Vascular Surgery has evaluated the patient. May need further incision and drainage. U/S report noted Follow up labs and cultures. Continue local wound care as directed. Continue supportive care. GASTON JAVIER MD Oct 24, 2020 09:58
[2020-10-24 10:12] LABS: BASO % 1 % (0-3); EOS # 0.2 x10^3/uL (0.0-0.7); EOS % 3 % (0-3); HEMATOCRIT 28.9 % (39.0-53.0); HEMOGLOBIN 9.4 g/dL (13.0-17.5); LYMPH # 1.9 x10^3/uL (1.0-4.8); LYMPH % 28 % (24-48); MEAN CORPUSCULAR HEMOGLOBIN 28 pg (25-35); MEAN CORPUSCULAR HGB CONC 33 g/dL (31-37); MEAN CORPUSCULAR VOLUME 86 fL (79-100); MONO # 1.1 x10^3/uL (0.0-1.1); MONO % 16 % (0-9); NEUT # 3.6 x10^3/uL (1.8-7.7); NEUT % 53 % (31-73); PLATELET COUNT 430 x10^3/uL (140-400); RED BLOOD COUNT 3.35 x10^6/uL (4.30-5.70); RED CELL DISTRIBUTION WIDTH 14.6 % (11.5-14.5); WHITE BLOOD COUNT 6.8 x10^3/uL (4.0-11.0)
--- NOTE | 2020-10-24 11:06 | PDOC ---
[employer] PROGRESS NOTE Date of Service DOS: DATE: 10/24/20 TIME: 11:04 Chief Complaint Chief Complaint Diabetic left foot infection Diabetes Peripheral vascular disease Right kwucm-[id number] amputation Left transmetatarsal amputation GERD History of Present Illness History of Present Illness The patient is a pleasant middle-aged male, who has diabetic peripheral vascular disease. 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 Now, the left foot has a transmetatarsal amputation, but the stump is somewhat infected, it is draining. There are gangrenous eschar on the plantar and lateral aspects of the skin. I discussed the case with the ER physician. We a dmitted the patient with consultation to Dr. Mio Suarez, Vascular Surgery. 10/23 Patient seen and examined Chart reviewed Discussed with RN Patient is comfortable and was resting when we seen him 10/24 Patient seen and examined Chart reviewed Discussed with RN Patient is comfortable, denies any new symptoms Vitals/I&O Vitals/I&O: Vital Signs Date Time Temp Pulse Resp B/P (MAP) Pulse Ox O2 Delivery O2 Flow Rate FiO2 10/24/20 08:15 Room Air 10/24/20 08:11 92 160/52 10/24/20 07:00 98.3 19 100 98.3 I & O 10/23/20 10/23/20 10/24/20 15:00 23:00 07:00 Intake Total 360 ml Output Total 600 ml 100 ml Balance -600 ml -100 ml 360 ml Physical Exam Physical Exam: GENERAL: Alert, oriented x 3, pleasant male, lying in bed comfortably, in no acute distress. HEENT: Normocephalic, atraumatic, anicteric. NECK: Supple, no JVD, no thyromegaly. LUNGS: Clear bilaterally. No wheezing. HEART: S1, S2. No gallops or murmurs. ABDOMEN: Soft, nontender, nondistended, no rebound, no guarding. EXTREMITIES: Right BKA stump looks healthy and healed well. Left TMA has an open wound, gangrenous eschar changes present over the lateral and plantar aspect of the amputation site. No fluctuance, no purulence, no surrounding erythema. DERMATOLOGIC: Warm, dry. No generalized rash. NEUROLOGIC: Alert and oriented x 3, grossly nonfocal. PSYCHIATRIC: Cooperative, appropriate mood and affect. General: Alert, No acute distress Heart: Regular rate, No murmurs Lungs: Clear Abdomen: Normal bowel sounds, No tenderness Extremities: No clubbing, No cyanosis Skin: No rashes, Other (no itching) Labs Labs: Laboratory Tests Test 10/23/20 11:24 10/23/20 17:28 10/23/20 20:48 10/24/20 07:10 Glucose (Fingerstick) 132 mg/dL (70-99) 193 mg/dL (70-99) 154 mg/dL (70-99) Sodium Level 144 mmol/L (136-145) Potassium Level 3.3 mmol/L (3.5-5.1) Chloride Level 107 mmol/L (98-107) Carbon Dioxide Level 28 mmol/L (21-32) Anion Gap 9 (6-14) Blood Urea Nitrogen 9 mg/dL (8-26) Creatinine 1.1 mg/dL (0.7-1.3) Estimated GFR (Cockcroft-Gault) 80.5 Glucose Level 68 mg/dL (70-99) Calcium Level 8.2 mg/dL (8.5-10.1) Test 10/24/20 07:40 White Blood Count 6.8 x10^3/uL (4.0-11.0) Red Blood Count 3.35 x10^6/uL (4.30-5.70) Hemoglobin 9.4 g/dL (13.0-17.5) Hematocrit 28.9 % (39.0-53.0) Mean Corpuscular Volume 86 fL (79-100) Mean Corpuscular Hemoglobin 28 pg (25-35) Mean Corpuscular Hemoglobin Concent 33 g/dL (31-37) Red Cell Distribution Width 14.6 % (11.5-14.5) Platelet Count 430 x10^3/uL (140-400) Neutrophils (%) (Auto) 53 % (31-73) Lymphocytes (%) (Auto) 28 % (24-48) Monocytes (%) (Auto) 16 % (0-9) Eosinophils (%) (Auto) 3 % (0-3) Basophils (%) (Auto) 1 % (0-3) Neutrophils # (Auto) 3.6 x10^3/uL (1.8-7.7) Lymphocytes # (Auto) 1.9 x10^3/uL (1.0-4.8) Monocytes # (Auto) 1.1 x10^3/uL (0.0-1.1) Eosinophils # (Auto) 0.2 x10^3/uL (0.0-0.7) Basophils # (Auto) 0.0 x10^3/uL (0.0-0.2) Review of Systems Review of Systems: Denies headache, changes in vision, or numbness Denies itching or rashes Assessment and Plan Assessmemt and Plan Assessment: Diabetic left foot infection Diabetes Peripheral vascular disease Right [id number]-oba-wxcv amputation Left transmetatarsal amputation GERD Plan: Continue IV antibiotics Wound care Trend labs Home meds Trend labs DVT prophylaxis Comment Review of Relevant I have reviewed the following items raudel (where applicable) has been applied. Justifications for Admission Other Justification Diabetic foot infection LUCRECIA LEVY III DO Oct 24, 2020 11:06
[2020-10-24] MEDS: ENOXAPARIN 40 MG/0.4 ML SYRINGE. SQ SCH (20:25)
[2020-10-24] MEDS: ATORVASTATIN CALCIUM 10 MG TABLET. PO SCH (20:26)
[2020-10-24] MEDS: INSULIN GLARGINE SYRINGE. SQ SCH (22:01)
--- NOTE | 2020-10-24 22:02 | NUR ---
Pt. only wanted to take 18 units of Lantus this evening.
[2020-10-25] VITALS (7 sets, daily range): BP systolic 131–206; BP diastolic 49–80
[2020-10-25] MEDS: IV NORMAL SALINE 1000ML BAG 1,000 ML IV SCH ×2 (04:00→13:45)
[2020-10-25] MEDS: PIPERACILLIN/TAZOBACTAM 4.5 GM in IV NORMAL SALINE 100ML 100 ML IV SCH ×3 (06:00→17:12)
--- NOTE | 2020-10-25 07:00 | NUR ---
During shift change report, pt is refusing IV Zosyn and also refusing new IV.
[2020-10-25] MEDS: PANTOPRAZOLE 40 MG TABLET.DR. PO SCH (07:30)
[2020-10-25 07:57] LABS: BASO # 0.1 x10^3/uL (0.0-0.2); BASO % 1 % (0-3); EOS # 0.1 x10^3/uL (0.0-0.7); EOS % 2 % (0-3); HEMATOCRIT 29.8 % (39.0-53.0); HEMOGLOBIN 9.8 g/dL (13.0-17.5); LYMPH # 1.9 x10^3/uL (1.0-4.8); LYMPH % 26 % (24-48); MEAN CORPUSCULAR HEMOGLOBIN 28 pg (25-35); MEAN CORPUSCULAR HGB CONC 33 g/dL (31-37); MEAN CORPUSCULAR VOLUME 86 fL (79-100); MONO % 14 % (0-9); NEUT # 4.2 x10^3/uL (1.8-7.7); NEUT % 58 % (31-73); PLATELET COUNT 448 x10^3/uL (140-400); RED BLOOD COUNT 3.47 x10^6/uL (4.30-5.70); RED CELL DISTRIBUTION WIDTH 14.2 % (11.5-14.5); WHITE BLOOD COUNT 7.3 x10^3/uL (4.0-11.0)
[2020-10-25] MEDS: INSULIN LISPRO 300 UNITS/3 ML VIAL. SQ SCH ×7 (08:00→21:00)
[2020-10-25 08:13] LABS: CALCIUM 8.3 mg/dL (8.5-10.1); CREATININE 1.1 mg/dL (0.7-1.3); GFR 80.5; POTASSIUM 3.5 mmol/L (3.5-5.1)
[2020-10-25] MEDS: LACTOBACILLUS RHAMNOSUS GG 1 CAPSULE. PO SCH ×2 (08:17→20:46)
[2020-10-25] MEDS: LINEZOLID 600 MG TABLET PO SCH ×2 (08:17→21:00)
[2020-10-25] MEDS: LISINOPRIL 20 MG TABLET PO SCH (08:17)
[2020-10-25] MEDS: ASPIRIN ENTERIC COATED 81 MG TABLET.DR. PO SCH (08:17)
--- NOTE | 2020-10-25 10:26 | NUR ---
SW following. Discussed with RN, pt from home with , room air, regular diet. Pt refusing IV zosyn currently. Wound care following - awaiting confirmation of whether pt needs another surgery or not. No therapy needs per PT/OT. SW will continue to follow.
--- NOTE | 2020-10-25 10:47 | PDOC ---
Infectious Disease Note Subjective Subjective c/o nausea , vomiting and diarrhea ROS ROS no fever, chest or abd pain Vital Sign Vital Signs Vital Signs Date Time Temp Pulse Resp B/P (MAP) Pulse Ox O2 Delivery O2 Flow Rate FiO2 10/25/20 10:23 98.2 98 18 206/61 (109) 100 Room Air 98.2 Physical Exam PHYSICAL EXAM GENERAL: Alert, oriented x 3, pleasant male, lying in bed comfortably, in no acute distress. HEENT: Normocephalic, atraumatic, anicteric. NECK: Supple, no JVD, no thyromegaly. LUNGS: Clear bilaterally. No wheezing. HEART: S1, S2. No gallops or murmurs. ABDOMEN: Soft, nontender, nondistended, no rebound, no guarding. EXTREMITIES: Right BKA stump looks healthy and healed well. Left TMA has an open wound, gangrenous eschar changes present over the lateral and plantar aspect of the amputation site. No fluctuance, no purulence, no surrounding erythema. DERMATOLOGIC: Warm, dry. No generalized rash. NEUROLOGIC: Alert and oriented x 3, grossly nonfocal. PSYCHIATRIC: Cooperative, appropriate mood and affect. Labs Lab Laboratory Tests Test 10/24/20 21:51 10/25/20 07:12 10/25/20 07:20 Glucose (Fingerstick) 168 mg/dL (70-99) 161 mg/dL (70-99) White Blood Count 7.3 x10^3/uL (4.0-11.0) Red Blood Count 3.47 x10^6/uL (4.30-5.70) Hemoglobin 9.8 g/dL (13.0-17.5) Hematocrit 29.8 % (39.0-53.0) Mean Corpuscular Volume 86 fL (79-100) Mean Corpuscular Hemoglobin 28 pg (25-35) Mean Corpuscular Hemoglobin Concent 33 g/dL (31-37) Red Cell Distribution Width 14.2 % (11.5-14.5) Platelet Count 448 x10^3/uL (140-400) Neutrophils (%) (Auto) 58 % (31-73) Lymphocytes (%) (Auto) 26 % (24-48) Monocytes (%) (Auto) 14 % (0-9) Eosinophils (%) (Auto) 2 % (0-3) Basophils (%) (Auto) 1 % (0-3) Neutrophils # (Auto) 4.2 x10^3/uL (1.8-7.7) Lymphocytes # (Auto) 1.9 x10^3/uL (1.0-4.8) Monocytes # (Auto) 1.0 x10^3/uL (0.0-1.1) Eosinophils # (Auto) 0.1 x10^3/uL (0.0-0.7) Basophils # (Auto) 0.1 x10^3/uL (0.0-0.2) Sodium Level 143 mmol/L (136-145) Potassium Level 3.5 mmol/L (3.5-5.1) Chloride Level 106 mmol/L (98-107) Carbon Dioxide Level 27 mmol/L (21-32) Anion Gap 10 (6-14) Blood Urea Nitrogen 5 mg/dL (8-26) Creatinine 1.1 mg/dL (0.7-1.3) Estimated GFR (Cockcroft-Gault) 80.5 Glucose Level 172 mg/dL (70-99) Calcium Level 8.3 mg/dL (8.5-10.1) Micro GRAM STAIN Final Final NO ORGANISMS SEEN. SQUAMOUS EPI CELL:RARE PMN (WBCs):NONE SEEN Unless otherwise specified, Testing Performed by: [address] [id number] For Inquires, the Physician may contact the Microbiology department at [phone] ANAEROBIC-AEROBIC CULTURE Preliminary Preliminary MIXED AEROBIC VIKRAM on 10/25/20 at 0957 INCLUDING: MODERATE GRAM POSITIVE COCCI FINAL ID= [ENTEROCOCCUS FAECALIS] FINAL ID= [STAPHYLOCOCCUS AUREUS] MODERATE GRAM NEGATIVE RODS FINAL ID= [CITROBACTER FREUNDII CMPLX] FINAL ID= [PSEUDOMONAS AERUGINOSA] UNIDENTIFIED ORGANISM ENTEROCOCCUS FAECALIS CITROBACTER FREUNDI CITROBACTER FREUNDII CMPLX PSEUDOMONAS AERUGINOSA STAPHYLOCOCCUS AUREUS Unless otherwise specified, Testing Performed by: [address] [id number] For Inquires, the Physician may contact the Microbiology department at [phone] Objective Assessment 1. Left foot open wound with eschar with underlying chronic nonhealing LT TMA wound. 2. Severe peripheral vascular disease. 3. Status post deep venous arterialization of the left foot via posterior tibial artery 3 weeks ago at [facility]. 4. Diabetes. 5. Peripheral neuropathy. 6. Hypertension. 7. Hyperlipidemia. 8. Status post right [id number]-erb-thmu amputation. Plan Plan of Care Continue Zosyn and linezolid. Vascular Surgery has evaluated the patient. May need further incision and drainage. U/S report noted Follow up labs and cultures. Continue local wound care as directed. Continue supportive care. JESUS JAVIER MD Oct 25, 2020 10:47
--- NOTE | 2020-10-25 10:48 | PDOC ---
SHARON MCKENZIE FAMILY SERVICE WORKER 10/25/20 1048: PROGRESS NOTES Date of Service DATE: 10/25/20 TIME: 10:38 Subjective Subjective Patient seen and examined in room, complains of left foot pain, mild. Denies any fever or chills. Objective Objective Vital Signs Date Time Temp Pulse Resp B/P (MAP) Pulse Ox O2 Delivery O2 Flow Rate FiO2 10/25/20 10:23 98.2 98 18 206/61 (109) 100 Room Air 98.2 Intake and Output 10/25/20 07:00 Intake Total 2220 ml Output Total 750 ml Balance 1470 ml Intake Oral 920 ml IV Total 1300 ml Output Urine Total 750 ml # Voids 4 # Bowel Movements 6 Physical Exam Physical Exam Awake and alert HRR Abdomen soft Left lower extremity with palpable femoral and popliteal pulse, open TMA with necrotic tissue periwound edges more prominent on the lateral edge, no purulent drainage or odor, no erythema in foot. Mild lower extremity swelling. Plan Plan of Care 69 year old male with peripheral arterial disease status left open transmetatarsal amputation with lateral wound dry gangrene. Patient had angiop lasty of the anterior tibial artery June 2020 here at [facility] and angioplasty of the posterior tibial artery September 2020 at [facility]. Arterial ultrasound suggest monophasic flow in distal calf arteries. Discussed at length treatment and options with the patient. Patient would like to salvage his left foot and desires debridement versus amputation. Dr. Hunt will review the angiogram and arterial Doppler and make additional recommendations regarding any need for further revascularization. I have made the patient n.p.o. in the event we would be able to do debridement later today. Continue local wound care and antibiotics per infectious disease. Comment Review of Relevant I have reviewed the following items raudel (where applicable) has been applied. Labs Laboratory Tests Test 10/23/20 11:24 10/23/20 17:28 10/23/20 20:48 10/24/20 07:10 Glucose (Fingerstick) 132 mg/dL (70-99) 193 mg/dL (70-99) 154 mg/dL (70-99) Sodium Level 144 mmol/L (136-145) Potassium Level 3.3 mmol/L (3.5-5.1) Chloride Level 107 mmol/L (98-107) Carbon Dioxide Level 28 mmol/L (21-32) Anion Gap 9 (6-14) Blood Urea Nitrogen 9 mg/dL (8-26) Creatinine 1.1 mg/dL (0.7-1.3) Estimated GFR (Cockcroft-Gault) 80.5 Glucose Level 68 mg/dL (70-99) Calcium Level 8.2 mg/dL (8.5-10.1) Test 10/24/20 07:40 10/24/20 21:51 10/25/20 07:12 10/25/20 07:20 White Blood Count 6.8 x10^3/uL (4.0-11.0) 7.3 x10^3/uL (4.0-11.0) Red Blood Count 3.35 x10^6/uL (4.30-5.70) 3.47 x10^6/uL (4.30-5.70) Hemoglobin 9.4 g/dL (13.0-17.5) 9.8 g/dL (13.0-17.5) Hematocrit 28.9 % (39.0-53.0) 29.8 % (39.0-53.0) Mean Corpuscular Volume 86 fL (79-100) 86 fL (79-100) Mean Corpuscular Hemoglobin 28 pg (25-35) 28 pg (25-35) Mean Corpuscular Hemoglobin Concent 33 g/dL (31-37) 33 g/dL (31-37) Red Cell Distribution Width 14.6 % (11.5-14.5) 14.2 % (11.5-14.5) Platelet Count 430 x10^3/uL (140-400) 448 x10^3/uL (140-400) Neutrophils (%) (Auto) 53 % (31-73) 58 % (31-73) Lymphocytes (%) (Auto) 28 % (24-48) 26 % (24-48) Monocytes (%) (Auto) 16 % (0-9) 14 % (0-9) Eosinophils (%) (Auto) 3 % (0-3) 2 % (0-3) Basophils (%) (Auto) 1 % (0-3) 1 % (0-3) Neutrophils # (Auto) 3.6 x10^3/uL (1.8-7.7) 4.2 x10^3/uL (1.8-7.7) Lymphocytes # (Auto) 1.9 x10^3/uL (1.0-4.8) 1.9 x10^3/uL (1.0-4.8) Monocytes # (Auto) 1.1 x10^3/uL (0.0-1.1) 1.0 x10^3/uL (0.0-1.1) Eosinophils # (Auto) 0.2 x10^3/uL (0.0-0.7) 0.1 x10^3/uL (0.0-0.7) Basophils # (Auto) 0.0 x10^3/uL (0.0-0.2) 0.1 x10^3/uL (0.0-0.2) Glucose (Fingerstick) 168 mg/dL (70-99) 161 mg/dL (70-99) Sodium Level 143 mmol/L (136-145) Potassium Level 3.5 mmol/L (3.5-5.1) Chloride Level 106 mmol/L (98-107) Carbon Dioxide Level 27 mmol/L (21-32) Anion Gap 10 (6-14) Blood Urea Nitrogen 5 mg/dL (8-26) Creatinine 1.1 mg/dL (0.7-1.3) Estimated GFR (Cockcroft-Gault) 80.5 Glucose Level 172 mg/dL (70-99) Calcium Level 8.3 mg/dL (8.5-10.1) Laboratory Tests Test 10/24/20 21:51 10/25/20 07:12 10/25/20 07:20 Glucose (Fingerstick) 168 mg/dL (70-99) 161 mg/dL (70-99) White Blood Count 7.3 x10^3/uL (4.0-11.0) Red Blood Count 3.47 x10^6/uL (4.30-5.70) Hemoglobin 9.8 g/dL (13.0-17.5) Hematocrit 29.8 % (39.0-53.0) Mean Corpuscular Volume 86 fL (79-100) Mean Corpuscular Hemoglobin 28 pg (25-35) Mean Corpuscular Hemoglobin Concent 33 g/dL (31-37) Red Cell Distribution Width 14.2 % (11.5-14.5) Platelet Count 448 x10^3/uL (140-400) Neutrophils (%) (Auto) 58 % (31-73) Lymphocytes (%) (Auto) 26 % (24-48) Monocytes (%) (Auto) 14 % (0-9) Eosinophils (%) (Auto) 2 % (0-3) Basophils (%) (Auto) 1 % (0-3) Neutrophils # (Auto) 4.2 x10^3/uL (1.8-7.7) Lymphocytes # (Auto) 1.9 x10^3/uL (1.0-4.8) Monocytes # (Auto) 1.0 x10^3/uL (0.0-1.1) Eosinophils # (Auto) 0.1 x10^3/uL (0.0-0.7) Basophils # (Auto) 0.1 x10^3/uL (0.0-0.2) Sodium Level 143 mmol/L (136-145) Potassium Level 3.5 mmol/L (3.5-5.1) Chloride Level 106 mmol/L (98-107) Carbon Dioxide Level 27 mmol/L (21-32) Anion Gap 10 (6-14) Blood Urea Nitrogen 5 mg/dL (8-26) Creatinine 1.1 mg/dL (0.7-1.3) Estimated GFR (Cockcroft-Gault) 80.5 Glucose Level 172 mg/dL (70-99) Calcium Level 8.3 mg/dL (8.5-10.1) Microbiology 10/21/20 Gram Stain - Final, Resulted 10/21/20 Aerobic and Anaerobic Culture - Preliminary, Resulted Medications Current Medications Vancomycin HCl (Vanco Per Pharmacy) 1 each PRN DAILY PRN MC SEE COMMENTS Last administered on 10/22/20at 11:29; Start 10/21/20 at 16:45; Stop 10/22/20 at 17:46; Status DC Piperacillin Sod/ Tazobactam Sod (Zosyn Per Pharmacy) 1 each PRN DAILY PRN MC SEE COMMENTS; Start 10/21/20 at 16:45 Vancomycin HCl 2 gm/Sodium Chloride 500 ml @ 250 mls/hr 1X ONCE IV Last administered on 10/21/20at 21:10; Start 10/21/20 at 18:00; Stop 10/21/20 at 19:59; Status DC Piperacillin Sod/ Tazobactam Sod 4.5 gm/Sodium Chloride 100 ml @ 200 mls/hr Q6HRS IV Last administered on 10/24/20at 17:34; Start 10/21/20 at 18:30 Vancomycin HCl 1.25 gm/Sodium Chloride 250 ml @ 167 mls/hr Q12H IV Last administered on 10/22/20at 10:07; Start 10/22/20 at 09:00; Stop 10/22/20 at 17:46; Status DC Vancomycin HCl (Vancomycin Trough Level) 1 each 1X ONCE MC ; Start 10/23/20 at 08:30; Stop 10/22/20 at 17:46; Status DC Sennosides (Senna) 17.2 mg PRN BID PRN PO CONSTIPATION; Start 10/21/20 at 19:30 Docusate Sodium (Colace) 100 mg PRN DAILY PRN PO HARD STOOLS; Start 10/21/20 at 19:30 Ondansetron HCl (Zofran) 4 mg PRN Q6HRS PRN IVP NAUSEA/VOMITING; Start 10/21/20 at 19:30 Insulin Human Lispro (HumaLOG) 0-9 UNITS TIDWMEALS SQ Last administered on 10/22/20at 12:24; Start 10/22/20 at 08:00; Stop 10/22/20 at 21:20; Status DC Dextrose (Dextrose 50%-Water Syringe) 12.5 gm PRN Q15MIN PRN IV SEE COMMENTS; Start 10/21/20 at 19:30 Sodium Chloride 1,000 ml @ 100 mls/hr Q10H IV Last administered on 10/24/20at 08:12; Start 10/21/20 at 20:00 Acetaminophen (Tylenol) 650 mg PRN Q4HRS PRN GT TEMP OVER 100.4F OR MILD PAIN; Start 10/21/20 at 19:30 Enoxaparin Sodium (Lovenox 40mg Syringe) 40 mg Q24H SQ Last administered on 10/24/20at 20:25; Start 10/21/20 at 21:00 Acetaminophen/ Hydrocodone Bitart (Lortab 5/325) 1 tab PRN Q4HRS PRN PO MODERATE PAIN 4-6; Start 10/21/20 at 19:30 Acetaminophen/ Hydrocodone Bitart (Lortab 5/325) 2 tab PRN Q4HRS PRN PO SEVERE PAIN 7-10 Last administered on 10/23/20 23:49; Start 10/21/20 at 19:30 Morphine Sulfate (Morphine Sulfate) 1 mg PRN Q1HR PRN IV MODERATE PAIN 4-6; Start 10/21/20 at 19:30 Morphine Sulfate (Morphine Sulfate) 2 mg PRN Q2HR PRN IVP SEVERE PAIN 7-10 Last administered on 10/23/20 23:51; Start 10/21/20 at 19:45 Lactobacillus Rhamnosus (Culturelle) 1 cap BID PO Last administered on 10/25/20 08:17; Start 10/21/20 at 23:00 Insulin Glargine (Lantus Syringe) 22 unit QHS SQ Last administered on 10/24/20 22:01; Start 10/21/20 at 23:00 Insulin Human Lispro (HumaLOG) 6 units TIDWMEALS SQ Last administered on 10/24/20 12:24; Start 10/22/20 at 08:00 Linezolid (Zyvox) 600 mg BID PO Last administered on 10/25/20 08:17; Start 10/22/20 at 21:00 Aspirin (Ecotrin) 81 mg DAILYWBKFT PO Last administered on 10/25/20 08:17; Start 10/22/20 at 19:30 Lisinopril (Prinivil) 40 mg DAILY PO Last administered on 10/25/20 08:17; Start 10/22/20 at 19:30 Pantoprazole Sodium (Protonix) 40 mg DAILYAC PO Last administered on 10/24/20 08:10; Start 10/22/20 at 19:30 Atorvastatin Calcium (Lipitor) 10 mg QHS PO Last administered on 10/24/20 20:26; Start 10/22/20 at 22:00 Insulin Human Lispro (HumaLOG) 0-9 UNITS TIDACHC SQ Last administered on 08:23; Start 10/22/20 at 21:30 Hydralazine HCl (Apresoline Inj) 10 mg PRN Q4HRS PRN IVP ELEVATED BP, SEE COMMENTS; Start 10/23/20 at 17:30 Active Scripts Active Invanz (Ertapenem Sodium) 1 Gm Vial 1 Gm IJ DAILY 22 Days Aspirin Ec (Aspirin) 81 Mg Tablet. 81 Mg PO DAILYWBKFT 90 Days Reported Atorvastatin Calcium 10 Mg Tablet 1 Tab PO DAILY Acidophilus (Lactobacillus Acidophilus) 1 Each Capsule 1 Cap PO DAILY 14 Days Humalog (Insulin Lispro) 100 Unit/1 Ml Cartridge 6 Unit SQ TIDAC Tresiba (Insulin Degludec) 100 Unit/1 Ml Vial 22 Unit SQ HS Protonix (Pantoprazole Sodium) 20 Mg Tablet. 40 Mg PO DAILY Lisinopril 40 Mg Tablet 1 Tab PO DAILY Clopidogrel (Clopidogrel Bisulfate) 75 Mg Tablet 1 Tab PO DAILY Vitals/I & O Vital Sign - Last 24 Hours 10/24/20 10/24/20 10/24/20 10/24/20 15:00 19:15 20:00 20:40 Temp 98.2 98.4 98.2 98.4 Pulse 93 84 82 Resp 20 18 B/P (MAP) 166/60 (95) 197/77 (117) 168/76 (106) Pulse Ox 100 100 O2 Delivery Room Air Room Air Room Air 10/24/20 10/24/20 10/25/20 10/25/20 23:19 23:27 03:18 07:20 Temp 98.6 98.3 98.7 98.6 98.3 98.7 Pulse 85 96 94 Resp 18 18 18 B/P (MAP) 188/72 (110) 162/60 (94) 135/54 (81) 160/49 (86) Pulse Ox 98 96 99 O2 Delivery Room Air Room Air Room Air 10/25/20 10/25/20 08:17 10:23 Temp 98.2 98.2 Pulse 94 98 Resp 18 B/P (MAP) 160/49 206/61 (109) Pulse Ox 100 O2 Delivery Room Air Intake and Output 10/24/20 10/24/20 10/25/20 15:00 23:00 07:00 Intake Total 100 ml 1400 ml 720 ml Output Total 750 ml Balance 100 ml 1400 ml -30 ml Justifications for Admission Other Justification Diabetic foot infection MICHELLE HUNT II, MD 10/25/20 3320: PROGRESS NOTES Assessment Assessment 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 He is scheduled for left forefoot debridement tomorrow. The operation was discussed. I reviewed the angios from where he had arterialization of the posterior tibial vein. He understands and wishes to proceed. SHARON MCKENZIE APRN Oct 25, 2020 10:48 MICHELLE HUNT II, MD Oct 25, 2020 17:34
[2020-10-25] MEDS: ONDANSETRON ODT 4 MG TAB.RAPDIS. PO PRN ×2 (10:56→17:17)
--- NOTE | 2020-10-25 11:07 | NUR ---
Pt. agreeable to new IV placement. Attempt made x 2 unsuccessful. SANTY Samuel in to attempt new IV.
[2020-10-25] MEDS: hydrALAZINE 20 MG/ML VIAL. IVP PRN ×2 (12:11→15:03)
--- NOTE | 2020-10-25 16:14 | PDOC ---
Progress Note-Wound Care SUBJECTIVE Patient recently admitted from the wound care center after finding of new necrotic changes to the lateral plantar surfaces of left foot open TMA debridement site. This was a significant decline in tissue viability. Patient had been demonstrating gradual progress and particularly covering bony central wound areas. Roughly 2 to 3 weeks ago patient underwent arterialization of the plantar arch via posterior tibial artery at [facility]. No immediate complications to procedure were observed prior to last . At today's visit, patient reports no pain or recent fever or chills. He continues on IV antibiotic therapy. He has been seen by vascular surgery with anticipated surgical debridement soon. OBJECTIVE Vital Signs Vital Signs Date Time Temp Pulse Resp B/P (MAP) Pulse Ox O2 Delivery O2 Flow Rate FiO2 10/24/20 07:00 98.3 92 19 160/52 (88) 100 Room Air 98.3 Vital Signs Date Time Temp Pulse Resp B/P (MAP) Pulse Ox O2 Delivery O2 Flow Rate FiO2 10/25/20 15:03 95 181/76 10/25/20 14:33 98.1 18 100 Room Air 98.1 Physical Exam: The necrotic areas previously identified are now well-defined and modestly desiccated. No further advancement of necrotic areas is identified at today's visit in comparison to 4 to 5 days ago. No unusual odor, swelling or redness identified. ASSESSMENT Diabetic Krissy for ulceration of the left midfoot and forefoot with evidence of bone necrosis with recent worsening is demonstrated by edge necrosis. ROS ROS: Patient denies fever, chills or lassitude. Patient denies any change in bowel bladder habits shortness of breath cough increased lower extremity edema or chest pain. Patient specifically denies calf pain. Appetite and intake have been adequate. WOUND Location of Modifier: Left Wound Location: Plantar, Lateral, Dorsal, Palmar Body Site: Foot Associated Signs/Symptoms: Bruising (Necrosis) Drainage Amount: Scant Drainage Description: Serosanguineous Odor: None/Absent Wound Description: skin, SQ, muscle Bone/Muscle/Tendon Exposed: Yes Grade Erazo: 3 Length cm.: 7 Width cm.: 9 Wound Depth cm.: 1 Tunneling: Absent Photograph Taken: Yes Granulation % 50% Hypergranulation % 0% Fibrin % 20% Eschar % Plantar and lateral surfaces with eschar Improvement: Other (Necrotic areas now well-defined) PLAN Surgical debridement with vascular surgery with hopeful sparing of deep tissue and avoidance of major amputation FOLLOW-UP We will be happy to follow along. Surgical decision whether to continue with negative pressure wound therapy postoperatively SHARIFA WALKER DO Oct 25, 2020 16:14
--- NOTE | 2020-10-25 16:47 | NUR ---
Wound Care Wound Type/Assessment: 69 year old black male seen for wound care follow up. Patient was seen and assessed with Dr. Ky Feliciano. Patient was admitted to the hospital on 10/21 from the Wound Clinic. Current Wound is an open post surgical TMA wound. Wound has developed new area of necrosis to the plantar front surface of the wound. Area is dry eschcar. No odor, bone is palpable, slough covered. Pulses by doppler are present. Wound was covered with AquacelAg, 4x4's and gauze roll. Treatment Recommendations/Plan: Plan for surgical debridement in the OR on 10/26/2020 by Vascular Surgery Education provided: Discussed likely surgical procedure for 10/26/20 and probable wound vac placement Offloading surface/device: Foot and heels elevated while in bed Recommended Referrals/Tests: N/A Discharge Recommendations for dressings: Will follow patient post operatively and in the Wound Clinic with discharge.
--- NOTE | 2020-10-25 19:20 | PDOC ---
PROGRESS NOTES Date of Service: HISTORY AND PHYSICAL PATIENT: RAGHU PEARL ACCOUNT: [id number] : 1950 LOC: [address] [place] [address] AGE: 69 SEX: M STATUS: ADM IN LOCATION: [address] [place] [address] ADMIT DATE: 10/22/2020 CHIEF COMPLAINT: Left foot infection. HISTORY OF PRESENT ILLNESS: The patient is a pleasant middle-aged male, who has diabetic peripheral vascular disease. 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 Now, the left foot has a transmetatarsal amputation, but the stump is somewhat infected, it is draining. There are gangrenous eschar on the plantar and lateral aspects of the skin. I discussed the case with the ER physician. We admitted the patient with consultation to Dr. Mio Suarez, Vascular Surgery. 10/25/2020 Patient seen in consultation by vascular today. Patient will undergo debridement in the a.m. complaining of nausea at the time of my visit no other complaints, no fever or chills reported reassurance provided Chief Complaint Chief Complaint Diabetic left foot infection Diabetes Peripheral vascular disease Right [id number] amputation Left transmetatarsal amputation GERD Plan Continue Zosyn and linezolid. Vascular Surgery will take patient for debridement in the am Images studies reviewed Follow cultures. Continue local wound care as directed. Continue supportive care. Further recommendations based on the clinical course History of Present Illness History of Present Illness The patient is a pleasant middle-aged male, who has diabetic peripheral vascular disease. 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 Now, the left foot has a transmetatarsal amputation, but the stump is somewhat infected, it is draining. There are gangrenous eschar on the plantar and lateral aspects of the skin. I discussed the case with the ER physician. We admitted the patient with consultation to Dr. Mio Suarez, Vascular Surgery. 10/23 Patient seen and examined Chart reviewed Discussed with RN Patient is comfortable and was resting when we seen him 10/24 Patient seen and examined Chart reviewed Discussed with RN Patient is comfortable, denies any new symptoms Vitals Vitals Vital Signs Date Time Temp Pulse Resp B/P (MAP) Pulse Ox O2 Delivery O2 Flow Rate FiO2 10/25/20 15:03 95 181/76 10/25/20 14:33 98.1 18 100 Room Air 98.1 Physical Exam Physical Exam GENERAL: Alert, oriented x 3, pleasant male, lying in bed comfortably, in no acute distress. HEENT: Normocephalic, atraumatic, anicteric. NECK: Supple, no JVD, no thyromegaly. LUNGS: Clear bilaterally. No wheezing. HEART: S1, S2. No gallops or murmurs. ABDOMEN: Soft, nontender, nondistended, no rebound, no guarding. EXTREMITIES: Right BKA stump looks healthy and healed well. Left TMA has an open wound, gangrenous eschar changes present over the lateral and plantar aspect of the amputation site. No fluctuance, no purulence, no surrounding erythema. DERMATOLOGIC: Warm, dry. No generalized rash. NEUROLOGIC: Alert and oriented x 3, grossly nonfocal. PSYCHIATRIC: Cooperative, appropriate mood and affect. General: Alert, No acute distress Heart: Regular rate, No murmurs Lungs: Clear Abdomen: Normal bowel sounds, No tenderness Extremities: No clubbing, No cyanosis Skin: No rashes, Other (no itching) Labs LABS Laboratory Tests Test 10/24/20 21:51 10/25/20 07:12 10/25/20 07:20 10/25/20 11:00 Glucose (Fingerstick) 168 mg/dL (70-99) 161 mg/dL (70-99) 222 mg/dL (70-99) White Blood Count 7.3 x10^3/uL (4.0-11.0) Red Blood Count 3.47 x10^6/uL (4.30-5.70) Hemoglobin 9.8 g/dL (13.0-17.5) Hematocrit 29.8 % (39.0-53.0) Mean Corpuscular Volume 86 fL (79-100) Mean Corpuscular Hemoglobin 28 pg (25-35) Mean Corpuscular Hemoglobin Concent 33 g/dL (31-37) Red Cell Distribution Width 14.2 % (11.5-14.5) Platelet Count 448 x10^3/uL (140-400) Neutrophils (%) (Auto) 58 % (31-73) Lymphocytes (%) (Auto) 26 % (24-48) Monocytes (%) (Auto) 14 % (0-9) Eosinophils (%) (Auto) 2 % (0-3) Basophils (%) (Auto) 1 % (0-3) Neutrophils # (Auto) 4.2 x10^3/uL (1.8-7.7) Lymphocytes # (Auto) 1.9 x10^3/uL (1.0-4.8) Monocytes # (Auto) 1.0 x10^3/uL (0.0-1.1) Eosinophils # (Auto) 0.1 x10^3/uL (0.0-0.7) Basophils # (Auto) 0.1 x10^3/uL (0.0-0.2) Sodium Level 143 mmol/L (136-145) Potassium Level 3.5 mmol/L (3.5-5.1) Chloride Level 106 mmol/L (98-107) Carbon Dioxide Level 27 mmol/L (21-32) Anion Gap 10 (6-14) Blood Urea Nitrogen 5 mg/dL (8-26) Creatinine 1.1 mg/dL (0.7-1.3) Estimated GFR (Cockcroft-Gault) 80.5 Glucose Level 172 mg/dL (70-99) Calcium Level 8.3 mg/dL (8.5-10.1) Test 10/25/20 16:15 Glucose (Fingerstick) 222 mg/dL (70-99) Review of Systems Review of Systems Review of systems pertinent as per HPI otherwise 14 point review of system is negative Comment Review of Relevant I have reviewed the following items raudel (where applicable) has been applied. Labs Laboratory Tests Test 10/23/20 20:48 10/24/20 07:10 10/24/20 07:40 10/24/20 21:51 Glucose (Fingerstick) 154 mg/dL (70-99) 168 mg/dL (70-99) Sodium Level 144 mmol/L (136-145) Potassium Level 3.3 mmol/L (3.5-5.1) Chloride Level 107 mmol/L (98-107) Carbon Dioxide Level 28 mmol/L (21-32) Anion Gap 9 (6-14) Blood Urea Nitrogen 9 mg/dL (8-26) Creatinine 1.1 mg/dL (0.7-1.3) Estimated GFR (Cockcroft-Gault) 80.5 Glucose Level 68 mg/dL (70-99) Calcium Level 8.2 mg/dL (8.5-10.1) White Blood Count 6.8 x10^3/uL (4.0-11.0) Red Blood Count 3.35 x10^6/uL (4.30-5.70) Hemoglobin 9.4 g/dL (13.0-17.5) Hematocrit 28.9 % (39.0-53.0) Mean Corpuscular Volume 86 fL (79-100) Mean Corpuscular Hemoglobin 28 pg (25-35) Mean Corpuscular Hemoglobin Concent 33 g/dL (31-37) Red Cell Distribution Width 14.6 % (11.5-14.5) Platelet Count 430 x10^3/uL (140-400) Neutrophils (%) (Auto) 53 % (31-73) Lymphocytes (%) (Auto) 28 % (24-48) Monocytes (%) (Auto) 16 % (0-9) Eosinophils (%) (Auto) 3 % (0-3) Basophils (%) (Auto) 1 % (0-3) Neutrophils # (Auto) 3.6 x10^3/uL (1.8-7.7) Lymphocytes # (Auto) 1.9 x10^3/uL (1.0-4.8) Monocytes # (Auto) 1.1 x10^3/uL (0.0-1.1) Eosinophils # (Auto) 0.2 x10^3/uL (0.0-0.7) Basophils # (Auto) 0.0 x10^3/uL (0.0-0.2) Test 10/25/20 07:12 10/25/20 07:20 10/25/20 11:00 10/25/20 16:15 Glucose (Fingerstick) 161 mg/dL (70-99) 222 mg/dL (70-99) 222 mg/dL (70-99) White Blood Count 7.3 x10^3/uL (4.0-11.0) Red Blood Count 3.47 x10^6/uL (4.30-5.70) Hemoglobin 9.8 g/dL (13.0-17.5) Hematocrit 29.8 % (39.0-53.0) Mean Corpuscular Volume 86 fL (79-100) Mean Corpuscular Hemoglobin 28 pg (25-35) Mean Corpuscular Hemoglobin Concent 33 g/dL (31-37) Red Cell Distribution Width 14.2 % (11.5-14.5) Platelet Count 448 x10^3/uL (140-400) Neutrophils (%) (Auto) 58 % (31-73) Lymphocytes (%) (Auto) 26 % (24-48) Monocytes (%) (Auto) 14 % (0-9) Eosinophils (%) (Auto) 2 % (0-3) Basophils (%) (Auto) 1 % (0-3) Neutrophils # (Auto) 4.2 x10^3/uL (1.8-7.7) Lymphocytes # (Auto) 1.9 x10^3/uL (1.0-4.8) Monocytes # (Auto) 1.0 x10^3/uL (0.0-1.1) Eosinophils # (Auto) 0.1 x10^3/uL (0.0-0.7) Basophils # (Auto) 0.1 x10^3/uL (0.0-0.2) Sodium Level 143 mmol/L (136-145) Potassium Level 3.5 mmol/L (3.5-5.1) Chloride Level 106 mmol/L (98-107) Carbon Dioxide Level 27 mmol/L (21-32) Anion Gap 10 (6-14) Blood Urea Nitrogen 5 mg/dL (8-26) Creatinine 1.1 mg/dL (0.7-1.3) Estimated GFR (Cockcroft-Gault) 80.5 Glucose Level 172 mg/dL (70-99) Calcium Level 8.3 mg/dL (8.5-10.1) Laboratory Tests Test 10/24/20 21:51 10/25/20 07:12 10/25/20 07:20 10/25/20 11:00 Glucose (Fingerstick) 168 mg/dL (70-99) 161 mg/dL (70-99) 222 mg/dL (70-99) White Blood Count 7.3 x10^3/uL (4.0-11.0) Red Blood Count 3.47 x10^6/uL (4.30-5.70) Hemoglobin 9.8 g/dL (13.0-17.5) Hematocrit 29.8 % (39.0-53.0) Mean Corpuscular Volume 86 fL (79-100) Mean Corpuscular Hemoglobin 28 pg (25-35) Mean Corpuscular Hemoglobin Concent 33 g/dL (31-37) Red Cell Distribution Width 14.2 % (11.5-14.5) Platelet Count 448 x10^3/uL (140-400) Neutrophils (%) (Auto) 58 % (31-73) Lymphocytes (%) (Auto) 26 % (24-48) Monocytes (%) (Auto) 14 % (0-9) Eosinophils (%) (Auto) 2 % (0-3) Basophils (%) (Auto) 1 % (0-3) Neutrophils # (Auto) 4.2 x10^3/uL (1.8-7.7) Lymphocytes # (Auto) 1.9 x10^3/uL (1.0-4.8) Monocytes # (Auto) 1.0 x10^3/uL (0.0-1.1) Eosinophils # (Auto) 0.1 x10^3/uL (0.0-0.7) Basophils # (Auto) 0.1 x10^3/uL (0.0-0.2) Sodium Level 143 mmol/L (136-145) Potassium Level 3.5 mmol/L (3.5-5.1) Chloride Level 106 mmol/L (98-107) Carbon Dioxide Level 27 mmol/L (21-32) Anion Gap 10 (6-14) Blood Urea Nitrogen 5 mg/dL (8-26) Creatinine 1.1 mg/dL (0.7-1.3) Estimated GFR (Cockcroft-Gault) 80.5 Glucose Level 172 mg/dL (70-99) Calcium Level 8.3 mg/dL (8.5-10.1) Test 10/25/20 16:15 Glucose (Fingerstick) 222 mg/dL (70-99) Microbiology 10/21/20 Gram Stain - Final, Resulted 10/21/20 Aerobic and Anaerobic Culture - Preliminary, Resulted Medications Current Medications Vancomycin HCl (Vanco Per Pharmacy) 1 each PRN DAILY PRN MC SEE COMMENTS Last administered on 10/22/20at 11:29; Start 10/21/20 at 16:45; Stop 10/22/20 at 17:46; Status DC Piperacillin Sod/ Tazobactam Sod (Zosyn Per Pharmacy) 1 each PRN DAILY PRN MC SEE COMMENTS; Start 10/21/20 at 16:45 Vancomycin HCl 2 gm/Sodium Chloride 500 ml @ 250 mls/hr 1X ONCE IV Last administered on 10/21/20at 21:10; Start 10/21/20 at 18:00; Stop 10/21/20 at 19:59; Status DC Piperacillin Sod/ Tazobactam Sod 4.5 gm/Sodium Chloride 100 ml @ 200 mls/hr Q6HRS IV Last administered on 10/24/20at 17:34; Start 10/21/20 at 18:30 Vancomycin HCl 1.25 gm/Sodium Chloride 250 ml @ 167 mls/hr Q12H IV Last administered on 10/22/20at 10:07; Start 10/22/20 at 09:00; Stop 10/22/20 at 17:46; Status DC Vancomycin HCl (Vancomycin Trough Level) 1 each 1X ONCE MC ; Start 10/23/20 at 08:30; Stop 10/22/20 at 17:46; Status DC Sennosides (Senna) 17.2 mg PRN BID PRN PO CONSTIPATION; Start 10/21/20 at 19:30 Docusate Sodium (Colace) 100 mg PRN DAILY PRN PO HARD STOOLS; Start 10/21/20 at 19:30 Ondansetron HCl (Zofran) 4 mg PRN Q6HRS PRN IVP NAUSEA/VOMITING; Start at 19:30 Insulin Human Lispro (HumaLOG) 0-9 UNITS TIDWMEALS SQ Last administered on 10/22/20at 12:24; Start 10/22/20 at 08:00; Stop 10/22/20 at 21:20; Status DC Dextrose (Dextrose 50%-Water Syringe) 12.5 gm PRN Q15MIN PRN IV SEE COMMENTS; Start 10/21/20 at 19:30 Sodium Chloride 1,000 ml @ 100 mls/hr Q10H IV Last administered on 10/24/20at 08:12; Start 10/21/20 at 20:00 Acetaminophen (Tylenol) 650 mg PRN Q4HRS PRN GT TEMP OVER 100.4F OR MILD PAIN; Start 10/21/20 at 19:30 Enoxaparin Sodium (Lovenox 40mg Syringe) 40 mg Q24H SQ Last administered on 10/24/20 20:25; Start 10/21/20 at 21:00 Acetaminophen/ Hydrocodone Bitart (Lortab 5/325) 1 tab PRN Q4HRS PRN PO MODERATE PAIN 4-6; Start 10/21/20 at 19:30 Acetaminophen/ Hydrocodone Bitart (Lortab 5/325) 2 tab PRN Q4HRS PRN PO SEVERE PAIN 7-10 Last administered on 10/23/20 23:49; Start 10/21/20 at 19:30 Morphine Sulfate (Morphine Sulfate) 1 mg PRN Q1HR PRN IV MODERATE PAIN 4-6; Start 10/21/20 at 19:30 Morphine Sulfate (Morphine Sulfate) 2 mg PRN Q2HR PRN IVP SEVERE PAIN 7-10 Last administered on 10/23/20 23:51; Start 10/21/20 at 19:45 Lactobacillus Rhamnosus (Culturelle) 1 cap BID PO Last administered on 10/25/20 08:17; Start 10/21/20 at 23:00 Insulin Glargine (Lantus Syringe) 22 unit QHS SQ Last administered on 10/24/20 22:01; Start 10/21/20 at 23:00 Insulin Human Lispro (HumaLOG) 6 units TIDWMEALS SQ Last administered on 12:24; Start 10/22/20 at 08:00 Linezolid (Zyvox) 600 mg BID PO Last administered on 10/25/20 08:17; Start 10/22/20 at 21:00 Aspirin (Ecotrin) 81 mg DAILYWBKFT PO Last administered on 10/25/20 08:17; Start 10/22/20 at 19:30 Lisinopril (Prinivil) 40 mg DAILY PO Last administered on 10/25/20 08:17; Start 10/22/20 at 19:30 Pantoprazole Sodium (Protonix) 40 mg DAILYAC PO Last administered on 10/24/20 08:10; Start 10/22/20 at 19:30 Atorvastatin Calcium (Lipitor) 10 mg QHS PO Last administered on 10/24/20 20:26; Start 10/22/20 at 22:00 Insulin Human Lispro (HumaLOG) 0-9 UNITS TIDACHC SQ Last administered on 10/25/20at 08:23; Start 10/22/20 at 21:30 Hydralazine HCl (Apresoline Inj) 10 mg PRN Q4HRS PRN IVP ELEVATED BP, SEE COMMENTS Last administered on 10/25/20at 15:03; Start 10/23/20 at 17:30 Ondansetron HCl (Zofran Odt) 4 mg PRN Q6HRS PRN PO NAUSEA/VOMITING Last administered on 10/25/20at 17:17; Start 10/25/20 at 11:00 Bacitracin 97672 unit/Sodium Chloride 500 ml @ 500 mls/hr 1X ONCE IRR ; Start 10/26/20 at 06:00; Stop 10/26/20 at 06:59 Active Scripts Active Invanz (Ertapenem Sodium) 1 Gm Vial 1 Gm IJ DAILY 22 Days Aspirin Ec (Aspirin) 81 Mg Tablet. 81 Mg PO DAILYWBKFT 90 Days Reported Atorvastatin Calcium 10 Mg Tablet 1 Tab PO DAILY Acidophilus (Lactobacillus Acidophilus) 1 Each Capsule 1 Cap PO DAILY 14 Days Humalog (Insulin Lispro) 100 Unit/1 Ml Cartridge 6 Unit SQ TIDAC Tresiba (Insulin Degludec) 100 Unit/1 Ml Vial 22 Unit SQ HS Protonix (Pantoprazole Sodium) 20 Mg Tablet. 40 Mg PO DAILY Lisinopril 40 Mg Tablet 1 Tab PO DAILY Clopidogrel (Clopidogrel Bisulfate) 75 Mg Tablet 1 Tab PO DAILY Vitals/I & O Vital Sign - Last 24 Hours 10/24/20 10/24/20 10/24/20 10/24/20 20:00 20:40 23:19 23:27 Temp 98.6 98.6 Pulse 82 85 Resp 18 B/P (MAP) 168/76 (106) 188/72 (110) 162/60 (94) Pulse Ox 98 O2 Delivery Room Air Room Air 10/25/20 10/25/20 10/25/20 10/25/20 03:18 07:20 07:50 08:17 Temp 98.3 98.7 98.3 98.7 Pulse 96 94 94 Resp 18 18 B/P (MAP) 135/54 (81) 160/49 (86) 160/49 Pulse Ox 96 99 O2 Delivery Room Air Room Air Room Air 10/25/20 10/25/20 10/25/20 10/25/20 10:23 12:11 14:33 14:33 Temp 98.2 98.1 98.2 98.1 Pulse 98 98 95 Resp 18 18 B/P (MAP) 206/61 (109) 206/61 190/61 (104) 179/80 (113) Pulse Ox 100 100 O2 Delivery Room Air Room Air 10/25/20 10/25/20 14:34 15:03 Pulse 95 B/P (MAP) 181/76 (111) 181/76 Intake and Output 10/24/20 10/24/20 10/25/20 15:00 23:00 07:00 Intake Total 100 ml 1400 ml 720 ml Output Total 750 ml Balance 100 ml 1400 ml -30 ml Justicifation of Admission Dx: Justifications for Admission: Justification of Admission Dx: Yes ELIANE STREET MD Oct 25, 2020 19:20
[2020-10-25] MEDS: ATORVASTATIN CALCIUM 10 MG TABLET. PO SCH (20:46)
[2020-10-25] MEDS: ENOXAPARIN 40 MG/0.4 ML SYRINGE. SQ SCH (20:49)
[2020-10-25] MEDS: INSULIN GLARGINE SYRINGE. SQ SCH (20:53)
[2020-10-25] MEDS: ZOLPIDEM 5 MG TABLET. PO PRN (22:34)
[2020-10-26] VITALS (10 sets, daily range): BP systolic 131–178; BP diastolic 56–116
[2020-10-26] MEDS: PIPERACILLIN/TAZOBACTAM 4.5 GM in IV NORMAL SALINE 100ML 100 ML IV SCH ×2 (06:00)
[2020-10-26] MEDS ORDERED: BACITRACIN 50,000 UNIT in IV NORMAL SALINE 500ML BAG 500 ML IRR ONE (06:00)
[2020-10-26] MEDS: INSULIN LISPRO 300 UNITS/3 ML VIAL. SQ SCH ×7 (07:30→20:57)
[2020-10-26] MEDS: PANTOPRAZOLE 40 MG TABLET.DR. PO SCH (07:30)
[2020-10-26] MEDS: ASPIRIN ENTERIC COATED 81 MG TABLET.DR. PO SCH (08:00)
[2020-10-26] MEDS: LINEZOLID 600 MG TABLET PO SCH ×2 (08:07→20:51)
[2020-10-26] MEDS: LACTOBACILLUS RHAMNOSUS GG 1 CAPSULE. PO SCH ×2 (08:07→20:50)
[2020-10-26] MEDS: LISINOPRIL 20 MG TABLET PO SCH (09:00)
[2020-10-26] MEDS ORDERED: fentaNYL PF VIAL 100 MCG/2 ML VIAL ONE ×3 (09:15→13:06)
[2020-10-26] MEDS ORDERED: PROPOFOL 10 MG/ML (20ML) VIAL. IV ONE (09:17)
[2020-10-26] MEDS ORDERED: ONDANSETRON PF 4 MG/2 ML VIAL. ONE (09:17)
[2020-10-26] MEDS ORDERED: LIDOCAINE 2% PF 5 ML VIAL. ONE (09:17)
[2020-10-26] MEDS ORDERED: DEXAMETHASONE SOD PHOS 4 MG/ML VIAL ONE (09:17)
[2020-10-26 09:20] LABS: BASO # 0.1 x10^3/uL (0.0-0.2); BASO % 1 % (0-3); EOS # 0.1 x10^3/uL (0.0-0.7); EOS % 1 % (0-3); HEMATOCRIT 30.3 % (39.0-53.0); HEMOGLOBIN 10.1 g/dL (13.0-17.5); LYMPH # 1.8 x10^3/uL (1.0-4.8); LYMPH % 24 % (24-48); MEAN CORPUSCULAR HEMOGLOBIN 29 pg (25-35); MEAN CORPUSCULAR HGB CONC 33 g/dL (31-37); MEAN CORPUSCULAR VOLUME 86 fL (79-100); MONO # 1.1 x10^3/uL (0.0-1.1); MONO % 15 % (0-9); NEUT # 4.5 x10^3/uL (1.8-7.7); NEUT % 59 % (31-73); PLATELET COUNT 472 x10^3/uL (140-400); RED BLOOD COUNT 3.52 x10^6/uL (4.30-5.70); RED CELL DISTRIBUTION WIDTH 14.4 % (11.5-14.5); WHITE BLOOD COUNT 7.5 x10^3/uL (4.0-11.0)
[2020-10-26 09:27] LABS: CALCIUM 8.7 mg/dL (8.5-10.1); CREATININE 1.2 mg/dL (0.7-1.3); GFR 72.9; POTASSIUM 3.2 mmol/L (3.5-5.1)
--- NOTE | 2020-10-26 09:47 | NUR ---
SW following. Discussed with RN, pt from home with , room air, NOP, IV abx. Pt having surgery today for debridement and possible wound vac placement. SW will continue to follow.
--- NOTE | 2020-10-26 09:49 | PDOC ---
Infectious Disease Note Subjective Subjective pt seen in post op area, feeling good ROS ROS no n/v/d/sob Vital Sign Vital Signs Vital Signs Date Time Temp Pulse Resp B/P (MAP) Pulse Ox O2 Delivery O2 Flow Rate FiO2 10/26/20 09:37 97.4 89 19 192/86 98 Room Air 97.4 Physical Exam PHYSICAL EXAM GENERAL: Alert, oriented x 3, pleasant male, lying in bed comfortably, in no acute distress. HEENT: Normocephalic, atraumatic, anicteric. NECK: Supple, no JVD, no thyromegaly. LUNGS: Clear bilaterally. No wheezing. HEART: S1, S2. No gallops or murmurs. ABDOMEN: Soft, nontender, nondistended, no rebound, no guarding. EXTREMITIES: Right BKA stump looks healthy and healed well. Left TMA post surgery dressing not opened erythema. DERMATOLOGIC: Warm, dry. No generalized rash. NEUROLOGIC: Alert and oriented x 3, grossly nonfocal. PSYCHIATRIC: Cooperative, appropriate mood and affect. Labs Lab Laboratory Tests Test 10/25/20 11:00 10/25/20 16:15 10/25/20 20:30 10/26/20 07:25 Glucose (Fingerstick) 222 mg/dL (70-99) 222 mg/dL (70-99) 194 mg/dL (70-99) 102 mg/dL (70-99) Test 10/26/20 08:42 White Blood Count 7.5 x10^3/uL (4.0-11.0) Red Blood Count 3.52 x10^6/uL (4.30-5.70) Hemoglobin 10.1 g/dL (13.0-17.5) Hematocrit 30.3 % (39.0-53.0) Mean Corpuscular Volume 86 fL (79-100) Mean Corpuscular Hemoglobin 29 pg (25-35) Mean Corpuscular Hemoglobin Concent 33 g/dL (31-37) Red Cell Distribution Width 14.4 % (11.5-14.5) Platelet Count 472 x10^3/uL (140-400) Neutrophils (%) (Auto) 59 % (31-73) Lymphocytes (%) (Auto) 24 % (24-48) Monocytes (%) (Auto) 15 % (0-9) Eosinophils (%) (Auto) 1 % (0-3) Basophils (%) (Auto) 1 % (0-3) Neutrophils # (Auto) 4.5 x10^3/uL (1.8-7.7) Lymphocytes # (Auto) 1.8 x10^3/uL (1.0-4.8) Monocytes # (Auto) 1.1 x10^3/uL (0.0-1.1) Eosinophils # (Auto) 0.1 x10^3/uL (0.0-0.7) Basophils # (Auto) 0.1 x10^3/uL (0.0-0.2) Sodium Level 144 mmol/L (136-145) Potassium Level 3.2 mmol/L (3.5-5.1) Chloride Level 107 mmol/L (98-107) Carbon Dioxide Level 29 mmol/L (21-32) Anion Gap 8 (6-14) Blood Urea Nitrogen 7 mg/dL (8-26) Creatinine 1.2 mg/dL (0.7-1.3) Estimated GFR (Cockcroft-Gault) 72.9 Glucose Level 92 mg/dL (70-99) Calcium Level 8.7 mg/dL (8.5-10.1) Micro GRAM STAIN Final Final NO ORGANISMS SEEN. SQUAMOUS EPI CELL:RARE PMN (WBCs):NONE SEEN Unless otherwise specified, Testing Performed by: [address] [id number] For Inquires, the Physician may contact the Microbiology department at [phone] ANAEROBIC-AEROBIC CULTURE Preliminary Preliminary MIXED AEROBIC VIKRAM on 10/25/20 at 0957 INCLUDING: MODERATE GRAM POSITIVE COCCI FINAL ID= [ENTEROCOCCUS FAECALIS] FINAL ID= [STAPHYLOCOCCUS AUREUS] MODERATE GRAM NEGATIVE RODS FINAL ID= [CITROBACTER FREUNDII CMPLX] FINAL ID= [PSEUDOMONAS AERUGINOSA] UNIDENTIFIED ORGANISM ENTEROCOCCUS FAECALIS CITROBACTER FREUNDI CITROBACTER FREUNDII CMPLX PSEUDOMONAS AERUGINOSA STAPHYLOCOCCUS AUREUS Unless otherwise specified, Testing Performed by: [address] [id number] For Inquires, the Physician may contact the Microbiology department at [phone] Objective Assessment 1. Left foot open wound with eschar with underlying chronic nonhealing LT TMA wound. 2. Severe peripheral vascular disease. 3. Status post deep venous arterialization of the left foot via posterior tibial artery [address] [facility]. 4. Diabetes. 5. Peripheral neuropathy. 6. Hypertension. 7. Hyperlipidemia. 8. Status post right dxlvy-jye-edrs amputation. Plan Plan of Care Continue cefepime and linezolid. Vascular Surgery has evaluated the patient. May need further incision and drainage. U/S report noted Follow up labs and cultures. Continue local wound care as directed. Continue supportive care. JESUS JAVIER MD Oct 26, 2020 09:49
[2020-10-26] MEDS: IV NORMAL SALINE 1000ML BAG 1,000 ML IV SCH ×4 (10:00→23:00)
[2020-10-26] MEDS: IV RINGERS,LACTATED 1000ML 1,000 ML IV SCH ×2 (10:39→18:45)
[2020-10-26] MEDS ORDERED: SURGICEL FIBRILLAR 1X2 EACH. ONE (10:43)
[2020-10-26] MEDS ORDERED: LIDOCAINE 1% Multi-Dose 20 ML VIAL. ONE (10:43)
[2020-10-26] MEDS ORDERED: fentaNYL PF VIAL 100 MCG/2 ML VIAL IV PRN (10:45)
[2020-10-26] MEDS ORDERED: MIDAZOLAM HCL/PF 2 MG/2 ML VIAL. IV PRN (10:45)
[2020-10-26] MEDS ORDERED: LIDOCAINE 1% PF 2 ML VIAL. ID PRN (10:45)
[2020-10-26] MEDS ORDERED: ceFAZolin SODIUM IV Push 1 GM VIAL. IVP ONE (10:58)
[2020-10-26] MEDS ORDERED: ceFAZolin SODIUM IV Push 1 GM VIAL. IVP PRN ×2 (11:00)
--- NOTE | 2020-10-26 11:31 | PDOC ---
BRIEF OPERATIVE NOTE Date: Oct 26, 2020 Pre-Op Diagnosis PVD, left open TMA with wound bed necrosis Post-Op Diagnosis same Procedure Performed Left transmetatarsal amputation excisional debridement of skin, subcutaneous tissue and bone Surgeon Dr. Barcenas Vat Packer Sharon Mckenzie NP Anesthesia Type: General Blood Loss 10cc Specimens Obtained discarded Findings adequate bleeding from tissue, no purulent drainage Complications none Operative Note see dictated note SHARON MCKENZIE COMMUNITY SERVICE SPECIALIST Oct 26, 2020 11:31
[2020-10-26] MEDS: fentaNYL PF VIAL 100 MCG/2 ML VIAL IV PRN ×3 (11:39→13:14)
--- NOTE | 2020-10-26 11:52 | OP ---
DATE OF SURGERY: 10/26/2020 SURGEON: Merline Barcenas MD VIDEO PRODUCTION SPECIALIST: Qiana Tesfaye, nurse practitioner. PREOPERATIVE DIAGNOSIS: Previous left open transmetatarsal amputation, which has developed black gangrene throughout portions of the wound and exposed bone. POSTOPERATIVE DIAGNOSIS: Previous left open transmetatarsal amputation, which has developed black gangrene throughout portions of the wound and exposed bone. OPERATION PERFORMED: Left open transmetatarsal amputation wound debridement sharply excising necrotic skin, subcutaneous tissue, tendon, and fifth metatarsal bone. Measurements after debridement were 9 cm in length x 7 cm in width x 1 cm in depth. ANESTHESIA USED: General anesthesia. DETAILS OF THE OPERATION: The patient was brought to the operating room and placed on table in supine position. He received general anesthesia monitored throughout the case by the anesthesiologist. His left foot and ankle were prepped and draped circumferentially by normal sterile fashion. He has an open transmetatarsal amputation wound. There is black gangrene throughout the lateral and inferior portion of the wound, which was sharply excised, removing the necrotic skin and subcutaneous tissue. There was exposed fifth metatarsal bone, which was brought back within the wound with a rongeur, excising it. We continued debridement until there was no further necrotic tissue seen. There was good bleeding, which was controlled with electrocautery. We irrigated the wound with copious amounts of antibiotic solution. We packed the wound with antibiotic-soaked gauze, covered it with a Kerlix wrap and an Lucas bandage. He tolerated the surgery well with no immediate complications. Qiana Tesfaye was scrubbed throughout the entire length of the case. SPECIMEN REMOVED: None. MERLINE BARCENAS MD DR: CEASAR/marbella JOB#: [id number] / [id number]
[2020-10-26] MEDS: MORPHINE SULFATE 2 MG/ML VIAL. IVP PRN ×2 (12:35→18:56)
[2020-10-26] MEDS: CEFEPIME HCL IV Push 2 GM VIAL. IVP SCH ×2 (14:30→22:49)
[2020-10-26] MEDS: hydrALAZINE 20 MG/ML VIAL. IVP PRN (14:42)
--- NOTE | 2020-10-26 16:37 | PDOC ---
PROGRESS NOTES Date of Service: DATE: 10/26/20 TIME: 16:33 Chief Complaint Chief Complaint Diabetic left foot infection Diabetes Peripheral vascular disease Right [id number] amputation Left transmetatarsal amputation GERD Plan Continue Zosyn and linezolid. Vascular Surgery will take patient for debridement today Follow cultures. Continue local wound care as directed. Continue supportive care. Further recommendations based on the clinical course History of Present Illness History of Present Illness The patient is a pleasant middle-aged male, who has diabetic peripheral vascular disease. 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 Now, the left foot has a dior smetatarsal amputation, but the stump is somewhat infected, it is draining. There are gangrenous eschar on the plantar and lateral aspects of the skin. I discussed the case with the ER physician. We admitted the patient with consultation to Dr. Mio Suarez, Vascular Surgery. 10/23 Patient seen and examined Chart reviewed Discussed with RN Patient is comfortable and was resting when we seen him 10/24 Patient seen and examined Chart reviewed Discussed with RN Patient is comfortable, denies any new symptoms 10/25 No acute events reported overnight, case discussed with nursing staff patient in no acute distress no complaints during my visit 10/26 No acute events reported overnight, no fever no chills pain seems to be well controlled Patient will go to the OR later reassurance has been provided no complaints voiced during my visit Vitals Vitals Vital Signs Date Time Temp Pulse Resp B/P (MAP) Pulse Ox O2 Delivery O2 Flow Rate FiO2 10/26/20 15:58 97 148/69 (95) 99 Room Air 10/26/20 14:00 98.9 16 98.9 10/26/20 12:54 10. Physical Exam Physical Exam GENERAL: Alert, oriented x 3, pleasant male, lying in bed comfortably, in no acute distress. HEENT: Normocephalic, atraumatic, anicteric. NECK: Supple, no JVD, no thyromegaly. LUNGS: Clear bilaterally. No wheezing. HEART: S1, S2. No gallops or murmurs. ABDOMEN: Soft, nontender, nondistended, no rebound, no guarding. EXTREMITIES: Right BKA stump looks healthy and healed well. Left TMA has an open wound, gangrenous eschar changes present over the lateral and plantar aspect of the amputation site. No fluctuance, no purulence, no surrounding erythema. DERMATOLOGIC: Warm, dry. No generalized rash. NEUROLOGIC: Alert and oriented x 3, grossly nonfocal. PSYCHIATRIC: Cooperative, appropriate mood and affect. General: Alert, No acute distress Heart: Regular rate, No murmurs Lungs: Clear Abdomen: Normal bowel sounds, No tenderness Extremities: No clubbing, No cyanosis Skin: No rashes, Other (no itching) Labs LABS Laboratory Tests Test 10/25/20 20:30 10/26/20 07:25 10/26/20 08:42 10/26/20 12:33 Glucose (Fingerstick) 194 mg/dL (70-99) 102 mg/dL (70-99) 87 mg/dL (70-99) White Blood Count 7.5 x10^3/uL (4.0-11.0) Red Blood Count 3.52 x10^6/uL (4.30-5.70) Hemoglobin 10.1 g/dL (13.0-17.5) Hematocrit 30.3 % (39.0-53.0) Mean Corpuscular Volume 86 fL (79-100) Mean Corpuscular Hemoglobin 29 pg (25-35) Mean Corpuscular Hemoglobin Concent 33 g/dL (31-37) Red Cell Distribution Width 14.4 % (11.5-14.5) Platelet Count 472 x10^3/uL (140-400) Neutrophils (%) (Auto) 59 % (31-73) Lymphocytes (%) (Auto) 24 % (24-48) Monocytes (%) (Auto) 15 % (0-9) Eosinophils (%) (Auto) 1 % (0-3) Basophils (%) (Auto) 1 % (0-3) Neutrophils # (Auto) 4.5 x10^3/uL (1.8-7.7) Lymphocytes # (Auto) 1.8 x10^3/uL (1.0-4.8) Monocytes # (Auto) 1.1 x10^3/uL (0.0-1.1) Eosinophils # (Auto) 0.1 x10^3/uL (0.0-0.7) Basophils # (Auto) 0.1 x10^3/uL (0.0-0.2) Sodium Level 144 mmol/L (136-145) Potassium Level 3.2 mmol/L (3.5-5.1) Chloride Level 107 mmol/L (98-107) Carbon Dioxide Level 29 mmol/L (21-32) Anion Gap 8 (6-14) Blood Urea Nitrogen 7 mg/dL (8-26) Creatinine 1.2 mg/dL (0.7-1.3) Estimated GFR (Cockcroft-Gault) 72.9 Glucose Level 92 mg/dL (70-99) Calcium Level 8.7 mg/dL (8.5-10.1) Comment Review of Relevant I have reviewed the following items raudel (where applicable) has been applied. Labs Laboratory Tests Test 10/24/20 21:51 10/25/20 07:12 10/25/20 07:20 10/25/20 11:00 Glucose (Fingerstick) 168 mg/dL (70-99) 161 mg/dL (70-99) 222 mg/dL (70-99) White Blood Count 7.3 x10^3/uL (4.0-11.0) Red Blood Count 3.47 x10^6/uL (4.30-5.70) Hemoglobin 9.8 g/dL (13.0-17.5) Hematocrit 29.8 % (39.0-53.0) Mean Corpuscular Volume 86 fL (79-100) Mean Corpuscular Hemoglobin 28 pg (25-35) Mean Corpuscular Hemoglobin Concent 33 g/dL (31-37) Red Cell Distribution Width 14.2 % (11.5-14.5) Platelet Count 448 x10^3/uL (140-400) Neutrophils (%) (Auto) 58 % (31-73) Lymphocytes (%) (Auto) 26 % (24-48) Monocytes (%) (Auto) 14 % (0-9) Eosinophils (%) (Auto) 2 % (0-3) Basophils (%) (Auto) 1 % (0-3) Neutrophils # (Auto) 4.2 x10^3/uL (1.8-7.7) Lymphocytes # (Auto) 1.9 x10^3/uL (1.0-4.8) Monocytes # (Auto) 1.0 x10^3/uL (0.0-1.1) Eosinophils # (Auto) 0.1 x10^3/uL (0.0-0.7) Basophils # (Auto) 0.1 x10^3/uL (0.0-0.2) Sodium Level 143 mmol/L (136-145) Potassium Level 3.5 mmol/L (3.5-5.1) Chloride Level 106 mmol/L (98-107) Carbon Dioxide Level 27 mmol/L (21-32) Anion Gap 10 (6-14) Blood Urea Nitrogen 5 mg/dL (8-26) Creatinine 1.1 mg/dL (0.7-1.3) Estimated GFR (Cockcroft-Gault) 80.5 Glucose Level 172 mg/dL (70-99) Calcium Level 8.3 mg/dL (8.5-10.1) Test 10/25/20 16:15 10/25/20 20:30 10/26/20 07:25 10/26/20 08:42 Glucose (Fingerstick) 222 mg/dL (70-99) 194 mg/dL (70-99) 102 mg/dL (70-99) White Blood Count 7.5 x10^3/uL (4.0-11.0) Red Blood Count 3.52 x10^6/uL (4.30-5.70) Hemoglobin 10.1 g/dL (13.0-17.5) Hematocrit 30.3 % (39.0-53.0) Mean Corpuscular Volume 86 fL (79-100) Mean Corpuscular Hemoglobin 29 pg (25-35) Mean Corpuscular Hemoglobin Concent 33 g/dL (31-37) Red Cell Distribution Width 14.4 % (11.5-14.5) Platelet Count 472 x10^3/uL (140-400) Neutrophils (%) (Auto) 59 % (31-73) Lymphocytes (%) (Auto) 24 % (24-48) Monocytes (%) (Auto) 15 % (0-9) Eosinophils (%) (Auto) 1 % (0-3) Basophils (%) (Auto) 1 % (0-3) Neutrophils # (Auto) 4.5 x10^3/uL (1.8-7.7) Lymphocytes # (Auto) 1.8 x10^3/uL (1.0-4.8) Monocytes # (Auto) 1.1 x10^3/uL (0.0-1.1) Eosinophils # (Auto) 0.1 x10^3/uL (0.0-0.7) Basophils # (Auto) 0.1 x10^3/uL (0.0-0.2) Sodium Level 144 mmol/L (136-145) Potassium Level 3.2 mmol/L (3.5-5.1) Chloride Level 107 mmol/L (98-107) Carbon Dioxide Level 29 mmol/L (21-32) Anion Gap 8 (6-14) Blood Urea Nitrogen 7 mg/dL (8-26) Creatinine 1.2 mg/dL (0.7-1.3) Estimated GFR (Cockcroft-Gault) 72.9 Glucose Level 92 mg/dL (70-99) Calcium Level 8.7 mg/dL (8.5-10.1) Test 10/26/20 12:33 Glucose (Fingerstick) 87 mg/dL (70-99) Laboratory Tests Test 10/25/20 20:30 10/26/20 07:25 10/26/20 08:42 10/26/20 12:33 Glucose (Fingerstick) 194 mg/dL (70-99) 102 mg/dL (70-99) 87 mg/dL (70-99) White Blood Count 7.5 x10^3/uL (4.0-11.0) Red Blood Count 3.52 x10^6/uL (4.30-5.70) Hemoglobin 10.1 g/dL (13.0-17.5) Hematocrit 30.3 % (39.0-53.0) Mean Corpuscular Volume 86 fL (79-100) Mean Corpuscular Hemoglobin 29 pg (25-35) Mean Corpuscular Hemoglobin Concent 33 g/dL (31-37) Red Cell Distribution Width 14.4 % (11.5-14.5) Platelet Count 472 x10^3/uL (140-400) Neutrophils (%) (Auto) 59 % (31-73) Lymphocytes (%) (Auto) 24 % (24-48) Monocytes (%) (Auto) 15 % (0-9) Eosinophils (%) (Auto) 1 % (0-3) Basophils (%) (Auto) 1 % (0-3) Neutrophils # (Auto) 4.5 x10^3/uL (1.8-7.7) Lymphocytes # (Auto) 1.8 x10^3/uL (1.0-4.8) Monocytes # (Auto) 1.1 x10^3/uL (0.0-1.1) Eosinophils # (Auto) 0.1 x10^3/uL (0.0-0.7) Basophils # (Auto) 0.1 x10^3/uL (0.0-0.2) Sodium Level 144 mmol/L (136-145) Potassium Level 3.2 mmol/L (3.5-5.1) Chloride Level 107 mmol/L (98-107) Carbon Dioxide Level 29 mmol/L (21-32) Anion Gap 8 (6-14) Blood Urea Nitrogen 7 mg/dL (8-26) Creatinine 1.2 mg/dL (0.7-1.3) Estimated GFR (Cockcroft-Gault) 72.9 Glucose Level 92 mg/dL (70-99) Calcium Level 8.7 mg/dL (8.5-10.1) Microbiology 10/21/20 Gram Stain - Final, Resulted 10/21/20 Aerobic and Anaerobic Culture - Preliminary, Resulted 10/21/20 Antimicrobic Susceptibility - Preliminary, Resulted Medications Current Medications Vancomycin HCl (Vanco Per Pharmacy) 1 each PRN DAILY PRN MC SEE COMMENTS Last administered on 10/22/20at 11:29; Start 10/21/20 at 16:45; Stop 10/22/20 at 17:46; Status DC Piperacillin Sod/ Tazobactam Sod (Zosyn Per Pharmacy) 1 each PRN DAILY PRN MC SEE COMMENTS; Start 10/21/20 at 16:45; Stop 10/26/20 at 15:58; Status DC Vancomycin HCl 2 gm/Sodium Chloride 500 ml @ 250 mls/hr 1X ONCE IV Last administered on 10/21/20at 21:10; Start 10/21/20 at 18:00; Stop 10/21/20 at 19:59; Status DC Piperacillin Sod/ Tazobactam Sod 4.5 gm/Sodium Chloride 100 ml @ 200 mls/hr Q6HRS IV Last administered on 10/24/20at 17:34; Start 12/31/20 at 18:30; Stop 10/26/20 at 11:50; Status DC Vancomycin HCl 1.25 gm/Sodium Chloride 250 ml @ 167 mls/hr Q12H IV Last administered on 10/22/20at 10:07; Start 10/22/20 at 09:00; Stop 10/22/20 at 17:46; Status DC Vancomycin HCl (Vancomycin Trough Level) 1 each 1X ONCE MC ; Start 10/23/20 at 08:30; Stop 10/22/20 at 17:46; Status DC Sennosides (Senna) 17.2 mg PRN BID PRN PO CONSTIPATION; Start 10/21/20 at 19:30 Docusate Sodium (Colace) 100 mg PRN DAILY PRN PO HARD STOOLS; Start 10/21/20 at 19:30 Ondansetron HCl (Zofran) 4 mg PRN Q6HRS PRN IVP NAUSEA/VOMITING; Start 10/21/20 at 19:30 Insulin Human Lispro (HumaLOG) 0-9 UNITS TIDWMEALS SQ Last administered on 10/22/20at 12:24; Start 10/22/20 at 08:00; Stop 10/22/20 at 21:20; Status DC Dextrose (Dextrose 50%-Water Syringe) 12.5 gm PRN Q15MIN PRN IV SEE COMMENTS; Start 10/21/20 at 19:30 Sodium Chloride 1,000 ml @ 100 mls/hr Q10H IV Last administered on 10/26/20at 14:30; Start 10/21/20 at 20:00 Acetaminophen (Tylenol) 650 mg PRN Q4HRS PRN GT TEMP OVER 100.4F OR MILD PAIN; Start 10/21/20 at 19:30 Enoxaparin Sodium (Lovenox 40mg Syringe) 40 mg Q24H SQ Last administered on 10/25/20at 20:49; Start 10/21/20 at 21:00 Acetaminophen/ Hydrocodone Bitart (Lortab 5/325) 1 tab PRN Q4HRS PRN PO MODERATE PAIN 4-6; Start 10/21/20 at 19:30 Acetaminophen/ Hydrocodone Bitart (Lortab 5/325) 2 tab PRN Q4HRS PRN PO SEVERE PAIN 7-10 Last administered on 10/23/20at 23:49; Start 10/21/20 at 19:30 Morphine Sulfate (Morphine Sulfate) 1 mg PRN Q1HR PRN IV MODERATE PAIN 4-6; Start 10/21/20 at 19:30 Morphine Sulfate (Morphine Sulfate) 2 mg PRN Q2HR PRN IVP SEVERE PAIN 7-10 Last administered on 10/26/20 12:35; Start 10/21/20 at 19:45 Lactobacillus Rhamnosus (Culturelle) 1 cap BID PO Last administered on 10/25/20 20:46; Start 10/21/20 at 23:00 Insulin Glargine (Lantus Syringe) 22 unit QHS SQ Last administered on 10/25/20 20:53; Start 10/21/20 at 23:00 Insulin Human Lispro (HumaLOG) 6 units TIDWMEALS SQ Last administered on 10/24/20 12:24; Start 10/22/20 at 08:00 Linezolid (Zyvox) 600 mg BID PO Last administered on 10/25/20 08:17; Start 10/22/20 at 21:00 Aspirin (Ecotrin) 81 mg DAILYWBKFT PO Last administered on 10/25/20 08:17; Start 10/22/20 at 19:30 Lisinopril (Prinivil) 40 mg DAILY PO Last administered on 10/25/20 08:17; Start 10/22/20 at 19:30 Pantoprazole Sodium (Protonix) 40 mg DAILYAC PO Last administered on 10/24/20 08:10; Start 10/22/20 at 19:30 Atorvastatin Calcium (Lipitor) 10 mg QHS PO Last administered on 10/25/20 20:46; Start 10/22/20 at 22:00 Insulin Human Lispro (HumaLOG) 0-9 UNITS TIDACHC SQ Last administered on 10/25/20 08:23; Start 10/22/20 at 21:30 Hydralazine HCl (Apresoline Inj) 10 mg PRN Q4HRS PRN IVP ELEVATED BP, SEE COM MENTS Last administered on 10/26/20 14:42; Start 10/23/20 at 17:30 Ondansetron HCl (Zofran Odt) 4 mg PRN Q6HRS PRN PO NAUSEA/VOMITING Last administered on 1/4/21at 17:17; Start 10/25/20 at 11:00 Bacitracin 33464 unit/Sodium Chloride 500 ml @ 500 mls/hr 1X ONCE IRR Last administered on 10/26/20at 11:11; Start 10/26/20 at 06:00; Stop 10/26/20 at 06:59; Status DC Zolpidem Tartrate (Ambien) 5 mg PRN QHS PRN PO INSOMNIA Last administered on 10/25/20at 22:34; Start 10/25/20 at 21:30 Fentanyl Citrate (Fentanyl 2ml Vial) 100 mcg STK-MED ONCE .ROUTE ; Start 10/26/20 at 09:15; Stop 10/26/20 at 09:15; Status DC Dexamethasone Sodium Phosphate (Decadron) 4 mg STK-MED ONCE .ROUTE ; Start 10/26/20 at 09:17; Stop 10/26/20 at 09:18; Status DC Ondansetron HCl (Zofran) 4 mg STK-MED ONCE .ROUTE ; Start 10/26/20 at 09:17; Stop 10/26/20 at 09:18; Status DC Lidocaine HCl (Lidocaine Pf 2% Vial) 5 ml STK-MED ONCE .ROUTE ; Start 10/26/20 at 09:17; Stop 10/26/20 at 09:18; Status DC Propofol (Diprivan) 200 mg STK-MED ONCE IV ; Start 10/26/20 at 09:17; Stop 10/26/20 at 09:18; Status DC Midazolam HCl (Versed) 2 mg PRN 1X PRN IV PRIOR TO PROCEDURE; Start 10/26/20 at 10:45; Stop 10/26/20 at 15:00; Status DC Fentanyl Citrate (Fentanyl 2ml Vial) 25 mcg PRN Q5MIN PRN IV X 2 DOSES FOR PAIN; Start 10/26/20 at 10:45; Stop 10/26/20 at 15:00; Status DC Fentanyl Citrate (Fentanyl 2ml Vial) 50 mcg PRN Q5MIN PRN IV X 2 DOSES FOR PAIN Last administered on 10/26/20at 13:14; Start 10/26/20 at 10:45; Stop 10/26/20 at 20:00 Ringer's Solution 1,000 ml @ 125 mls/hr Q8H IV Last administered on 10/26/20at 10:39; Start 10/26/20 at 10:45; Stop 10/26/20 at 22:44 Lidocaine HCl (Xylocaine-Mpf 1% 2ml Vial) 2 ml 1X PRN PRN ID IV START; Start 10/26/20 at 10:45; Stop 10/26/20 at 15:00; Status DC Lidocaine HCl (Lidocaine 1% 20ml Vial) 20 ml STK-MED ONCE .ROUTE ; Start 10/26/20 at 10:43; Stop 10/26/20 at 10:44; Status DC Cellulose (Surgicel Fibrillar 1x2) 1 each STK-MED ONCE .ROUTE ; Start 10/26/20 at 10:43; Stop 10/26/20 at 10:44; Status DC Cefazolin Sodium (Ancef) 1 gm STK-MED ONCE IVP ; Start 10/26/20 at 10:58; Stop 10/26/20 at 10:58; Status DC Cefazolin Sodium (Ancef) 1 gm 1X PREOP PRN IVP PRIOR TO PROCEDURE Last administered on 10/26/20at 11:09; Start 10/26/20 at 11:00 Cefazolin Sodium (Ancef) 1 gm 1X PREOP PRN IVP PRIOR TO PROCEDURE Last administered on 10/26/20at 11:09; Start 10/26/20 at 11:00 Fentanyl Citrate (Fentanyl 2ml Vial) 100 mcg STK-MED ONCE .ROUTE ; Start 10/26/20 at 11:32; Stop 10/26/20 at 11:32; Status DC Cefepime HCl (Maxipime) 2 gm Q8HRS IVP Last administered on 10/26/20at 14:30; Start 10/26/20 at 14:00 Fentanyl Citrate (Fentanyl 2ml Vial) 100 mcg STK-MED ONCE .ROUTE ; Start 10/26/20 at 13:06; Stop 10/26/20 at 13:07; Status DC Active Scripts Active Invanz (Ertapenem Sodium) 1 Gm Vial 1 Gm IJ DAILY 22 Days Aspirin Ec (Aspirin) 81 Mg Tablet.dr 81 Mg PO DAILYWBKFT 90 Days Reported Atorvastatin Calcium 10 Mg Tablet 1 Tab PO DAILY Acidophilus (Lactobacillus Acidophilus) 1 Each Capsule 1 Cap PO DAILY 14 Days Humalog (Insulin Lispro) 100 Unit/1 Ml Cartridge 6 Unit SQ TIDAC Tresiba (Insulin Degludec) 100 Unit/1 Ml Vial 22 Unit SQ HS Protonix (Pantoprazole Sodium) 20 Mg Tablet.dr 40 Mg PO DAILY Lisinopril 40 Mg Tablet 1 Tab PO DAILY Clopidogrel (Clopidogrel Bisulfate) 75 Mg Tablet 1 Tab PO DAILY Vitals/I & O Vital Sign - Last 24 Hours 10/25/20 10/25/20 10/25/20 10/26/20 19:46 20:00 23:13 07:00 Temp 98.4 98.2 98.5 98.4 98.2 98.5 Pulse 87 69 99 Resp 20 18 18 B/P (MAP) 147/62 (90) 131/50 (77) 139/65 (89) Pulse Ox 100 98 97 O2 Delivery Room Air Room Air Room Air Room Air 10/26/20 10/26/20 10/26/20 10/26/20 07:50 09:00 09:37 11:24 Temp 97.4 97.4 97.4 97.4 Pulse 99 89 86 Resp 19 16 B/P (MAP) 139/65 192/86 142/66 Pulse Ox 98 99 O2 Delivery Room Air Room Air Room Air O2 Flow Rate 10 10/26/20 10/26/20 10/26/20 10/26/20 11:30 11:39 11:39 11:54 Temp 97.4 97.4 97.4 97.4 Pulse 90 86 Resp 17 20 19 B/P (MAP) 159/75 145/73 Pulse Ox 100 100 100 O2 Delivery Room Air Room Air Simple Mask Simple Mask O2 Flow Rate 10. 10.0 10 10/26/20 10/26/20 10/26/20 10/26/20 12:00 12:09 12:24 12:35 Temp 97.4 97.4 97.4 97.4 Pulse 82 80 Resp 18 17 18 17 B/P (MAP) 151/70 153/72 Pulse Ox 100 100 100 99 O2 Delivery Simple Mask Simple Mask Simple Mask Room Air O2 Flow Rate 10.0 10. 10. 10/26/20 10/26/20 10/26/20 10/26/20 12:39 12:54 13:09 13:14 Temp 97.4 97.4 97.4 97.4 97.4 97.4 Pulse 82 82 80 Resp 17 18 18 18 B/P (MAP) 166/73 166/73 160/76 Pulse Ox 98 97 96 99 O2 Delivery Simple Mask Simple Mask Room Air Room Air O2 Flow Rate 10. 10. 10/26/20 10/26/20 10/26/20 10/26/20 13:24 13:39 14:00 14:05 Temp 97.4 97.4 98.9 97.4 97.4 98.9 Pulse 90 84 89 Resp 20 20 16 B/P (MAP) 161/75 165/76 173/85 (114) Pulse Ox 99 99 95 O2 Delivery Room Air Room Air Room Air Room Air 10/26/20 10/26/20 10/26/20 10/26/20 14:15 14:30 14:42 14:45 Pulse 93 89 84 89 B/P (MAP) 155/78 (103) 165/81 (109) 178/116 178/116 (136) Pulse Ox 96 95 95 O2 Delivery Room Air Room Air Room Air 10/26/20 10/26/20 10/26/20 14:58 15:30 15:58 Pulse 86 96 97 B/P (MAP) 151/68 (95) 160/64 (96) 148/69 (95) Pulse Ox 95 95 99 O2 Delivery Room Air Room Air Room Air Intake and Output 10/25/20 10/25/20 10/26/20 15:00 23:00 07:00 Intake Total 400 ml 300 ml Output Total 200 ml 900 ml Balance -200 ml -500 ml 300 ml Justicifation of Admission Dx: Justifications for Admission: Justification of Admission Dx: Yes ELIANE STREET MD Oct 26, 2020 16:37
[2020-10-26] MEDS: ATORVASTATIN CALCIUM 10 MG TABLET. PO SCH (20:50)
[2020-10-26] MEDS: ENOXAPARIN 40 MG/0.4 ML SYRINGE. SQ SCH (20:52)
[2020-10-26] MEDS: INSULIN GLARGINE SYRINGE. SQ SCH (20:56)
[2020-10-26] MEDS: ZOLPIDEM 5 MG TABLET. PO PRN (22:49)
[2020-10-27] MEDS: MORPHINE SULFATE 2 MG/ML VIAL. IVP PRN ×3 (01:35→12:06)
[2020-10-27] MEDS: CEFEPIME HCL IV Push 2 GM VIAL. IVP SCH (06:18)
[2020-10-27 07:00] VITALS: BP 142/68
[2020-10-27 07:10] LABS: BASO % 0 % (0-3); EOS % 0 % (0-3); HEMATOCRIT 28.4 % (39.0-53.0); HEMOGLOBIN 9.4 g/dL (13.0-17.5); LYMPH # 2.3 x10^3/uL (1.0-4.8); LYMPH % 22 % (24-48); MEAN CORPUSCULAR HEMOGLOBIN 29 pg (25-35); MEAN CORPUSCULAR HGB CONC 33 g/dL (31-37); MEAN CORPUSCULAR VOLUME 86 fL (79-100); MONO # 1.4 x10^3/uL (0.0-1.1); MONO % 14 % (0-9); NEUT # 6.6 x10^3/uL (1.8-7.7); NEUT % 64 % (31-73); PLATELET COUNT 444 x10^3/uL (140-400); RED BLOOD COUNT 3.29 x10^6/uL (4.30-5.70); RED CELL DISTRIBUTION WIDTH 14.5 % (11.5-14.5); WHITE BLOOD COUNT 10.3 x10^3/uL (4.0-11.0)
[2020-10-27] MEDS: INSULIN LISPRO 300 UNITS/3 ML VIAL. SQ SCH ×4 (07:30→12:10)
--- NOTE | 2020-10-27 07:38 | PDOC ---
Provider Note Date of Service: DATE: 10/27/20 TIME: 07:35 Provider Note Provider Note Vascular S: Patient seen and examined in room. Patient complains of mild TMA stump pain. Patient is anxious to go home due to some social issues. O: Awake and alert Vital signs stable, afebrile Dressing dry and intact to left foot A/P: Postop day 1 left transmetatarsal amputation revision with debridement of skin, subcutaneous tissue and bone. Wound VAC placement today. Antibiotics per infectious disease Patient may be heel touch only for weightbearing Okay from a surgical standpoint for patient to discharge home with strict follow-up with wound care center on Sunday. Patient states he still has home wound vac. Follow up in our office as scheduled. Justicifation of Admission Dx: Justifications for Admission: Justification of Admission Dx: Yes SHARON MCKENZIE APRN Oct 27, 2020 07:38
[2020-10-27 07:48] LABS: CALCIUM 8.3 mg/dL (8.5-10.1); CREATININE 1.3 mg/dL (0.7-1.3); GFR 66.4; POTASSIUM 3.2 mmol/L (3.5-5.1)
[2020-10-27] MEDS: PANTOPRAZOLE 40 MG TABLET.DR. PO SCH (08:53)
[2020-10-27] MEDS: LACTOBACILLUS RHAMNOSUS GG 1 CAPSULE. PO SCH (08:53)
[2020-10-27] MEDS: ASPIRIN ENTERIC COATED 81 MG TABLET.DR. PO SCH (08:53)
[2020-10-27] MEDS: LINEZOLID 600 MG TABLET PO SCH (08:53)
[2020-10-27] MEDS: LISINOPRIL 20 MG TABLET PO SCH (08:54)
--- NOTE | 2020-10-27 10:10 | PDOC ---
Infectious Disease Note Subjective Subjective Patient is feeling good ROS ROS No nausea vomiting diarrhea chest pain shortness of breath Vital Sign Vital Signs Vital Signs Date Time Temp Pulse Resp B/P (MAP) Pulse Ox O2 Delivery O2 Flow Rate FiO2 10/27/20 08:54 78 142/68 10/27/20 07:00 98.6 18 95 Room Air 98.6 10/26/20 12:54 10. Physical Exam PHYSICAL EXAM GENERAL: Alert, oriented x 3, pleasant male, lying in bed comfortably, in no acute distress. HEENT: Normocephalic, atraumatic, anicteric. NECK: Supple, no JVD, no thyromegaly. LUNGS: Clear bilaterally. No wheezing. HEART: S1, S2. No gallops or murmurs. ABDOMEN: Soft, nontender, nondistended, no rebound, no guarding. EXTREMITIES: Right BKA stump looks healthy and healed well. Left TMA post surgery dressing not opened erythema. DERMATOLOGIC: Warm, dry. No generalized rash. NEUROLOGIC: Alert and oriented x 3, grossly nonfocal. PSYCHIATRIC: Cooperative, appropriate mood and affect. Labs Lab Laboratory Tests Test 10/26/20 12:33 10/26/20 16:59 10/26/20 20:39 10/27/20 06:20 Glucose (Fingerstick) 87 mg/dL (70-99) 155 mg/dL (70-99) 271 mg/dL (70-99) White Blood Count 10.3 x10^3/uL (4.0-11.0) Red Blood Count 3.29 x10^6/uL (4.30-5.70) Hemoglobin 9.4 g/dL (13.0-17.5) Hematocrit 28.4 % (39.0-53.0) Mean Corpuscular Volume 86 fL (79-100) Mean Corpuscular Hemoglobin 29 pg (25-35) Mean Corpuscular Hemoglobin Concent 33 g/dL (31-37) Red Cell Distribution Width 14.5 % (11.5-14.5) Platelet Count 444 x10^3/uL (140-400) Neutrophils (%) (Auto) 64 % (31-73) Lymphocytes (%) (Auto) 22 % (24-48) Monocytes (%) (Auto) 14 % (0-9) Eosinophils (%) (Auto) 0 % (0-3) Basophils (%) (Auto) 0 % (0-3) Neutrophils # (Auto) 6.6 x10^3/uL (1.8-7.7) Lymphocytes # (Auto) 2.3 x10^3/uL (1.0-4.8) Monocytes # (Auto) 1.4 x10^3/uL (0.0-1.1) Eosinophils # (Auto) 0.0 x10^3/uL (0.0-0.7) Basophils # (Auto) 0.0 x10^3/uL (0.0-0.2) Sodium Level 141 mmol/L (136-145) Potassium Level 3.2 mmol/L (3.5-5.1) Chloride Level 107 mmol/L (98-107) Carbon Dioxide Level 28 mmol/L (21-32) Anion Gap 6 (6-14) Blood Urea Nitrogen 13 mg/dL (8-26) Creatinine 1.3 mg/dL (0.7-1.3) Estimated GFR (Cockcroft-Gault) 66.4 Glucose Level 116 mg/dL (70-99) Calcium Level 8.3 mg/dL (8.5-10.1) Test 10/27/20 07:47 Glucose (Fingerstick) 112 mg/dL (70-99) Micro RUN DATE: 10/26/20 [facility] *LIVE* PAGE 1 RUN TIME: 930 Specimen Inquiry PATIENT: RAGHU PEARL ACCT: [id number] LOC: [address] [place] [address] U: [id number] AGE/SX: 69/M ROOM: 418 RE10/21/[address]: DARRELL EVANS MD : 1950 BED: 1 DIS: STATUS: ADM IN TLOC: SPEC #: [id number] MERCEDES: 10/21/20 STATUS: RES REQ #: [id number] RECD: 10/21/[address]: DARRELL EVANS MD SOURCE: FOOT ENTR: 10/21/[address]: ISAEL BLOUNT [facility] JAVIER,HALI DHILLON MD, MD ORDERED: ANAER/JOY/JAMAL COMMENTS: LEFT FOOT WOUND Has specimen been collected/obtained? Y Procedure Result GRAM STAIN Final Final NO ORGANISMS SEEN. SQUAMOUS EPI CELL:RARE PMN (WBCs):NONE SEEN Unless otherwise specified, Testing Performed by: [address] [address] For Inquires, the Physician may contact the Microbiology department at [phone] ANAEROBIC-AEROBIC CULTURE Preliminary Preliminary MIXED AEROBIC VIKRAM on 10/25/20 at 0957 INCLUDING: MODERATE GRAM POSITIVE COCCI FINAL ID= [ENTEROCOCCUS FAECALIS] FINAL ID= [STAPHYLOCOCCUS AUREUS] MODERATE GRAM NEGATIVE RODS FINAL ID= [CITROBACTER FREUNDII CMPLX] FINAL ID= [PSEUDOMONAS AERUGINOSA] STAPHYLOCOCCUS AUREUS (MRSA) ENTEROCOCCUS FAECALIS PSEUDOMONAS AERUGINOSA CITROBACTER FREUNDII CMPLX STAPHYLOCOCCUS AUREUS ANTIMICROBIAL SUSCEPTIBILITY Preliminary Comment Comment POS ANIYA TYPE 38 STAPHYLOCOCCUS AUREUS (MRSA) ANTIBIOTIC RESULT INTERPRETATION AZITHROMYCIN >4 R CLINDAMYCIN >4 R CEFOXITIN SCREEN >4 POS RUN DATE: 10/26/20 [facility] *LIVE* PAGE 2 RUN TIME: 930 Specimen Inquiry --- --------- SPEC: [id number] PATIENT: EBERJeromeCherelleRAGHU [id number] (Continued) Procedure Result CONTINUED ON NEXT PAGE RUN DATE: 10/26/20 [facility] *LIVE* PAGE 3 RUN TIME: 0931 Specimen Inquiry SPEC: [id number] PATIENT: RAGHU PEARL [id number] (Continued) Procedure Result ANTIMICROBIAL SUSCEPTIBILITY Preliminary (continued) CIPROFLOXACIN >2 R CEFTAROLINE 1 S DAPTOMYCIN <=0.5 S ERYTHROMYCIN >4 R GENTAMICIN <=4 S LINEZOLID 2 S LEVOFLOXACIN >4 R OXACILLIN >2 R PENICILLIN >2 R* RIFAMPIN <=1 S TRIMETHOPRIM/SULFAMETHOXAZOLE <=0.5/9.5 S TETRACYCLINE >8 R VANCOMYCIN 1 S NEG ANIYA 57 PSEUDOMONAS AERUGINOSA ANTIBIOTIC RESULT INTERPRETATION AMIKACIN <=16 S AZTREONAM 8 S CEFTAZIDIME 4 S CIPROFLOXACIN <=0.25 S CEFEPIME <=2 S CEFTAZIDIME/AVIBACTAM <=4 S GENTAMICIN 4 S LEVOFLOXACIN <=0.5 S MEROPENEM <=1 S PIPERACILLIN/TAZOBACTAM <=8 S TOBRAMYCIN <=2 S Unless otherwise specified, Testing Performed by: [address] [address] For Inquires, the Physician may contact the Microbiology department at [phone] Objective Assessment 1. Left foot open wound with eschar with underlying chronic nonhealing LT TMA wound. S/p I&D 2. Severe peripheral vascular disease. 3. Status post deep venous arterialization of the left foot via posterior tibial artery 3 weeks ago at [facility]. 4. Diabetes. 5. Peripheral neuropathy. 6. Hypertension. 7. Hyperlipidemia. 8. Status post right [id number] amputation. Plan Plan of Care Discussed with vascular surgery and wound was seen today looks really clean there is no signs of infection Small area of exposed bone clean and healthy per vascular surgery We will discharge patient on p.o. Zyvox and p.o. ciprofloxacin patient's preference is p.o. he has had too much difficulty with antibiotics IV that he had refused even 2 days ago Does understand that if he gets worse then will change to more aggressive IV wound care will inform me if he gets worse Patient wants to go home today since he needs to take care of his Follow-up with me in 2 to 3 weeks Discussed with JESUS Nicholson MD Oct 27, 2020 10:10
[2020-10-27 11:00] VITALS: BP 173/77
--- NOTE | 2020-10-27 11:04 | PDOC ---
Date of Service: DATE: 10/27/20 TIME: 10:58 Progress Note: Wound care progress note Patient is postop day 1 after surgical debridement with vascular surgery. Patient reports no unusual pain. Vital signs are stable patient is afebrile. Anticipating placement of negative pressure wound therapy today Patient comfortable sitting in bed. Respirations nondistressed. Lower extremity warm. Negative Homans. Wound measurement today 6 cm x 9 cm x 0.7 cm No slough or necrotic tissue evident. Small area of persistent central oozing bleeding noted. No other drainage evident. This will likely preclude placement of wound VAC today. Endoform placed centrally in the wound and patient returned to gentle dressing to assure confident hemostasis at discharge. We will place wound VAC at patient follow-up in clinic in 1 to 2 days. Discussed complete non-weightbearing. Justifications for Admission Other Justification Diabetic foot infection SHARIFA WALKER DO Oct 27, 2020 11:04
[2020-10-27] MEDS ORDERED: HYDR-2761 PO (11:29)
[2020-10-27] MEDS ORDERED: CIPR500T94 PO (11:29)
[2020-10-27] MEDS ORDERED: LACT1CAP19 PO (11:29)
[2020-10-27] MEDS ORDERED: LINE600T12 PO (11:29)
[2020-10-27] MEDS: HYDROcodone/APAP 5/325MG 1 TAB TABLET PO PRN (12:06)
--- NOTE | 2020-10-27 12:15 | NUR ---
Wound Care Wound Type/Assessment: Pt seen for wound care follow up. Patient was seen and assessed with Dr. Ky Feliciano and Dr. Baljeet Stone. Gauze dressing removed, wound cleaned and measured. Wound bed is clean, beefy red, quarter size area of exposed bone between 3-6:00, with slow bleed, Dr. Feliciano ordered for collagen placement over area, then slight pressure dressing for awhile prior to vac application. Returned at 1200, bleeding had stopped, fenestrated Endoform collagen left in place over bone and tissue, 1 piece of benz vac foam placed into wound bed, foam bridged over drape to L medial lower leg. Treatment Recommendations/Plan: NPWT to TMA site, and f/u at [facility] for dressing changes and wound care f/u. Education provided: to pt re: f/u and weight-bearing status. Offloading surface/device: Foot and heels elevated while in bed, Rooke boot for protection. Recommended Referrals/Tests: N/A Discharge Recommendations for dressings: Will follow patient in the Wound Clinic with discharge.
--- NOTE | 2020-10-27 12:28 | NUR ---
SW following. Discussed with RN, discharge order for home with self care. Pt has a woundvac at home, and follows with the [facility] wound clinic. RN advised no SW needs.
--- NOTE | 2020-10-27 14:06 | PDOC3 ---
Discharge Summary Visit Information Date of Admission: Oct 22, 2020 Date of Discharge: Oct 27, 2020 Admitting Diagnosis Comment: Left foot diabetic infection. Final Diagnosis Diabetic left foot infection( MRSA, pseudomonnas among other entities) Diabetes type 2 insulin requiring Peripheral vascular disease Right bnuho-oze-kemu amputation Left transmetatarsal amputation GERD Brief Hospital Course Allergies Allergies Coded Allergies Type Severity Reaction Last Updated Verified No Known Drug Allergies 07/06/20 No Vital Signs Vital Signs Date Time Temp Pulse Resp B/P (MAP) Pulse Ox O2 Delivery O2 Flow Rate FiO2 10/27/20 13:06 Room Air 10/27/20 11:00 98.2 89 18 173/77 (109) 98 98.2 10/26/20 12:54 10. Lab Results Laboratory Tests Test 10/25/20 16:15 10/25/20 20:30 10/26/20 07:25 10/26/20 08:42 Glucose (Fingerstick) 222 mg/dL (70-99) 194 mg/dL (70-99) 102 mg/dL (70-99) White Blood Count 7.5 x10^3/uL (4.0-11.0) Red Blood Count 3.52 x10^6/uL (4.30-5.70) Hemoglobin 10.1 g/dL (13.0-17.5) Hematocrit 30.3 % (39.0-53.0) Mean Corpuscular Volume 86 fL (79-100) Mean Corpuscular Hemoglobin 29 pg (25-35) Mean Corpuscular Hemoglobin Concent 33 g/dL (31-37) Red Cell Distribution Width 14.4 % (11.5-14.5) Platelet Count 472 x10^3/uL (140-400) Neutrophils (%) (Auto) 59 % (31-73) Lymphocytes (%) (Auto) 24 % (24-48) Monocytes (%) (Auto) 15 % (0-9) Eosinophils (%) (Auto) 1 % (0-3) Basophils (%) (Auto) 1 % (0-3) Neutrophils # (Auto) 4.5 x10^3/uL (1.8-7.7) Lymphocytes # (Auto) 1.8 x10^3/uL (1.0-4.8) Monocytes # (Auto) 1.1 x10^3/uL (0.0-1.1) Eosinophils # (Auto) 0.1 x10^3/uL (0.0-0.7) Basophils # (Auto) 0.1 x10^3/uL (0.0-0.2) Sodium Level 144 mmol/L (136-145) Potassium Level 3.2 mmol/L (3.5-5.1) Chloride Level 107 mmol/L (98-107) Carbon Dioxide Level 29 mmol/L (21-32) Anion Gap 8 (6-14) Blood Urea Nitrogen 7 mg/dL (8-26) Creatinine 1.2 mg/dL (0.7-1.3) Estimated GFR (Cockcroft-Gault) 72.9 Glucose Level 92 mg/dL (70-99) Calcium Level 8.7 mg/dL (8.5-10.1) Test 10/26/20 12:33 10/26/20 16:59 10/26/20 20:39 10/27/20 06:20 Glucose (Fingerstick) 87 mg/dL (70-99) 155 mg/dL (70-99) 271 mg/dL (70-99) White Blood Count 10.3 x10^3/uL (4.0-11.0) Red Blood Count 3.29 x10^6/uL (4.30-5.70) Hemoglobin 9.4 g/dL (13.0-17.5) Hematocrit 28.4 % (39.0-53.0) Mean Corpuscular Volume 86 fL (79-100) Mean Corpuscular Hemoglobin 29 pg (25-35) Mean Corpuscular Hemoglobin Concent 33 g/dL (31-37) Red Cell Distribution Width 14.5 % (11.5-14.5) Platelet Count 444 x10^3/uL (140-400) Neutrophils (%) (Auto) 64 % (31-73) Lymphocytes (%) (Auto) 22 % (24-48) Monocytes (%) (Auto) 14 % (0-9) Eosinophils (%) (Auto) 0 % (0-3) Basophils (%) (Auto) 0 % (0-3) Neutrophils # (Auto) 6.6 x10^3/uL (1.8-7.7) Lymphocytes # (Auto) 2.3 x10^3/uL (1.0-4.8) Monocytes # (Auto) 1.4 x10^3/uL (0.0-1.1) Eosinophils # (Auto) 0.0 x10^3/uL (0.0-0.7) Basophils # (Auto) 0.0 x10^3/uL (0.0-0.2) Sodium Level 141 mmol/L (136-145) Potassium Level 3.2 mmol/L (3.5-5.1) Chloride Level 107 mmol/L (98-107) Carbon Dioxide Level 28 mmol/L (21-32) Anion Gap 6 (6-14) Blood Urea Nitrogen 13 mg/dL (8-26) Creatinine 1.3 mg/dL (0.7-1.3) Estimated GFR (Cockcroft-Gault) 66.4 Glucose Level 116 mg/dL (70-99) Calcium Level 8.3 mg/dL (8.5-10.1) Test 10/27/20 07:47 10/27/20 10:46 Glucose (Fingerstick) 112 mg/dL (70-99) 188 mg/dL (70-99) Laboratory Tests Test 10/26/20 16:59 10/26/20 20:39 10/27/20 06:20 10/27/20 07:47 Glucose (Fingerstick) 155 mg/dL (70-99) 271 mg/dL (70-99) 112 mg/dL (70-99) White Blood Count 10.3 x10^3/uL (4.0-11.0) Red Blood Count 3.29 x10^6/uL (4.30-5.70) Hemoglobin 9.4 g/dL (13.0-17.5) Hematocrit 28.4 % (39.0-53.0) Mean Corpuscular Volume 86 fL (79-100) Mean Corpuscular Hemoglobin 29 pg (25-35) Mean Corpuscular Hemoglobin Concent 33 g/dL (31-37) Red Cell Distribution Width 14.5 % (11.5-14.5) Platelet Count 444 x10^3/uL (140-400) Neutrophils (%) (Auto) 64 % (31-73) Lymphocytes (%) (Auto) 22 % (24-48) Monocytes (%) (Auto) 14 % (0-9) Eosinophils (%) (Auto) 0 % (0-3) Basophils (%) (Auto) 0 % (0-3) Neutrophils # (Auto) 6.6 x10^3/uL (1.8-7.7) Lymphocytes # (Auto) 2.3 x10^3/uL (1.0-4.8) Monocytes # (Auto) 1.4 x10^3/uL (0.0-1.1) Eosinophils # (Auto) 0.0 x10^3/uL (0.0-0.7) Basophils # (Auto) 0.0 x10^3/uL (0.0-0.2) Sodium Level 141 mmol/L (136-145) Potassium Level 3.2 mmol/L (3.5-5.1) Chloride Level 107 mmol/L (98-107) Carbon Dioxide Level 28 mmol/L (21-32) Anion Gap 6 (6-14) Blood Urea Nitrogen 13 mg/dL (8-26) Creatinine 1.3 mg/dL (0.7-1.3) Estimated GFR (Cockcroft-Gault) 66.4 Glucose Level 116 mg/dL (70-99) Calcium Level 8.3 mg/dL (8.5-10.1) Test 10/27/20 10:46 Glucose (Fingerstick) 188 mg/dL (70-99) Brief Hospital Course History of Present Illness The patient is a pleasant middle-aged male, who has diabetic peripheral vascular disease. 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 Now, the left foot has a transmetatarsal amputation, but the stump is somewhat infected, it is draining. There are gangrenous eschar on the plantar and lateral aspects of the skin. I discussed the case with the ER physician. We admitted the patient with consultation to Dr. Mio Suarez, Vascular Surgery. 10/23 Patient seen and examined Chart reviewed Discussed with RN Patient is comfortable and was resting when we seen him 10/24 Patient seen and examined Chart reviewed Discussed with RN Patient is comfortable, denies any new symptoms 10/25 No acute events reported overnight, case discussed with nursing staff patient in no acute distress no complaints during my visit 10/26 No acute events reported overnight, no fever no chills pain seems to be well controlled Patient will go to the OR later reassurance has been provided no complaints voiced during my visit 10/27 Patient recovered well from his surgical procedure. And according to her analysis consultant the surgical ligaments are ready healthy. I have discussed moving forward the antibiotic therapy with infectious disease and given the good outcome from his surgical procedure the patient can be discharged with linezolid and also with ciprofloxacin to cover for the pseudomonal infection. Patient will have close follow-up in the outpatient setting he is in good spirits to be discharged home I have provided also pain medications ordered next couple days as he recovers from his surgical procedure. All concerns were addressed to the best of my abilities greater than 39 minutes were spent in the discharge process the patient counseling coordination of care and arrangements for a safe discharge GENERAL: Alert, oriented x 3, pleasant male, lying in bed comfortably, in no acute distress. HEENT: Normocephalic, atraumatic, anicteric. NECK: Supple, no JVD, no thyromegaly. LUNGS: Clear bilaterally. No wheezing. HEART: S1, S2. No gallops or murmurs. ABDOMEN: Soft, nontender, nondistended, no rebound, no guarding. EXTREMITIES: Right BKA stump looks healthy and healed well. Left TMA has an open wound, gangrenous eschar changes present over the lateral and plantar aspect of the amputation site. No fluctuance, no purulence, no surrounding erythema. DERMATOLOGIC: Warm, dry. No generalized rash. NEUROLOGIC: Alert and oriented x 3, grossly nonfocal. PSYCHIATRIC: Cooperative, appropriate mood and affect. Discharge Information Condition at Discharge: Improved Follow Up: Weeks Disposition/Orders: D/C to Home Scheduled Aspirin (Aspirin Ec) 81 Mg Tablet., 81 MG PO DAILYWBKFT for PVD for 90 Days, #90 Ref 3 Prescribed by: KATARINA RODRIGUEZ MD on 04/16/20 1341 Last Action: Continued on 10/22/201900 by CHIKI XAVIER Atorvastatin Calcium (Atorvastatin Calcium) 10 Mg Tablet, 1 TAB PO DAILY for hyperlipidemia, #30 Ref 5 (Reported) Entered as Reported by: JERRY MCCOY on 10/22/202102 Last Action: Continued on 10/22/202117 by JERRY MCCOY Ciprofloxacin Hcl (Cipro) 500 Mg Tablet, 1 TAB PO BID for diabetic foot for 14 Days, #28 Ref 0 Prescribed by: ELIANE STREET MD on 10/27/20 1129 Clopidogrel Bisulfate (Clopidogrel) 75 Mg Tablet, 1 TAB PO DAILY for .., #90 Ref 1 (Reported) Entered as Reported by: LIZZY BERMEO RN on 10/29/18403 Insulin Degludec (Tresiba) 100 Unit/1 Ml Vial, 22 UNIT SQ HS for diabetes , (Reported) Entered as Reported by: OMAR HORNER on 05/06/202 Last Action: Converted on 10/21/202151 by JERRY MCCOY Insulin Lispro (Humalog) 100 Unit/1 Ml Cartridge, 6 UNIT SQ TIDAC for diabetes, (Reported) Entered as Reported by: FÁTIMA DUARTE on 05/07/20820 Last Action: Converted on 10/21/202151 by JERRY MCCOY Lactobacillus Acidophilus (Acidophilus) 1 Each Capsule, 1 CAP PO DAILY for probiotic for 14 Days, #14 Ref 0 (Reported) Entered as Reported by: JERRY MCCOY on 10/21/202128 Last Action: New Order on 10/21/202128 by JERRY MCCOY Lactobacillus Rhamnosus Gg (Culturelle) 1 Each Cap.sprink, 1 CAP PO BID for probiotic for 28 Days, #56 Prescribed by: ELIANE STREET MD on 10/27/20 1129 Linezolid (Zyvox) 600 Mg Tablet, 600 MG PO BID for diabetic foot for 14 Days, #28 Prescribed by: ELIANE STREET MD on 10/27/20 1129 Lisinopril (Lisinopril) 40 Mg Tablet, 1 TAB PO DAILY for HTN, #30 Ref 5 (Reported) Entered as Reported by: LIZZY BERMEO RN on 10/29/18403 Last Action: Continued on 10/22/201900 by CHIKI XAVIER Pantoprazole Sodium (Protonix) 20 Mg Tablet.dr, 40 MG PO DAILY for .., (Reported) Entered as Reported by: LIZZY BERMEO RN on 10/29/18403 Last Action: Converted on 10/22/201900 by CHIKI XAVIER Scheduled PRN Hydrocodone Bit/Acetaminophen (Hydrocodone-Apap 5-325 ) 1 Tab Tablet, 1 TAB PO PRN Q4HRS PRN for MODERATE PAIN 4-6, #30 Prescribed by: ELIANE STREET MD on 10/27/20 1129 Discontinued Medications Ertapenem Sodium (Invanz) 1 Gm Vial, 1 GM IJ DAILY for cellulitis for 22 Days, #22 Prescribed by: ELIANE STREET MD on 05/18/20 1406 Justicifation of Admission Dx: Justifications for Admission: Justification of Admission Dx: Yes ELIANE STREET MD Oct 27, 2020 14:06
== END 2020-10-27 14:40 | disposition home or self-care (01) | DRG 503 ==
LOC: 4 NORTH 16:18
PROVIDERS: ADMIT Internal Medicine; ATTEND Internal Medicine
PROC: 0QBP0ZZ Excision of Left Metatarsal, Open Approach (ICD-10-PCS; principal; 2020-10-26 12:30)
DX: T87.44 Infection of amputation stump, left lower extremity (principal); E43 Unspecified severe protein-calorie malnutrition; E11.52 Type 2 diabetes mellitus with diabetic peripheral angiopathy with gangrene; L97.429 Non-pressure chronic ulcer of left heel and midfoot with unspecified severity; L03.116 Cellulitis of left lower limb; E11.621 Type 2 diabetes mellitus with foot ulcer; K21.9 Gastro-esophageal reflux disease without esophagitis; E11.42 Type 2 diabetes mellitus with diabetic polyneuropathy; I10 Essential (primary) hypertension; I25.10 Atherosclerotic heart disease of native coronary artery without angina pectoris; E78.5 Hyperlipidemia, unspecified; E78.00 Pure hypercholesterolemia, unspecified; I70.209 Unspecified atherosclerosis of native arteries of extremities, unspecified extremity; B95.62 Methicillin resistant Staphylococcus aureus infection as the cause of diseases classified elsewhere; Y83.8 Other surgical procedures as the cause of abnormal reaction of the patient, or of later complication, without mention of misadventure at the time of the procedure; Y92.89 Other specified places as the place of occurrence of the external cause; Z79.2 Long term (current) use of antibiotics; Z79.4 Long term (current) use of insulin; Z88.8 Allergy status to other drugs, medicaments and biological substances; Z89.511 Acquired absence of right leg below knee; Z83.3 Family history of diabetes mellitus; Z82.49 Family history of ischemic heart disease and other diseases of the circulatory system; Z20.822 Contact with and (suspected) exposure to COVID-19
CPT/HCPCS: 36415; 80048; 80053; 82565; 82962; 83735; 84100; 85025; 85610; 87071; 87075; 87077; 87176; 87186; 87426; 93926; 99214; J0360; J0690; J0692; J1100; J1650; J1815; J2270; J2405; J2543; J2704; J3010; J3370; J3490; J7030; J7040; J7050; J7120; U0003; A4461; G0378; G0463

== ENCOUNTER → 2020-12-07 | Outpatient (CLI) | payer MEDICARE ==
[~2020-12-07] MED LIST changes: +ATOR10TA60 PO; +CIPR500T94 PO; +HYDR-2761 PO; +LACT1CAP19 PO; +LACT1CAP2 PO; +LINE600T12 PO
== END ==
LOC: LAB 09:16
PROVIDERS: ATTEND Surgery
DX: Z01.812 Encounter for preprocedural laboratory examination (principal); Z20.822 Contact with and (suspected) exposure to COVID-19; L97.529 Non-pressure chronic ulcer of other part of left foot with unspecified severity
CPT/HCPCS: U0003

== ENCOUNTER 2020-12-10 09:13 | Day surgery (SDC) | payer MEDICARE ==
[~2020-12-10] VITALS: Ht 177.8 cm; Wt 85.5 kg
[~2020-12-10 09:13] MED LIST changes: +HYDROmorphone 2 MG/ML VIAL IVP PRN; +IV RINGERS,LACTATED 1000ML 1,000 ML IV SCH; +PROCHLORPERAZINE 10 MG/2 ML VIAL. IVP PRN; +fentaNYL PF VIAL 100 MCG/2 ML VIAL IVP PRN
[2020-12-10] MEDS ORDERED: PROPOFOL 10 MG/ML (20ML) VIAL. IV ONE (09:20)
[2020-12-10] MEDS ORDERED: DEXAMETHASONE SOD PHOS 4 MG/ML VIAL ONE (09:20)
[2020-12-10] MEDS ORDERED: ONDANSETRON PF 4 MG/2 ML VIAL. ONE (09:20)
[2020-12-10] MEDS ORDERED: LIDOCAINE 2% PF 5 ML VIAL. ONE (09:20)
[2020-12-10] MEDS ORDERED: MINERAL OIL for SURGERY 10 ML VIAL. MC ONE ×4 (09:37→10:36)
[2020-12-10] MEDS ORDERED: BUPIVACAINE-EPI 0.5% 30 ML VIAL KIT. ONE ×2 (09:37→10:36)
[2020-12-10] MEDS ORDERED: INSULIN LISPRO 100 UNIT/ML 3ML VIAL for OP,RR ONLY. SQ PRN (11:15)
--- NOTE | 2020-12-10 11:54 | PDOC ---
SURGICAL PROGRESS NOTE DATE: 12/10/20 TIME: 11:52 Subjective Pre-Op Note 69 yo M with left forefoot amputation site non healing. TO OR for STSG to area R/R/B/A d/w pt. Risks, including, but not limited to: bleeding, infection, damage to surrounding structures, risk of anesthesia, risk of graft failure. He appears to understand, his questions are answered and he elects to proceed. Office note H&P reviewed and unchanged. Vital Signs Vital Signs Date Time Temp Pulse Resp B/P (MAP) Pulse Ox O2 Delivery O2 Flow Rate FiO2 12/10/20 10:15 97.9 86 18 147/65 100 Room Air 97.9 Labs Laboratory Tests Test 12/10/20 10:13 Glucose (Fingerstick) 182 mg/dL (70-99) Laboratory Tests Test 12/10/20 10:13 Glucose (Fingerstick) 182 mg/dL (70-99) Justicifation of Admission Dx: Justifications for Admission: Justification of Admission Dx: Yes LESVIA OLEARY MD Dec 10, 2020 11:54
[2020-12-10] MEDS ORDERED: fentaNYL PF VIAL 100 MCG/2 ML VIAL ONE ×2 (12:17→13:37)
[2020-12-10] MEDS ORDERED: ePHEDrine PF IN SALINE 50 MG/10 ML SYRINGE. IV ONE (12:35)
[2020-12-10] MEDS ORDERED: EPINEPHrine VIAL 30 MG/30 ML VIAL ONE (12:41)
[2020-12-10] MEDS ORDERED: SEVOFLURANE 31 TO 60 MINUTES. IH ONE (13:04)
--- NOTE | 2020-12-10 13:20 | PDOC4 ---
OPERATIVE NOTE Date: Date: Dec 10, 2020 Pre-Op Diagnosis: Left forefoot amputation site non healing Post-Op Diagnosis: same Procedure Performed: Split thickness skin graft to left forefoot from left anterior thigh, debridement of left forefoot amputation site. Surgeon: Shaun Oleary Anesthesia Type: GETA plus local Blood Loss: 5 Specimans Obtained: none Findings: good granulation bed, min exposed bone, some necrotic skin posterior wound edge Complications: none Operative Note: After obtaining informed consent, patient was taken to OR, induced under GETA and prepped in the usual fashion over left anterior thigh and left forefoot. Graft obtained with dermatome left anterior thigh. Hemostasis obtained with pressure. Aquacel Ag applied to site and dressing. Left forefoot site identified. Granulation tissues disrupted. Mild necrotic tissue posterior aspect sharply with pickups and scissor. Skin graft was meshed 1:1.5 and applied to site. This was tacked in placed using multiple 3 0 and 4 0 monocryl. Dressing placed. Patient tolerated procedure well and sent to PACU in stable condition. All counts correct. Wound class is 3. LESVIA OLEARY MD Dec 10, 2020 13:20
[2020-12-10] MEDS ORDERED: MORPHINE SULFATE 2 MG/ML VIAL. ONE (13:36)
[2020-12-10] MEDS: fentaNYL PF VIAL 100 MCG/2 ML VIAL IVP PRN ×2 (13:41→14:05)
[2020-12-10] MEDS: MORPHINE SULFATE 2 MG/ML VIAL. IVP PRN ×2 (13:43→14:04)
[2020-12-10 14:25] VITALS: BP 173/65
[2020-12-10] MEDS ORDERED: oxyCODONE/APAP 10/325 1 TAB TABLET PO ONE (14:30)
== END 2020-12-10 15:15 | disposition home or self-care (01) ==
LOC: SURG 09:13
PROVIDERS: ATTEND Surgery
DX: L97.529 Non-pressure chronic ulcer of other part of left foot with unspecified severity (principal); I25.10 Atherosclerotic heart disease of native coronary artery without angina pectoris; E78.00 Pure hypercholesterolemia, unspecified; I12.9 Hypertensive chronic kidney disease with stage 1 through stage 4 chronic kidney disease, or unspecified chronic kidney disease; E11.22 Type 2 diabetes mellitus with diabetic chronic kidney disease; N18.2 Chronic kidney disease, stage 2 (mild); K21.9 Gastro-esophageal reflux disease without esophagitis; M19.90 Unspecified osteoarthritis, unspecified site; Z79.82 Long term (current) use of aspirin; Z79.4 Long term (current) use of insulin; Z79.899 Other long term (current) drug therapy; Z98.890 Other specified postprocedural states
CPT/HCPCS: 15100; 82962; A4461; J0171; J0690; J1100; J2270; J2405; J2704; J3010

== ENCOUNTER → 2021-01-31 | Outpatient (CLI) | payer MEDICARE ==
[~2021-01-31] MED LIST changes: -HYDROmorphone 2 MG/ML VIAL IVP PRN; -IV RINGERS,LACTATED 1000ML 1,000 ML IV SCH; -PROCHLORPERAZINE 10 MG/2 ML VIAL. IVP PRN; -fentaNYL PF VIAL 100 MCG/2 ML VIAL IVP PRN
== END ==
LOC: LAB 11:52
PROVIDERS: ATTEND Surgery Vascular Surgery
DX: Z01.812 Encounter for preprocedural laboratory examination (principal); Z20.822 Contact with and (suspected) exposure to COVID-19; I70.269 Atherosclerosis of native arteries of extremities with gangrene, unspecified extremity
CPT/HCPCS: U0003; U0005

== ENCOUNTER 2021-02-04 06:06 | Inpatient (IN) | payer MEDICARE ==
[~2021-02-04] VITALS: Ht 182.9 cm; Wt 86.3 kg
[2021-02-04] VITALS (10 sets, daily range): BP systolic 110–140; BP diastolic 48–62
[~2021-02-04 06:06] MED LIST changes: +BACITRACIN 50,000 UNIT in IV NORMAL SALINE 500ML BAG 500 ML IRR ONE; +HYDROmorphone 2 MG/ML VIAL IVP PRN; +IV RINGERS,LACTATED 1000ML 1,000 ML IV SCH; +PROCHLORPERAZINE 10 MG/2 ML VIAL. IVP PRN; +fentaNYL PF VIAL 100 MCG/2 ML VIAL IVP PRN
[2021-02-04] MEDS ORDERED: LIDOCAINE 2% PF 5 ML VIAL. ONE (07:02)
[2021-02-04] MEDS ORDERED: PROPOFOL 10 MG/ML (20ML) VIAL. IV ONE (07:02)
[2021-02-04] MEDS ORDERED: fentaNYL PF VIAL 100 MCG/2 ML VIAL ONE ×2 (07:03→09:28)
[2021-02-04 07:18] LABS: BASO # 0.1 x10^3/uL (0.0-0.2); BASO % 1 % (0-3); EOS # 0.1 x10^3/uL (0.0-0.7); EOS % 1 % (0-3); HEMATOCRIT 32.7 % (39.0-53.0); HEMOGLOBIN 10.5 g/dL (13.0-17.5); LYMPH # 2.4 x10^3/uL (1.0-4.8); LYMPH % 27 % (24-48); MEAN CORPUSCULAR HEMOGLOBIN 29 pg (25-35); MEAN CORPUSCULAR HGB CONC 32 g/dL (31-37); MEAN CORPUSCULAR VOLUME 89 fL (79-100); MONO # 1.2 x10^3/uL (0.0-1.1); MONO % 14 % (0-9); NEUT # 5.3 x10^3/uL (1.8-7.7); NEUT % 58 % (31-73); PLATELET COUNT 463 x10^3/uL (140-400); RED BLOOD COUNT 3.67 x10^6/uL (4.30-5.70); RED CELL DISTRIBUTION WIDTH 17.5 % (11.5-14.5); WHITE BLOOD COUNT 9.1 x10^3/uL (4.0-11.0)
[2021-02-04] MEDS: INSULIN LISPRO 100 UNIT/ML 3ML VIAL for OP,RR ONLY. SQ PRN ×2 (07:24→09:33)
[2021-02-04] MEDS ORDERED: 0.9 % SODIUM CHLORIDE 10 ML DISP.SYRIN. IV PRN ×2 (07:30→13:15)
[2021-02-04] MEDS ORDERED: IV NORMAL SALINE 1000ML BAG 1,000 ML IV SCH ×2 (07:30→13:15)
[2021-02-04] MEDS ORDERED: oxyCODONE/APAP 5/325 1 TAB TABLET PO PRN (07:30)
[2021-02-04] MEDS ORDERED: NALOXONE 0.4 MG/ML VIAL. IV PRN ×2 (07:30)
[2021-02-04] MEDS ORDERED: HYDROcodone/APAP 5/325MG 1 TAB TABLET PO PRN (07:30)
[2021-02-04 07:39] LABS: CALCIUM 8.6 mg/dL (8.5-10.1); CREATININE 1.2 mg/dL (0.7-1.3); GFR 72.6; POTASSIUM 4.7 mmol/L (3.5-5.1)
[2021-02-04] MEDS ORDERED: ONDANSETRON PF 4 MG/2 ML VIAL. ONE (07:50)
[2021-02-04] MEDS ORDERED: ACETAMINOPHEN 325 MG TABLET. PO SCH (08:00)
[2021-02-04] MEDS: ASPIRIN ENTERIC COATED 81 MG TABLET.DR. PO SCH (08:00)
[2021-02-04] MEDS ORDERED: LABETALOL 20 MG/4 ML DISP.SYRIN. IVP ONE (08:32)
[2021-02-04] MEDS ORDERED: SEVOFLURANE 61 TO 120 MINUTES. IH ONE (08:47)
[2021-02-04] MEDS: LISINOPRIL 20 MG TABLET PO SCH (09:00)
[2021-02-04] MEDS: CLOPIDOGREL BISULFATE 75 MG TABLET PO SCH (09:00)
[2021-02-04] MEDS ORDERED: MORPHINE SULFATE 2 MG/ML VIAL. ONE (09:15)
[2021-02-04] MEDS: MORPHINE SULFATE 2 MG/ML VIAL. IVP PRN ×2 (09:18→09:27)
--- NOTE | 2021-02-04 09:20 | PDOC ---
BRIEF OPERATIVE NOTE Date: Feb 04, 2021 Pre-Op Diagnosis Non-healing left TMA Post-Op Diagnosis same Procedure Performed Left below knee amputation Surgeon Dr. Barcenas Collection Systems Modeler Sharon Mckenzie, BRYCE Anesthesia Type: General Blood Loss 100cc Specimens Obtained left lower leg Findings good bleeding intraop Complications none Operative Note see dictated note SHARON MCKENZIE CAN STERILIZER Feb 04, 2021 09:20
[2021-02-04] MEDS: fentaNYL PF VIAL 100 MCG/2 ML VIAL IVP PRN ×2 (09:30→09:41)
--- NOTE | 2021-02-04 09:30 | OP ---
DATE OF SURGERY: 02/04/2021 SURGEON: Merline Barcenas MD BOLT SORTER: Qiana Tesfaye, nurse practitioner. PREOPERATIVE DIAGNOSES: Left leg peripheral arterial disease with extensive gangrene of his left transmetatarsal open proximal amputation. POSTOPERATIVE DIAGNOSES: Left leg peripheral arterial disease with extensive gangrene of his left transmetatarsal open proximal amputation. OPERATION PERFORMED: Left [id number]-ofm-[id number], closed amputation. ANESTHESIA USED: General anesthesia. BLOOD LOSS: 100 mL. INDICATIONS: The patient is a 70-year-old male with a long history of left leg peripheral arterial disease, who has undergone percutaneous intervention to his left leg in the past. He has had multiple toe amputations and transmetatarsal amputation with revisions to a proximal open wound in the past. Despite multiple interventions and long-term wound care, this is unfortunately not healed and has developed more gangrene. I recommend a left xjlbw-eal-vagh amputation. His skin in the below-knee location is without infection. There are no open wounds or no cellulitis. Informed consent was obtained including the risks of bleeding, infection, need for further debridement or further amputation if this does not heal in the future. DETAILS OF THE OPERATION: The patient was brought into the operating room and placed on table in supine position. He received general anesthesia monitored throughout the case by the anesthesiologist. A tourniquet was placed on the left thigh. We then prepped the left leg from the ankle to the tourniquet circumferentially by normal sterile fashion. I made my frances on the below-knee amputation location to perform a closed amputation with a posterior flap. We then elevated the leg high in the air and Esmarched the leg and then inflated the tourniquet. We incised the skin and subcutaneous tissue and below-knee amputation incision. We dissected through anterior structures down to the tibia bone and then medially dissected through the muscular structures down to the popliteal vessels. The popliteal vessels were very inflamed and thickened. We dissected them out and clamped proximally and distally and transected them. There was a stent within the vessel. Proximally, we suture ligated the vessels with 0 silk sutures and distally ligated with 0 silk suture. We dissected out the tibia bone circumferentially on the medial aspect. Then laterally, we took down muscular structures of the anterior compartment down to the anterior tibial vessels. We dissected these out and clamped proximally and distally and transected them. I suture ligated with 0 silk sutures, the arteries proximally and ligated them distally. We dissected down to the tibia bone laterally and dissected it out. We then dissected down to the fibula bone and dissected out circumferentially. A william bone elevator was used. We elevated the tibia and fibula bone proximal within the wound under the fascia. We completed our posterior flap incision. We then used the electric bone saw and transected the tibia and fibula proximal within the wound. All posterior structures were taken down sharply and the lower leg then removed. Areas of bleeding were suture ligated with 0 silk sutures. We then let the tourniquet down when it was dry. We controlled the hemostasis. Bringing the posterior flap up, there was quite a bit of edema and bulky muscle, which put some tension on the incision; therefore, I debulked the muscle within the wound, making it a much nicer posterior flap without tension. We also brought the fibula bone more proximally within the wound and transected it to take tension off the stumps. We irrigated with copious amounts of antibiotic solution. The muscle was pink and healthy. We ensured good hemostasis throughout the wound bed with electrocautery, clips and sutures. We reinforced sutures at the anterior tibial artery and posterior tibial artery bundles. It was nice and dry. A ANAYELI flat drain was left within the wound through a separate medial incision. We then closed the fascia along the entire length of the incision with interrupted 2-0 Vicryl sutures for a tight closure with no gaps. The skin was then closed with loi. Xeroform was left over the incision. We padded the drain with thick 4 x 4 gauze, cover the incision with 4 x 4 gauze and wrapped with Kerlix and an Lucas bandage. He tolerated the surgery with no immediate complications. SPECIMEN: Left lower leg. MERLINE BARCENAS MD DR: CEASAR/marbella JOB#: [id number] / [id number]
--- NOTE | 2021-02-04 11:03 | PDOC1 ---
History and Physical Date of Admission Date of Admission DATE: 02/04/21 TIME: 11:01 Identification/Chief Complaint Chief Complaint Left leg peripheral arterial disease with extensive gangrene of his left transmetatarsal open proximal amputation. here for BKA History of Present Illness History of Present Illness History of Present Illness The patient is a pleasant middle-aged male, who has diabetic peripheral vascular disease. 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 Now, the left foot has a transmetatarsal amputation, but the stump is somewhat infected, it is draining. There are gangrenous eschar on the plantar and lateral aspects of the skin. We admitted the patient with consultation to JOSE ALEJANDRO , Vascular Surgery. Attempts at conservative care have failed, post now in room 416 HAD Split thickness skin graft to left forefoot from left anterior thigh, debridement of left forefoot amputation site. 12-10-20 HGB NOW 10.5 , VSS Past Medical History Past Medical History PAST MEDICAL HISTORY: Diabetes, peripheral vascular disease, right [id number] amputation, left transmetatarsal amputation, GERD. ALLERGIES: None. FAMILY HISTORY: Diabetes. SOCIAL HISTORY: Does not drink, smoke or take drugs. MEDICATIONS: Reviewed, please refer to the MRAD. Cardiovascular: CAD, HTN, Hyperlipidemia Pulmonary: Bronchitis GI: No pertinent hx Heme/Onc: Anemia NOS, Iron deficiency Anemia Hepatobiliary: No pertinent hx Psych: No pertinent hx Rheumatologic: No pertinent hx Infectious disease: No pertinent hx Renal/: No pertinent hx Endocrine: Diabetes Dermatology: No pertinent hx, Other (DIABETIC FOOT) Past Surgical History Past Surgical History: Appendectomy, Tonsillectomy, Other Family History Family History: Diabetes, High Cholestrol, Hypertension Social History Smoke: No ALCOHOL: none Drugs: None Current Medications Current Medications Current Medications Bacitracin 35601 unit/Sodium Chloride 500 ml @ 500 mls/hr 1X ONCE IRR Last administered on 02/04/21at 07:52; Start 02/04/21 at 06:00; Stop 02/04/21 at 06:59; Status DC Fentanyl Citrate (Fentanyl 2ml Vial) 25 mcg PRN Q5MIN PRN IVP MILD PAIN 1-3; Start 02/04/21 at 06:00; Stop 02/05/21 at 05:59 Fentanyl Citrate (Fentanyl 2ml Vial) 50 mcg PRN Q5MIN PRN IVP MODERATE PAIN 4-6 Last administered on 02/04/21at 09:41; Start 02/04/21 at 06:00; Stop 02/05/21 at 05:59 Morphine Sulfate (Morphine Sulfate) 1 mg PRN Q10MIN PRN IVP SEVERE PAIN 7-10 Last administered on 02/04/21at 09:27; Start 02/04/21 at 06:00; Stop 02/05/21 at 05:59 Ringer's Solution 1,000 ml @ 30 mls/hr Q24H IV Last administered on 02/04/21at 07:03; Start 02/04/21 at 06:00; Stop 02/04/21 at 17:59 Hydromorphone HCl (Dilaudid) 0.5 mg PRN Q10MIN PRN IVP SEVERE PAIN 7-10, 2nd CHOICE Last administered on 02/04/21at 10:03; Start 02/04/21 at 06:00; Stop 02/05/21 at 05:59 Prochlorperazine Edisylate (Compazine) 5 mg PACU PRN PRN IVP NAUSEA, MRX1; Start 02/04/21 at 06:00; Stop 02/05/21 at 05:59 Cefazolin Sodium/ Dextrose 50 ml @ 100 mls/hr 1X PREOP PRN IV PRIOR TO PROCEDURE Last administered on 02/04/21at 07:42; Start 02/04/21 at 06:00; Stop 02/04/21 at 18:00 Insulin Human Lispro (HumaLOG VIAL for OP,RR ONLY) 0-10 units PRN Q1HR PRN SQ PER PROTOCOL Last administered on 02/04/21at 09:33; Start 02/04/21 at 07:00; Stop 02/05/21 at 06:59 Lidocaine HCl (Lidocaine Pf 2% Vial) 5 ml STK-MED ONCE .ROUTE ; Start 02/04/21 at 07:02; Stop 02/04/21 at 07:03; Status DC Propofol (Diprivan) 200 mg STK-MED ONCE IV ; Start 02/04/21 at 07:02; Stop 02/04 at 07:03; Status DC Fentanyl Citrate (Fentanyl 2ml Vial) 100 mcg STK-MED ONCE .ROUTE ; Start 02/04/21 at 07:03; Stop 02/04/21 at 07:03; Status DC Aspirin (Ecotrin) 81 mg DAILYWBKFT PO ; Start 02/04/21 at 08:00 Atorvastatin Calcium (Lipitor) 10 mg DAILY PO ; Start 02/04/21 at 09:00 Clopidogrel Bisulfate (Plavix) 75 mg DAILY PO ; Start 02/04/21 at 09:00 Acetaminophen/ Hydrocodone Bitart (Lortab 5/325) 1 tab PRN Q4HRS PRN PO MODERATE PAIN 4-6; Start 02/04/21 at 07:30 Lisinopril (Prinivil) 40 mg DAILY PO ; Start 02/04/21 at 09:00 Insulin Glargine (Lantus Syringe) 14 unit QHS SQ ; Start 02/04/21 at 21:00 Lactobacillus Rhamnosus (Culturelle) 1 cap DAILY PO ; Start 02/04/21 at 09:00 Pantoprazole Sodium (Protonix) 40 mg DAILYAC PO ; Start 02/04/21 at 08:00 Naloxone HCl (Narcan) 0.1 mg PRN Q2MIN PRN IV SEE ADMIN INSTRUCTIONS; Start 02/04/21 at 07:30 Sodium Chloride (Normal Saline Flush) 3 ml QSHIFT PRN IV AFTER MEDS AND BLOOD DRAWS; Start 02/04/21 at 07:30 Sodium Chloride 1,000 ml @ 50 mls/hr Q20H IV ; Start 02/04/21 at 07:30 Oxycodone/ Acetaminophen (Percocet 5/325) 1 tab PRN Q4HRS PRN PO MILD PAIN, 1ST CHOICE; Start 02/04/21 at 07:30 Oxycodone/ Acetaminophen (Percocet 5/325) 2 tab PRN Q4HRS PRN PO MODERATE PAIN, SEVERE PAIN; Start 02/04/21 at 07:30 Acetaminophen (Tylenol) 650 mg Q8HRS PO ; Start 02/04/21 at 08:00 Morphine Sulfate (Morphine Sulfate) 2 mg PRN Q1HR PRN IV PAIN-SEE COMMENTS; Start 02/04/21 at 07:30 Naloxone HCl (Narcan) 0.4 mg PRN Q2MIN PRN IV SEE INSTRUCTIONS; Start 02/04/21 at 07:30 Sodium Chloride 1,000 ml @ 25 mls/hr Q24H IV ; Start 02/04/21 at 07:30 Cefazolin Sodium (Ancef) 1 gm Q8H IVP ; Start 02/04/21 at 15:30; Stop 02/04/21 at 23:31 Ondansetron HCl (Zofran) 4 mg STK-MED ONCE .ROUTE ; Start 02/04/21 at 07:50; Stop 02/04/21 at 07:50; Status DC Labetalol HCl (Normodyne Iv Push) 20 mg STK-MED ONCE IVP ; Start 02/04/21 at 08:32; Stop 02/04/21 at 08:32; Status DC Sevoflurane (Ultane) 60 ml STK-MED ONCE IH ; Start 02/04/21 at 08:47; Stop 02/04/21 at 08:47; Status DC Morphine Sulfate (Morphine Sulfate) 2 mg STK-MED ONCE .ROUTE ; Start 02/04/21 at 09:15; Stop 02/04/21 at 09:15; Status DC Fentanyl Citrate (Fentanyl 2ml Vial) 100 mcg STK-MED ONCE .ROUTE ; Start 02/04/21 at 09:28; Stop 02/04/21 at 09:28; Status DC Active Scripts Active Hydrocodone-Apap 5-325 (Hydrocodone Bit/Acetaminophen) 1 Tab Tablet 1 Tab PO PRN Q4HRS PRN Aspirin Ec (Aspirin) 81 Mg Tablet. 81 Mg PO DAILYWBKFT 90 Days Reported Atorvastatin Calcium 10 Mg Tablet 1 Tab PO DAILY Acidophilus (Lactobacillus Acidophilus) 1 Each Capsule 1 Cap PO DAILY 14 Days Humalog (Insulin Lispro) 100 Unit/1 Ml Cartridge 0 SQ TIDAC Tresiba (Insulin Degludec) 100 Unit/1 Ml Vial 14 Unit SQ HS Protonix (Pantoprazole Sodium) 20 Mg Tablet. 40 Mg PO DAILY Lisinopril 40 Mg Tablet 1 Tab PO DAILY Clopidogrel (Clopidogrel Bisulfate) 75 Mg Tablet 1 Tab PO DAILY Allergies Allergies: Coded Allergies: I S O L A T I O N *CONTACT* (Verified Allergy, Unknown, 02/04/21) mrsa No Known Medication Allergies (Verified Allergy, Unknown, 02/04/21) ROS Review of System 14 PT ROS OTHERWISE NL General: No: Chills, Night Sweats, Fatigue, Malaise, Appetite, Other PSYCHOLOGICAL ROS: No: Anxiety, Behavioral Disorder, Concentration difficultie, Decreased libido, Depression, Disorientation, Hallucinations, Hostility, Irritablity, Memory difficulties, Mood Swings, Obsessive thoughts, Physical abuse, Sexual abuse, Sleep disturbances, Suicidal ideation, Other Eyes: No Blurry vision, No Decreased vision, No Double vision, No Dry eyes, No Excessive tearing, No Eye Pain, No Itchy Eyes, No Loss of vision, No Photophobia, No Scotomata, No Uses contacts, No Uses glasses, No Other HEENT: No: Heacaches, Visual Changes, Hearing change, Nasal congestion, Nasal discharge, Oral lesions, Sinus pain, Sore Throat, Epistaxis, Sneezing, Snoring, Tinnitus, Vertigo, Vocal changes, Other ALLERGY AND IMMUNOLOGY: No: Hives, Insect Bite Sensitivity, Itchy/Watery Eyes, Nasal Congestion, Post Nasal Drip, Seasonal Allergies, Other Hematological and Lymphatic: No: Bleeding Problems, Blood Clots, Blood Transfusions, Brusing, Night Sweats, Pallor, Swollen Lymph Nodes, Other ENDOCRINE: No: Breast Changes, Galactorrhea, Hair Pattern Changes, Hot Flashes, Malaise/lethargy, Mood Swings, Palpitations, Polydipsia/polyuria, Skin Changes, Temperature Intolerance, Unexpected Weight Changes, Other Breast: No New/Changing Breast Lumps, No Nipple changes, No Nipple discharge, No Other Respiratory: No: Cough, Hemoptysis, Orthopnea, Pleuritic Pain, Shortness of breath, SOB with excertion, Sputum Changes, Stridor, Tachypnea, Wheezing, Other Cardiovascular: No Chest Pain, No Palpitations, No Orthopnea, No Paroxysmal Noc. Dyspnea, No Edema, No Lt Headedness, No Other Gastrointestinal: No Nausea, No Vomiting, No Abdominal Pain, No Diarrhea, No Constipation, No Melena, No Hematochezia, No Other Genitourinary: No Dysuria, No Frequency, No Incontinence, No Hematuria, No Retention, No Discharge, No Urgency, No Pain, No Flank Pain, No Other, No , No , No , No , No , No , No Musculoskeletal: Yes Gait Disturbance, Yes Joint Pain, Yes Joint Stiffness, Yes Joint Swelling Neurological: Yes Gait Disturbance; No Behavorial Changes, No Bowel/Bladder ControlChng, No Confusion, No Dizziness, No Headaches, No Impaired Coord/balance, No Memory Loss, No Numbness/Tingling, No Seizures, No Speech Problems, No Tremors, No Visual Changes, No Weakness, No Other Skin: No Dry Skin, No Eczema, No Hair Changes, No Lumps, No Mole Changes, No Mottling, No Nail Changes, No Pruritus, No Rash, No Skin Lesion Changes, No O ther, No Acne Physical Exam Physical Exam GENERAL: Alert, oriented x 3, pleasant male, lying in bed comfortably, in no acute distress. HEENT: Normocephalic, atraumatic, anicteric. NECK: Supple, no JVD, no thyromegaly. LUNGS: Clear bilaterally. No wheezing. HEART: S1, S2. No gallops or murmurs. ABDOMEN: Soft, nontender, nondistended, no rebound, no guarding. EXTREMITIES: Right BKA stump looks healthy and healed well. Left BKA SITE DRY DERMATOLOGIC: Warm, dry. No generalized rash. NEUROLOGIC: Alert and oriented x 3, grossly nonfocal. General: Alert, Oriented X3, Cooperative, No acute distress HEENT: Atraumatic, PERRLA, EOMI, Mucous membr. moist/pink Lungs: Clear to auscultation Heart: S1S2, RRR, no thrills, no rubs, no gallops, no murmurs Cardiovascular: S1, S2 Breasts: Not examined Abdomen: Normal bowel sounds, Soft Rectal Exam: not examined PELVIC: Examination not indicated Extremities: No cyanosis Neuro: Normal speech, Sensation intact, Cranial nerves 3-12 NL Psych/Mental Status: Mental status NL, Mood NL Vitals Vitals Vital Signs Date Time Temp Pulse Resp B/P (MAP) Pulse Ox O2 Delivery O2 Flow Rate FiO2 02/04/21 10:03 16 100 Room Air 02/04/21 10:00 97.6 82 156/64 97.6 02/04/21 09:41 6.0 Labs Labs Laboratory Tests Test 02/04/21 06:50 02/04/21 07:21 02/04/21 09:25 White Blood Count 9.1 x10^3/uL (4.0-11.0) Red Blood Count 3.67 x10^6/uL (4.30-5.70) Hemoglobin 10.5 g/dL (13.0-17.5) Hematocrit 32.7 % (39.0-53.0) Mean Corpuscular Volume 89 fL (79-100) Mean Corpuscular Hemoglobin 29 pg (25-35) Mean Corpuscular Hemoglobin Concent 32 g/dL (31-37) Red Cell Distribution Width 17.5 % (11.5-14.5) Platelet Count 463 x10^3/uL (140-400) Neutrophils (%) (Auto) 58 % (31-73) Lymphocytes (%) (Auto) 27 % (24-48) Monocytes (%) (Auto) 14 % (0-9) Eosinophils (%) (Auto) 1 % (0-3) Basophils (%) (Auto) 1 % (0-3) Neutrophils # (Auto) 5.3 x10^3/uL (1.8-7.7) Lymphocytes # (Auto) 2.4 x10^3/uL (1.0-4.8) Monocytes # (Auto) 1.2 x10^3/uL (0.0-1.1) Eosinophils # (Auto) 0.1 x10^3/uL (0.0-0.7) Basophils # (Auto) 0.1 x10^3/uL (0.0-0.2) Sodium Level 143 mmol/L (136-145) Potassium Level 4.7 mmol/L (3.5-5.1) Chloride Level 107 mmol/L (98-107) Carbon Dioxide Level 26 mmol/L (21-32) Anion Gap 10 (6-14) Blood Urea Nitrogen 20 mg/dL (8-26) Creatinine 1.2 mg/dL (0.7-1.3) Estimated GFR (Cockcroft-Gault) 72.6 Glucose Level 167 mg/dL (70-99) Calcium Level 8.6 mg/dL (8.5-10.1) Glucose (Fingerstick) 166 mg/dL (70-99) 147 mg/dL (70-99) Laboratory Tests Test 02/04/21 06:50 02/04/21 07:21 02/04/21 09:25 White Blood Count 9.1 x10^3/uL (4.0-11.0) Red Blood Count 3.67 x10^6/uL (4.30-5.70) Hemoglobin 10.5 g/dL (13.0-17.5) Hematocrit 32.7 % (39.0-53.0) Mean Corpuscular Volume 89 fL (79-100) Mean Corpuscular Hemoglobin 29 pg (25-35) Mean Corpuscular Hemoglobin Concent 32 g/dL (31-37) Red Cell Distribution Width 17.5 % (11.5-14.5) Platelet Count 463 x10^3/uL (140-400) Neutrophils (%) (Auto) 58 % (31-73) Lymphocytes (%) (Auto) 27 % (24-48) Monocytes (%) (Auto) 14 % (0-9) Eosinophils (%) (Auto) 1 % (0-3) Basophils (%) (Auto) 1 % (0-3) Neutrophils # (Auto) 5.3 x10^3/uL (1.8-7.7) Lymphocytes # (Auto) 2.4 x10^3/uL (1.0-4.8) Monocytes # (Auto) 1.2 x10^3/uL (0.0-1.1) Eosinophils # (Auto) 0.1 x10^3/uL (0.0-0.7) Basophils # (Auto) 0.1 x10^3/uL (0.0-0.2) Sodium Level 143 mmol/L (136-145) Potassium Level 4.7 mmol/L (3.5-5.1) Chloride Level 107 mmol/L (98-107) Carbon Dioxide Level 26 mmol/L (21-32) Anion Gap 10 (6-14) Blood Urea Nitrogen 20 mg/dL (8-26) Creatinine 1.2 mg/dL (0.7-1.3) Estimated GFR (Cockcroft-Gault) 72.6 Glucose Level 167 mg/dL (70-99) Calcium Level 8.6 mg/dL (8.5-10.1) Glucose (Fingerstick) 166 mg/dL (70-99) 147 mg/dL (70-99) Images Images PATIENT: RAGHU PEARL ACCOUNT: [id number] : 1950 LOCATION: [address] [place] [address] AGE: 69 SEX: M EXAM STATUS: ADM IN ORD. PHYSICIAN: AZAM SCHUMACHER MD REASON: Foot ulcer PROCEDURE: DUPLEX LOWER EXT ARTERIAL LEFT EXAM: Gabriel scale and color Doppler left lower extremity artery sonogram. HISTORY: Left foot ulcer. Peripheral artery disease. TECHNIQUE: Gabriel scale and color Doppler sonographic imaging of the left lower extremity arteries with spectral waveform analysis was performed. COMPARISON: 07/15/2018. FINDINGS: There are abnormal monophasic waveforms within the left popliteal, posterior tibial, peroneal, anterior tibial and dorsalis pedis arteries. There are abnormally elevated peak systolic velocities within the left superficial femoral artery, measuring 190 cm/s in the proximal superficial femoral artery, 162 cm/s in the mid superficial femoral artery, and 170 cm/s within the distal superficial femoral artery. There is also a borderline elevated peak systolic velocity within the anterior tibial artery, measuring 151 cm/s. No arterial occlusion is seen. IMPRESSION: 1. Elevated peak systolic velocities within the left superficial femoral artery and anterior tibial artery, consistent with hemodynamically significant stenosis. 2. Abnormal monophasic waveforms involving the popliteal and calf arteries, con sistent with hemodynamically significant proximal stenosis. 3. No evidence of arterial occlusion. Electronically signed by: Leonila Khan MD (10/23/2020 7:50 AM) [facility] DICTATED and SIGNED BY: LEONILA KHAN MD DATE: 10/23/20 [id number] 0 Date: Feb 04, 2021 Pre-Op Diagnosis Non-healing left TMA Post-Op Diagnosis same Procedure Performed Left below knee amputation Surgeon Dr. Barcenas System Safety Engineer Qiana Tesfaye NP Anesthesia Type: General Blood Loss 100cc Specimens Obtained left lower leg Findings good bleeding intraop VTE Prophylaxis Ordered VTE Prophylaxis Devices: No VTE Pharmacological Prophylaxi: Yes Assessment/Plan Assessment/Plan IMPRESSION: 1. Left foot open wound with eschar with underlying chronic nonhealing LT TMA wound. POST LEFT BKA today 2. Severe peripheral vascular disease. 3. Status post deep venous arterialization of the left foot via posterior tibial artery at [facility]. 4. Diabetes. 5. Peripheral neuropathy. 6. Hypertension. 7. Hyperlipidemia. 8. Status post right [id number] amputation. PLAN admit iv pain control accuchecks CONSULT vascular surgery Continue local wound care as directed. Continue supportive care. SS INSULIN PROTOCOL D/W RN Justifications for Admission Other Justification Diabetic foot infection DEDRA BELLA MD Feb 04, 2021 11:02
[2021-02-04] MEDS: PANTOPRAZOLE 40 MG TABLET.DR. PO SCH (11:46)
[2021-02-04] MEDS: LACTOBACILLUS RHAMNOSUS GG 1 CAPSULE. PO SCH (11:46)
[2021-02-04] MEDS: ATORVASTATIN CALCIUM 10 MG TABLET. PO SCH (11:46)
[2021-02-04] MEDS: oxyCODONE/APAP 5/325 1 TAB TABLET PO PRN ×3 (11:47→23:16)
[2021-02-04] MEDS: IV NORMAL SALINE 1000ML BAG 1,000 ML IV SCH (11:48)
[2021-02-04] MEDS: MORPHINE SULFATE 2 MG/ML VIAL. IV PRN ×2 (12:53→21:02)
[2021-02-04] MEDS ORDERED: guaiFENesin ORAL 200 MG/10 ML LIQUID. PO PRN (13:15)
[2021-02-04] MEDS ORDERED: ALBUTEROL SULFATE 2.5 MG/3 ML NEBU. NEB PRN (13:15)
[2021-02-04] MEDS ORDERED: ONDANSETRON PF 4 MG/2 ML VIAL. IV PRN (13:15)
[2021-02-04] MEDS ORDERED: LORazepam 0.5 MG TABLET PO PRN (13:15)
[2021-02-04] MEDS ORDERED: ACETAMINOPHEN 325 MG TABLET. PO PRN (13:15)
[2021-02-04] MEDS ORDERED: SODIUM PHOSPHATES 19/7GM 133 ML ENEMA. PR PRN (13:15)
--- NOTE | 2021-02-04 14:29 | NUR ---
IP: Pt has a hx of mrsa in wound on 10/21/20. Pt admitted again with a draining wound. Pt to be in contact precautions.
[2021-02-04] MEDS: ceFAZolin SODIUM IV Push 1 GM VIAL. IVP SCH ×2 (16:17→23:16)
--- NOTE | 2021-02-04 18:21 | NUR ---
Removed 30 ml of sanguinous fluid from ANAYELI drain
[2021-02-04] MEDS ORDERED: INSULIN LISPRO 300 UNITS/3 ML VIAL. SQ ONE (21:00)
[2021-02-04] MEDS ORDERED: DEXTROSE 50% 25 GM / 50ML DISP.SYRIN. IV PRN (21:00)
[2021-02-04] MEDS: INSULIN LISPRO 300 UNITS/3 ML VIAL. SQ SCH (21:00)
[2021-02-04] MEDS ORDERED: hydrOXYzine 25 MG TABLET PO PRN (21:00)
[2021-02-04] MEDS: INSULIN GLARGINE SYRINGE. SQ SCH (21:12)
[2021-02-04] MEDS: DOCUSATE SODIUM 100 MG CAPSULE. PO PRN (22:00)
[2021-02-04] MEDS: ZOLPIDEM 5 MG TABLET. PO PRN (23:14)
[2021-02-05 03:25] VITALS: BP 111/52
[2021-02-05] MEDS: IV NORMAL SALINE 1000ML BAG 1,000 ML IV SCH ×2 (06:05→23:53)
[2021-02-05 07:00] VITALS: BP 157/69
[2021-02-05] MEDS: ATORVASTATIN CALCIUM 10 MG TABLET. PO SCH (07:52)
[2021-02-05] MEDS: LACTOBACILLUS RHAMNOSUS GG 1 CAPSULE. PO SCH (07:52)
[2021-02-05] MEDS: CLOPIDOGREL BISULFATE 75 MG TABLET PO SCH (07:52)
[2021-02-05] MEDS: ASPIRIN ENTERIC COATED 81 MG TABLET.DR. PO SCH (07:52)
[2021-02-05] MEDS: PANTOPRAZOLE 40 MG TABLET.DR. PO SCH (07:52)
[2021-02-05] MEDS: LISINOPRIL 20 MG TABLET PO SCH (07:53)
[2021-02-05] MEDS: MORPHINE SULFATE 2 MG/ML VIAL. IV PRN ×2 (07:55→12:59)
[2021-02-05] MEDS: INSULIN LISPRO 300 UNITS/3 ML VIAL. SQ SCH ×7 (09:17→21:00)
--- NOTE | 2021-02-05 09:51 | PDOC ---
[employer] PROGRESS NOTE Date of Service DOS: DATE: 02/05/21 TIME: 09:20 Chief Complaint Chief Complaint A/P: Left foot open wound with eschar with underlying chronic nonhealing LT TMA wound. POST LEFT BKA 02/04. Vascular Surgery, ID, Wound care. Started zosyn. Previously MRDO Cellulitis of left great toe - failed doxycycline outpatient therapy, now with revascularization and augmentin on discharge will have close f/u Diabetes type 2 on insulin pump with hemoglobin A1c 8.4, uncontrolled with target organ damage - not on pump. sliding scale and very low dose glargine CAD - stable Hypertension - chronic Dyslipidemia - chronic stable s/p BKA on 11/[address] Gillette Peripheral arterial disease. Status post angioplasty Mild renal insufficiency Peripheral neuropathy Status post right [id number] amputation FEN - History of Present Illness History of Present Illness Mr Velazquez is a 70yo M w/ PMHx HTN, DM2 (A1c 9), s/p prior R BKA who is directly admitted from vascular surgery for worsening left TMA poorly healing wound. Has been to outpatient wound care for this since 2019 and had vascular surgery and cardiology with angioplasty previously. Conservative care has failed had split thickness graft to left forefoot from left anterior thigh and debridement of left forefoot amputation site on 219 ascular Surgery. Attempts at conservative care have failed, post now in room 416 HAD Split thickness skin graft to left forefoot from left anterior thigh, debridement of left forefoot amputation site. 12-10-20 HGB NOW 10.5 , VSS 02/04: to OR for left BKA for definitive treatment. Afebrile. Glucose in the 300s. He feels excellent today. Family visiting bedside. Passing gas but no bowel movement as of yet. Vitals/I&O Vitals/I&O: Vital Signs Date Time Temp Pulse Resp B/P (MAP) Pulse Ox O2 Delivery O2 Flow Rate FiO2 02/05/21 08:25 Room Air 02/05/21 07:53 91 111/52 02/05/21 07:00 99.3 16 95 99.3 02/04/21 09:41 6.0 I & O 02/04/21 02/04/21 02/05/21 15:00 23:00 07:00 Intake Total 850 ml 1480 ml Output Total 210 ml 375 ml 650 ml Balance 640 ml -375 ml 830 ml Physical Exam General: Alert, Oriented X3, Cooperative, No acute distress Lungs: Clear Abdomen: Normal bowel sounds, Soft Extremities: No cyanosis Labs Labs: Laboratory Tests Test 02/04/21 09:25 02/04/21 20:47 02/05/21 07:27 Glucose (Fingerstick) 147 mg/dL (70-99) 405 mg/dL (70-99) 297 mg/dL (70-99) Assessment and Plan Goals of Care: Advance Care Planning: Total time spent [id number] with patient greater than 16 minutes in discussion with goals of care, comfort care, end-of-life care, pain management, code status Comment Review of Relevant I have reviewed the following items raudel (where applicable) has been applied. Medications: Current Medications Medications (Trade) Dose Ordered Sig/Dave Route PRN Reason Start Time Stop Time Status Last Admin Dose Admin Insulin Glargine (Lantus Syringe) 14 unit QHS SQ 02/04/21 21:00 02/04/21 21:12 Cefazolin Sodium (Ancef) 1 gm Q8H IVP 02/04/21 15:30 02/04/21 23:31 DC 02/04/21 23:16 Docusate Sodium (Colace) 100 mg PRN BID PRN PO HARD STOOLS 02/04/21 13:15 02/04/21 22:00 Insulin Human Lispro (HumaLOG) 0-9 UNITS TIDACHC SQ 02/04/21 21:00 02/05/21 09:17 Insulin Human Lispro (HumaLOG) 3 units TIDAC SQ 02/05/21 07:30 02/05/21 09:18 Insulin Human Lispro (HumaLOG) 12 units 1X ONCE SQ 02/04/21 21:00 02/04/21 21:03 DC 02/04/21 22:05 Hydroxyzine HCl (Atarax) 25 mg PRN Q6HRS PRN PO ITCHING 02/04/21 21:00 02/04/21 22:00 Zolpidem Tartrate (Ambien) 5 mg PRN QHS PRN PO INSOMNIA 02/04/21 23:15 02/04/21 23:14 Justifications for Admission General Conditions Other justification for admit: pvd Other Justification Diabetic foot infection KATARINA RODRIGUEZ MD Feb 05, 2021 09:51
[2021-02-05 11:00] VITALS: BP 137/60
[2021-02-05 11:10] LABS: BASO % 1 % (0-3); EOS % 0 % (0-3); HEMATOCRIT 24.6 % (39.0-53.0); HEMOGLOBIN 8.1 g/dL (13.0-17.5); LYMPH # 1.9 x10^3/uL (1.0-4.8); LYMPH % 19 % (24-48); MEAN CORPUSCULAR HEMOGLOBIN 29 pg (25-35); MEAN CORPUSCULAR HGB CONC 33 g/dL (31-37); MEAN CORPUSCULAR VOLUME 88 fL (79-100); MONO # 1.3 x10^3/uL (0.0-1.1); MONO % 13 % (0-9); NEUT # 6.9 x10^3/uL (1.8-7.7); NEUT % 68 % (31-73); PLATELET COUNT 383 x10^3/uL (140-400); RED CELL DISTRIBUTION WIDTH 16.5 % (11.5-14.5); WHITE BLOOD COUNT 10.1 x10^3/uL (4.0-11.0)
--- NOTE | 2021-02-05 11:14 | PDOC ---
PROGRESS NOTES Date of Service DATE: 02/05/21 TIME: 11:13 Subjective Subjective Pt seen and examined s/p left BKA dressing taken down, ANAYELI drain removed BKA and incision / skin line look healthy, no hematoma doing well re-dress wound and oral pain meds next dressing change Sunday Anticipate likely discharge Sunday or Sunday Objective Objective Vital Signs Date Time Temp Pulse Resp B/P (MAP) Pulse Ox O2 Delivery O2 Flow Rate FiO2 02/05/21 08:25 Room Air 02/05/21 07:53 91 111/52 02/05/21 07:00 99.3 16 95 99.3 02/04/21 09:41 6.0 Intake and Output 02/05/21 07:00 Intake Total 2330 ml Output Total 1235 ml Balance 1095 ml Intake Oral 480 ml IV Total 1850 ml Output Urine Total 1125 ml Drainage Total 10 ml Estimated Blood Loss 100 ml # Voids 1 Comment Review of Relevant I have reviewed the following items raudel (where applicable) has been applied. Labs Laboratory Tests Test 02/04/21 06:50 02/04/21 07:21 02/04/21 09:25 02/04/21 20:47 White Blood Count 9.1 x10^3/uL (4.0-11.0) Red Blood Count 3.67 x10^6/uL (4.30-5.70) Hemoglobin 10.5 g/dL (13.0-17.5) Hematocrit 32.7 % (39.0-53.0) Mean Corpuscular Volume 89 fL (79-100) Mean Corpuscular Hemoglobin 29 pg (25-35) Mean Corpuscular Hemoglobin Concent 32 g/dL (31-37) Red Cell Distribution Width 17.5 % (11.5-14.5) Platelet Count 463 x10^3/uL (140-400) Neutrophils (%) (Auto) 58 % (31-73) Lymphocytes (%) (Auto) 27 % (24-48) Monocytes (%) (Auto) 14 % (0-9) Eosinophils (%) (Auto) 1 % (0-3) Basophils (%) (Auto) 1 % (0-3) Neutrophils # (Auto) 5.3 x10^3/uL (1.8-7.7) Lymphocytes # (Auto) 2.4 x10^3/uL (1.0-4.8) Monocytes # (Auto) 1.2 x10^3/uL (0.0-1.1) Eosinophils # (Auto) 0.1 x10^3/uL (0.0-0.7) Basophils # (Auto) 0.1 x10^3/uL (0.0-0.2) Sodium Level 143 mmol/L (136-145) Potassium Level 4.7 mmol/L (3.5-5.1) Chloride Level 107 mmol/L (98-107) Carbon Dioxide Level 26 mmol/L (21-32) Anion Gap 10 (6-14) Blood Urea Nitrogen 20 mg/dL (8-26) Creatinine 1.2 mg/dL (0.7-1.3) Estimated GFR (Cockcroft-Gault) 72.6 Glucose Level 167 mg/dL (70-99) Calcium Level 8.6 mg/dL (8.5-10.1) Glucose (Fingerstick) 166 mg/dL (70-99) 147 mg/dL (70-99) 405 mg/dL (70-99) Test 02/05/21 07:27 Glucose (Fingerstick) 297 mg/dL (70-99) Laboratory Tests Test 02/04/21 20:47 02/05/21 07:27 Glucose (Fingerstick) 405 mg/dL (70-99) 297 mg/dL (70-99) Medications Current Medications Bacitracin 38216 unit/Sodium Chloride 500 ml @ 500 mls/hr 1X ONCE IRR Last administered on 02/04/21at 07:52; Start 02/04/21 at 06:00; Stop 02/04/21 at 06:59; Status DC Fentanyl Citrate (Fentanyl 2ml Vial) 25 mcg PRN Q5MIN PRN IVP MILD PAIN 1-3; Start 02/04/21 at 06:00; Stop 02/04/21 at 16:24; Status DC Fentanyl Citrate (Fentanyl 2ml Vial) 50 mcg PRN Q5MIN PRN IVP MODERATE PAIN 4-6 Last administered on 02/04/21at 09:41; Start 02/04/21 at 06:00; Stop 02/04/21 at 16:24; Status DC Morphine Sulfate (Morphine Sulfate) 1 mg PRN Q10MIN PRN IVP SEVERE PAIN 7-10 Last administered on 02/04/21at 09:27; Start 02/04/21 at 06:00; Stop 02/04/21 at 16:24; Status DC Ringer's Solution 1,000 ml @ 30 mls/hr Q24H IV Last administered on 02/04/21at 07:03; Start 02/04/21 at 06:00; Stop 02/04/21 at 17:59; Status DC Hydromorphone HCl (Dilaudid) 0.5 mg PRN Q10MIN PRN IVP SEVERE PAIN 7-10, 2nd CHOICE Last administered on 02/04/21at 10:03; Start 02/04/21 at 06:00; Stop 02/04/21 at 16:24; Status DC Prochlorperazine Edisylate (Compazine) 5 mg PACU PRN PRN IVP NAUSEA, MRX1; Start 02/04/21 at 06:00; Stop 02/04/21 at 16:24; Status DC Cefazolin Sodium/ Dextrose 50 ml @ 100 mls/hr 1X PREOP PRN IV PRIOR TO P ROCEDURE Last administered on 02/04/21at 07:42; Start 02/04/21 at 06:00; Stop 02/04/21 at 16:23; Status DC Insulin Human Lispro (HumaLOG VIAL for OP,RR ONLY) 0-10 units PRN Q1HR PRN SQ PER PROTOCOL Last administered on 02/04/21at 09:33; Start 02/04/21 at 07:00; Stop 02/04/21 at 16:24; Status DC Lidocaine HCl (Lidocaine Pf 2% Vial) 5 ml STK-MED ONCE .ROUTE ; Start 02/04/21 at 07:02; Stop 02/04/21 at 07:03; Status DC Propofol (Diprivan) 200 mg STK-MED ONCE IV ; Start 02/04/21 at 07:02; Stop 02/04/21 at 07:03; Status DC Fentanyl Citrate (Fentanyl 2ml Vial) 100 mcg STK-MED ONCE .ROUTE ; Start 02/04/21 at 07:03; Stop 02/04/21 at 07:03; Status DC Aspirin (Ecotrin) 81 mg DAILYWBKFT PO Last administered on 02/05/21at 07:52; Start 02/04/21 at 08:00 Atorvastatin Calcium (Lipitor) 10 mg DAILY PO Last administered on 02/05/21at 07:52; Start 02/04/21 at 09:00 Clopidogrel Bisulfate (Plavix) 75 mg DAILY PO Last administered on 02/05/21at 07:52; Start 02/04/21 at 09:00 Acetaminophen/ Hydrocodone Bitart (Lortab 5/325) 1 tab PRN Q4HRS PRN PO MODERATE PAIN 4-6; Start 02/04/21 at 07:30 Lisinopril (Prinivil) 40 mg DAILY PO Last administered on 02/05/21at 07:53; Start 02/04/21 at 09:00 Insulin Glargine (Lantus Syringe) 14 unit QHS SQ Last administered on 02/04/21at 21:12; Start 02/04/21 at 21:00 Lactobacillus Rhamnosus (Culturelle) 1 cap DAILY PO Last administered on 02/05/21at 07:52; Start 02/04/21 at 09:00 Pantoprazole Sodium (Protonix) 40 mg DAILYAC PO Last administered on 02/05/21at 07:52; Start 02/04/21 at 08:00 Naloxone HCl (Narcan) 0.1 mg PRN Q2MIN PRN IV SEE ADMIN INSTRUCTIONS; Start 02/04/21 at 07:30 Sodium Chloride (Normal Saline Flush) 3 ml QSHIFT PRN IV AFTER MEDS AND BLOOD DRAWS; Start 02/04/21 at 07:30 Sodium Chloride 1,000 ml @ 50 mls/hr Q20H IV Last administered on 02/05/21at 06:05; Start 02/04/21 at 07:30 Oxycodone/ Acetaminophen (Percocet 5/325) 1 tab PRN Q4HRS PRN PO MILD PAIN, 1ST CHOICE; Start 02/04/21 at 07:30 Oxycodone/ Acetaminophen (Percocet 5/325) 2 tab PRN Q4HRS PRN PO MODERATE PAIN, SEVERE PAIN Last administered on 02/04/21at 23:16; Start 02/04/21 at 07:30 Acetaminophen (Tylenol) 650 mg Q8HRS PO ; Start 02/04/21 at 08:00; Stop 02/04/21 at 13:36; Status DC Morphine Sulfate (Morphine Sulfate) 2 mg PRN Q1HR PRN IV PAIN-SEE COMMENTS Last administered on 02/05/21at 07:55; Start 02/04/21 at 07:30 Naloxone HCl (Narcan) 0.4 mg PRN Q2MIN PRN IV SEE INSTRUCTIONS; Start 02/04/21 at 07:30; Stop 02/04/21 at 16:26; Status DC Sodium Chloride 1,000 ml @ 25 mls/hr Q24H IV ; Start 02/04/21 at 07:30; Stop 02/04/21 at 16:24; Status DC Cefazolin Sodium (Ancef) 1 gm Q8H IVP Last administered on 02/04/21at 23:16; Start 02/04/21 at 15:30; Stop 02/04/21 at 23:31; Status DC Ondansetron HCl (Zofran) 4 mg STK-MED ONCE .ROUTE ; Start 02/04/21 at 07:50; Stop 02/04/21 at 07:50; Status DC Labetalol HCl (Normodyne Iv Push) 20 mg STK-MED ONCE IVP ; Start 02/04/21 at 08:32; Stop 02/04/21 at 08:32; Status DC Sevoflurane (Ultane) 60 ml STK-MED ONCE IH ; Start 02/04/21 at 08:47; Stop 02/04/21 at 08:47; Status DC Morphine Sulfate (Morphine Sulfate) 2 mg STK-MED ONCE .ROUTE ; Start 02/04/21 at 09:15; Stop 02/04/21 at 09:15; Status DC Fentanyl Citrate (Fentanyl 2ml Vial) 100 mcg STK-MED ONCE .ROUTE ; Start 02/04/21 at 09:28; Stop 02/04/21 at 09:28; Status DC Sodium Chloride (Normal Saline Flush) 3 ml QSHIFT PRN IV AFTER MEDS AND BLOOD DRAWS; Start 02/04/21 at 13:15; Status Cancel Sodium Chloride 1,000 ml @ 75 mls/hr [id number] IV ; Start 02/04/21 at 13:15; Stop 02/04/21 at 13:36; Status DC Ondansetron HCl (Zofran) 4 mg PRN Q4HRS PRN IV NAUSEA/VOMITING; Start 02/04/21 at 13:15 Acetaminophen (Tylenol) 650 mg PRN Q4HRS PRN PO TEMP OVER 100.4F OR MILD PAIN; Start 02/04/21 at 13:15 Al Hydroxide/Mg Hydroxide (Mylanta Plus Xs) 30 ml PRN DAILY PRN PO HEARTBURN / GAS; Start 02/04/21 at 13:15 Sodium Monofluorophosphate (Fleet Adult) 133 ml PRN DAILY PRN SD CONSTIPATION; Start 02/04/21 at 13:15 Docusate Sodium (Colace) 100 mg PRN BID PRN PO HARD STOOLS Last administered on 02/04/21at 22:00; Start 02/04/21 at 13:15 Albuterol Sulfate (Ventolin Neb Soln) 2.5 mg PRN Q4HRS PRN NEB SHORTNESS OF BREATH; Start 02/04/21 at 13:15 Guaifenesin (Robitussin) 200 mg PRN Q4HRS PRN PO COUGH; Start 02/04/21 at 13:15 Lorazepam (Ativan) 0.5 mg PRN Q4HRS PRN PO ANXIETY / AGITATION; Start 02/04/21 at 13:15 Insulin Human Lispro (HumaLOG) 0-9 UNITS TIDACHC SQ Last administered on 02/05/21at 09:17; Start 02/04/21 at 21:00 Dextrose (Dextrose 50%-Water Syringe) 12.5 gm PRN Q15MIN PRN IV SEE COMMENTS; Start 02/04/21 at 21:00 Insulin Human Lispro (HumaLOG) 3 units TIDAC SQ Last administered on 02/05/21at 09:18; Start 02/05/21 at 07:30 Insulin Human Lispro (HumaLOG) 12 units 1X ONCE SQ Last administered on 02/04/21at 22:05; Start 02/04/21 at 21:00; Stop 02/04/21 at 21:03; Status DC Hydroxyzine HCl (Atarax) 25 mg PRN Q6HRS PRN PO ITCHING Last administered on 02/04/21at 22:00; Start 02/04/21 at 21:00 Zolpidem Tartrate (Ambien) 5 mg PRN QHS PRN PO INSOMNIA Last administered on 02/04/21at 23:14; Start 02/04/21 at 23:15 Active Scripts Active Hydrocodone-Apap 5-325 (Hydrocodone Bit/Acetaminophen) 1 Tab Tablet 1 Tab PO PRN Q4HRS PRN Aspirin Ec (Aspirin) 81 Mg Tablet. 81 Mg PO DAILYWBKFT 90 Days Reported Atorvastatin Calcium 10 Mg Tablet 1 Tab PO DAILY Acidophilus (Lactobacillus Acidophilus) 1 Each Capsule 1 Cap PO DAILY 14 Days Humalog (Insulin Lispro) 100 Unit/1 Ml Cartridge 0 SQ TIDAC Tresiba (Insulin Degludec) 100 Unit/1 Ml Vial 14 Unit SQ HS Protonix (Pantoprazole Sodium) 20 Mg Tablet. 40 Mg PO DAILY Lisinopril 40 Mg Tablet 1 Tab PO DAILY Clopidogrel (Clopidogrel Bisulfate) 75 Mg Tablet 1 Tab PO DAILY Vitals/I & O Vital Sign - Last 24 Hours 02/04/21 02/04/21 02/04/21 02/04/21 11:15 11:30 11:45 11:47 Pulse 80 65 89 B/P (MAP) 130/58 (82) 131/59 (83) 120/56 (77) Pulse Ox 99 100 99 O2 Delivery Room Air 02/04/21 02/04/21 02/04/21 02/04/21 12:15 12:47 12:53 13:49 Pulse 94 B/P (MAP) 140/58 (85) Pulse Ox 100 O2 Delivery Room Air Room Air Room Air 02/04/21 02/04/21 02/04/21 02/04/21 15:00 17:01 18:12 19:35 Temp 98.0 98.5 98.0 98.5 Pulse 88 93 Resp 16 18 B/P (MAP) 125/54 (77) 116/48 (70) Pulse Ox 97 98 O2 Delivery Room Air Room Air Room Air Room Air 02/04/21 02/04/21 02/04/21 02/04/21 21:00 21:02 21:32 23:16 Resp 20 20 20 O2 Delivery Room Air Room Air Room Air Room Air 02/04/21 02/05/21 02/05/21 02/05/21 23:26 00:16 03:25 07:00 Temp 98.6 98.5 99.3 98.6 98.5 99.3 Pulse 90 91 95 Resp 18 20 18 16 B/P (MAP) 110/48 (68) 111/52 (71) 157/69 (98) Pulse Ox 98 98 95 O2 Delivery Room Air Room Air Room Air Room Air 02/05/21 02/05/21 02/05/21 07:53 07:55 08:25 Pulse 91 B/P (MAP) 111/52 O2 Delivery Room Air Room Air Intake and Output 02/04/21 02/04/21 02/05/21 15:00 23:00 07:00 Intake Total 850 ml 1480 ml Output Total 210 ml 375 ml 650 ml Balance 640 ml -375 ml 830 ml Justifications for Admission General Conditions Other justification for admit: pvd Other Justification Diabetic foot infection ANNELISE SANCHEZ MD Feb 05, 2021 11:14
[2021-02-05] MEDS: oxyCODONE/APAP 5/325 1 TAB TABLET PO PRN ×2 (11:15→15:46)
[2021-02-05 11:23] LABS: CALCIUM 8.1 mg/dL (8.5-10.1); CREATININE 1.3 mg/dL (0.7-1.3); GFR 66.2; POTASSIUM 4.8 mmol/L (3.5-5.1)
[2021-02-05 15:00] VITALS: BP 139/63
[2021-02-05] MEDS ORDERED: MORPHINE SULFATE 4 MG/ML VIAL. IV PRN (16:45)
--- NOTE | 2021-02-05 17:45 | NUR ---
patient ordered different dinner tray. Awaiting new food order and amount ate before dosing patient.
--- NOTE | 2021-02-05 18:21 | NUR ---
per patient, insulin should be 15 units. Dose given. Will continue to monitor.
[2021-02-05 19:00] VITALS: BP 142/60
[2021-02-05] MEDS: INSULIN GLARGINE SYRINGE. SQ SCH (21:26)
[2021-02-05 23:00] VITALS: BP 146/63
[2021-02-06] MEDS: MORPHINE SULFATE 2 MG/ML VIAL. IV PRN ×2 (02:41→20:10)
[2021-02-06 03:00] VITALS: BP 146/57
[2021-02-06] MEDS: PANTOPRAZOLE 40 MG TABLET.DR. PO SCH (05:32)
[2021-02-06 07:00] VITALS: BP 172/76
[2021-02-06] MEDS: INSULIN LISPRO 300 UNITS/3 ML VIAL. SQ SCH ×2 (07:30)
[2021-02-06] MEDS: LACTOBACILLUS RHAMNOSUS GG 1 CAPSULE. PO SCH (09:03)
[2021-02-06] MEDS: ASPIRIN ENTERIC COATED 81 MG TABLET.DR. PO SCH (09:03)
[2021-02-06] MEDS: LISINOPRIL 20 MG TABLET PO SCH (09:03)
[2021-02-06] MEDS: CLOPIDOGREL BISULFATE 75 MG TABLET PO SCH (09:03)
[2021-02-06] MEDS: ATORVASTATIN CALCIUM 10 MG TABLET. PO SCH (09:03)
--- NOTE | 2021-02-06 09:15 | PDOC ---
[facility] PROGRESS NOTE Date of Service DOS: DATE: 02/06/21 TIME: 09:15 Chief Complaint Chief Complaint A/P: Left foot open wound with eschar with underlying chronic nonhealing LT TMA wound. POST LEFT BKA 02/04. Vascular Surgery, ID, Wound care. Started zosyn. Previously MRDO Cellulitis of left great toe - failed doxycycline outpatient therapy, now with revascularization and augmentin on discharge will have close f/u Diabetes type 2 on insulin pump with hemoglobin A1c 8.4, uncontrolled with target organ damage - not on pump. sliding scale and very low dose glargine CAD - stable Hypertension - chronic Dyslipidemia - chronic stable s/p BKA on 11/[address] Gillette Peripheral arterial disease. Status post angioplasty Mild renal insufficiency Peripheral neuropathy Status post right [id number] amputation FEN - History of Present Illness History of Present Illness Mr Velazquez is a 70yo M w/ PMHx HTN, DM2 (A1c 9), s/p prior R BKA who is directly admitted from vascular surgery for worsening left TMA poorly healing wound. Has been to outpatient wound care for this since 2019 and had vascular surgery and cardiology with angioplasty previously. Conservative care has failed had split thickness graft to left forefoot from left anterior thigh and debridement of left forefoot amputation site on 219 ascular Surgery. Attempts at conservative care have failed, post now in room 416 HAD Split thickness skin graft to left forefoot from left anterior thigh, debridement of left forefoot amputation site. 12-10-20 HGB NOW 10.5 , VSS 02/04: to OR for left BKA for definitive treatment. 02/05: Afebrile. Glucose in the 300s. He feels excellent today. Family visiting bedside. Passing gas but no bowel movement as of yet. Afebrile. Aamir uses home low NovoLog pen. I have let him know he may do this as long as pharmacy was able to access it. He is uncomfortable taking oral oxycodone he feels it makes him too confused and drowsy and would like to try something less strong. Also feels ready to get up out of bed and try balancing with therapy. Vitals/I&O Vitals/I&O: Vital Signs Date Time Temp Pulse Resp B/P (MAP) Pulse Ox O2 Delivery O2 Flow Rate FiO2 02/06/21 09:03 101 172/76 02/06/21 07:00 98.5 18 99 Room Air 98.5 02/06/21 03:11 6.0 I & O 02/05/21 02/05/21 02/06/21 15:00 23:00 07:00 Intake Total 100 ml Output Total 150 ml 400 ml Balance -50 ml -400 ml Physical Exam General: Alert, Oriented X3, Cooperative, No acute distress Lungs: Clear Abdomen: Normal bowel sounds, Soft Extremities: No cyanosis Labs Labs: Laboratory Tests Test 02/05/21 10:55 02/05/21 11:40 02/05/21 16:33 02/05/21 20:58 White Blood Count 10.1 x10^3/uL (4.0-11.0) Red Blood Count 2.80 x10^6/uL (4.30-5.70) Hemoglobin 8.1 g/dL (13.0-17.5) Hematocrit 24.6 % (39.0-53.0) Mean Corpuscular Volume 88 fL (79-100) Mean Corpuscular Hemoglobin 29 pg (25-35) Mean Corpuscular Hemoglobin Concent 33 g/dL (31-37) Red Cell Distribution Width 16.5 % (11.5-14.5) Platelet Count 383 x10^3/uL (140-400) Neutrophils (%) (Auto) 68 % (31-73) Lymphocytes (%) (Auto) 19 % (24-48) Monocytes (%) (Auto) 13 % (0-9) Eosinophils (%) (Auto) 0 % (0-3) Basophils (%) (Auto) 1 % (0-3) Neutrophils # (Auto) 6.9 x10^3/uL (1.8-7.7) Lymphocytes # (Auto) 1.9 x10^3/uL (1.0-4.8) Monocytes # (Auto) 1.3 x10^3/uL (0.0-1.1) Eosinophils # (Auto) 0.0 x10^3/uL (0.0-0.7) Basophils # (Auto) 0.0 x10^3/uL (0.0-0.2) Sodium Level 136 mmol/L (136-145) Potassium Level 4.8 mmol/L (3.5-5.1) Chloride Level 103 mmol/L (98-107) Carbon Dioxide Level 30 mmol/L (21-32) Anion Gap 3 (6-14) Blood Urea Nitrogen 21 mg/dL (8-26) Creatinine 1.3 mg/dL (0.7-1.3) Estimated GFR (Cockcroft-Gault) 66.2 Glucose Level 374 mg/dL (70-99) Calcium Level 8.1 mg/dL (8.5-10.1) Glucose (Fingerstick) 403 mg/dL (70-99) 319 mg/dL (70-99) 311 mg/dL (70-99) Test 02/06/21 05:38 02/06/21 07:51 02/06/21 09:01 Glucose (Fingerstick) 466 mg/dL (70-99) 291 mg/dL (70-99) 294 mg/dL (70-99) Assessment and Plan Goals of Care: Advance Care Planning: Total time spent [id number] with patient greater than 16 minutes in discussion with goals of care, comfort care, end-of-life care, pain management, code status Comment Review of Relevant I have reviewed the following items raudel (where applicable) has been applied. Medications: Current Medications Medications (Trade) Dose Ordered Sig/Dave Route PRN Reason Start Time Stop Time Status Last Admin Dose Admin Morphine Sulfate (Morphine Sulfate) 4 mg PRN Q1HR PRN IV PAIN 02/05/21 16:45 02/05/21 16:52 Justifications for Admission General Conditions Other justification for admit: pvd Other Justification Diabetic foot infection KATARINA RODRIGUEZ MD Feb 06, 2021 09:15
[2021-02-06] MEDS: oxyCODONE/APAP 5/325 1 TAB TABLET PO PRN (10:23)
[2021-02-06 11:00] VITALS: BP 146/68
[2021-02-06] MEDS: traMADol 50 MG TABLET PO PRN (12:04)
--- NOTE | 2021-02-06 13:22 | NUR ---
Patient stated he took 4 units of insulin for his lunch blood sugar.
[2021-02-06 15:00] VITALS: BP 144/61
[2021-02-06] MEDS: NONFORMULARY SQ SCH ×3 (16:30→22:00)
[2021-02-06 19:00] VITALS: BP 153/63
[2021-02-06] MEDS: IV NORMAL SALINE 1000ML BAG 1,000 ML IV SCH (20:12)
[2021-02-06] MEDS: INSULIN GLARGINE SYRINGE. SQ SCH (22:00)
[2021-02-06 23:00] VITALS: BP 152/62
[2021-02-07 03:00] VITALS: BP 157/70
[2021-02-07] MEDS: NONFORMULARY SQ SCH ×7 (07:30→20:49)
[2021-02-07 08:00] VITALS: BP 162/64
[2021-02-07] MEDS: CLOPIDOGREL BISULFATE 75 MG TABLET PO SCH (08:02)
[2021-02-07] MEDS: LACTOBACILLUS RHAMNOSUS GG 1 CAPSULE. PO SCH (08:02)
[2021-02-07] MEDS: ASPIRIN ENTERIC COATED 81 MG TABLET.DR. PO SCH (08:02)
[2021-02-07] MEDS: ATORVASTATIN CALCIUM 10 MG TABLET. PO SCH (08:02)
[2021-02-07] MEDS: PANTOPRAZOLE 40 MG TABLET.DR. PO SCH (08:03)
[2021-02-07] MEDS: LISINOPRIL 20 MG TABLET PO SCH (08:04)
--- NOTE | 2021-02-07 08:12 | NUR ---
Pt gives own insulin. Refuses for staff to give.
--- NOTE | 2021-02-07 08:59 | PDOC ---
Provider Note Date of Service: DATE: 02/07/21 TIME: 08:55 Provider Note Provider Note Vascular S: Patient is without complaints, he is able to lift leg to assist with dressing change. O: Awake and alert VSS, elevated temp overnight, afebrile this am. Left BKA incision dry and intact, mild drainage from drain site. Right BKA incision well healed A/P: POD #3 Left BKA PT/OT SS for discharge planning, patient prefers to go home, will likely need home health Monitor Temp Diabetes-patient using his own NovoLog pen-management per IM, appreciate expertise. Justicifation of Admission Dx: Justifications for Admission: Justification of Admission Dx: Yes SHARON MCKENZIE CUSTOMER DEVELOPMENT REPRESENTATIVE Feb 07, 2021 08:59
[2021-02-07 11:00] VITALS: BP 162/77
--- NOTE | 2021-02-07 13:50 | PDOC ---
[facility] [facility] PROGRESS NOTE Date of Service DOS: DATE: 02/07/21 TIME: 13:49 Chief Complaint Chief Complaint A/P: Left foot open wound with eschar with underlying chronic nonhealing LT TMA wound. POST LEFT BKA 02/04. Vascular Surgery, ID, Wound care. Started zosyn. Previously MRDO Cellulitis of left great toe - failed doxycycline outpatient therapy, now with revascularization and augmentin on discharge will have close f/u Diabetes type 2 on insulin pump with hemoglobin A1c 8.4, uncontrolled with target organ damage - not on pump. sliding scale and very low dose glargine CAD - stable Hypertension - chronic Dyslipidemia - chronic stable s/p BKA on 11/[address] Gillette Peripheral arterial disease. Status post angioplasty Mild renal insufficiency Peripheral neuropathy Status post right [id number] amputation FEN - History of Present Illness History of Present Illness Mr Velazquez is a 70yo M w/ PMHx HTN, DM2 (A1c 9), s/p prior R BKA who is directly admitted from vascular surgery for worsening left TMA poorly healing wound. Has been to outpatient wound care for this since 2018 and had vascular surgery and cardiology with angioplasty previously. Conservative care has failed had split thickness graft to left forefoot from left anterior thigh and debridement of left forefoot amputation site on 219 ascular Surgery. Attempts at conservative care have failed, post now in room 416 HAD Split thickness skin graft to left forefoot from left anterior thigh, debridement of left forefoot amputation site. 12-10-20 HGB NOW 10.5 , VSS 02/04: to OR for left BKA for definitive treatment. 02/05: Afebrile. Glucose in the 300s. He feels excellent today. Family visiting bedside. Passing gas but no bowel movement as of yet. 02/06: Afebrile. Aamir uses home low NovoLog pen. I have let him know he may do this as long as pharmacy was able to access it. He is uncomfortable taking oral oxycodone he feels it makes him too confused and drowsy and would like to try something less strong. Also feels ready to get up out of bed and try balancing with therapy. 02/07/2021 No acute events overnight. Patient with a low-grade 100.5 fever. Dressings were taken down with no obvious source of infection. We will continue observe with Tylenol as needed. Patient's chart, labs, images were reviewed and discussed with RN. Pending PT OT eval. Patient will likely benefit from home health. Vitals/I&O Vitals/I&O: Vital Signs Date Time Temp Pulse Resp B/P (MAP) Pulse Ox O2 Delivery O2 Flow Rate FiO2 02/07/21 11:00 98.8 92 19 162/77 (105) 99 Room Air 98.8 I & O 02/06/21 02/06/21 02/07/21 15:00 23:00 07:00 Intake Total 200 ml 340 ml Output Total 1700 ml Balance -1700 ml 200 ml 340 ml Physical Exam General: Alert, Oriented X3, Cooperative, No acute distress Lungs: Clear Abdomen: Normal bowel sounds, Soft Extremities: No cyanosis Labs Labs: Laboratory Tests Test 02/06/21 16:57 02/06/21 20:49 02/06/21 22:39 02/07/21 07:28 Glucose (Fingerstick) 184 mg/dL (70-99) 188 mg/dL (70-99) 217 mg/dL (70-99) 191 mg/dL (70-99) Test 02/07/21 11:09 Glucose (Fingerstick) 123 mg/dL (70-99) Assessment and Plan Goals of Care: Advance Care Planning: Total time spent [id number] with patient greater than 16 minutes in discussion with goals of care, comfort care, end-of-life care, pain management, code status Comment Review of Relevant I have reviewed the following items raudel (where applicable) has been applied. Medications: Current Medications Medications (Trade) Dose Ordered Sig/Dave Route PRN Reason Start Time Stop Time Status Last Admin Dose Admin Insulin Glargine (Lantus Syringe) 20 unit QHS SQ 02/06/21 21:00 02/06/21 22:00 Justifications for Admission General Conditions Other justification for admit: pvd Other Justification Diabetic foot infection DARRELL EVANS MD Feb 07, 2021 13:50
[2021-02-07] MEDS: IV NORMAL SALINE 1000ML BAG 1,000 ML IV SCH (14:30)
[2021-02-07 15:00] VITALS: BP 159/64
[2021-02-07 19:00] VITALS: BP 168/76
[2021-02-07] MEDS: MAG HYDROX/ALUMINUM HYD/SIMETH 30 ML ORAL.SUSP PO PRN (20:35)
[2021-02-07] MEDS: INSULIN GLARGINE SYRINGE. SQ SCH (20:49)
[2021-02-07] MEDS: DOCUSATE SODIUM 100 MG CAPSULE. PO PRN (21:13)
[2021-02-07] MEDS: traMADol 50 MG TABLET PO PRN ×2 (22:46→22:47)
[2021-02-07 23:00] VITALS: BP 171/70
[2021-02-07] MEDS: ZOLPIDEM 5 MG TABLET. PO PRN (23:42)
[2021-02-08 03:00] VITALS: BP 162/67
[2021-02-08 07:00] VITALS: BP 171/74
[2021-02-08] MEDS: NONFORMULARY SQ SCH ×4 (07:30→11:30)
[2021-02-08] MEDS: IV NORMAL SALINE 1000ML BAG 1,000 ML IV SCH (08:44)
[2021-02-08] MEDS: ASPIRIN ENTERIC COATED 81 MG TABLET.DR. PO SCH (08:44)
[2021-02-08] MEDS: LACTOBACILLUS RHAMNOSUS GG 1 CAPSULE. PO SCH (08:44)
[2021-02-08] MEDS: ATORVASTATIN CALCIUM 10 MG TABLET. PO SCH (08:45)
[2021-02-08] MEDS: CLOPIDOGREL BISULFATE 75 MG TABLET PO SCH (08:45)
[2021-02-08] MEDS: PANTOPRAZOLE 40 MG TABLET.DR. PO SCH (08:45)
[2021-02-08] MEDS: LISINOPRIL 20 MG TABLET PO SCH (08:46)
[2021-02-08] MEDS: MAG HYDROX/ALUMINUM HYD/SIMETH 30 ML ORAL.SUSP PO PRN (09:22)
--- NOTE | 2021-02-08 09:30 | NUR ---
SW following. Discussed with RN, pt from home alone, room air, ada diet. PT/OT recommending home health - pt will discharge home with [facility]. Awaiting confirmation of whether pt can discharge home today. SW will continue to follow.
[2021-02-08 11:00] VITALS: BP 157/68
--- NOTE | 2021-02-08 12:25 | SNU/HH DC ---
DISCHARGE WITH HOME HEALTH DISCHARGE INFORMATION: Discharge Date: Feb 08, 2021 Final Diagnosis: Left foot wound, PVD Condition on Discharge: Stable HOME HEALTH: Face to Face: I certify this patient is under my care and that I, or a nurse practitioner or physician's seismic survey assistant working with me, had a face to face encounter that meets the physician face to face encounter requirements with this patient on 02/08/2021. 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 For Eval/Treatment: Yes Physical Therapy For: Evalulation/Treatment Occupational Therapy For: Evaluation/Treatment Pt Meets Homebound Status: Unsteady balance w/ amb, POST DISCHARGE ORDERS: Activity Instructions for Disc: Activity as tolerated Weight Bearing Status after Di: Non weight bearing DIET AFTER DISCHARGE: ADA Wound/Incision Care: Ice to area for comfort, Keep wound/cast CDI Other wound/incision instructi: Daily dry gauze dressing changes, wear rooke boot at all times, may shower CHECKS AFTER DISCHARGE: Checks after discharge: Check blood press - daily, Check blood sugar, ac/hs, Check your Temp as needed TREATMENT/EQUIPMENT ORDERS: Adaptive Equipment Issued: Wheelchair CERTIFICATION STATEMENT: Certification Statement: Certification Statement: Based on the above finding, I certify that this patient is confined to the home and needs intermittent residential care, physical therapy and/or speech therapy, or continues to need occupational therapy.~ This patient is under my care, and I have initiated the establishment of the plan of care.~ This patient will be followed by myself or a community physician who will periodically review the plan of care. Home Meds Active Scripts Aspirin (ASPIRIN EC) 81 Mg Tablet., 81 MG PO DAILYWBKFT for PVD for 90 Days, #90 TAB.SR 3 Refills Prov:KATARINA RODRIGUEZ MD 04/16/20 Reported Medications Atorvastatin Calcium (ATORVASTATIN CALCIUM) 10 Mg Tablet, 1 TAB PO DAILY for hyperlipidemia, #30 TAB 5 Refills 10/22/20 Lactobacillus Acidophilus (ACIDOPHILUS) 1 Each Capsule, 1 CAP PO DAILY for probiotic for 14 Days, #14 CAP 0 Refills 10/21/20 Insulin Lispro (HUMALOG) 100 Unit/1 Ml Cartridge, 0 SQ TIDAC for diabetes, EACH 05/07/20 Insulin Degludec (Tresiba) 100 Unit/1 Ml Vial, 14 UNIT SQ HS for diabetes , EACH 05/06/20 Pantoprazole Sodium (PROTONIX) 20 Mg Tablet.dr, 40 MG PO DAILY for .., TAB 10/29/18 Lisinopril (LISINOPRIL) 40 Mg Tablet, 1 TAB PO DAILY for HTN, #30 TAB 5 Refills 10/29/18 Clopidogrel Bisulfate (CLOPIDOGREL) 75 Mg Tablet, 1 TAB PO DAILY for .., #90 TAB 1 Refill 10/29/18 Discontinued Scripts Hydrocodone Bit/Acetaminophen (HYDROCODONE-APAP 5-325 ) 1 Tab Tablet, 1 TAB PO PRN Q4HRS PRN for MODERATE PAIN 4-6, #30 TAB Prov:ELIANE STREET MD 10/27/20 SHARON MCKENZIE APRN Feb 08, 2021 12:25
--- NOTE | 2021-02-08 13:16 | PDOC3 ---
Discharge Summary Date of Admission: Feb 04, 2021 Date of Discharge: Feb 08, 2021 Follow-Up: Other (3 weeks) Admitting Diagnosis comment: Left leg peripheral arterial disease with extensive gangrene of his left transmetatarsal open proximal amputation. Brief Hospital Course Mr. Jamison is a 70 old male who presented with left leg peripheral arterial disease with extensive gangrene of his left transmetatarsal open proximal amputation who was admitted following right below knee amputation. Patient progressed as expected postoperative day 2 and 3, he was evaluated by physical and occupational therapy and deemed a good candidate for home health. Internal medicine was consulted for medical management. The patient developed an low grade temperature on day three and remained in the hospital for continued monitoring. He denies any symptoms of infection. Postoperative day four the patient's temperature is within normal limits and he is ready to discharge to home with home health. The patient has minimal pain. He will continue his medications per reconcilliation. He is to follow postoperative incisional care instructions. He is to follow up in 3 weeks. Assessment Awake and alert VSS, afebrile HRR Non-labored respirations Abdomen soft Left below knee amputation incision is dry and intact without swelling CONDITION AT DISCHARGE: Stable Discharge Medications Current Medications Bacitracin 10051 unit/Sodium Chloride 500 ml @ 500 mls/hr 1X ONCE IRR Last administered on 02/04/21at 07:52; Start 02/04/21 at 06:00; Stop 02/04/21 at 06:59; Status DC Fentanyl Citrate (Fentanyl 2ml Vial) 25 mcg PRN Q5MIN PRN IVP MILD PAIN 1-3; Start 02/04/21 at 06:00; Stop 02/04/21 at 16:24; Status DC Fentanyl Citrate (Fentanyl 2ml Vial) 50 mcg PRN Q5MIN PRN IVP MODERATE PAIN 4-6 Last administered on 02/04/21at 09:41; Start 02/04/21 at 06:00; Stop 02/04/21 at 16:24; Status DC Morphine Sulfate (Morphine Sulfate) 1 mg PRN Q10MIN PRN IVP SEVERE PAIN 7-10 Last administered on 02/04/21at 09:27; Start 02/04/21 at 06:00; Stop 02/04/21 at 16:24; Status DC Ringer's Solution 1,000 ml @ 30 mls/hr Q24H IV Last administered on 02/04/21at 07:03; Start 02/04/21 at 06:00; Stop 02/04/21 at 17:59; Status DC Hydromorphone HCl (Dilaudid) 0.5 mg PRN Q10MIN PRN IVP SEVERE PAIN 7-10, 2nd CHOICE Last administered on 02/04/21at 10:03; Start 02/04/21 at 06:00; Stop 02/04/21 at 16:24; Status DC Prochlorperazine Edisylate (Compazine) 5 mg PACU PRN PRN IVP NAUSEA, MRX1; Start 02/04/21 at 06:00; Stop 02/04/21 at 16:24; Status DC Cefazolin Sodium/ Dextrose 50 ml @ 100 mls/hr 1X PREOP PRN IV PRIOR TO PROCEDURE Last administered on 02/04/21at 07:42; Start 02/04/21 at 06:00; Stop 02/04/21 at 16:23; Status DC Insulin Human Lispro (HumaLOG VIAL for OP,RR ONLY) 0-10 units PRN Q1HR PRN SQ PER PROTOCOL Last administered on 02/04/21at 09:33; Start 02/04/21 at 07:00; Stop 02/04/21 at 16:24; Status DC Lidocaine HCl (Lidocaine Pf 2% Vial) 5 ml STK-MED ONCE .ROUTE ; Start 02/04/21 at 07:02; Stop 02/04/21 at 07:03; Status DC Propofol (Diprivan) 200 mg STK-MED ONCE IV ; Start 02/04/21 at 07:02; Stop 02/04/21 at 07:03; Status DC Fentanyl Citrate (Fentanyl 2ml Vial) 100 mcg STK-MED ONCE .ROUTE ; Start 02/04/21 at 07:03; Stop 02/04/21 at 07:03; Status DC Aspirin (Ecotrin) 81 mg DAILYWBKFT PO Last administered on 02/08/21at 08:44; Start 02/04/21 at 08:00 Atorvastatin Calcium (Lipitor) 10 mg DAILY PO Last administered on 02/08/21at 08:45; Start 02/04/21 at 09:00 Clopidogrel Bisulfate (Plavix) 75 mg DAILY PO Last administered on 02/08/21at 08:45; Start 02/04/21 at 09:00 Acetaminophen/ Hydrocodone Bitart (Lortab 5/325) 1 tab PRN Q4HRS PRN PO MILD PAIN 1-3; Start 02/04/21 at 07:30; Stop 02/06/21 at 10:37; Status DC Lisinopril (Prinivil) 40 mg DAILY PO Last administered on 02/08/21at 08:46; Start 02/04/21 at 09:00 Insulin Glargine (Lantus Syringe) 14 unit QHS SQ Last administered on 02/05/21at 21:26; Start 02/04/21 at 21:00; Stop 02/06/21 at 09:15; Status DC Lactobacillus Rhamnosus (Culturelle) 1 cap DAILY PO Last administered on 02/08/21at 08:44; Start 02/04/21 at 09:00 Pantoprazole Sodium (Protonix) 40 mg DAILYAC PO Last administered on 02/08/21at 08:45; Start 02/04/21 at 08:00 Naloxone HCl (Narcan) 0.1 mg PRN Q2MIN PRN IV SEE ADMIN INSTRUCTIONS; Start 02/04/21 at 07:30 Sodium Chloride (Normal Saline Flush) 3 ml QSHIFT PRN IV AFTER MEDS AND BLOOD DRAWS; Start 02/04/21 at 07:30 Sodium Chloride 1,000 ml @ 50 mls/hr Q20H IV Last administered on 02/08/21at 08:44; Start 02/04/21 at 07:30 Oxycodone/ Acetaminophen (Percocet 5/325) 1 tab PRN Q4HRS PRN PO MODERATE PAIN; Start 02/04/21 at 07:30; Stop 02/06/21 at 10:37; Status DC Oxycodone/ Acetaminophen (Percocet 5/325) 2 tab PRN Q4HRS PRN PO SEVERE PAIN Last administered on 02/06/21at 10:23; Start 02/04/21 at 07:30; Stop 02/06/21 at 10:37; Status DC Acetaminophen (Tylenol) 650 mg Q8HRS PO ; Start 02/04/21 at 08:00; Stop 02/04/21 at 13:36; Status DC Morphine Sulfate (Morphine Sulfate) 2 mg PRN Q1HR PRN IV PAIN-SEE COMMENTS Last administered on 02/06/21at 20:10; Start 02/04/21 at 07:30 Naloxone HCl (Narcan) 0.4 mg PRN Q2MIN PRN IV SEE INSTRUCTIONS; Start 02/04/21 at 07:30; Stop 02/04/21 at 16:26; Status DC Sodium Chloride 1,000 ml @ 25 mls/hr Q24H IV ; Start 02/04/21 at 07:30; Stop 02/04/21 at 16:24; Status DC Cefazolin Sodium (Ancef) 1 gm Q8H IVP Last administered on 02/04/21at 23:16; Start 02/04/21 at 15:30; Stop 02/04/21 at 23:31; Status DC Ondansetron HCl (Zofran) 4 mg STK-MED ONCE .ROUTE ; Start 02/04/21 at 07:50; Stop 02/04/21 at 07:50; Status DC Labetalol HCl (Normodyne Iv Push) 20 mg STK-MED ONCE IVP ; Start 02/04/21 at 08:32; Stop 02/04/21 at 08:32; Status DC Sevoflurane (Ultane) 60 ml STK-MED ONCE IH ; Start 02/04/21 at 08:47; Stop 02/04/21 at 08:47; Status DC Morphine Sulfate (Morphine Sulfate) 2 mg STK-MED ONCE .ROUTE ; Start 02/04/21 at 09:15; Stop 02/04/21 at 09:15; Status DC Fentanyl Citrate (Fentanyl 2ml Vial) 100 mcg STK-MED ONCE .ROUTE ; Start 02/04/21 at 09:28; Stop 02/04/21 at 09:28; Status DC Sodium Chloride (Normal Saline Flush) 3 ml QSHIFT PRN IV AFTER MEDS AND BLOOD DRAWS; Start 02/04/21 at 13:15; Status Cancel Sodium Chloride 1,000 ml @ 75 mls/hr [id number] IV ; Start 02/04/21 at 13:15; Stop 02/04/21 at 13:36; Status DC Ondansetron HCl (Zofran) 4 mg PRN Q4HRS PRN IV NAUSEA/VOMITING; Start 02/04/21 at 13:15 Acetaminophen (Tylenol) 650 mg PRN Q4HRS PRN PO TEMP OVER 100.4F Last administered on 02/07/21at 02:11; Start 02/04/21 at 13:15 Al Hydroxide/Mg Hydroxide (Mylanta Plus Xs) 30 ml PRN DAILY PRN PO HEARTBURN / GAS Last administered on 02/08/21at 09:22; Start 02/04/21 at 13:15 Sodium Monofluorophosphate (Fleet Adult) 133 ml PRN DAILY PRN VT CONSTIPATION; Start 02/04/21 at 13:15 Docusate Sodium (Colace) 100 mg PRN BID PRN PO HARD STOOLS Last administered on 02/07/21at 21:13; Start 02/04/21 at 13:15 Albuterol Sulfate (Ventolin Neb Soln) 2.5 mg PRN Q4HRS PRN NEB SHORTNESS OF BREATH; Start 02/04/21 at 13:15 Guaifenesin (Robitussin) 200 mg PRN Q4HRS PRN PO COUGH; Start 02/04/21 at 13:15 Lorazepam (Ativan) 0.5 mg PRN Q4HRS PRN PO ANXIETY / AGITATION; Start 02/04/21 at 13:15 Insulin Human Lispro (HumaLOG) 0-9 UNITS TIDACHC SQ Last administered on 02/05/21at 18:21; Start 02/04/21 at 21:00; Stop 02/06/21 at 11:47; Status DC Dextrose (Dextrose 50%-Water Syringe) 12.5 gm PRN Q15MIN PRN IV SEE COMMENTS; Start 02/04/21 at 21:00 Insulin Human Lispro (HumaLOG) 3 units TIDAC SQ Last administered on 02/05/21at 18:19; Start 02/05/21 at 07:30; Stop 02/06/21 at 11:45; Status DC Insulin Human Lispro (HumaLOG) 12 units 1X ONCE SQ Last administered on 02/04/21at 22:05; Start 02/04/21 at 21:00; Stop 02/04/21 at 21:03; Status DC Hydroxyzine HCl (Atarax) 25 mg PRN Q6HRS PRN PO ITCHING Last administered on 02/04/21at 22:00; Start 02/04/21 at 21:00 Zolpidem Tartrate (Ambien) 5 mg PRN QHS PRN PO INSOMNIA Last administered on 02/07/21at 23:42; Start 02/04/21 at 23:15 Morphine Sulfate (Morphine Sulfate) 4 mg PRN Q1HR PRN IV PAIN Last administered on 02/05/21at 16:52; Start 02/05/21 at 16:45 Insulin Glargine (Lantus Syringe) 20 unit QHS SQ Last administered on 02/07/21at 20:49; Start 02/06/21 at 21:00 Tramadol HCl (Ultram) 50 mg PRN Q6HRS PRN PO PAIN Last administered on 02/07/21at 22:47; Start 02/06/21 at 10:45 Insulin Human Lispro (HumaLOG) 3 units TIDAC SQ ; Start 02/06/21 at 16:30 Insulin Human Lispro (HumaLOG) 0-9 UNITS TIDACHC SQ Last administered on 02/07/21at 20:49; Start 02/06/21 at 16:30 Active Scripts Active Aspirin Ec (Aspirin) 81 Mg Tablet.dr 81 Mg PO DAILYWBKFT 90 Days Reported Atorvastatin Calcium 10 Mg Tablet 1 Tab PO DAILY Acidophilus (Lactobacillus Acidophilus) 1 Each Capsule 1 Cap PO DAILY 14 Days Humalog (Insulin Lispro) 100 Unit/1 Ml Cartridge 0 SQ TIDAC Tresiba (Insulin Degludec) 100 Unit/1 Ml Vial 14 Unit SQ HS Protonix (Pantoprazole Sodium) 20 Mg Tablet.dr 40 Mg PO DAILY Lisinopril 40 Mg Tablet 1 Tab PO DAILY Clopidogrel (Clopidogrel Bisulfate) 75 Mg Tablet 1 Tab PO DAILY Vital Signs Vital Signs Date Time Temp Pulse Resp B/P (MAP) Pulse Ox O2 Delivery O2 Flow Rate FiO2 02/08/21 11:00 98.0 157/68 (97) 98.0 02/08/21 08:46 98 02/08/21 07:00 18 97 Room Air 02/08/21 00:02 6.0 Labs Laboratory Tests Test 02/06/21 16:57 02/06/21 20:49 02/06/21 22:39 02/07/21 07:28 Glucose (Fingerstick) 184 mg/dL (70-99) 188 mg/dL (70-99) 217 mg/dL (70-99) 191 mg/dL (70-99) Test 02/07/21 11:09 02/07/21 16:30 02/07/21 21:02 02/08/21 07:16 Glucose (Fingerstick) 123 mg/dL (70-99) 146 mg/dL (70-99) 173 mg/dL (70-99) 134 mg/dL (70-99) Test 02/08/21 10:49 Glucose (Fingerstick) 175 mg/dL (70-99) Laboratory Tests Test 02/07/21 16:30 02/07/21 21:02 02/08/21 07:16 02/08/21 10:49 Glucose (Fingerstick) 146 mg/dL (70-99) 173 mg/dL (70-99) 134 mg/dL (70-99) 175 mg/dL (70-99) Allergies Allergies Coded Allergies Type Severity Reaction Last Updated Verified I S O L A T I O N *CONTACT* Allergy Unknown 02/04/21 Yes No Known Medication Allergies Allergy Unknown 02/04/21 Yes Disposition/Orders: D/C to Home w/ HH Patient Instructions May shower Daily dry gauze dressings Continue rigid rooke boot protector at all times PT/OT Justicifation of Admission Dx: Justifications for Admission: Justification of Admission Dx: Yes SHARON MCKENZIE APRN Feb 08, 2021 13:16
[2021-02-08 15:00] VITALS: BP 154/73
--- NOTE | 2021-02-08 16:30 | NUR ---
Pt discharged home with self care. Discharge instructions discussed. Pt verbalized understanding. IV removed. Pt packed belongings himself. Pt assisted to wheelchair and was secured in car with family.
--- NOTE | 2021-02-08 17:55 | PDOC ---
[employer] PROGRESS NOTE Date of Service DOS: DATE: 02/08/21 TIME: 17:55 Chief Complaint Chief Complaint A/P: Left foot open wound with eschar with underlying chronic nonhealing LT TMA wound. POST LEFT BKA 02/04. Vascular Surgery, ID, Wound care. Started zosyn. Previously MRDO Cellulitis of left great toe - failed doxycycline outpatient therapy, now with revascularization and augmentin on discharge will have close f/u Diabetes type 2 on insulin pump with hemoglobin A1c 8.4, uncontrolled with target organ damage - not on pump. sliding scale and very low dose glargine CAD - stable Hypertension - chronic Dyslipidemia - chronic stable s/p BKA on 11/[address] Gillette Peripheral arterial disease. Status post angioplasty Mild renal insufficiency Peripheral neuropathy Status post right [id number] amputation FEN - History of Present Illness History of Present Illness Mr Velazquez is a 70yo M w/ PMHx HTN, DM2 (A1c 9), s/p prior R BKA who is directly admitted from vascular surgery for worsening left TMA poorly healing wound. Has been to outpatient wound care for this since 2018 and had vascular surgery and cardiology with angioplasty previously. Conservative care has failed had split thickness graft to left forefoot from left anterior thigh and debridement of left forefoot amputation site on 219 ascular Surgery. Attempts at conservative care have failed, post now in room 416 HAD Split thickness skin graft to left forefoot from left anterior thigh, debridement of left forefoot amputation site. 12-10-20 HGB NOW 10.5 , VSS 02/04: to OR for left BKA for definitive treatment. 02/05: Afebrile. Glucose in the 300s. He feels excellent today. Family visiting bedside. Passing gas but no bowel movement as of yet. 02/06: Afebrile. Aamir uses home low NovoLog pen. I have let him know he may do this as long as pharmacy was able to access it. He is uncomfortable taking oral oxycodone he feels it makes him too confused and drowsy and would like to try something less strong. Also feels ready to get up out of bed and try balancing with therapy. 02/07/2021 No acute events overnight. Patient with a low-grade 100.5 fever. Dressings were taken down with no obvious source of infection. We will continue observe with Tylenol as needed. Patient's chart, labs, images were reviewed and discussed with RN. Pending PT OT eval. Patient will likely benefit from home health. Vitals/I&O Vitals/I&O: Vital Signs Date Time Temp Pulse Resp B/P (MAP) Pulse Ox O2 Delivery O2 Flow Rate FiO2 02/08/21 15:00 98.5 82 18 154/73 (100) 98 Room Air 98.5 02/08/21 00:02 6.0 I & O 02/07/21 02/07/21 02/08/21 15:00 23:00 07:00 Intake Total 200 ml 200 ml 500 ml Output Total 500 ml 500 ml 1400 ml Balance -300 ml -300 ml -900 ml Physical Exam General: Alert, Oriented X3, Cooperative, No acute distress Lungs: Clear Abdomen: Normal bowel sounds, Soft Extremities: No cyanosis Labs Labs: Laboratory Tests Test 02/07/21 21:02 02/08/21 07:16 02/08/21 10:49 Glucose (Fingerstick) 173 mg/dL (70-99) 134 mg/dL (70-99) 175 mg/dL (70-99) Comment Review of Relevant I have reviewed the following items raudel (where applicable) has been applied. Justifications for Admission General Conditions Other justification for admit: pvd Other Justification Diabetic foot infection DARRELL EVANS MD Feb 08, 2021 17:55
--- NOTE | 2021-02-09 15:14 | PATHOLOGY ---
[facility] Accession Number: [id number] . 01 Material submitted: . knee - LEFT BELOW KNEE AMPUTATION. Modifiers: left, BELOW . 01 Clinical history: . PRE-OP DIAGNOSIS: ATHEROSCLEROSIS OF ARTERY OF EXTREMITY WITH GANGRENE LEFT BKD PENDING . 02 Diagnosis: Left leg below knee amputation: - Status post partial forefoot amputation, with large area of ulceration, necrosis, acute inflammation, and focal dystrophic calcification of amputation stump. - Skin and subcutaneous tissue of proximal amputation margin viable. - Extensive medial arterial calcification of anterior and posterior tibial arteries. (JPM:[facility] 02/08/2021) [facility] 02/09/2021 1437 Local . 02 Electronically signed: . Avi Dang MD, Pathologist NPI- [id number] . 01 Gross description: . The specimen is received fresh in a red biohazard bag, labeled "Tobi Velazquez Jr., left BKA". Received is a left [id number] amputation, with a previous partial forefoot amputation performed, measuring 14.2 cm from distal foot stump to heel, 20.9 cm from heel to skin margin, 32.1 cm from heel to fibular bone margin, and 36.1 cm from heel to tibial bone margin. Both bone margins are blunt and transected in appearance, and appear grossly unremarkable. The skin and soft tissue margins appear grossly viable. At the distal aspect of the foot stump, at the site of prior forefoot amputation, there is a non-healing wound, which is pink-lee to dusky dowell-brown and necrotic in appearance, measuring 8.5 x 6.1 cm, which is 17.3 cm from the closest skin margin. Sectioning reveals the presence of bone 0.1 cm below the aspect of the lesion the remainder of the skin is dusky dowell-brown and sloughing in appearance. Sectioning through the anterior tibial vasculature reveals patent and partially calcified lumens. Sectioning through the posterior tibial vasculature reveals pinpoint to patent lumens with a metallic stent identified within one vessel. The stent is removed and the proximal margin of the posterior tibial vasculature is removed. The specimen is submitted representatively as follows: . A1 skin and soft tissue margin A2 publications sales representative sections of lesion from distal aspect of foot stump A3 anterior tibial vasculature margin A4 posterior tibial vascular margin. . A gross photograph is taken. ([facility]; 02/07/2021) QAC/QA 02/07/2021 1525 Local . 02 Pathologist provided ICD-10: I70.248, L98.499, I96 . 02 CPT . 127476 Specimen Comment: A courtesy copy of this report has been sent to [phone], [phone] Specimen Comment: [id number] Specimen Comment: Report sent to / DR FRANZ Performed at: 01 [facility] [address], [place] [id number] MD Helio David MD Phone: [phone] Performed at: 02 [facility] [address] [place], [place] [id number] MD Avi Dang MD Phone: [phone]
== END 2021-02-08 16:50 | disposition home health service (06) | DRG 240 ==
LOC: OPSVCIP 06:06 → 4 NORTH 10:13
PROVIDERS: ADMIT Surgery Vascular Surgery; ATTEND Surgery Vascular Surgery
PROC: 0Y6J0Z3 Detachment at Left Lower Leg, Low, Open Approach (ICD-10-PCS; principal; 2021-02-04 07:30)
DX: E11.52 Type 2 diabetes mellitus with diabetic peripheral angiopathy with gangrene (principal); I96 Gangrene, not elsewhere classified; L03.032 Cellulitis of left toe; S91.302A Unspecified open wound, left foot, initial encounter; E78.5 Hyperlipidemia, unspecified; K21.9 Gastro-esophageal reflux disease without esophagitis; I25.10 Atherosclerotic heart disease of native coronary artery without angina pectoris; I10 Essential (primary) hypertension; Z96.41 Presence of insulin pump (external) (internal); N28.9 Disorder of kidney and ureter, unspecified; G47.00 Insomnia, unspecified; X58.XXXA Exposure to other specified factors, initial encounter; E11.42 Type 2 diabetes mellitus with diabetic polyneuropathy; Z89.511 Acquired absence of right leg below knee; Z83.3 Family history of diabetes mellitus; Z82.49 Family history of ischemic heart disease and other diseases of the circulatory system; Z83.49 Family history of other endocrine, nutritional and metabolic diseases; Z79.4 Long term (current) use of insulin; Y93.89 Activity, other specified; Y92.89 Other specified places as the place of occurrence of the external cause; Y99.8 Other external cause status; Z89.432 Acquired absence of left foot
CPT/HCPCS: 36415; 80048; 82962; 85025; A4930; A6223; A6402; A6443; A6449; A6450; A6455; A6457; J0690; J1170; J1815; J2270; J2405; J2704; J3010; J3490; J7030; J7040; J7120; 97110-GP; 97530-GP; 97535-GO; G0378

== ENCOUNTER → 2021-09-05 | Outpatient (CLI) | payer MEDICARE ==
[~2021-09-05] MED LIST changes: -BACITRACIN 50,000 UNIT in IV NORMAL SALINE 500ML BAG 500 ML IRR ONE; -HYDROmorphone 2 MG/ML VIAL IVP PRN; -IV RINGERS,LACTATED 1000ML 1,000 ML IV SCH; -PROCHLORPERAZINE 10 MG/2 ML VIAL. IVP PRN; -fentaNYL PF VIAL 100 MCG/2 ML VIAL IVP PRN
--- NOTE | 2021-09-06 09:18 | KCIC ---
STUDY: MRI of the right shoulder without contrast INDICATION: Right shoulder pain. Limited range of motion. COMPARISON: Right shoulder radiographs 06/14/2021 TECHNIQUE: Multiplanar MR imaging of the right shoulder performed without the use of intravenous or i ntra-articular contrast. FINDINGS: AC joint: Moderate arthrosis at the AC joint. Unremarkable subacromial subdeltoid bursa. Rotator cuff: No high-grade or full-thickness tendon tear. Supraspinatus more so than infraspinatus t endinosis. Within normal limits subscapularis and teres minor. Maintained muscular bulk. Labrum: Degenerative SLAP-type tear extending to the posterior/superior labrum. Long head biceps tendon: Long head biceps tendinosis predominantly intra-articular and extending a sh ort distance into the bicipital groove. Cartilage: High-grade chondral loss involving large portions of both the glenoid and humeral head. Bones: Degenerative cystic change and adjacent marrow edema along the medial margin of the greater tu berosity subjacent to the supraspinatus insertion. Less pronounced degenerative cystic change along t he bicipital groove. Glenoid more so than humeral head osteophyte formation. No acute fracture or foc ally aggressive marrow signal abnormality. Miscellaneous: Small glenohumeral joint effusion with mild synovitis and a few loose bodies. Unremark able axillary soft tissues. Impression: 1. Glenohumeral joint arthrosis is moderate with multifocal high-grade chondral loss as well as a sm all joint effusion with mild synovitis and a few loose bodies. Moderate arthrosis at the AC joint. 2. No high-grade or full-thickness rotator cuff tear. Supraspinatus more so than infraspinatus tendi nosis. 3. Degenerative SLAP-type tear extending to the posterior/superior quadrant. 4. Long head biceps tendinosis mainly involving the intra-articular portion. Electronically signed by: STARLA LUJAN MD (09/06/2021 9:16 AM) [id number]
== END ==
LOC: KCIC MRI 13:57
PROVIDERS: ATTEND Nurse Practitioner
DX: M19.011 Primary osteoarthritis, right shoulder (principal); M25.411 Effusion, right shoulder; M65.811 Other synovitis and tenosynovitis, right shoulder; M24.011 Loose body in right shoulder
CPT/HCPCS: 73221